=== PATIENT | female | born 1955 | race Caucasian/White ===

== ENCOUNTER 2016-05-01 21:42 | Emergency (ER) | payer BC, MEDICARE ==
[2016-05-01 21:55] VITALS: RESP 18
[2016-05-01] MEDS ORDERED: METOCLOPRAMIDE 5 MG/ML 2 ML VIAL IVP STA (22:18)
[2016-05-01] MEDS ORDERED: SODIUM CHLORIDE 0.9% 500 ML IV STA (22:18)
[2016-05-01] MEDS ORDERED: SODIUM CHLORIDE 0.9% 1,000 ML IV STA (22:18)
--- NOTE | 2016-05-01 22:30 | ED ---
Nausea/Vomiting/Diarrhea HPI - General Chief complaint: Nausea/Vomiting/Diarrhea Stated complaint: vomiting Time Seen by Provider: 05/01/16 22:16 Source: patient, RN notes reviewed Mode of arrival: ambulatory Limitations: no limitations - History of Present Illness Initial comments: 61-year-old female presents emergency Department with chief complaint of nausea vomiting over the last few days. Patient states she's had no sick contacts. Denies any change in bowel habits including diarrhea constipation. Patient denies fever, chills, night sweats. Patient has no chest pain or shortness of breath. Patient states that she has no abdominal surgery history. Patient denies any dysuria hematuria. - Related Data Home Medications Medication Instructions Recorded Confirmed Aspirin 81 mg PO DAILY 09/21/13 05/01/16 Diclofenac Sodium [Voltaren] 75 mg PO BID 09/21/13 05/01/16 Fluticasone/Salmeterol [Advair 1 puff INHALATION RT-BID 09/21/13 05/01/16 250-50 Diskus] Levothyroxine Sodium [Synthroid] 150 mcg PO QAM 09/21/13 05/01/16 Montelukast Sodium [Singulair] 10 mg PO HS 09/21/13 05/01/16 Omeprazole [PriLOSEC] 20 mg PO BID 09/21/13 05/01/16 Pravastatin Sodium [Pravachol] 40 mg PO HS 09/21/13 05/01/16 Primidone [Mysoline] 50 mg PO AC-BID 09/21/13 05/01/16 QUEtiapine [SEROquel] 100 mg PO HS 09/21/13 05/01/16 Ranitidine HCl 150 mg PO BID 09/21/13 05/01/16 Topiramate [Topamax] 50 mg PO BID 09/21/13 05/01/16 Cyclobenzaprine [Flexeril] 10 mg PO HS 06/10/15 05/01/16 Furosemide [Lasix] 40 mg PO BID 06/10/15 05/01/16 Metoclopramide [Reglan] 10 mg PO DAILY 06/10/15 05/01/16 Albuterol Nebulized [Ventolin 2.5 mg INHALATION RT-Q6H PRN 05/01/16 05/01/16 Nebulized] Canagliflozin [Invokana] 300 mg PO DAILY 05/01/16 05/01/16 Ferrous Sulfate [Feosol] 325 mg PO BID 05/01/16 05/01/16 Gabapentin 800 mg PO QID 05/01/16 05/01/16 Insulin Lispro [humaLOG Kwikpen] See Protocol SQ ACHS 05/01/16 05/01/16 Lisinopril [Zestril] 5 mg PO DAILY 05/01/16 05/01/16 traZODone HCL [Desyrel] 100 mg PO HS 05/01/16 05/01/16 Previous Rx's Medication Instructions Recorded Ondansetron Odt [Zofran Odt] 4 mg PO Q8HR PRN #10 tab 05/02/16 Allergies Allergy/AdvReac Type Severity Reaction Status Date / Time acetaminophen [From Vicodin] Allergy Rash/Hives Verified 05/01/16 22:42 aminophylline Allergy Rash/Hives Verified 05/01/16 22:42 cephalexin monohydrate Allergy Rash/Hives Verified 05/01/16 22:42 [From Keflex] diazepam [From Valium] Allergy Rash/Hives Verified 05/01/16 22:42 hydrocodone bitartrate Allergy Rash/Hives Verified 05/01/16 22:42 [From Vicodin] Iodinated Contrast Media - Allergy Rash/Hives Verified 05/01/16 22:42 Oral and [Iodinated Contrast Media - IV Dye] latex Allergy Rash/Hives Verified 05/01/16 22:42 Latex, Natural Rubber Allergy Rash/Hives Verified 05/01/16 22:42 levofloxacin [From Levaquin] Allergy Rash/Hives Verified 05/01/16 22:42 metformin HCl Allergy Rash/Hives Verified 05/01/16 22:42 [From Glucophage] morphine Allergy Rash/Hives Verified 05/01/16 22:42 Penicillins Allergy Rash/Hives Verified 05/01/16 22:42 Sulfa (Sulfonamide Allergy Rash/Hives Verified 05/01/16 22:42 Antibiotics) sulfamethoxazole Allergy Rash/Hives Verified 05/01/16 22:42 [From Bactrim] tetracycline [Tetracycline] Allergy Rash/Hives Verified 05/01/16 22:42 theophylline Allergy Rash/Hives Verified 05/01/16 22:42 tramadol Allergy Dyspnea Verified 05/01/16 22:42 trimethoprim [From Bactrim] Allergy Rash/Hives Verified 05/01/16 22:42 Review of Systems ROS Statement: Those systems with pertinent positive or pertinent negative responses have been documented in the HPI. ROS Other: All systems not noted in ROS Statement are negative. Past Medical History Past Medical History: Asthma, Heart Failure, COPD, CVA/TIA, Diabetes Mellitus, GERD/Reflux, Hypertension, Osteoarthritis (OA), Pneumonia, Renal Disease, Thyroid Disorder Additional Past Medical History / Comment(s): neuropathy,fibromyalgia,IBS, Migranes,sleep apnea,chronic lower backand neck diogenes,bronchitis, pleurisy, scoliosis,degenerative disc disease,carpal tunnel, History of Any Multi-Drug Resistant Organisms: None Reported Past Surgical History: Breast Surgery, Hysterectomy, Joint Replacement, Orthopedic Surgery, Tonsillectomy Additional Past Surgical History / Comment(s): lt knee, lt foot, rt ankle, rt foot, s. TOTAL LEFT KNEE (CERAMIC). LEFT BREAST STERIOSTATIC-NEGATIVE Past Anesthesia/Blood Transfusion Reactions: Motion Sickness Past Psychological History: Anxiety, Depression Smoking Status: Never smoker Past Alcohol Use History: None Reported Past Drug Use History: None Reported General Exam Limitations: no limitations General appearance: alert, in no apparent distress Eye exam: Present: normal appearance, PERRL, EOMI. Absent: scleral icterus, conjunctival injection, periorbital swelling ENT exam: Present: mucous membranes moist Respiratory exam: Present: normal lung sounds bilaterally. Absent: respiratory distress, wheezes, rales, rhonchi, stridor Cardiovascular Exam: Present: regular rate, normal rhythm, normal heart sounds. Absent: systolic murmur, diastolic murmur, rubs, gallop, clicks GI/Abdominal exam: Present: soft, normal bowel sounds. Absent: distended, tenderness, guarding, rebound, rigid Back exam: Absent: CVA tenderness (R), CVA tenderness (L) Skin exam: Present: warm, dry, intact, normal color. Absent: rash Course Vital Signs 05/01/16 21:52 Temperature 98.4 F Pulse Rate 93 Respiratory 18 Rate Blood Pressure 137/66 O2 Sat by Pulse 96 Oximetry - Reevaluation(s) Reevaluation #1: 05/02/16 00:41 Patient was reevaluated. Patient states she does feel slightly improved at this time. Patient did urinate though she put toilet paper in the stable. Patient will be given an additional 500 ml normal saline. Patient we discharged Mikaela. 05/02/16 00:41 Medical Decision Making - Medical Decision Making 61-year-old female presented for nausea vomiting diarrhea 2 days. Patient's laboratory within normal limits. There is no evidence of dehydration. Patient has not had any episodes of vomiting in the emergency department. Patient's x- ray does not show an acute abnormality. Patient be discharged Zofran with follow-up with primary care physician. - Lab Data Result diagrams: 05/01/16 23:04 05/01/16 23:04 Lab Results 05/01/16 05/01/16 Range/Units 23:04 23:04 WBC 6.9 (3.8-10.6) k/uL RBC 4.35 (3.80-5.40) m/uL Hgb 13.7 (11.4-16.0) gm/dL Hct 42.1 (34.0-46.0) % MCV 96.9 (80.0-100.0) fL MCH 31.5 (25.0-35.0) pg MCHC 32.5 (31.0-37.0) g/dL RDW 13.2 (11.5-15.5) % Plt Count 163 (150-450) k/uL Neutrophils % 67 % Lymphocytes % 23 % Monocytes % 7 % Eosinophils % 0 % Basophils % 1 % Neutrophils # 4.7 (1.3-7.7) k/uL Lymphocytes # 1.6 (1.0-4.8) k/uL Monocytes # 0.5 (0-1.0) k/uL Eosinophils # 0.0 (0-0.7) k/uL Basophils # 0.0 (0-0.2) k/uL Sodium 143 (137-145) mmol/L Potassium 4.3 (3.5-5.1) mmol/L Chloride 107 (98-107) mmol/L Carbon Dioxide 19 L (22-30) mmol/L Anion Gap 17 mmol/L BUN 15 (7-17) mg/dL Creatinine 0.60 (0.52-1.04) mg/dL Est GFR (MDRD) Af Amer >60 (>60 ml/min/1.73 sqM) Est GFR (MDRD) Non-Af >60 (>60 ml/min/1.73 sqM) Glucose 187 H (74-99) mg/dL Calcium 9.1 (8.4-10.2) mg/dL Total Bilirubin 0.6 (0.2-1.3) mg/dL AST 30 (14-36) U/L ALT 45 (9-52) U/L Alkaline Phosphatase 80 (38-126) U/L Total Protein 6.4 (6.3-8.2) g/dL Albumin 3.6 (3.5-5.0) g/dL Amylase <30 L (30-110) U/L Lipase 32 (23-300) U/L Disposition Clinical Impression: Nausea vomiting and diarrhea Disposition: HOME SELF-CARE Condition: Stable Instructions: Acute Nausea and Vomiting (ED) Additional Instructions: Please return to the Emergency Department if symptoms worsen or any other concerns. Prescriptions: Ondansetron Odt [Zofran Odt] 4 mg PO Q8HR PRN #10 tab PRN Reason: Nausea Time of Disposition: 00:43
[2016-05-01 23:27] LABS: Basophils % (A) 1 %; CH 31.9; CHCM 33.1; Eosinophils % (A) 0 %; HCT 42.1 % (34.0-46.0); HDW 2.42; HGB 13.7 gm/dL (11.4-16.0); Luc # (Auto) 0.14; Luc % (Auto) 2; Lymphocytes # (A) 1.6 k/uL (1.0-4.8); Lymphocytes % (A) 23 %; MCH 31.5 pg (25.0-35.0); MCHC 32.5 g/dL (31.0-37.0); MCV 96.9 fL (80.0-100.0); Mean Platelet Volume 10.4; Monocytes # (A) 0.5 k/uL (0-1.0); Monocytes % (A) 7 %; Neutrophils # (A) 4.7 k/uL (1.3-7.7); Neutrophils % (A) 67 %; RBC 4.35 m/uL (3.80-5.40); RDW 13.2 % (11.5-15.5); WBC 6.9 k/uL (3.8-10.6); WBC (Perox) 6.95
[2016-05-01 23:31] LABS: ALT 45 U/L (9-52); AST 30 U/L (14-36); Alkaline Phosphatase 80 U/L (38-126); Amylase <30 U/L (30-110); Anion Gap 17 mmol/L; Blood Urea Nitrogen 15 mg/dL (7-17); Calcium 9.1 mg/dL (8.4-10.2); Carbon Dioxide 19 mmol/L (22-30); Chloride 107 mmol/L (98-107); Glucose 187 mg/dL (74-99); Non-African American GFR(MDRD) >60 (>60 ml/min/1.73 sqM); Potassium 4.3 mmol/L (3.5-5.1); Sodium 143 mmol/L (137-145); Total Bilirubin 0.6 mg/dL (0.2-1.3); Total Protein 6.4 g/dL (6.3-8.2)
[2016-05-01] MEDS ORDERED: FAMOTIDINE 20 MG/2 ML VIAL IV STA (23:42)
[2016-05-01] MEDS ORDERED: ONDANSETRON 4 MG/2 ML VIAL IVP STA (23:42)
--- NOTE | 2016-05-02 00:17 | XR ---
EXAMINATION TYPE: XR KUB DATE OF EXAM: 05/01/2016 11:13 PM CLINICAL HISTORY: Nausea, vomiting and abdominal pain. TECHNIQUE: 3 radiographs of abdomen were obtained in supine position. COMPARISON: 10/16/2012 FINDINGS: Scattered gas is seen in non-distended small bowel loops. Gas and fecal material is seen in non-distended colon. There is no visceromegaly, pneumoperitoneum, or abnormal calcification appr eciated. The lung bases are clear and the osseous structures are intact. IMPRESSION: Overall nonobstructive bowel gas pattern.
[2016-05-02] MEDS ORDERED: SODIUM CHLORIDE 0.9% 500 ML IV ONE ×2 (00:41→00:43)
[2016-05-02 01:20] VITALS: BP 122/58; PULSE 102; TEMP 98
== END 2016-05-02 01:40 | disposition home or self-care (01) ==
LOC: EC 21:42
DX: R11.2 Nausea with vomiting, unspecified (principal); R19.7 Diarrhea, unspecified; I11.0 Hypertensive heart disease with heart failure; I50.9 Heart failure, unspecified; E07.9 Disorder of thyroid, unspecified; G62.9 Polyneuropathy, unspecified; M79.7 Fibromyalgia; M19.90 Unspecified osteoarthritis, unspecified site; K21.9 Gastro-esophageal reflux disease without esophagitis; E11.9 Type 2 diabetes mellitus without complications; J45.909 Unspecified asthma, uncomplicated; J44.9 Chronic obstructive pulmonary disease, unspecified; F32.9 Major depressive disorder, single episode, unspecified; F41.9 Anxiety disorder, unspecified; Z79.51 Long term (current) use of inhaled steroids; Z79.82 Long term (current) use of aspirin; Z79.1 Long term (current) use of non-steroidal anti-inflammatories (NSAID); Z79.4 Long term (current) use of insulin; Z79.84 Long term (current) use of oral hypoglycemic drugs; Z79.899 Other long term (current) drug therapy; Z88.0 Allergy status to penicillin; Z88.1 Allergy status to other antibiotic agents; Z88.2 Allergy status to sulfonamides; Z88.5 Allergy status to narcotic agent; Z88.6 Allergy status to analgesic agent; Z91.041 Radiographic dye allergy status; Z91.040 Latex allergy status; Z88.8 Allergy status to other drugs, medicaments and biological substances
CPT/HCPCS: 36415; 80053; 82150; 83690; 85025; 74000; 99284; 96374; 96375 ×2; 96361 ×2; J2765; J2405

== ENCOUNTER 2016-05-07 05:05 | Inpatient (IN) | payer MEDICARE ==
[2016-05-07] MEDS ORDERED: SODIUM CHLORIDE 0.9% 1,000 ML IV STA (05:11)
--- NOTE | 2016-05-07 05:16 | ED ---
Altered Mental Status HPI - General Source: EMS, RN notes reviewed Mode of arrival: EMS - History of Present Illness MD Complaint: decreased responsiveness <Rodrigo Chun - Last Filed: 05/07/16 06:47> <Fernando Niño - Last Filed: 05/07/16 08:15> - General Stated Complaint: weakness Time Seen by Provider: 05/07/16 05:05 - History of Present Illness Initial Comments: This is a 61-year-old female history of multiple medical problems including diabetes who apparently has had 4-5 days of progressively worsening weakness and had a near-syncopal episode tonight. Her finally called 911 apparently he was not very forthcoming with medical history though EMS was supplied with a written history. She was noted have a blood pressure of 73/54 she was a very conversant. Blood sugar was in the low 100s. She was brought here for evaluation priority 1. No reports of trauma (Rodrigo Chun) - Related Data Home Medications Medication Instructions Recorded Confirmed Aspirin 81 mg PO DAILY 09/21/13 05/07/16 Diclofenac Sodium [Voltaren] 75 mg PO BID 09/21/13 05/07/16 Fluticasone/Salmeterol [Advair 1 puff INHALATION RT-BID 09/21/13 05/07/16 250-50 Diskus] Levothyroxine Sodium [Synthroid] 150 mcg PO QAM 09/21/13 05/07/16 Montelukast Sodium [Singulair] 10 mg PO HS 09/21/13 05/07/16 Omeprazole [PriLOSEC] 20 mg PO BID 09/21/13 05/07/16 Pravastatin Sodium [Pravachol] 40 mg PO HS 09/21/13 05/07/16 Primidone [Mysoline] 50 mg PO AC-BID 09/21/13 05/07/16 QUEtiapine [SEROquel] 100 mg PO HS 09/21/13 05/07/16 Ranitidine HCl 150 mg PO BID 09/21/13 05/07/16 Topiramate [Topamax] 50 mg PO BID 09/21/13 05/07/16 Cyclobenzaprine [Flexeril] 10 mg PO HS 06/10/15 05/07/16 Furosemide [Lasix] 40 mg PO BID 06/10/15 05/07/16 Metoclopramide [Reglan] 10 mg PO DAILY 06/10/15 05/07/16 Albuterol Nebulized [Ventolin 2.5 mg INHALATION RT-Q6H PRN 05/01/16 05/07/16 Nebulized] Canagliflozin [Invokana] 300 mg PO DAILY 05/01/16 05/07/16 Ferrous Sulfate [Feosol] 325 mg PO BID 05/01/16 05/07/16 Gabapentin 800 mg PO QID 05/01/16 05/07/16 Insulin Lispro [humaLOG Kwikpen] See Protocol SQ ACHS 05/01/16 05/07/16 Lisinopril [Zestril] 5 mg PO DAILY 05/01/16 05/07/16 traZODone HCL [Desyrel] 100 mg PO HS 05/01/16 05/07/16 Previous Rx's Medication Instructions Recorded Ondansetron Odt [Zofran Odt] 4 mg PO Q8HR PRN #10 tab 05/02/16 Allergies Allergy/AdvReac Type Severity Reaction Status Date / Time aminophylline Allergy Rash/Hives Verified 05/07/16 07:14 cephalexin monohydrate Allergy Rash/Hives Verified 05/07/16 07:14 [From Keflex] diazepam [From Valium] Allergy Rash/Hives Verified 05/07/16 07:14 hydrocodone bitartrate Allergy Rash/Hives Verified 05/07/16 07:14 [From Vicodin] Iodinated Contrast Media - Allergy Rash/Hives Verified 05/07/16 07:14 Oral and [Iodinated Contrast Media - IV Dye] latex Allergy Rash/Hives Verified 05/07/16 07:14 Latex, Natural Rubber Allergy Rash/Hives Verified 05/07/16 07:14 levofloxacin [From Levaquin] Allergy Rash/Hives Verified 05/07/16 07:14 metformin HCl Allergy Rash/Hives Verified 05/07/16 07:14 [From Glucophage] morphine Allergy Rash/Hives Verified 05/07/16 07:14 Penicillins Allergy Rash/Hives Verified 05/07/16 07:14 Sulfa (Sulfonamide Allergy Rash/Hives Verified 05/07/16 07:14 Antibiotics) sulfamethoxazole Allergy Rash/Hives Verified 05/07/16 07:14 [From Bactrim] tetracycline [Tetracycline] Allergy Rash/Hives Verified 05/07/16 07:14 theophylline Allergy Rash/Hives Verified 05/07/16 07:14 tramadol Allergy Dyspnea Verified 05/07/16 07:14 trimethoprim [From Bactrim] Allergy Rash/Hives Verified 05/07/16 07:14 Review of Systems ROS Other: All systems not noted in ROS Statement are negative. Limitations: ROS unobtainable due to patients medical condition <Rodrigo Chun - Last Filed: 05/07/16 06:47> ROS Other: All systems not noted in ROS Statement are negative. <Fernando Niño - Last Filed: 05/07/16 08:15> ROS Statement: Those systems with pertinent positive or pertinent negative responses have been documented in the HPI. Past Medical History Past Medical History: Asthma, Heart Failure, COPD, CVA/TIA, Diabetes Mellitus, GERD/Reflux, Hypertension, Osteoarthritis (OA), Pneumonia, Renal Disease, Thyroid Disorder Additional Past Medical History / Comment(s): neuropathy,fibromyalgia,IBS, Migranes,sleep apnea,chronic lower backand neck diogenes,bronchitis, pleurisy, scoliosis,degenerative disc disease,carpal tunnel, History of Any Multi-Drug Resistant Organisms: None Reported Past Surgical History: Breast Surgery, Hysterectomy, Joint Replacement, Orthopedic Surgery, Tonsillectomy Additional Past Surgical History / Comment(s): lt knee, lt foot, rt ankle, rt foot, s. TOTAL LEFT KNEE (CERAMIC). LEFT BREAST STERIOSTATIC-NEGATIVE Past Anesthesia/Blood Transfusion Reactions: Motion Sickness Past Psychological History: Anxiety, Depression Smoking Status: Never smoker Past Alcohol Use History: None Reported Past Drug Use History: None Reported <AdielRodrigo - Last Filed: 05/07/16 06:47> General Exam Limitations: altered mental status General appearance: alert, lethargic Head exam: Present: atraumatic, normocephalic, normal inspection Eye exam: Present: normal appearance, PERRL, EOMI. Absent: scleral icterus, conjunctival injection, periorbital swelling ENT exam: Present: mucous membranes dry, other (Dark colored material in the tongue questionable blood) Neck exam: Present: normal inspection. Absent: tenderness, meningismus, lymphadenopathy Respiratory exam: Present: decreased breath sounds Cardiovascular Exam: Present: regular rate GI/Abdominal exam: Present: soft, distended. Absent: tenderness, pulsatile mass , hernia Rectal exam: Present: deferred Extremities exam: Present: normal inspection, full ROM, normal capillary refill. Absent: tenderness, pedal edema, joint swelling, calf tenderness Back exam: Present: normal inspection Neurological exam: Present: altered, CN II-XII intact. Absent: motor sensory deficit Psychiatric exam: Present: agitated, anxious Skin exam: Present: warm, dry, intact, normal color. Absent: rash <Rodrigo Chun - Last Filed: 05/07/16 06:47> <Fernando Niño - Last Filed: 05/07/16 08:15> - General Exam Comments Initial Comments: Is a well-developed well-nourished awake but lethargic female (Rodrigo Chun) Course <Rodrigo Chun - Last Filed: 05/07/16 06:47> <Fernando Niño - Last Filed: 05/07/16 08:15> Vital Signs 05/07/16 05/07/16 05/07/16 05:06 06:30 07:16 Temperature 96.4 F L 96.9 F L Pulse Rate 115 H 104 H 110 H Respiratory 20 22 32 H Rate Blood Pressure 70/46 104/53 114/74 O2 Sat by Pulse 98 98 97 Oximetry - Reevaluation(s) Reevaluation #1: 05/07/16 06:47 The patient's care will be endorsed to Dr. Niño who will make the final disposition. Multiple labs and imaging studies are pending at this time. (Rodrigo Chun) Medical Decision Making - Lab Data Result diagrams: 05/07/16 05:45 - EKG Data -: EKG Interpreted by Tx EKG shows normal: sinus rhythm (EKG shows sinus rhythm a 113 QRS duration 76 QT/ QTC 470/644: QT nonspecific T-wave configuration artifact is present.) <Rodrigo Chun - Last Filed: 05/07/16 06:47> - Lab Data Result diagrams: 05/07/16 05:45 05/07/16 05:45 - Radiology Data Radiology results: report reviewed (Computed tomography scan of the brain shows no acute process), image reviewed (Chest x-ray and abdominal x-ray revealed no acute process.) <Fernando Niño - Last Filed: 05/07/16 08:15> - Medical Decision Making Patient did receive fluid bolus and insulin bolus and insulin drip. Admission orders written. Dr. Chun did speak with Dr. Loaiza, who will admit for Dr. gonzalez. Dr. Montesinos has been paged for ICU consult. Patient was reevaluated. Patient does appear dry. Patient is somewhat restless. Secondary to acidosis third IV line was placed by nursing staff. Patient will be admitted to intensive care unit. (Fernando Niño) - Lab Data Lab Results 05/07/16 05/07/16 05/07/16 Range/Units 05:11 05:45 05:45 WBC (3.8-10.6) k/uL RBC (3.80-5.40) m/uL Hgb (11.4-16.0) gm/dL Hct (34.0-46.0) % MCV (80.0-100.0) fL MCH (25.0-35.0) pg MCHC (31.0-37.0) g/dL RDW (11.5-15.5) % Plt Count (150-450) k/uL Neutrophils % % Lymphocytes % % Monocytes % % Eosinophils % % Basophils % % Neutrophils # (1.3-7.7) k/uL Lymphocytes # (1.0-4.8) k/uL Monocytes # (0-1.0) k/uL Eosinophils # (0-0.7) k/uL Basophils # (0-0.2) k/uL PT 13.0 H (9.0-12.0) sec INR 1.3 (<1.1) APTT 23.5 (22.0-30.0) sec Sodium (137-145) mmol/L Potassium (3.5-5.1) mmol/L Chloride (98-107) mmol/L Carbon Dioxide (22-30) mmol/L Anion Gap mmol/L BUN (7-17) mg/dL Creatinine (0.52-1.04) mg/dL Est GFR (MDRD) Af Amer (>60 ml/min/1.73 sqM) Est GFR (MDRD) Non-Af (>60 ml/min/1.73 sqM) Glucose (74-99) mg/dL POC Glucose (mg/dL) 404 H (75-99) mg/dL POC Glu Plush Brusher ID Sujit Mann Plasma Lactic Acid Ad (0.7-2.0) mmol/L Calcium (8.4-10.2) mg/dL Magnesium (1.6-2.3) mg/dL Total Bilirubin (0.2-1.3) mg/dL AST (14-36) U/L ALT (9-52) U/L Alkaline Phosphatase (38-126) U/L Ammonia (<30) umol/L Total Creatine Kinase (30-135) U/L CK-MB (CK-2) (0.0-2.4) ng/mL CK-MB (CK-2) Rel Index Total Protein (6.3-8.2) g/dL Albumin (3.5-5.0) g/dL Amylase (30-110) U/L Lipase (23-300) U/L Urine Color Urine Appearance (Clear) Urine pH (5.0-8.0) Ur Specific [place] (1.001-1.035) Urine Protein (Negative) Urine Glucose (UA) (Negative) Urine Ketones (Negative) Urine Blood (Negative) Urine Nitrate (Negative) Urine Bilirubin (Negative) Urine Urobilinogen (<2.0) mg/dL Ur Leukocyte Esterase (Negative) Urine RBC (0-5) /hpf Urine WBC (0-5) /hpf Ur Squamous Epith Cells (0-4) /hpf Hyaline Casts (0-2) /lpf Urine Mucus (None) /hpf Gastric Occult Blood Positive (Negative) Salicylates mg/dL Acetaminophen ug/mL Serum Alcohol mg/dL Acetone, Qual (Negative) 05/07/16 05/07/16 05/07/16 Range/Units 05:45 05:45 05:45 WBC 18.2 H (3.8-10.6) k/uL RBC 5.86 H (3.80-5.40) m/uL Hgb 17.4 H D (11.4-16.0) gm/dL Hct 58.4 H (34.0-46.0) % MCV 99.6 (80.0-100.0) fL MCH 29.7 (25.0-35.0) pg MCHC 29.8 L (31.0-37.0) g/dL RDW 13.5 (11.5-15.5) % Plt Count 212 (150-450) k/uL Neutrophils % 86 % Lymphocytes % 7 % Monocytes % 5 % Eosinophils % 0 % Basophils % 1 % Neutrophils # 15.7 H (1.3-7.7) k/uL Lymphocytes # 1.3 (1.0-4.8) k/uL Monocytes # 0.9 (0-1.0) k/uL Eosinophils # 0.0 (0-0.7) k/uL Basophils # 0.1 (0-0.2) k/uL PT (9.0-12.0) sec INR (<1.1) APTT (22.0-30.0) sec Sodium 149 H (137-145) mmol/L Potassium 4.7 (3.5-5.1) mmol/L Chloride 115 H (98-107) mmol/L Carbon Dioxide <5 L* (22-30) mmol/L Anion Gap 29 mmol/L BUN 27 H (7-17) mg/dL Creatinine 1.60 H (0.52-1.04) mg/dL Est GFR (MDRD) Af Amer 40 (>60 ml/min/1.73 sqM) Est GFR (MDRD) Non-Af 33 (>60 ml/min/1.73 sqM) Glucose 443 H (74-99) mg/dL POC Glucose (mg/dL) (75-99) mg/dL POC Glu Plush Brusher ID Plasma Lactic Acid Ad (0.7-2.0) mmol/L Calcium 11.1 H (8.4-10.2) mg/dL Magnesium 2.7 H (1.6-2.3) mg/dL Total Bilirubin 0.9 (0.2-1.3) mg/dL AST 14 (14-36) U/L ALT 35 (9-52) U/L Alkaline Phosphatase 103 (38-126) U/L Ammonia (<30) umol/L Total Creatine Kinase 90 (30-135) U/L CK-MB (CK-2) 3.5 H* (0.0-2.4) ng/mL CK-MB (CK-2) Rel Index 3.9 Total Protein 7.2 (6.3-8.2) g/dL Albumin 4.0 (3.5-5.0) g/dL Amylase 214 H (30-110) U/L Lipase 1660 H (23-300) U/L Urine Color Urine Appearance (Clear) Urine pH (5.0-8.0) Ur Specific [place] (1.001-1.035) Urine Protein (Negative) Urine Glucose (UA) (Negative) Urine Ketones (Negative) Urine Blood (Negative) Urine Nitrate (Negative) Urine Bilirubin (Negative) Urine Urobilinogen (<2.0) mg/dL Ur Leukocyte Esterase (Negative) Urine RBC (0-5) /hpf Urine WBC (0-5) /hpf Ur Squamous Epith Cells (0-4) /hpf Hyaline Casts (0-2) /lpf Urine Mucus (None) /hpf Gastric Occult Blood (Negative) Salicylates <1.0 mg/dL Acetaminophen <10.0 ug/mL Serum Alcohol <10 mg/dL Acetone, Qual Positive (Negative) 05/07/16 05/07/16 05/07/16 Range/Units 05:45 07:30 07:35 WBC (3.8-10.6) k/uL RBC (3.80-5.40) m/uL Hgb (11.4-16.0) gm/dL Hct (34.0-46.0) % MCV (80.0-100.0) fL MCH (25.0-35.0) pg MCHC (31.0-37.0) g/dL RDW (11.5-15.5) % Plt Count (150-450) k/uL Neutrophils % % Lymphocytes % % Monocytes % % Eosinophils % % Basophils % % Neutrophils # (1.3-7.7) k/uL Lymphocytes # (1.0-4.8) k/uL Monocytes # (0-1.0) k/uL Eosinophils # (0-0.7) k/uL Basophils # (0-0.2) k/uL PT (9.0-12.0) sec INR (<1.1) APTT (22.0-30.0) sec Sodium (137-145) mmol/L Potassium (3.5-5.1) mmol/L Chloride (98-107) mmol/L Carbon Dioxide (22-30) mmol/L Anion Gap mmol/L BUN (7-17) mg/dL Creatinine (0.52-1.04) mg/dL Est GFR (MDRD) Af Amer (>60 ml/min/1.73 sqM) Est GFR (MDRD) Non-Af (>60 ml/min/1.73 sqM) Glucose (74-99) mg/dL POC Glucose (mg/dL) 349 H (75-99) mg/dL POC Glu Plush Brusher ID Branch, Forrest Plasma Lactic Acid Ad 2.7 H* (0.7-2.0) mmol/L Calcium (8.4-10.2) mg/dL Magnesium (1.6-2.3) mg/dL Total Bilirubin (0.2-1.3) mg/dL AST (14-36) U/L ALT (9-52) U/L Alkaline Phosphatase (38-126) U/L Ammonia 33 H (<30) umol/L Total Creatine Kinase (30-135) U/L CK-MB (CK-2) (0.0-2.4) ng/mL CK-MB (CK-2) Rel Index Total Protein (6.3-8.2) g/dL Albumin (3.5-5.0) g/dL Amylase (30-110) U/L Lipase (23-300) U/L Urine Color Yellow Urine Appearance Clear (Clear) Urine pH 6.0 (5.0-8.0) Ur Specific [place] 1.018 (1.001-1.035) Urine Protein 2+ H (Negative) Urine Glucose (UA) 4+ H (Negative) Urine Ketones 4+ H (Negative) Urine Blood Small H (Negative) Urine Nitrate Negative (Negative) Urine Bilirubin 1+ H (Negative) Urine Urobilinogen 2.0 (<2.0) mg/dL Ur Leukocyte Esterase Negative (Negative) Urine RBC <1 (0-5) /hpf Urine WBC 1 (0-5) /hpf Ur Squamous Epith Cells <1 (0-4) /hpf Hyaline Casts 15 H (0-2) /lpf Urine Mucus Rare H (None) /hpf Gastric Occult Blood (Negative) Salicylates mg/dL Acetaminophen ug/mL Serum Alcohol mg/dL Acetone, Qual (Negative) 05/07/16 Range/Units 08:11 WBC (3.8-10.6) k/uL RBC (3.80-5.40) m/uL Hgb (11.4-16.0) gm/dL Hct (34.0-46.0) % MCV (80.0-100.0) fL MCH (25.0-35.0) pg MCHC (31.0-37.0) g/dL RDW (11.5-15.5) % Plt Count (150-450) k/uL Neutrophils % % Lymphocytes % % Monocytes % % Eosinophils % % Basophils % % Neutrophils # (1.3-7.7) k/uL Lymphocytes # (1.0-4.8) k/uL Monocytes # (0-1.0) k/uL Eosinophils # (0-0.7) k/uL Basophils # (0-0.2) k/uL PT (9.0-12.0) sec INR (<1.1) APTT (22.0-30.0) sec Sodium (137-145) mmol/L Potassium (3.5-5.1) mmol/L Chloride (98-107) mmol/L Carbon Dioxide (22-30) mmol/L Anion Gap mmol/L BUN (7-17) mg/dL Creatinine (0.52-1.04) mg/dL Est GFR (MDRD) Af Amer (>60 ml/min/1.73 sqM) Est GFR (MDRD) Non-Af (>60 ml/min/1.73 sqM) Glucose (74-99) mg/dL POC Glucose (mg/dL) 333 H (75-99) mg/dL POC Glu [place] ID [place], [place] Plasma Lactic Acid Ad (0.7-2.0) mmol/L Calcium (8.4-10.2) mg/dL Magnesium (1.6-2.3) mg/dL Total Bilirubin (0.2-1.3) mg/dL AST (14-36) U/L ALT (9-52) U/L Alkaline Phosphatase (38-126) U/L Ammonia (<30) umol/L Total Creatine Kinase (30-135) U/L CK-MB (CK-2) (0.0-2.4) ng/mL CK-MB (CK-2) Rel Index Total Protein (6.3-8.2) g/dL Albumin (3.5-5.0) g/dL Amylase (30-110) U/L Lipase (23-300) U/L Urine Color Urine Appearance (Clear) Urine pH (5.0-8.0) Ur Specific [place] (1.001-1.035) Urine Protein (Negative) Urine Glucose (UA) (Negative) Urine Ketones (Negative) Urine Blood (Negative) Urine Nitrate (Negative) Urine Bilirubin (Negative) Urine Urobilinogen (<2.0) mg/dL Ur Leukocyte Esterase (Negative) Urine RBC (0-5) /hpf Urine WBC (0-5) /hpf Ur Squamous Epith Cells (0-4) /hpf Hyaline Casts (0-2) /lpf Urine Mucus (None) /hpf Gastric Occult Blood (Negative) Salicylates mg/dL Acetaminophen ug/mL Serum Alcohol mg/dL Acetone, Qual (Negative) Critical Care Time Critical Care Time: Yes Total Critical Care Time: 33 <Fernando Niño - Last Filed: 05/07/16 08:15> Disposition <Rodrigo Chun - Last Filed: 05/07/16 06:47> <Fernando Niño - Last Filed: 05/07/16 08:15> Clinical Impression: Nausea vomiting and diarrhea, Diabetic ketoacidosis Disposition: ADMITTED IP TO THIS HOSP Condition: Serious
[2016-05-07 05:17] LABS: Glucose,Whole Blood 404 mg/dL (75-99)
[2016-05-07] MEDS ORDERED: ONDANSETRON 4 MG/2 ML VIAL IVP STA (06:00)
[2016-05-07] MEDS: SODIUM CHLORIDE 0.9% 2,000 ML IV ONE ×2 (06:04→06:11)
[2016-05-07 06:06] LABS: Basophils # (A) 0.1 k/uL (0-0.2); Basophils % (A) 1 %; CH 31.9; CHCM 32.2; Eosinophils % (A) 0 %; HCT 58.4 % (34.0-46.0); HDW 2.78; Luc # (Auto) 0.16; Luc % (Auto) 1; Lymphocytes # (A) 1.3 k/uL (1.0-4.8); Lymphocytes % (A) 7 %; MCH 29.7 pg (25.0-35.0); MCHC 29.8 g/dL (31.0-37.0); MCV 99.6 fL (80.0-100.0); Mean Platelet Volume 11.3; Monocytes # (A) 0.9 k/uL (0-1.0); Monocytes % (A) 5 %; Neutrophils # (A) 15.7 k/uL (1.3-7.7); Neutrophils % (A) 86 %; RBC 5.86 m/uL (3.80-5.40); RDW 13.5 % (11.5-15.5); WBC 18.2 k/uL (3.8-10.6); WBC (Perox) 18.02
[2016-05-07 06:08] LABS: HGB 17.4 gm/dL (11.4-16.0)
[2016-05-07 06:26] LABS: ALT 35 U/L (9-52); AST 14 U/L (14-36); Acetaminophen <10.0 ug/mL; Alcohol <10 mg/dL; Alkaline Phosphatase 103 U/L (38-126); Amylase 214 U/L (30-110); Anion Gap 29 mmol/L; Blood Urea Nitrogen 27 mg/dL (7-17); Calcium 11.1 mg/dL (8.4-10.2); Chloride 115 mmol/L (98-107); Glucose 443 mg/dL (74-99); Magnesium 2.7 mg/dL (1.6-2.3); Non-African American GFR(MDRD) 33 (>60 ml/min/1.73 sqM); Potassium 4.7 mmol/L (3.5-5.1); Salicylate <1.0 mg/dL; Sodium 149 mmol/L (137-145); Total Bilirubin 0.9 mg/dL (0.2-1.3); Total Protein 7.2 g/dL (6.3-8.2)
[2016-05-07] MEDS ORDERED: INSULIN REGULAR 100 UNIT/ML VIAL IV ONE (06:27)
[2016-05-07 06:47] LABS: Carbon Dioxide <5 mmol/L (22-30); Creatine Kinase MB 3.5 ng/mL (0.0-2.4)
[2016-05-07] MEDS ORDERED: INSULIN REGULAR 100 UNIT in SODIUM CHLORIDE 0.9% 100 ML IV SCH (07:00)
--- NOTE | 2016-05-07 07:10 | CT ---
EXAMINATION TYPE: CT brain wo con DATE OF EXAM: 05/07/2016 6:56 AM COMPARISON: 10/16/2012 . HISTORY: Weakness CT DLP: 1121 mGycm Automated exposure control for dose reduction was used. FINDINGS: Calvarium appears intact. There is no acute intracranial hemorrhage, mass effect, or midline shift identified. The ventricles and sulci are within normal limits in size. The globes are intact and the visualized sinuses are radha ar. IMPRESSION: No acute intracranial hemorrhage, mass effect, or midline shift is seen. There is no significant interval change.
--- NOTE | 2016-05-07 07:14 | XR ---
EXAMINATION TYPE: XR chest 1V portable DATE OF EXAM: 05/07/2016 7:00 AM COMPARISON: 06/18/2011 HISTORY: Weakness TECHNIQUE: Single frontal view of the chest is obtained. FINDINGS: Chronic lung changes are suggested. There is no focal air space opacity, pleural effusion, or pneumothorax seen. The cardiac silhouette size is within normal limits. The osseous structures are intact. IMPRESSION: No acute process. Chronic lung changes are suggested. No significant change.
--- NOTE | 2016-05-07 07:16 | XR ---
EXAMINATION TYPE: XR abdomen 1V DATE OF EXAM: 05/07/2016 7:00 AM CLINICAL HISTORY: Weakness TECHNIQUE: 2 upright frontal radiographs of abdomen were obtained. COMPARISON: 05/01/2016 FINDINGS: Scattered gas is seen in non-distended small bowel loops. Gas and fecal material is seen in non-distended colon. There is no visceromegaly, pneumoperitoneum, or abnormal calcification appr eciated. The lung bases are clear and the osseous structures are intact. IMPRESSION: Overall nonobstructive bowel gas pattern. No significant interval change.
[2016-05-07 07:37] LABS: Glucose,Whole Blood 349 mg/dL (75-99)
[2016-05-07 07:46] LABS: Appearance,Urine Clear (Clear); Bilirubin,Urine 1+ (Negative); Glucose,Urine (UA) 4+ (Negative); Leukocyte Esterase,Urine Negative (Negative); Mucus,Urine Rare /hpf; Nitrite,Urine Negative (Negative); Particle Count 3704; Protein,Urine 2+ (Negative); RBC,Urine <1 /hpf (0-5); Specific Gravity,Urine 1.018 (1.001-1.035); Squamous Epithelial Cell,Urine <1 /hpf (0-4); UA Billing (MACRO vs. MICRO) MICRO; WBC,Urine 1 /hpf (0-5)
[2016-05-07] MEDS: LORazepam 2 MG/ML SYRINGE IV STA ×2 (08:03→08:07)
[2016-05-07 08:12] LABS: Ketones,Urine 4+ (Negative)
[2016-05-07 08:12] LABS: Glucose,Whole Blood 333 mg/dL (75-99)
[2016-05-07] MEDS ORDERED: SODIUM CHLORIDE 0.9% 1,000 ML IV ONE (08:15)
[2016-05-07] MEDS: SODIUM CHLORIDE 0.9% 1,000 ML IV SCH ×3 (08:33→18:18)
[2016-05-07 08:45] LABS: Glucose,Whole Blood 215 mg/dL (75-99)
[2016-05-07] MEDS: D5-0.45% NACL WITH KCL 20MEQ/L 1,000 ML IV SCH ×3 (08:46→23:04)
[2016-05-07] MEDS: INSULIN REGULAR 100 UNIT in SODIUM CHLORIDE 0.9% 100 ML IV SCH ×3 (09:16→19:04)
[2016-05-07 09:24] LABS: Glucose,Whole Blood 144 mg/dL (75-99)
[2016-05-07 09:51] LABS: Glucose,Whole Blood 119 mg/dL (75-99)
[2016-05-07 10:29] LABS: Glucose,Whole Blood 118 mg/dL (75-99)
[2016-05-07] MEDS ORDERED: IV VANCOMYCIN PER PHARMACY 1 EACH MISC MISCELLANE PRN (10:55)
[2016-05-07 11:20] LABS: Glucose,Whole Blood 128 mg/dL (75-99)
[2016-05-07] MEDS ORDERED: VANCOMYCIN 1,500 MG in SODIUM CHLORIDE 0.9% 250 ML IVPB ONE (12:00)
[2016-05-07 12:04] LABS: Glucose,Whole Blood 134 mg/dL (75-99)
[2016-05-07 12:07] LABS: Potassium 3.3 mmol/L (3.5-5.1)
[2016-05-07 12:24] LABS: Phosphorous 1.1 mg/dL (2.5-4.5)
[2016-05-07] MEDS: AZTREONAM 1 GM in SODIUM CHLORIDE 0.9% 50 ML IVPB SCH ×2 (12:39→18:08)
[2016-05-07] MEDS ORDERED: Phosphorus Replacement Protoco 1 EACH MISC MISCELLANE PRN (13:00)
[2016-05-07 13:10] LABS: Glucose,Whole Blood 182 mg/dL (75-99)
[2016-05-07 14:11] LABS: Glucose,Whole Blood 258 mg/dL (75-99)
--- NOTE | 2016-05-07 14:43 | P.CNPUL ---
History of Present Illness Consult date: 05/07/16 Requesting physician: Lonny Loaiza Reason for consult: other (Acute diabetic ketoacidosis) Chief complaint: Acute mental status change History of present illness: This is a 61-year-old female with history of diabetes, patient is a poor historian, presented to the ER with chief complaint of weakness over the last 4- 5 days. Patient also had a near syncopal episode according to her , and EMS was called in. Patient was brought into the ER and she was a very poor historian, blood pressure was low at 73/54, patient was very confused, she had significantly abnormal electrolytes with a sodium of 153, chloride is 124, bicarb was only 10, she was also noted to have on iron Metabolic acidosis with anion gap of 19, she had leukocytosis with WBC count of 18.2 blood sugar was 258 , lactic acid was 2.7, lipase was over 1600 and the patient had positive ketones. CT of the brain was normal. KUB was normal. Chest x-ray was also normal. Hence the patient was admitted with the impression of acute diabetic ketoacidosis and acute metabolic encephalopathy, I was asked to see her on consultation. Patient is definitely confused, but she is in no form of respiratory distress upon my initial evaluation. The diabetic ketoacidosis protocol is being followed, and the patient is receiving fluids as well as insulin. I recommended empiric antibiotics for possible underlying sepsis. Patient has multiple ALLERGIES, hence she was placed on aztreonam and vancomycin. Cultures are pending. Review of Systems ROS unobtainable: due to mental status Past Medical History Past Medical History: Asthma, Heart Failure, COPD, CVA/TIA, Diabetes Mellitus, Fibromyalgia, GERD/Reflux, Hypertension, Osteoarthritis (OA), Pneumonia, Renal Disease, Thyroid Disorder Additional Past Medical History / Comment(s): Severe asthma, bronchitis, pleurisy, IDDM type II, bilateral neuropathy hands and feet, fibromyalgia, IBS, migranes, sleep apnea with CPAP, TIA, chronic lower back and neck pain, scoliosis, degenerative disc disease, carpal tunnel bilaterally, pinched nerve R leg, UTI, kidney failure. History of Any Multi-Drug Resistant Organisms: None Reported Past Surgical History: Appendectomy, Breast Surgery, Heart Catheterization, Hysterectomy, Joint Replacement, Orthopedic Surgery, Tonsillectomy Additional Past Surgical History / Comment(s): lt knee with pins, lt foot with screws, rt ankle arthroscopic sx, rt foot-cyst removed, TOTAL LEFT KNEE (CERAMIC ), L hand 5th finger dupuytrens contraction, LEFT BREAST lumpectomy-NEGATIVE ( has marker), colonoscopy. Past Anesthesia/Blood Transfusion Reactions: No Reported Reaction, Motion Sickness Past Psychological History: Anxiety, Depression Additional Psychological History / Comment(s): Pt resides with her spouse. She uses no assistive device. She drives. She has depression but denies suicidal thoughts or wishing she were . She has had panic attacks in past. Smoking Status: Never smoker Past Alcohol Use History: None Reported Past Drug Use History: None Reported - Past Family History Father Family Medical History: No Reported History Additional Family Medical History / Comment(s): Pt states father was healthy Mother Family Medical History: No Reported History Additional Family Medical History / Comment(s): Pt statets mother was healthy. Medications and Allergies Home Medications Medication Instructions Recorded Confirmed Type Aspirin 81 mg PO DAILY 09/21/13 05/07/16 History Diclofenac Sodium [Voltaren] 75 mg PO BID 09/21/13 05/07/16 History Fluticasone/Salmeterol [Advair 1 puff INHALATION RT-BID 09/21/13 05/07/16 History 250-50 Diskus] Levothyroxine Sodium [Synthroid] 150 mcg PO QAM 09/21/13 05/07/16 History Montelukast Sodium [Singulair] 10 mg PO HS 09/21/13 05/07/16 History Omeprazole [PriLOSEC] 20 mg PO BID 09/21/13 05/07/16 History Pravastatin Sodium [Pravachol] 40 mg PO HS 09/21/13 05/07/16 History Primidone [Mysoline] 50 mg PO AC-BID 09/21/13 05/07/16 History QUEtiapine [SEROquel] 100 mg PO HS 09/21/13 05/07/16 History Ranitidine HCl 150 mg PO BID 09/21/13 05/07/16 History Topiramate [Topamax] 50 mg PO BID 09/21/13 05/07/16 History Cyclobenzaprine [Flexeril] 10 mg PO HS 06/10/15 05/07/16 History Furosemide [Lasix] 40 mg PO BID 06/10/15 05/07/16 History Metoclopramide [Reglan] 10 mg PO DAILY 06/10/15 05/07/16 History Albuterol Nebulized [Ventolin 2.5 mg INHALATION RT-Q6H PRN 05/01/16 05/07/16 History Nebulized] Canagliflozin [Invokana] 300 mg PO DAILY 05/01/16 05/07/16 History Ferrous Sulfate [Feosol] 325 mg PO BID 05/01/16 05/07/16 History Gabapentin 800 mg PO QID 05/01/16 05/07/16 History Insulin Lispro [humaLOG Kwikpen] See Protocol SQ ACHS 05/01/16 05/07/16 History Lisinopril [Zestril] 5 mg PO DAILY 05/01/16 05/07/16 History traZODone HCL [Desyrel] 100 mg PO HS 05/01/16 05/07/16 History Exenatide Microspheres [Bydureon 2 mg SQ Q7D 05/07/16 05/07/16 History Pen] Allergies Allergy/AdvReac Type Severity Reaction Status Date / Time aminophylline Allergy Rash/Hives Verified 05/07/16 07:14 cephalexin monohydrate Allergy Rash/Hives Verified 05/07/16 07:14 [From Keflex] diazepam [From Valium] Allergy Rash/Hives Verified 05/07/16 07:14 hydrocodone bitartrate Allergy Rash/Hives Verified 05/07/16 07:14 [From Vicodin] Iodinated Contrast Media - Allergy Rash/Hives Verified 05/07/16 07:14 Oral and [Iodinated Contrast Media - IV Dye] latex Allergy Rash/Hives Verified 05/07/16 07:14 Latex, Natural Rubber Allergy Rash/Hives Verified 05/07/16 07:14 levofloxacin [From Levaquin] Allergy Rash/Hives Verified 05/07/16 07:14 metformin HCl Allergy Rash/Hives Verified 05/07/16 07:14 [From Glucophage] morphine Allergy Rash/Hives Verified 05/07/16 07:14 Penicillins Allergy Rash/Hives Verified 05/07/16 07:14 Sulfa (Sulfonamide Allergy Rash/Hives Verified 05/07/16 07:14 Antibiotics) sulfamethoxazole Allergy Rash/Hives Verified 05/07/16 07:14 [From Bactrim] tetracycline [Tetracycline] Allergy Rash/Hives Verified 05/07/16 07:14 theophylline Allergy Rash/Hives Verified 05/07/16 07:14 tramadol Allergy Dyspnea Verified 05/07/16 07:14 trimethoprim [From Bactrim] Allergy Rash/Hives Verified 05/07/16 07:14 Physical Exam Vitals: Vital Signs Temp Pulse Resp BP Pulse Ox 05/07/16 13:00 109 H 27 H 125/60 94 L 05/07/16 12:40 103 H 27 H 125/60 100 05/07/16 12:30 103 H 27 H 125/60 83 L 05/07/16 12:00 97.5 F L 106 H 30 H 136/60 100 05/07/16 11:00 97.5 F L 111 H 28 H 115/77 99 05/07/16 09:54 96.8 F L 108 H 26 H 137/65 98 05/07/16 09:30 104 H 26 H 120/60 98 05/07/16 09:23 101 H 26 H 127/60 96 05/07/16 08:53 104 H 28 H 121/60 96 Intake and Output 05/06/16 05/07/16 05/07/16 22:59 06:59 14:59 Intake Total 3212.628 Output Total 450 Balance 2762.628 Intake: IV 750 D5-0.45% NaCl with KCl 600 20Meq/l 1,000 ml @ 150 mls/hr IV .Q6H40M [facility] Rx# :[id number] Sodium Chloride 0.9% 1, 150 000 ml @ 75 mls/hr IV . [id number] [facility] Rx#:[id number] Amount of Fluid Infused ( 2200 ml) Intake, IV Titration 262.628 Amount Insulin Regular 100 unit 11.770 In Sodium Chloride 0.9% 100 ml @ 0.1 UNITS/KG/HR 9.62 mls/hr IV .[id number] [facility] Rx#:[id number] Insulin Regular 100 unit 0.858 In Sodium Chloride 0.9% 100 ml @ 3 UNIT/HR 3.03 mls/hr IV .Q24H [facility] Rx#: [id number] Vancomycin 1,500 mg In 250 Sodium Chloride 0.9% 250 ml @ 125 mls/hr IVPB Q24HR@0600 [facility] Rx#: [id number] Output: Urine 450 Physical Exam: Revealed a 61-year-old female in no distress, HEENT:[Neck is supple.] [No neck masses.] [No thyromegaly.] [No JVD.] Chest: [Diminished breath sounds at the bases no crackles or rhonchi or wheezes. ] Cardiac Exam: [Normal S1 and S2, no S3 gallop, no murmur.] Abdomen: [Soft, nontender, no megaly, no rebound, no guarding, normal bowel sounds.] Extremities: [No clubbing, no edema, no cyanosis.] Neurological Exam: Patient is mostly confused, otherwise no focal neurologic deficits. And she is a very poor historian. Had no idea why she was brought into the hospital. Results - Laboratory Findings CBC and BMP: 05/07/16 05:45 05/07/16 11:38 PT/INR, D-dimer PT 13.0 sec (9.0-12.0) H 05/07/16 05:45 INR 1.3 (<1.1) 05/07/16 05:45 Abnormal lab findings: Abnormal Labs 05/07/16 05/07/16 05/07/16 08:44 09:14 09:50 Sodium Potassium Chloride Carbon Dioxide BUN Creatinine Glucose POC Glucose (mg/dL) 215 H 144 H 119 H Phosphorus 05/07/16 05/07/16 05/07/16 10:24 11:19 11:38 Sodium 153 H Potassium 3.3 L Chloride 124 H* Carbon Dioxide 10 L* BUN 29 H Creatinine 1.29 H Glucose 125 H POC Glucose (mg/dL) 118 H 128 H Phosphorus 1.1 L* 05/07/16 05/07/16 05/07/16 12:03 13:09 14:10 Sodium Potassium Chloride Carbon Dioxide BUN Creatinine Glucose POC Glucose (mg/dL) 134 H 182 H 258 H Phosphorus - Diagnostic Findings Chest x-ray: image reviewed (No evidence of cardiopulmonary disease) Assessment and Plan Plan: Impression: Acute mental status change secondary to acute metabolic encephalopathy, suspect diabetic ketoacidosis, acute pancreatitis, and acute hypernatremia and electrolytes imbalance. Possibility of sepsis is definitely in the differential, hence the patient will be covered empirically with antibiotics as noted above including vancomycin and aztreonam. Cultures are pending. Multiple comorbidities including history of COPD, history of congestive heart failure, history of previous CVA, history of previous TIA, history of diabetes, essential hypertension, osteoarthritis, hypothyroidism, irritable bowel syndrome , fibromyalgia, diabetic neuropathy, obstructive sleep apnea syndrome, and degenerative joint disease. Recommendation: Continue present treatment plan following the DKA protocol, continue fluids, insulin as per protocol, address electrolytes accordingly and we will follow closely in the ICU. Empiric antibiotics were started, fluid boluses were given in the ER. Time with Patient: Greater than 30
[2016-05-07 15:09] LABS: Glucose,Whole Blood 249 mg/dL (75-99)
[2016-05-07] MEDS: SODIUM PHOSPHATE 10 MMOL in SODIUM CHLORIDE 0.9% 250 ML IVPB SCH ×4 (15:48→21:51)
[2016-05-07 16:04] LABS: Glucose,Whole Blood 272 mg/dL (75-99)
[2016-05-07 16:23] LABS: Potassium 3.6 mmol/L (3.5-5.1)
[2016-05-07 16:25] LABS: Phosphorous 1.2 mg/dL (2.5-4.5)
[2016-05-07 17:19] LABS: Glucose,Whole Blood 265 mg/dL (75-99)
[2016-05-07 18:14] LABS: Glucose,Whole Blood 271 mg/dL (75-99)
[2016-05-07 19:00] LABS: Glucose,Whole Blood 311 mg/dL (75-99)
[2016-05-07 20:19] LABS: Glucose,Whole Blood 305 mg/dL (75-99)
[2016-05-07 20:51] LABS: Anion Gap 12 mmol/L; Blood Urea Nitrogen 22 mg/dL (7-17); Carbon Dioxide 15 mmol/L (22-30); Non-African American GFR(MDRD) 57 (>60 ml/min/1.73 sqM); Phosphorous 1.8 mg/dL (2.5-4.5); Potassium 3.2 mmol/L (3.5-5.1); Sodium 150 mmol/L (137-145)
[2016-05-07 20:54] LABS: Chloride 123 mmol/L (98-107)
[2016-05-07 22:05] LABS: Glucose,Whole Blood 230 mg/dL (75-99)
--- NOTE | 2016-05-07 22:45 | HP ---
DATE OF ADMISSION: 05/07/2016 CHIEF COMPLAINT: Altered mental status. HISTORY OF PRESENT ILLNESS: Ms. Freeman is a 61-year-old female with known history of diabetes type 2, chronic obstructive pulmonary disease, history of cerebrovascular accident/transient ischemic attack, fibromyalgia, IBS and hypothyroidism, and other multiple medical problems. Came to the ER with complaints of generalized weakness for the past 4 to 5 days. Patient apparently had a near syncopal episode per and EMS was called. Patient is a poor historian. Patient was found to be hypotensive, confused and hypernatremia and hyperkalemia, and was in DKA. Anion gap 29 on admission. Patient was started insulin drip and currently Anion gap is closed. Otherwise patient still hypernatremic. Patient also had elevated blood sugars and lactic acidosis of 2.7. Lipase is also 1600. CT of the brain was done which showed no acute intracranial process. The abdominal x-ray and chest x-ray within normal limits. Otherwise, patient could not provide any history at this time and patient did not have any chest pain or short of breath. Patient was started and antibiotics in the form of Aztreonam and vancomycin for possible sepsis. Cultures are pending now. Complete review of systems could not be obtained from the patient. Past medical history includes: Asthma, CHF, unknown ejection fraction, COPD, CVA/TIA, diabetes mellitus, type 2 insulin-dependent, fibromyalgia and GERD, hypertension, osteoarthritis, pneumonia, CKD, hypothyroidism, bilateral diabetic neuropathy of hands and feet. Fibromyalgia IBS, migraine headaches, sleep apnea on CPAP machine, chronic lower back and neck pain, scoliosis, degenerative joint disease and disc disease, carpal tunnel bilaterally, right leg pinched nerve. PAST SURGICAL HISTORY: Appendectomy, breast surgery. Heart catheterization, hysterectomy, joint replacement, orthopedic surgery, tonsillectomy. PSYCHOSOCIAL HISTORY: Anxiety and depression. SOCIAL HISTORY: Patient resided with her spouse. She uses assistive device. She drives. She denies suicidal thoughts. SOCIAL HISTORY: Patient never smoker. Denied any alcohol. Denied any drugs or IVDU. FAMILY HISTORY: Father had no reported history. Mother had no reported history. Home medication include: 1. Aspirin. 2. Diclofenac. 3. Advair. 4. Levothyroxine. 5. Singulair. 6. Prilosec. 7. Pravachol. 8. Mysoline. 9. Seroquel. 10. Ranitidine. 11. Topiramate. 12. Flexeril. 13. Lasix. 14. Reglan. 15. Ventolin. 16. Invokana. 17. Ferrous sulfate. 18. Insulin Lispro. 19. ( ). 20. Lisinopril. 21. Trazodone. 22. ( ). ALLERGIES INCLUDE: AMITRIPTYLINE< KEFLEX, AND DIAZEPAM, VICODIN, IODINATED CONTRAST MEDIUM, LATEX AND NATURAL RUBBER, LEVAQUIN, METFORMIN, PENICILLIN, MORPHINE, SULFA, SULFAMETHOXAZOLE, TETRACYCLINE, THEOPHYLLINE, TRAMADOL, AND BACTRIM. PHYSICAL EXAMINATION: 61 -year-old female lying in the bed. Awake and alert x1. Could not provide any history. VITALS: The patient was hypotensive on admission, currently blood pressure is 125/60, pulse is 109, respirations 27. Pulse ox is 94% on 2 liters nasal cannula. HEENT: Atraumatic, normotensive neck is supple. No JVD. CVS: S1. No murmurs, no gallop. LUNGS: Bilateral diminished breath sounds. No wheezing. No crackles. Nonlabored breathing. ABDOMEN: Soft, nontender. Bowel sounds are present. No guarding or rigidity. OPENER TENDER: Awake, alert, oriented x1. Patient seems to be confused. Otherwise, no focal neurologic deficits. EXTREMITIES: No edema. Pulses palpable bilaterally. No clubbing or cyanosis. PSYCHIATRIC: Could not be assessed completely. LABORATORY DATA: WBC 18.2, hemoglobin 17.4, platelets 212. INR 1.3, sodium 149, potassium 4.7, chloride 115, bicarb is less than 5. Anion gap 29, BUN 27, creatinine 1.6. Lactic acid 2.7, magnesium 2.7. Lipase is 1660, PA showed nitrate small nitrates, leukocyte esterase negative. WBC 1. ( ) positive. Serum acetone is positive. Serum drug screen is negative. EKG accelerated junctional rhythm. Chest x-ray ( ) process, chronic lung changes are suggested. CT abdomen no acute process. Abdominal x-ray overall nonobstructive bowel gas pattern. IMPRESSION: 1. Altered mental status secondary to metabolic encephalopathy. 2. Acute diabetic ketoacidosis. 3. Insulin dependent diabetes type 2. 4. Acute pancreatitis with elevated lipase level to 1600. 5. Hypernatremia likely volume depletion, dehydration. 6. Acute kidney injury, most likely prerenal ( ) acute on chronic kidney disease, stage III. 7. Hypotension possible sepsis and septic shock requiring fluid boluses. 8. Chronic obstructive pulmonary disease, not in exacerbation. 9. History of congestive heart failure, unknown ejection fraction. 10. History of cerebrovascular accident/transient ischemic attack. 11. Hypertension. Currently hypotensive. 12. Osteoarthritis. 13. Degenerative joint disease. 14. Hypothyroidism. 15. Irritable bowel syndrome. 16. Obstructive sleep apnea on CPAP negative. 17. Fibromyalgia. 18. Diabetic neuropathy. 19. DVT prophylaxis with heparin subcu. DISCUSSION AND PLAN: Patient will be continued on insulin drip as per DKA protocol. Patient was started on antibiotics empirically in the form of Aztreonam and vancomycin due to multiple allergies and awaiting culture reports and continue to monitor the patient in the Intensive Care Unit and replace electrolytes. IV fluids will be changed to half normal saline and continue to follow closely. Prognosis guarded. Further recommendations based on clinical course.
[2016-05-07 23:23] LABS: Glucose,Whole Blood 202 mg/dL (75-99)
[2016-05-08 00:05] LABS: Glucose,Whole Blood 193 mg/dL (75-99)
[2016-05-08] MEDS: AZTREONAM 1 GM in SODIUM CHLORIDE 0.9% 50 ML IVPB SCH ×4 (00:34→23:27)
[2016-05-08 02:16] LABS: Glucose,Whole Blood 177 mg/dL (75-99)
[2016-05-08 04:44] LABS: Glucose,Whole Blood 158 mg/dL (75-99)
[2016-05-08 05:12] LABS: CH 31.9; CHCM 32.7; HCT 49.2 % (34.0-46.0); HDW 2.93; HGB 15.7 gm/dL (11.4-16.0); MCH 31.3 pg (25.0-35.0); MCHC 31.9 g/dL (31.0-37.0); Mean Platelet Volume 10.8; RBC 5.01 m/uL (3.80-5.40); RDW 13.8 % (11.5-15.5); WBC 14.9 k/uL (3.8-10.6)
[2016-05-08 05:43] LABS: ALT 35 U/L (9-52); AST 11 U/L (14-36); Alkaline Phosphatase 83 U/L (38-126); Anion Gap 11 mmol/L; Blood Urea Nitrogen 17 mg/dL (7-17); Calcium 10.1 mg/dL (8.4-10.2); Carbon Dioxide 15 mmol/L (22-30); Glucose 173 mg/dL (74-99); Non-African American GFR(MDRD) >60 (>60 ml/min/1.73 sqM); Sodium 151 mmol/L (137-145); Total Bilirubin 0.5 mg/dL (0.2-1.3); Total Protein 5.9 g/dL (6.3-8.2)
[2016-05-08 05:46] LABS: Chloride 125 mmol/L (98-107); Potassium 2.9 mmol/L (3.5-5.1)
[2016-05-08] MEDS: D5-0.45% NACL WITH KCL 20MEQ/L 1,000 ML IV SCH ×2 (05:47→23:18)
[2016-05-08] MEDS ORDERED: VANCOMYCIN 1,500 MG in SODIUM CHLORIDE 0.9% 250 ML IVPB SCH (06:00)
[2016-05-08] MEDS ORDERED: POTASSIUM CHLORIDE 10 MEQ in WATER FOR INJECTION 1 100ML.BAG IVPB SCH (06:00)
[2016-05-08 06:14] LABS: Glucose,Whole Blood 150 mg/dL (75-99)
[2016-05-08] MEDS: POTASSIUM CHLORIDE 10 MEQ, LIDOCAINE 2% INJ 10 MG in SODIUM CHLORIDE 0.9% 100 ML IV SCH ×3 (06:23→08:18)
[2016-05-08 07:17] LABS: Glucose,Whole Blood 232 mg/dL (75-99)
[2016-05-08 08:08] LABS: Glucose,Whole Blood 173 mg/dL (75-99)
[2016-05-08 08:40] LABS: INR 1.3 (<1.1); Partial Thromboplastin Time 23.5 sec (22.0-30.0)
[2016-05-08 09:04] LABS: Glucose,Whole Blood 170 mg/dL (75-99)
[2016-05-08] MEDS: POTASSIUM CHLORIDE ORAL LIQUID 40 MEQ/30 ML CUP PO ONE ×2 (09:49→09:52)
[2016-05-08] MEDS ORDERED: POTASSIUM CHLORIDE ER 20 MEQ TAB.ER PO STA ×2 (09:57→22:38)
[2016-05-08 10:09] LABS: Hemoglobin A1C 8.5 % (4.2-6.1)
[2016-05-08 10:21] LABS: Glucose,Whole Blood 233 mg/dL (75-99)
[2016-05-08] MEDS: FAMOTIDINE 20 MG/2 ML VIAL IV SCH ×2 (10:26→20:24)
[2016-05-08] MEDS: DEXTROSE 5% IN WATER 1,000 ML IV SCH ×2 (10:27→16:06)
[2016-05-08] MEDS: ONDANSETRON 4 MG/2 ML VIAL IVP PRN ×2 (10:29→17:39)
--- NOTE | 2016-05-08 11:53 | P.PN ---
Subjective Principal diagnosis: Acute diabetic ketoacidosis and metabolic encephalopathy This is a 61-year-old female with history of diabetes, patient is a poor historian, presented to the ER with chief complaint of weakness over the last 4- 5 days. Patient also had a near syncopal episode according to her , and EMS was called in. Patient was brought into the ER and she was a very poor historian, blood pressure was low at 73/54, patient was very confused, she had significantly abnormal electrolytes with a sodium of 153, chloride is 124, bicarb was only 10, she was also noted to have on iron Metabolic acidosis with anion gap of 19, she had leukocytosis with WBC count of 18.2 blood sugar was 258 , lactic acid was 2.7, lipase was over 1600 and the patient had positive ketones. CT of the brain was normal. KUB was normal. Chest x-ray was also normal. Hence the patient was admitted with the impression of acute diabetic ketoacidosis and acute metabolic encephalopathy, I was asked to see her on consultation. Patient is definitely confused, but she is in no form of respiratory distress upon my initial evaluation. The diabetic ketoacidosis protocol is being followed, and the patient is receiving fluids as well as insulin. I recommended empiric antibiotics for possible underlying sepsis. Patient has multiple ALLERGIES, hence she was placed on aztreonam and vancomycin. Cultures are pending. Patient was seen today on 05/08/2016, seems to be more appropriate, alert and oriented 3, and in no form of distress. Her sodium remains high at 151 potassium is today 2.9, and she continues to have a picture of hyperchloremic metabolic acidosis. Patient is receiving free water to correct her hypernatremia and hyperchloremia. Her leukocytosis is improved and WBC count is 14.9. Blood sugar is 173 today. Renal profile is normal. No left pains was done today, but it was over 1600 yesterday. Blood cultures are negative so far. Patient is hemodynamically stable. And she remains on insulin drip at 2 units. She is also receiving D5W today. And she will probably stay in the ICU for another day. Objective - Vital Signs Vital signs: Vital Signs Temp 98.0 F 05/08/16 08:00 Pulse 105 H 05/08/16 11:00 Resp 19 05/08/16 11:00 BP 145/55 05/08/16 11:00 Pulse Ox 100 05/08/16 11:00 Intake & Output 05/07/16 05/08/16 05/08/16 18:59 06:59 18:59 Intake Total 4380.963 2401.797 1208.197 Output Total 825 850 350 Balance 3555.963 1551.797 858.197 Weight 99 kg 99 kg Intake: IV 1350 1800 750 D5-0.45% NaCl with KCl 1200 1800 450 20Meq/l 1,000 ml @ 150 mls/hr IV .Q6H40M [facility] Rx# :[id number] Dextrose 5% in Water 1, 300 000 ml @ 150 mls/hr IV . Q6H40M [facility] Rx#:[id number] Sodium Chloride 0.9% 1, 150 000 ml @ 75 mls/hr IV . [id number] [facility] Rx#:[id number] Amount of Fluid Infused ( 2200 ml) Intake, IV Titration 830.963 601.797 458.197 Amount Aztreonam 1 gm In Sodium 100 50 Chloride 0.9% 50 ml @ 100 mls/hr IVPB Q8HR [facility] Rx# :[id number] Insulin Regular 100 unit 105.105 In Sodium Chloride 0.9% 100 ml @ 0.1 UNITS/KG/HR 9.62 mls/hr IV .[id number] [facility] Rx#:[id number] Insulin Regular 100 unit 51.797 8.197 In Sodium Chloride 0.9% 100 ml @ 2.6 UNIT/HR 2.62 mls/hr IV .Q24H [facility] Rx#: [id number] Insulin Regular 100 unit 0.858 In Sodium Chloride 0.9% 100 ml @ 3 UNIT/HR 3.03 mls/hr IV .Q24H [facility] Rx#: [id number] Potassium Chloride 10 meq 200 Lidocaine 2% Inj 10 mg In Sodium Chloride 0.9% 100 ml @ 100 mls/hr IV Q1HR [facility] Rx#:[id number] Sodium Phosphate 10 mmol 375 500 In Sodium Chloride 0.9% 250 ml @ 125 mls/hr IVPB Q2H [facility] Rx#:[id number] Vancomycin 1,500 mg In 250 250 Sodium Chloride 0.9% 250 ml @ 125 mls/hr IVPB Q24HR@0600 [facility] Rx#: [id number] Output: Urine 825 850 350 Other: Voiding Method Indwelling Catheter Indwelling Catheter Indwelling Catheter - Exam Physical Exam: Revealed a 61-year-old female in no distress, HEENT:[Neck is supple.] [No neck masses.] [No thyromegaly.] [No JVD.] Chest: [Diminished breath sounds at the bases no crackles or rhonchi or wheezes. ] Cardiac Exam: [Normal S1 and S2, no S3 gallop, no murmur.] Abdomen: [Soft, nontender, no megaly, no rebound, no guarding, normal bowel sounds.] Extremities: [No clubbing, no edema, no cyanosis.] Neurological Exam: No focal neurologic deficit noted today. - Labs CBC & Chem 7: 05/08/16 04:44 05/08/16 04:36 Labs: Abnormal Lab Results - Last 24 Hours (Table) 05/07/16 05/07/16 05/07/16 Range/Units 11:38 12:03 13:09 WBC (3.8-10.6) k/uL Hct (34.0-46.0) % Sodium 153 H (137-145) mmol/L Potassium 3.3 L (3.5-5.1) mmol/L Chloride 124 H* (98-107) mmol/L Carbon Dioxide 10 L* (22-30) mmol/L BUN 29 H (7-17) mg/dL Creatinine 1.29 H (0.52-1.04) mg/dL Glucose 125 H (74-99) mg/dL POC Glucose (mg/dL) 134 H 182 H (75-99) mg/dL Phosphorus 1.1 L* (2.5-4.5) mg/dL AST (14-36) U/L Total Protein (6.3-8.2) g/dL Albumin (3.5-5.0) g/dL 05/07/16 05/07/16 05/07/16 Range/Units 14:10 15:08 15:52 WBC (3.8-10.6) k/uL Hct (34.0-46.0) % Sodium 150 H (137-145) mmol/L Potassium (3.5-5.1) mmol/L Chloride 123 H* (98-107) mmol/L Carbon Dioxide 13 L (22-30) mmol/L BUN 26 H (7-17) mg/dL Creatinine 1.13 H (0.52-1.04) mg/dL Glucose 281 H (74-99) mg/dL POC Glucose (mg/dL) 258 H 249 H (75-99) mg/dL Phosphorus 1.2 L* (2.5-4.5) mg/dL AST (14-36) U/L Total Protein (6.3-8.2) g/dL Albumin (3.5-5.0) g/dL 05/07/16 05/07/16 05/07/16 Range/Units 16:03 17:18 18:12 WBC (3.8-10.6) k/uL Hct (34.0-46.0) % Sodium (137-145) mmol/L Potassium (3.5-5.1) mmol/L Chloride (98-107) mmol/L Carbon Dioxide (22-30) mmol/L BUN (7-17) mg/dL Creatinine (0.52-1.04) mg/dL Glucose (74-99) mg/dL POC Glucose (mg/dL) 272 H 265 H 271 H (75-99) mg/dL Phosphorus (2.5-4.5) mg/dL AST (14-36) U/L Total Protein (6.3-8.2) g/dL Albumin (3.5-5.0) g/dL 05/07/16 05/07/16 05/07/16 Range/Units 18:59 20:18 20:19 WBC (3.8-10.6) k/uL Hct (34.0-46.0) % Sodium 150 H (137-145) mmol/L Potassium 3.2 L (3.5-5.1) mmol/L Chloride 123 H* (98-107) mmol/L Carbon Dioxide 15 L (22-30) mmol/L BUN 22 H (7-17) mg/dL Creatinine (0.52-1.04) mg/dL Glucose (74-99) mg/dL POC Glucose (mg/dL) 311 H 305 H (75-99) mg/dL Phosphorus 1.8 L (2.5-4.5) mg/dL AST (14-36) U/L Total Protein (6.3-8.2) g/dL Albumin (3.5-5.0) g/dL 05/07/16 05/07/16 05/08/16 Range/Units 22:04 23:21 00:04 WBC (3.8-10.6) k/uL Hct (34.0-46.0) % Sodium (137-145) mmol/L Potassium (3.5-5.1) mmol/L Chloride (98-107) mmol/L Carbon Dioxide (22-30) mmol/L BUN (7-17) mg/dL Creatinine (0.52-1.04) mg/dL Glucose (74-99) mg/dL POC Glucose (mg/dL) 230 H 202 H 193 H (75-99) mg/dL Phosphorus (2.5-4.5) mg/dL AST (14-36) U/L Total Protein (6.3-8.2) g/dL Albumin (3.5-5.0) g/dL 05/08/16 05/08/16 05/08/16 Range/Units 02:14 04:36 04:43 WBC (3.8-10.6) k/uL Hct (34.0-46.0) % Sodium 151 H (137-145) mmol/L Potassium 2.9 L* (3.5-5.1) mmol/L Chloride 125 H* (98-107) mmol/L Carbon Dioxide 15 L (22-30) mmol/L BUN (7-17) mg/dL Creatinine (0.52-1.04) mg/dL Glucose 173 H (74-99) mg/dL POC Glucose (mg/dL) 177 H 158 H (75-99) mg/dL Phosphorus (2.5-4.5) mg/dL AST 11 L (14-36) U/L Total Protein 5.9 L (6.3-8.2) g/dL Albumin 3.1 L (3.5-5.0) g/dL 05/08/16 05/08/16 05/08/16 Range/Units 04:44 06:13 07:16 WBC 14.9 H (3.8-10.6) k/uL Hct 49.2 H (34.0-46.0) % Sodium (137-145) mmol/L Potassium (3.5-5.1) mmol/L Chloride (98-107) mmol/L Carbon Dioxide (22-30) mmol/L BUN (7-17) mg/dL Creatinine (0.52-1.04) mg/dL Glucose (74-99) mg/dL POC Glucose (mg/dL) 150 H 232 H (75-99) mg/dL Phosphorus (2.5-4.5) mg/dL AST (14-36) U/L Total Protein (6.3-8.2) g/dL Albumin (3.5-5.0) g/dL 05/08/16 05/08/16 05/08/16 Range/Units 07:58 09:03 10:18 WBC (3.8-10.6) k/uL Hct (34.0-46.0) % Sodium (137-145) mmol/L Potassium (3.5-5.1) mmol/L Chloride (98-107) mmol/L Carbon Dioxide (22-30) mmol/L BUN (7-17) mg/dL Creatinine (0.52-1.04) mg/dL Glucose (74-99) mg/dL POC Glucose (mg/dL) 173 H 170 H 233 H (75-99) mg/dL Phosphorus (2.5-4.5) mg/dL AST (14-36) U/L Total Protein (6.3-8.2) g/dL Albumin (3.5-5.0) g/dL Assessment and Plan Plan: Impression: Acute mental status change secondary to acute metabolic encephalopathy, suspect diabetic ketoacidosis, acute pancreatitis, and acute hypernatremia and electrolytes imbalance. Possibility of sepsis is definitely in the differential, hence the patient will be covered empirically with antibiotics as noted above including vancomycin and aztreonam. Cultures are pending. Multiple comorbidities including history of COPD, history of congestive heart failure, history of previous CVA, history of previous TIA, history of diabetes, essential hypertension, osteoarthritis, hypothyroidism, irritable bowel syndrome , fibromyalgia, diabetic neuropathy, obstructive sleep apnea syndrome, and degenerative joint disease. Recommendation: Continue present supportive care measures, continue to follow the protocol for DKA, monitor electrolytes including her hypernatremia and hypokalemia, and we'll continue to follow closely. Patient will remain in the ICU today. Time with Patient: Less than 30
[2016-05-08] MEDS ORDERED: POTASSIUM CHLORIDE ER 10 MEQ TAB.ER.PRT PO ONE (12:00)
[2016-05-08 12:32] LABS: INR 1.3 (<1.1); Partial Thromboplastin Time 24.1 sec (22.0-30.0); Prothrombin Time 12.9 sec (9.0-12.0)
[2016-05-08 12:40] LABS: Anion Gap 12 mmol/L; Blood Urea Nitrogen 12 mg/dL (7-17); Calcium 9.1 mg/dL (8.4-10.2); Carbon Dioxide 14 mmol/L (22-30); Glucose 294 mg/dL (74-99); Non-African American GFR(MDRD) >60 (>60 ml/min/1.73 sqM); Potassium 3.7 mmol/L (3.5-5.1); Sodium 148 mmol/L (137-145)
[2016-05-08 12:55] LABS: Chloride 122 mmol/L (98-107)
[2016-05-08 14:04] LABS: Glucose,Whole Blood 296 mg/dL (75-99)
[2016-05-08] MEDS: POTASSIUM CHLORIDE 20 MEQ, LIDOCAINE 2% INJ 20 MG in SODIUM CHLORIDE 0.9% 100 ML IVPB SCH ×2 (14:05→16:06)
[2016-05-08 15:26] LABS: Glucose,Whole Blood 307 mg/dL (75-99)
[2016-05-08] MEDS: POTASSIUM PHOSPHATE 10 MMOL in SODIUM CHLORIDE 0.9% 250 ML IV SCH ×2 (15:51→18:14)
[2016-05-08] MEDS: HEPARIN SODIUM,PORCINE 5,000 UNIT/ML 1 ML VIAL SQ SCH ×2 (15:52→23:21)
[2016-05-08 16:02] LABS: Glucose,Whole Blood 256 mg/dL (75-99)
[2016-05-08 17:04] LABS: Glucose,Whole Blood 222 mg/dL (75-99)
[2016-05-08 18:00] LABS: Glucose,Whole Blood 207 mg/dL (75-99)
[2016-05-08] MEDS: VANCOMYCIN 1,500 MG in SODIUM CHLORIDE 0.9% 250 ML IVPB SCH (18:01)
--- NOTE | 2016-05-08 18:07 | P.PN ---
Subjective This is a 61-year-old female that has a history of diabetes is a poor historian that is admitted to the hospital with intractable nausea for the last few days. Patient was noted to have an anion gap metabolic acidosis secondary to DKA. Unsure patient was compliant with her medications at home. Patient was triaged ICU. Patient was empirically started on antibiotics as sepsis being an underlying etiology for her DKA. This morning on evaluation patient was more awake was able to state her location which apparently is a significant improvement from past examination. Patient was also noted to have a low blood pressure around 73/54. Patient's urine analysis appeared to be abnormal other cultures including blood are negative so far. Objective - Vital Signs Vital signs: Vital Signs Temp 97.8 F 05/08/16 16:00 Pulse 106 H 05/08/16 17:00 Resp 21 05/08/16 17:00 BP 109/52 05/08/16 17:00 Pulse Ox 100 05/08/16 17:00 Intake & Output 05/07/16 05/08/16 05/08/16 18:59 06:59 18:59 Intake Total 4380.963 2401.797 2416.328 Output Total 642 543 0390 Balance 3555.963 7052.919 2309.328 Weight 99 kg 99 kg Intake: IV 1350 1800 1650 D5-0.45% NaCl with KCl 1200 1800 450 20Meq/l 1,000 ml @ 150 mls/hr IV .Q6H40M [facility] Rx# :[id number] Dextrose 5% in Water 1, 1200 000 ml @ 150 mls/hr IV . Q6H40M [facility] Rx#:[id number] Sodium Chloride 0.9% 1, 150 000 ml @ 75 mls/hr IV . [id number] [facility] Rx#:[id number] Amount of Fluid Infused ( 2200 ml) Intake, IV Titration 830.963 601.797 766.328 Amount Aztreonam 1 gm In Sodium 100 50 Chloride 0.9% 50 ml @ 100 mls/hr IVPB Q8HR [facility] Rx# :[id number] Insulin Regular 100 unit 105.105 In Sodium Chloride 0.9% 100 ml @ 0.1 UNITS/KG/HR 9.62 mls/hr IV .[id number] [facility] Rx#:[id number] Insulin Regular 100 unit 51.797 16.328 In Sodium Chloride 0.9% 100 ml @ 2.6 UNIT/HR 2.62 mls/hr IV .Q24H [facility] Rx#: [id number] Insulin Regular 100 unit 0.858 In Sodium Chloride 0.9% 100 ml @ 3 UNIT/HR 3.03 mls/hr IV .Q24H [facility] Rx#: [id number] Potassium Chloride 10 meq 200 Lidocaine 2% Inj 10 mg In Sodium Chloride 0.9% 100 ml @ 100 mls/hr IV Q1HR [facility] Rx#:[id number] Potassium Chloride 20 meq 200 Lidocaine 2% Inj 20 mg In Sodium Chloride 0.9% 100 ml @ 55.5 mls/hr IVPB Q2HR [facility] Rx#:[id number] Potassium Phosphate 10 100 mmol In Sodium Chloride 0 .9% 250 ml @ 125 mls/hr IV Q2H [facility] Rx#:[id number] Sodium Phosphate 10 mmol 375 500 In Sodium Chloride 0.9% 250 ml @ 125 mls/hr IVPB Q2H [facility] Rx#:[id number] Vancomycin 1,500 mg In 250 250 Sodium Chloride 0.9% 250 ml @ 125 mls/hr IVPB Q24HR@0600 [facility] Rx#: [id number] Output: Urine 042 265 9268 Other: Voiding Method Indwelling Catheter Indwelling Catheter Indwelling Catheter - Exam Gen. appearance alert to time and place Lungs diminished breath sounds however good air movement no wheezing or rhonchi appreciated Heart S1-S2 heard regular rate and rhythm no murmurs appreciated Abdomen is soft slightly tender to palpation in the epigastric area no organomegaly is appreciated Lower extremities no edema noted Neurologically moves all 4 extremities no focal deficits noted. - Labs CBC & Chem 7: 05/08/16 04:44 05/08/16 11:53 Labs: Abnormal Lab Results - Last 24 Hours (Table) 05/07/16 05/07/16 05/07/16 Range/Units 18:12 18:59 20:18 WBC (3.8-10.6) k/uL Hct (34.0-46.0) % PT (9.0-12.0) sec Sodium (137-145) mmol/L Potassium (3.5-5.1) mmol/L Chloride (98-107) mmol/L Carbon Dioxide (22-30) mmol/L BUN (7-17) mg/dL Glucose (74-99) mg/dL POC Glucose (mg/dL) 271 H 311 H 305 H (75-99) mg/dL Phosphorus (2.5-4.5) mg/dL AST (14-36) U/L Total Protein (6.3-8.2) g/dL Albumin (3.5-5.0) g/dL 05/07/16 05/07/16 05/07/16 Range/Units 20:19 22:04 23:21 WBC (3.8-10.6) k/uL Hct (34.0-46.0) % PT (9.0-12.0) sec Sodium 150 H (137-145) mmol/L Potassium 3.2 L (3.5-5.1) mmol/L Chloride 123 H* (98-107) mmol/L Carbon Dioxide 15 L (22-30) mmol/L BUN 22 H (7-17) mg/dL Glucose (74-99) mg/dL POC Glucose (mg/dL) 230 H 202 H (75-99) mg/dL Phosphorus 1.8 L (2.5-4.5) mg/dL AST (14-36) U/L Total Protein (6.3-8.2) g/dL Albumin (3.5-5.0) g/dL 05/08/16 05/08/16 05/08/16 Range/Units 00:04 02:14 04:36 WBC (3.8-10.6) k/uL Hct (34.0-46.0) % PT (9.0-12.0) sec Sodium 151 H (137-145) mmol/L Potassium 2.9 L* (3.5-5.1) mmol/L Chloride 125 H* (98-107) mmol/L Carbon Dioxide 15 L (22-30) mmol/L BUN (7-17) mg/dL Glucose 173 H (74-99) mg/dL POC Glucose (mg/dL) 193 H 177 H (75-99) mg/dL Phosphorus (2.5-4.5) mg/dL AST 11 L (14-36) U/L Total Protein 5.9 L (6.3-8.2) g/dL Albumin 3.1 L (3.5-5.0) g/dL 02/07/17 02/07/17 02/07/17 Range/Units 04:43 04:44 06:13 WBC 14.9 H (3.8-10.6) k/uL Hct 49.2 H (34.0-46.0) % PT (9.0-12.0) sec Sodium (137-145) mmol/L Potassium (3.5-5.1) mmol/L Chloride (98-107) mmol/L Carbon Dioxide (22-30) mmol/L BUN (7-17) mg/dL Glucose (74-99) mg/dL POC Glucose (mg/dL) 158 H 150 H (75-99) mg/dL Phosphorus (2.5-4.5) mg/dL AST (14-36) U/L Total Protein (6.3-8.2) g/dL Albumin (3.5-5.0) g/dL 05/08/16 05/08/16 05/08/16 Range/Units 07:16 07:58 09:03 WBC (3.8-10.6) k/uL Hct (34.0-46.0) % PT (9.0-12.0) sec Sodium (137-145) mmol/L Potassium (3.5-5.1) mmol/L Chloride (98-107) mmol/L Carbon Dioxide (22-30) mmol/L BUN (7-17) mg/dL Glucose (74-99) mg/dL POC Glucose (mg/dL) 232 H 173 H 170 H (75-99) mg/dL Phosphorus (2.5-4.5) mg/dL AST (14-36) U/L Total Protein (6.3-8.2) g/dL Albumin (3.5-5.0) g/dL 05/08/16 05/08/16 05/08/16 Range/Units 10:18 11:53 11:53 WBC (3.8-10.6) k/uL Hct (34.0-46.0) % PT 12.9 H (9.0-12.0) sec Sodium 148 H (137-145) mmol/L Potassium (3.5-5.1) mmol/L Chloride 122 H* (98-107) mmol/L Carbon Dioxide 14 L (22-30) mmol/L BUN (7-17) mg/dL Glucose 294 H (74-99) mg/dL POC Glucose (mg/dL) 233 H (75-99) mg/dL Phosphorus (2.5-4.5) mg/dL AST (14-36) U/L Total Protein (6.3-8.2) g/dL Albumin (3.5-5.0) g/dL 05/08/16 05/08/16 05/08/16 Range/Units 11:53 14:02 15:14 WBC (3.8-10.6) k/uL Hct (34.0-46.0) % PT (9.0-12.0) sec Sodium (137-145) mmol/L Potassium (3.5-5.1) mmol/L Chloride (98-107) mmol/L Carbon Dioxide (22-30) mmol/L BUN (7-17) mg/dL Glucose (74-99) mg/dL POC Glucose (mg/dL) 296 H 307 H (75-99) mg/dL Phosphorus 1.9 L (2.5-4.5) mg/dL AST (14-36) U/L Total Protein (6.3-8.2) g/dL Albumin (3.5-5.0) g/dL 05/08/16 05/08/16 Range/Units 16:01 17:02 WBC (3.8-10.6) k/uL Hct (34.0-46.0) % PT (9.0-12.0) sec Sodium (137-145) mmol/L Potassium (3.5-5.1) mmol/L Chloride (98-107) mmol/L Carbon Dioxide (22-30) mmol/L BUN (7-17) mg/dL Glucose (74-99) mg/dL POC Glucose (mg/dL) 256 H 222 H (75-99) mg/dL Phosphorus (2.5-4.5) mg/dL AST (14-36) U/L Total Protein (6.3-8.2) g/dL Albumin (3.5-5.0) g/dL Assessment and Plan Plan: #1 diabetic ketoacidosis #2 acute metabolic encephalopathy #3 hypotension #4 essential hypertension #5 hypothyroidism #6 Hypernatremia, Hypercholeremia. #7 diabetic neuropathy #8 hypokalemia is expected from insulin therapy. Plan Changed to D5W. Hold insulin drip till potassium levels were elevated to at least 4. Patient mental status is improving. Continue monitoring. Patient is to remain in the ICU. De-escalate from vancomycin. Urine cultures will be sent. Continue aztreonam.
[2016-05-08] MEDS: INSULIN REGULAR 100 UNIT in SODIUM CHLORIDE 0.9% 100 ML IV SCH (18:13)
[2016-05-08 18:18] LABS: Blood Urea Nitrogen 9 mg/dL (7-17); Calcium 9.4 mg/dL (8.4-10.2); Carbon Dioxide 14 mmol/L (22-30); Glucose 235 mg/dL (74-99); Magnesium 2.1 mg/dL (1.6-2.3); Non-African American GFR(MDRD) >60 (>60 ml/min/1.73 sqM); Phosphorous 1.3 mg/dL (2.5-4.5); Sodium 149 mmol/L (137-145)
[2016-05-08 18:20] LABS: Anion Gap 11 mmol/L
[2016-05-08 18:39] LABS: Chloride 124 mmol/L (98-107)
[2016-05-08 19:09] LABS: Glucose,Whole Blood 152 mg/dL (75-99)
[2016-05-08 19:59] LABS: Glucose,Whole Blood 132 mg/dL (75-99)
[2016-05-08 21:02] LABS: Glucose,Whole Blood 101 mg/dL (75-99)
[2016-05-08 21:36] LABS: Glucose,Whole Blood 145 mg/dL (75-99)
[2016-05-08 22:19] LABS: Anion Gap 9 mmol/L; Blood Urea Nitrogen 8 mg/dL (7-17); Calcium 9.1 mg/dL (8.4-10.2); Carbon Dioxide 18 mmol/L (22-30); Glucose 155 mg/dL (74-99); Non-African American GFR(MDRD) >60 (>60 ml/min/1.73 sqM); Phosphorous 1.7 mg/dL (2.5-4.5); Potassium 3.6 mmol/L (3.5-5.1); Sodium 147 mmol/L (137-145)
[2016-05-08 22:28] LABS: Chloride 120 mmol/L (98-107)
[2016-05-08 22:41] LABS: Glucose,Whole Blood 174 mg/dL (75-99)
[2016-05-08] MEDS: INSULIN GLARGINE 100 UNIT/ML 10 ML VIAL SQ SCH (23:20)
[2016-05-08 23:31] LABS: Glucose,Whole Blood 195 mg/dL (75-99)
[2016-05-09 01:14] LABS: Glucose,Whole Blood 214 mg/dL (75-99)
[2016-05-09] MEDS: INSULIN LISPRO (humaLOG) 300 UNIT/3 ML VIAL SQ SCH ×8 (01:22→21:05)
[2016-05-09] MEDS ORDERED: VANCOMYCIN TROUGH DUE 1 EACH MISC MISCELLANE ONE (05:00)
[2016-05-09 05:16] LABS: Basophils # (A) 0.1 k/uL (0-0.2); Basophils % (A) 1 %; CH 31.8; CHCM 33.5; Eosinophils % (A) 0 %; HCT 41.8 % (34.0-46.0); HDW 2.99; HGB 13.8 gm/dL (11.4-16.0); Luc % (Auto) 2; Lymphocytes # (A) 2.8 k/uL (1.0-4.8); Lymphocytes % (A) 30 %; MCH 31.4 pg (25.0-35.0); MCHC 32.9 g/dL (31.0-37.0); MCV 95.6 fL (80.0-100.0); Monocytes # (A) 0.5 k/uL (0-1.0); Monocytes % (A) 5 %; Neutrophils # (A) 5.8 k/uL (1.3-7.7); Neutrophils % (A) 62 %; RBC 4.38 m/uL (3.80-5.40); RDW 14.2 % (11.5-15.5); WBC 9.4 k/uL (3.8-10.6); WBC (Perox) 10.06
[2016-05-09 05:21] LABS: INR 1.4 (<1.1); Partial Thromboplastin Time 26.6 sec (22.0-30.0); Prothrombin Time 13.9 sec (9.0-12.0)
[2016-05-09 05:24] LABS: Anion Gap 9 mmol/L; Blood Urea Nitrogen 6 mg/dL (7-17); Calcium 9.2 mg/dL (8.4-10.2); Carbon Dioxide 18 mmol/L (22-30); Chloride 118 mmol/L (98-107); Glucose 192 mg/dL (74-99); Magnesium 1.9 mg/dL (1.6-2.3); Non-African American GFR(MDRD) >60 (>60 ml/min/1.73 sqM); Phosphorous 1.5 mg/dL (2.5-4.5); Potassium 3.4 mmol/L (3.5-5.1); Sodium 145 mmol/L (137-145)
[2016-05-09] MEDS ORDERED: Potassium Replacement Protocol 1 EACH MISC MISCELLANE PRN (05:46)
[2016-05-09] MEDS ORDERED: Magnesium Replacement Protocol 1 EACH MISC MISCELLANE PRN (05:46)
[2016-05-09] MEDS: VANCOMYCIN 1,500 MG in SODIUM CHLORIDE 0.9% 250 ML IVPB SCH (05:56)
[2016-05-09] MEDS: POTASSIUM CHLORIDE 10 MEQ, LIDOCAINE 2% INJ 10 MG in SODIUM CHLORIDE 0.9% 100 ML IV SCH ×2 (06:01→08:46)
[2016-05-09] MEDS: MAGNESIUM SULFATE-D5W PMX 1 GM in DEXTROSE/WATER 1 100ML.BAG IVPB SCH ×2 (06:01→08:46)
[2016-05-09 08:08] LABS: Glucose,Whole Blood 182 mg/dL (75-99)
[2016-05-09] MEDS: HEPARIN SODIUM,PORCINE 5,000 UNIT/ML 1 ML VIAL SQ SCH ×3 (08:42→23:02)
[2016-05-09] MEDS: FAMOTIDINE 20 MG/2 ML VIAL IV SCH ×2 (08:43→21:04)
[2016-05-09] MEDS: AZTREONAM 1 GM in SODIUM CHLORIDE 0.9% 50 ML IVPB SCH (08:46)
[2016-05-09] MEDS: SODIUM PHOSPHATE 10 MMOL in SODIUM CHLORIDE 0.9% 250 ML IVPB SCH ×2 (12:29→15:35)
[2016-05-09 13:06] LABS: Glucose,Whole Blood 170 mg/dL (75-99)
--- NOTE | 2016-05-09 14:57 | P.PN ---
Subjective Principal diagnosis: Acute diabetic ketoacidosis and metabolic encephalopathy This is a 61-year-old female with history of diabetes, patient is a poor historian, presented to the ER with chief complaint of weakness over the last 4- 5 days. Patient also had a near syncopal episode according to her , and EMS was called in. Patient was brought into the ER and she was a very poor historian, blood pressure was low at 73/54, patient was very confused, she had significantly abnormal electrolytes with a sodium of 153, chloride is 124, bicarb was only 10, she was also noted to have on iron Metabolic acidosis with anion gap of 19, she had leukocytosis with WBC count of 18.2 blood sugar was 258 , lactic acid was 2.7, lipase was over 1600 and the patient had positive ketones. CT of the brain was normal. KUB was normal. Chest x-ray was also normal. Hence the patient was admitted with the impression of acute diabetic ketoacidosis and acute metabolic encephalopathy, I was asked to see her on consultation. Patient is definitely confused, but she is in no form of respiratory distress upon my initial evaluation. The diabetic ketoacidosis protocol is being followed, and the patient is receiving fluids as well as insulin. I recommended empiric antibiotics for possible underlying sepsis. Patient has multiple ALLERGIES, hence she was placed on aztreonam and vancomycin. Cultures are pending. Patient was seen today on 05/08/2016, seems to be more appropriate, alert and oriented 3, and in no form of distress. Her sodium remains high at 151 potassium is today 2.9, and she continues to have a picture of hyperchloremic metabolic acidosis. Patient is receiving free water to correct her hypernatremia and hyperchloremia. Her leukocytosis is improved and WBC count is 14.9. Blood sugar is 173 today. Renal profile is normal. No left pains was done today, but it was over 1600 yesterday. Blood cultures are negative so far. Patient is hemodynamically stable. And she remains on insulin drip at 2 units. She is also receiving D5W today. And she will probably stay in the ICU for another day. Patient was reevaluated today on 05/09/2016, continues to do well, she is off the insulin drip, and she is on insulin as per sliding scale. Her labs were all reviewed, and they seem to be relatively unremarkable. Her hypernatremia and hypokalemia were corrected, her anion gap was corrected, and her CBC was normal. Hence we plan to transfer the patient out of the ICU to a regular medical floor today. Objective - Vital Signs Vital signs: Vital Signs Temp 98.4 F 05/09/16 12:00 Pulse 87 05/09/16 12:00 Resp 18 05/09/16 12:00 BP 153/68 05/09/16 12:00 Pulse Ox 95 05/09/16 12:00 Intake & Output 05/08/16 05/09/16 05/09/16 18:59 06:59 18:59 Intake Total 2828.009 1766.118 700 Output Total 1250 1315 535 Balance 1578.009 451.118 165 Weight 99 kg 100.5 kg 100.5 kg Intake: IV 1800 1650 700 Aztreonam 1 gm In Sodium 100 50 Chloride 0.9% 50 ml @ 100 mls/hr IVPB Q8HR [facility] Rx# :[id number] D5-0.45% NaCl with KCl 450 20Meq/l 1,000 ml @ 150 mls/hr IV .Q6H40M [facility] Rx# :[id number] D5-0.45% NaCl with KCl 350 200 20Meq/l 1,000 ml @ 50 mls /hr IV .Q20H [facility] Rx#: [id number] Dextrose 5% in Water 1, 1350 750 000 ml @ 150 mls/hr IV . Q6H40M [facility] Rx#:[id number] Magnesium Sulfate-D5w Pmx 100 100 1 gm In Dextrose/Water 1 100ml.bag @ 100 mls/hr IVPB Q1H [facility] Rx#: [id number] Potassium Chloride 10 meq 100 100 Lidocaine 2% Inj 10 mg In Sodium Chloride 0.9% 100 ml @ 100 mls/hr IV Q1HR [facility] Rx#:[id number] Sodium Phosphate 10 mmol 250 In Sodium Chloride 0.9% 250 ml @ 125 mls/hr IVPB Q2H [facility] Rx#:[id number] Vancomycin 1,500 mg In 250 Sodium Chloride 0.9% 250 ml @ 125 mls/hr IVPB Q12HR@0600,1800 [facility] Rx#: [id number] Intake, IV Titration 1028.009 116.118 Amount Insulin Regular 100 unit 28.009 16.118 In Sodium Chloride 0.9% 100 ml @ 2.6 UNIT/HR 2.62 mls/hr IV .Q24H [facility] Rx#: [id number] Potassium Chloride 10 meq 200 Lidocaine 2% Inj 10 mg In Sodium Chloride 0.9% 100 ml @ 100 mls/hr IV Q1HR [facility] Rx#:[id number] Potassium Chloride 20 meq 200 Lidocaine 2% Inj 20 mg In Sodium Chloride 0.9% 100 ml @ 55.5 mls/hr IVPB Q2HR [facility] Rx#:[id number] Potassium Phosphate 10 100 100 mmol In Sodium Chloride 0 .9% 250 ml @ 125 mls/hr IV Q2H [facility] Rx#:[id number] Vancomycin 1,500 mg In 250 Sodium Chloride 0.9% 250 ml @ 125 mls/hr IVPB Q12HR@0600,1800 [facility] Rx#: [id number] Vancomycin 1,500 mg In 250 Sodium Chloride 0.9% 250 ml @ 125 mls/hr IVPB Q24HR@0600 [facility] Rx#: [id number] Output: Urine 1250 1315 535 Other: Voiding Method Indwelling Catheter Indwelling Catheter Indwelling Catheter - Exam Physical Exam: Revealed a 61-year-old female in no distress, HEENT:[Neck is supple.] [No neck masses.] [No thyromegaly.] [No JVD.] Chest: [Diminished breath sounds at the bases no crackles or rhonchi or wheezes. ] Cardiac Exam: [Normal S1 and S2, no S3 gallop, no murmur.] Abdomen: [Soft, nontender, no megaly, no rebound, no guarding, normal bowel sounds.] Extremities: [No clubbing, no edema, no cyanosis.] Neurological Exam: No focal neurologic deficit noted today. - Labs CBC & Chem 7: 05/09/16 04:54 05/09/16 04:54 Labs: Abnormal Lab Results - Last 24 Hours (Table) 05/08/16 05/08/16 05/08/16 Range/Units 15:14 16:01 17:02 PT (9.0-12.0) sec Sodium (137-145) mmol/L Potassium (3.5-5.1) mmol/L Chloride (98-107) mmol/L Carbon Dioxide (22-30) mmol/L BUN (7-17) mg/dL Glucose (74-99) mg/dL POC Glucose (mg/dL) 307 H 256 H 222 H (75-99) mg/dL Phosphorus (2.5-4.5) mg/dL 05/08/16 05/08/16 05/08/16 Range/Units 17:42 17:57 19:08 PT (9.0-12.0) sec Sodium 149 H (137-145) mmol/L Potassium (3.5-5.1) mmol/L Chloride 124 H* (98-107) mmol/L Carbon Dioxide 14 L (22-30) mmol/L BUN (7-17) mg/dL Glucose 235 H (74-99) mg/dL POC Glucose (mg/dL) 207 H 152 H (75-99) mg/dL Phosphorus 1.3 L (2.5-4.5) mg/dL 05/08/16 05/08/16 05/08/16 Range/Units 19:57 21:01 21:35 PT (9.0-12.0) sec Sodium (137-145) mmol/L Potassium (3.5-5.1) mmol/L Chloride (98-107) mmol/L Carbon Dioxide (22-30) mmol/L BUN (7-17) mg/dL Glucose (74-99) mg/dL POC Glucose (mg/dL) 132 H 101 H 145 H (75-99) mg/dL Phosphorus (2.5-4.5) mg/dL 05/08/16 05/08/16 05/08/16 Range/Units 21:54 22:39 23:30 PT (9.0-12.0) sec Sodium 147 H (137-145) mmol/L Potassium (3.5-5.1) mmol/L Chloride 120 H* (98-107) mmol/L Carbon Dioxide 18 L (22-30) mmol/L BUN (7-17) mg/dL Glucose 155 H (74-99) mg/dL POC Glucose (mg/dL) 174 H 195 H (75-99) mg/dL Phosphorus 1.7 L (2.5-4.5) mg/dL 05/09/16 05/09/16 05/09/16 Range/Units 01:12 04:54 04:54 PT 13.9 H (9.0-12.0) sec Sodium (137-145) mmol/L Potassium 3.4 L (3.5-5.1) mmol/L Chloride 118 H (98-107) mmol/L Carbon Dioxide 18 L (22-30) mmol/L BUN 6 L (7-17) mg/dL Glucose 192 H (74-99) mg/dL POC Glucose (mg/dL) 214 H (75-99) mg/dL Phosphorus 1.5 L (2.5-4.5) mg/dL 05/09/16 05/09/16 Range/Units 08:06 13:03 PT (9.0-12.0) sec Sodium (137-145) mmol/L Potassium (3.5-5.1) mmol/L Chloride (98-107) mmol/L Carbon Dioxide (22-30) mmol/L BUN (7-17) mg/dL Glucose (74-99) mg/dL POC Glucose (mg/dL) 182 H 170 H (75-99) mg/dL Phosphorus (2.5-4.5) mg/dL Assessment and Plan Plan: Impression: Acute mental status change secondary to acute metabolic encephalopathy, suspect diabetic ketoacidosis, acute pancreatitis, and acute hypernatremia and electrolytes imbalance. Possibility of sepsis is definitely in the differential, hence the patient will be covered empirically with antibiotics as noted above including vancomycin and aztreonam. Cultures are negative so far, hence I will discontinue her antibiotics. Multiple comorbidities including history of COPD, history of congestive heart failure, history of previous CVA, history of previous TIA, history of diabetes, essential hypertension, osteoarthritis, hypothyroidism, irritable bowel syndrome , fibromyalgia, diabetic neuropathy, obstructive sleep apnea syndrome, and degenerative joint disease. Recommendation: Continue present supportive care measures, transfer the patient out of the ICU to a regular medical floor, I will go ahead and discontinue antibiotics. Time with Patient: Less than 30
[2016-05-09 17:04] LABS: Glucose,Whole Blood 235 mg/dL (75-99)
[2016-05-09] MEDS: D5-0.45% NACL WITH KCL 20MEQ/L 1,000 ML IV SCH (18:00)
--- NOTE | 2016-05-09 18:17 | P.PN ---
Subjective This is a 61-year-old female that has a history of diabetes is a poor historian that is admitted to the hospital with intractable nausea for the last few days. Patient was noted to have an anion gap metabolic acidosis secondary to DKA. Unsure patient was compliant with her medications at home. Patient was triaged ICU. Patient was empirically started on antibiotics as sepsis being an underlying etiology for her DKA. This morning on evaluation patient was more awake was able to state her location which apparently is a significant improvement from past examination. Patient was also noted to have a low blood pressure around 73/54. Patient's urine analysis appeared to be abnormal other cultures including blood are negative so far. 05/09/2016 Patient states to have intermittent nausea. However was tolerating liquid diet. Apparently over the last few weeks patient states that the she has had these episodes of nausea and not being able to tolerate a full meal hence her oral intake has been significantly decreased. Patient states to be compliant with her insulin however. Patient appears to have a flat affect and however on questioning with regards to suicidal ideation denies having it. States that her mood has been more in the recent times. Objective - Vital Signs Vital signs: Vital Signs Temp 97.9 F 05/09/16 16:00 Pulse 91 05/09/16 16:00 Resp 18 05/09/16 16:00 BP 117/61 05/09/16 16:00 Pulse Ox 93 L 05/09/16 16:00 Intake & Output 05/08/16 05/09/16 05/09/16 18:59 06:59 18:59 Intake Total 2828.009 1766.118 950 Output Total 1250 1315 660 Balance 1578.009 451.118 290 Weight 99 kg 100.5 kg 100.5 kg Intake: IV 1800 1650 950 Aztreonam 1 gm In Sodium 100 50 Chloride 0.9% 50 ml @ 100 mls/hr IVPB Q8HR [facility] Rx# :[id number] D5-0.45% NaCl with KCl 450 20Meq/l 1,000 ml @ 150 mls/hr IV .Q6H40M [facility] Rx# :[id number] D5-0.45% NaCl with KCl 350 200 20Meq/l 1,000 ml @ 50 mls /hr IV .Q20H [facility] Rx#: [id number] Dextrose 5% in Water 1, 1350 750 000 ml @ 150 mls/hr IV . Q6H40M [facility] Rx#:[id number] Magnesium Sulfate-D5w Pmx 100 100 1 gm In Dextrose/Water 1 100ml.bag @ 100 mls/hr IVPB Q1H [facility] Rx#: [id number] Potassium Chloride 10 meq 100 100 Lidocaine 2% Inj 10 mg In Sodium Chloride 0.9% 100 ml @ 100 mls/hr IV Q1HR [facility] Rx#:[id number] Sodium Phosphate 10 mmol 500 In Sodium Chloride 0.9% 250 ml @ 125 mls/hr IVPB Q2H [facility] Rx#:[id number] Vancomycin 1,500 mg In 250 Sodium Chloride 0.9% 250 ml @ 125 mls/hr IVPB Q12HR@0600,1800 [facility] Rx#: [id number] Intake, IV Titration 1028.009 116.118 Amount Insulin Regular 100 unit 28.009 16.118 In Sodium Chloride 0.9% 100 ml @ 2.6 UNIT/HR 2.62 mls/hr IV .Q24H [facility] Rx#: [id number] Potassium Chloride 10 meq 200 Lidocaine 2% Inj 10 mg In Sodium Chloride 0.9% 100 ml @ 100 mls/hr IV Q1HR [facility] Rx#:[id number] Potassium Chloride 20 meq 200 Lidocaine 2% Inj 20 mg In Sodium Chloride 0.9% 100 ml @ 55.5 mls/hr IVPB Q2HR [facility] Rx#:[id number] Potassium Phosphate 10 100 100 mmol In Sodium Chloride 0 .9% 250 ml @ 125 mls/hr IV Q2H [facility] Rx#:[id number] Vancomycin 1,500 mg In 250 Sodium Chloride 0.9% 250 ml @ 125 mls/hr IVPB Q12HR@0600,1800 [facility] Rx#: [id number] Vancomycin 1,500 mg In 250 Sodium Chloride 0.9% 250 ml @ 125 mls/hr IVPB Q24HR@0600 [facility] Rx#: [id number] Output: Urine 1250 1315 660 Other: Voiding Method Indwelling Catheter Indwelling Catheter Indwelling Catheter - Exam Gen. appearance alert to time and place Lungs diminished breath sounds however good air movement no wheezing or rhonchi appreciated Heart S1-S2 heard regular rate and rhythm no murmurs appreciated Abdomen is soft slightly tender to palpation in the epigastric area no organomegaly is appreciated Lower extremities no edema noted Neurologically moves all 4 extremities no focal deficits noted. - Labs CBC & Chem 7: 05/09/16 04:54 05/09/16 04:54 Labs: Abnormal Lab Results - Last 24 Hours (Table) 05/08/16 05/08/16 05/08/16 Range/Units 17:42 19:08 19:57 PT (9.0-12.0) sec Sodium 149 H (137-145) mmol/L Potassium (3.5-5.1) mmol/L Chloride 124 H* (98-107) mmol/L Carbon Dioxide 14 L (22-30) mmol/L BUN (7-17) mg/dL Glucose 235 H (74-99) mg/dL POC Glucose (mg/dL) 152 H 132 H (75-99) mg/dL Phosphorus 1.3 L (2.5-4.5) mg/dL 05/08/16 05/08/16 05/08/16 Range/Units 21:01 21:35 21:54 PT (9.0-12.0) sec Sodium 147 H (137-145) mmol/L Potassium (3.5-5.1) mmol/L Chloride 120 H* (98-107) mmol/L Carbon Dioxide 18 L (22-30) mmol/L BUN (7-17) mg/dL Glucose 155 H (74-99) mg/dL POC Glucose (mg/dL) 101 H 145 H (75-99) mg/dL Phosphorus 1.7 L (2.5-4.5) mg/dL 05/08/16 05/08/16 05/09/16 Range/Units 22:39 23:30 01:12 PT (9.0-12.0) sec Sodium (137-145) mmol/L Potassium (3.5-5.1) mmol/L Chloride (98-107) mmol/L Carbon Dioxide (22-30) mmol/L BUN (7-17) mg/dL Glucose (74-99) mg/dL POC Glucose (mg/dL) 174 H 195 H 214 H (75-99) mg/dL Phosphorus (2.5-4.5) mg/dL 05/09/16 05/09/16 05/09/16 Range/Units 04:54 04:54 08:06 PT 13.9 H (9.0-12.0) sec Sodium (137-145) mmol/L Potassium 3.4 L (3.5-5.1) mmol/L Chloride 118 H (98-107) mmol/L Carbon Dioxide 18 L (22-30) mmol/L BUN 6 L (7-17) mg/dL Glucose 192 H (74-99) mg/dL POC Glucose (mg/dL) 182 H (75-99) mg/dL Phosphorus 1.5 L (2.5-4.5) mg/dL 05/09/16 05/09/16 Range/Units 13:03 17:02 PT (9.0-12.0) sec Sodium (137-145) mmol/L Potassium (3.5-5.1) mmol/L Chloride (98-107) mmol/L Carbon Dioxide (22-30) mmol/L BUN (7-17) mg/dL Glucose (74-99) mg/dL POC Glucose (mg/dL) 170 H 235 H (75-99) mg/dL Phosphorus (2.5-4.5) mg/dL Assessment and Plan Plan: #1 diabetic ketoacidosis #2 acute metabolic encephalopathy #3 hypotension #4 essential hypertension #5 hypothyroidism #6 Hypernatremia, Hypercholeremia. #7 diabetic neuropathy #8 hypokalemia is expected from insulin therapy. Plan Continue aztreonam. There is some concern over underlying depression in this patient. Patient be started on Reglan 5 mg by mouth 3 times a day. Underlying gastroparesis can also not be ruled out Start the patient on Celexa.
[2016-05-09 21:04] LABS: Glucose,Whole Blood 137 mg/dL (75-99)
[2016-05-09] MEDS: CITALOPRAM HYDROBROMIDE 20 MG TAB PO SCH (21:05)
[2016-05-09] MEDS: INSULIN GLARGINE 100 UNIT/ML 10 ML VIAL SQ SCH (23:01)
[2016-05-10 02:17] LABS: Glucose,Whole Blood 214 mg/dL (75-99)
[2016-05-10] MEDS: INSULIN LISPRO (humaLOG) 300 UNIT/3 ML VIAL SQ SCH ×8 (02:42→21:44)
[2016-05-10 07:22] LABS: Glucose,Whole Blood 162 mg/dL (75-99)
[2016-05-10] MEDS: HEPARIN SODIUM,PORCINE 5,000 UNIT/ML 1 ML VIAL SQ SCH ×3 (08:02→23:21)
[2016-05-10] MEDS: METOCLOPRAMIDE 5 MG TAB PO SCH ×3 (08:02→18:23)
[2016-05-10] MEDS: CITALOPRAM HYDROBROMIDE 20 MG TAB PO SCH (08:02)
[2016-05-10] MEDS: FAMOTIDINE 20 MG/2 ML VIAL IV SCH ×3 (08:03→21:47)
[2016-05-10 09:52] LABS: INR 1.3 (<1.1); Partial Thromboplastin Time 24.3 sec (22.0-30.0); Prothrombin Time 13.2 sec (9.0-12.0)
[2016-05-10 09:57] LABS: Basophils # (A) 0.1 k/uL (0-0.2); Basophils % (A) 1 %; CH 32.1; CHCM 34.5; Eosinophils # (A) 0.1 k/uL (0-0.7); Eosinophils % (A) 1 %; HCT 38.9 % (34.0-46.0); HDW 3.04; HGB 12.8 gm/dL (11.4-16.0); Large Platelets Flag Slight; Luc # (Auto) 0.13; Luc % (Auto) 2; Lymphocytes # (A) 2.2 k/uL (1.0-4.8); Lymphocytes % (A) 33 %; MCH 30.9 pg (25.0-35.0); MCHC 32.9 g/dL (31.0-37.0); MCV 93.8 fL (80.0-100.0); Mean Platelet Volume 12.1; Monocytes # (A) 0.4 k/uL (0-1.0); Monocytes % (A) 7 %; Neutrophils # (A) 3.8 k/uL (1.3-7.7); Neutrophils % (A) 57 %; RBC 4.15 m/uL (3.80-5.40); RDW 14.1 % (11.5-15.5); WBC 6.6 k/uL (3.8-10.6); WBC (Perox) 6.37
[2016-05-10 10:24] LABS: ALT 34 U/L (9-52); AST 11 U/L (14-36); Alkaline Phosphatase 71 U/L (38-126); Anion Gap 8 mmol/L; Blood Urea Nitrogen 4 mg/dL (7-17); Calcium 8.6 mg/dL (8.4-10.2); Carbon Dioxide 27 mmol/L (22-30); Chloride 110 mmol/L (98-107); Glucose 164 mg/dL (74-99); Magnesium 2.3 mg/dL (1.6-2.3); Non-African American GFR(MDRD) >60 (>60 ml/min/1.73 sqM); Phosphorous 2.2 mg/dL (2.5-4.5); Potassium 3.1 mmol/L (3.5-5.1); Sodium 145 mmol/L (137-145); Total Bilirubin 0.5 mg/dL (0.2-1.3); Total Protein 4.9 g/dL (6.3-8.2)
[2016-05-10 12:13] LABS: Glucose,Whole Blood 201 mg/dL (75-99)
[2016-05-10 17:00] LABS: Glucose,Whole Blood 107 mg/dL (75-99)
--- NOTE | 2016-05-10 19:54 | P.PN ---
Subjective This is a 61-year-old female that has a history of diabetes is a poor historian that is admitted to the hospital with intractable nausea for the last few days. Patient was noted to have an anion gap metabolic acidosis secondary to DKA. Unsure patient was compliant with her medications at home. Patient was triaged ICU. Patient was empirically started on antibiotics as sepsis being an underlying etiology for her DKA. This morning on evaluation patient was more awake was able to state her location which apparently is a significant improvement from past examination. Patient was also noted to have a low blood pressure around 73/54. Patient's urine analysis appeared to be abnormal other cultures including blood are negative so far. 05/09/2016 Patient states to have intermittent nausea. However was tolerating liquid diet. Apparently over the last few weeks patient states that the she has had these episodes of nausea and not being able to tolerate a full meal hence her oral intake has been significantly decreased. Patient states to be compliant with her insulin however. Patient appears to have a flat affect and however on questioning with regards to suicidal ideation denies having it. States that her mood has been more in the recent times. 2017 Patient does not make any eye contact states that she does not feel like eating. Apparently was was not letting the RNs infuse any anti nausea medications. Objective - Vital Signs Vital signs: Vital Signs Temp 96.6 F L 05/10/16 15:00 Pulse 70 05/10/16 17:40 Resp 14 05/10/16 17:40 BP 132/63 05/10/16 15:00 Pulse Ox 94 L 05/10/16 15:00 Intake & Output 05/10/16 05/10/16 05/11/16 06:59 18:59 06:59 Intake Total 0 Balance 0 Intake: IV 0 D5-0.45% NaCl with KCl 0 20Meq/l 1,000 ml @ 50 mls /hr IV .Q20H [facility] Rx#: [id number] Other: Voiding Method Bedside Commode # Voids 2 # Bowel Movements 1 - Exam Gen. appearance alert to time and place Lungs diminished breath sounds however good air movement no wheezing or rhonchi appreciated Heart S1-S2 heard regular rate and rhythm no murmurs appreciated Abdomen is soft slightly tender to palpation in the epigastric area no organomegaly is appreciated Lower extremities no edema noted Neurologically moves all 4 extremities no focal deficits noted. Psychiatric patient does not make any eye contact flat affect. - Labs CBC & Chem 7: 05/10/16 08:07 05/10/16 08:07 Labs: Abnormal Lab Results - Last 24 Hours (Table) 05/09/16 05/10/16 05/10/16 Range/Units 21:02 02:12 07:20 Plt Count (150-450) k/uL PT (9.0-12.0) sec Potassium (3.5-5.1) mmol/L Chloride (98-107) mmol/L BUN (7-17) mg/dL Glucose (74-99) mg/dL POC Glucose (mg/dL) 137 H 214 H 162 H (75-99) mg/dL Phosphorus (2.5-4.5) mg/dL AST (14-36) U/L Total Protein (6.3-8.2) g/dL Albumin (3.5-5.0) g/dL 05/10/16 05/10/16 05/10/16 Range/Units 08:07 08:07 08:07 Plt Count 140 L (150-450) k/uL PT 13.2 H (9.0-12.0) sec Potassium 3.1 L (3.5-5.1) mmol/L Chloride 110 H (98-107) mmol/L BUN 4 L (7-17) mg/dL Glucose 164 H (74-99) mg/dL POC Glucose (mg/dL) (75-99) mg/dL Phosphorus 2.2 L (2.5-4.5) mg/dL AST 11 L (14-36) U/L Total Protein 4.9 L (6.3-8.2) g/dL Albumin 2.5 L (3.5-5.0) g/dL 05/10/16 05/10/16 Range/Units 12:11 16:57 Plt Count (150-450) k/uL PT (9.0-12.0) sec Potassium (3.5-5.1) mmol/L Chloride (98-107) mmol/L BUN (7-17) mg/dL Glucose (74-99) mg/dL POC Glucose (mg/dL) 201 H 107 H (75-99) mg/dL Phosphorus (2.5-4.5) mg/dL AST (14-36) U/L Total Protein (6.3-8.2) g/dL Albumin (3.5-5.0) g/dL Assessment and Plan Plan: #1 diabetic ketoacidosis #2 acute metabolic encephalopathy #3 hypotension #4 essential hypertension #5 hypothyroidism #6 Hypernatremia, Hypercholeremia. #7 diabetic neuropathy #8 hypokalemia is expected from insulin therapy. Plan A psychiatric consult will be obtained continue ongoing care. Patient did not receive her basal dose of insulin overnight hence glucose levels are elevated. Did discuss with the RN that patient should receive her basal dose.
[2016-05-10 20:34] LABS: Glucose,Whole Blood 121 mg/dL (75-99)
[2016-05-10] MEDS: INSULIN GLARGINE 100 UNIT/ML 10 ML VIAL SQ SCH (21:44)
[2016-05-10] MEDS: ONDANSETRON 4 MG/2 ML VIAL IVP PRN (21:47)
[2016-05-11 01:56] LABS: Glucose,Whole Blood 190 mg/dL (75-99)
[2016-05-11] MEDS: INSULIN LISPRO (humaLOG) 300 UNIT/3 ML VIAL SQ SCH ×8 (01:58→21:49)
[2016-05-11 07:42] LABS: Glucose,Whole Blood 187 mg/dL (75-99)
--- NOTE | 2016-05-11 07:47 | XR ---
EXAMINATION TYPE: XR chest 1V portable DATE OF EXAM: 05/11/2016 7:26 AM HISTORY: Shortness of breath. REFERENCE: Previous study dated 05/07/2016. FINDINGS: The study is limited by the patient's large size. There is appears to be some increased opacity in the left lingula. This appears to been interval pedersen ge. Both CP angles are obscured. I could not exclude small effusions. The heart is not enlarged. IMPRESSION: 1. SUBOPTIMAL EXAM. 2. INCREASING DENSITY IN THE REGION OF THE LEFT LINGULA. 3. I COULD NOT EXCLUDE SMALL, BILATERAL EFFUSIONS.
[2016-05-11] MEDS: METOCLOPRAMIDE 5 MG TAB PO SCH ×2 (07:51→12:40)
[2016-05-11] MEDS: CITALOPRAM HYDROBROMIDE 20 MG TAB PO SCH (07:51)
[2016-05-11] MEDS: FAMOTIDINE 20 MG/2 ML VIAL IV SCH ×3 (07:51→21:50)
[2016-05-11] MEDS: HEPARIN SODIUM,PORCINE 5,000 UNIT/ML 1 ML VIAL SQ SCH ×2 (07:51→16:37)
[2016-05-11] MEDS: ONDANSETRON 4 MG/2 ML VIAL IVP PRN (07:52)
[2016-05-11 08:53] LABS: INR 1.3 (<1.1); Partial Thromboplastin Time 24.6 sec (22.0-30.0)
[2016-05-11 08:57] LABS: ALT 35 U/L (9-52); AST 12 U/L (14-36); Alkaline Phosphatase 68 U/L (38-126); Anion Gap 10 mmol/L; Blood Urea Nitrogen 5 mg/dL (7-17); Calcium 8.5 mg/dL (8.4-10.2); Carbon Dioxide 27 mmol/L (22-30); Chloride 105 mmol/L (98-107); Glucose 170 mg/dL (74-99); Magnesium 2.3 mg/dL (1.6-2.3); Non-African American GFR(MDRD) >60 (>60 ml/min/1.73 sqM); Sodium 142 mmol/L (137-145); Total Bilirubin 0.4 mg/dL (0.2-1.3)
[2016-05-11 09:09] LABS: Basophils # (A) 0.1 k/uL (0-0.2); Basophils % (A) 1 %; CH 31.9; CHCM 33.6; Eosinophils # (A) 0.2 k/uL (0-0.7); Eosinophils % (A) 3 %; HCT 38.9 % (34.0-46.0); HDW 3.03; HGB 12.5 gm/dL (11.4-16.0); Large Platelets Flag Slight; Luc # (Auto) 0.18; Luc % (Auto) 3; Lymphocytes % (A) 32 %; MCH 30.7 pg (25.0-35.0); MCV 95.8 fL (80.0-100.0); Mean Platelet Volume 10.1; Monocytes # (A) 0.4 k/uL (0-1.0); Monocytes % (A) 7 %; Neutrophils # (A) 3.4 k/uL (1.3-7.7); Neutrophils % (A) 55 %; RBC 4.06 m/uL (3.80-5.40); RDW 14.6 % (11.5-15.5); WBC 6.3 k/uL (3.8-10.6)
[2016-05-11] MEDS: POTASSIUM CHLORIDE ER 20 MEQ TAB.ER PO SCH ×3 (09:39→21:49)
[2016-05-11 12:22] LABS: Glucose,Whole Blood 72 mg/dL (75-99)
--- NOTE | 2016-05-11 15:43 | CONS ---
DATE OF CONSULTATION: 05/11/2016 REASON FOR CONSULTATION: Depression. I reviewed the medical record and I did interview the patient. HISTORY OF PRESENT ILLNESS: Patient is 61, white, female who was admitted to the hospital on May 07 with chief complaint of altered mental status. Patient has multiple medical problems including diabetes type 2, chronic obstructive pulmonary disease, fibromyalgia, hypothyroidism, history of transient ischemic attack, irritable bowel syndrome, chronic pain. When I met with the patient she said, "I am very sick and having nausea since the day after [place]." Patient is not aware about anything triggering this nausea. However, she stated that she has been stressed out with her multiple medical problems and at times she has been neglecting herself. She endorses history of depression and anxiety for almost 10-years after her oldest daughter was diagnosed with bipolar disorder. Patient stated that she used to be on citalopram 40 mg daily, Xanax 0.25 as needed for panic attack or stress and Seroquel 100 mg at bedtime for sleep. Patient stated that she was in individual counseling for almost 1 year as she was having hard time to accept her daughter's mental illness and after this she did quit taking Xanax and Celexa, but she kept herself on the Seroquel 100 mg for sleep. The patient stated that since she came to the hospital she has been without her Seroquel and has not been sleeping at night as she described trouble falling asleep and staying asleep. Patient endorses fatigue, no motivation, weight loss up to 5 to 10 pounds since [place] as she has been having constant nausea, but she denied any feeling of hopeless or helpless. Patient described excessive worry about her physical health as she said, "I am physically sick since [place] and I cannot babysit my grandchildren". She stated that she has been missing to be around her grandchildren as she has 14 grandchildren because "I worry that I will be sick because it started like flulike symptoms". PAST PSYCHIATRIC HISTORY: As I mentioned there is no previous suicidal attempt. There is no previous inpatient treatment, however, there is outpatient counseling for one year 10 years ago. Her primary care physician continued to give her the Seroquel for sleep. SUBSTANCE ABUSE HISTORY: She denied any substance abuse history. SOCIAL HISTORY: Patient was 3 times the first marriage ended after 7 years and she has 3 children from this first marriage. Second marriage for 7 years and currently she has been in her third marriage for more than 25 years and she described him as he is very supportive and he has been helping her a lot in the house. Patient used to work at [employer] up to 4 years ago then she took medical group home as she has been struggling with multiple medical problems. Patient stated that her children are very supportive and she has 14 grandchildren. MENTAL STATUS EXAMINATION: Patient is dressed in hospital gown, very cooperative, good eye contact; however, more than once she was having nausea and she was trying to vomit especially when she was talking about her oldest daughter who was diagnosed with bipolar disorder 10 years ago. Her stated mood "very anxious and nervous." Affect is appropriate to thought content. She denied any psychotic features. She denied any suicidal or homicide ideation. She denied any manic or hypomanic feature. She was alert, oriented to person and place, but not the exact today's date. She did realize that it was the second week of May 2016. Her insight and judgment are good. IMPRESSION: Patient is 61, female with multiple medical problems who presented to the hospital with altered mental status due to diabetic ketoacidosis. Currently, she is not confused; however, she is still feeling anxious and has constant nausea. Patient did agree to start back on Celexa as it was effective before and Xanax p.r.n. as needed. I will start her back on Seroquel to restore her sleep; however, I told her that I will start her only on 50 mg and if it is not effective we can increase it to 100 mg, but this is to avoid the metabolic dysfunction of the antipsychotic medication. I did discuss with her treatment option to try to start her on trazodone or Remeron for sleep, but she stated that she did try this before and it did not help her sleep. From a psychiatric perspective, patient does not need inpatient psych hospitalization as there is no eminent to self harm or other, but I do recommend to refer the patient to outpatient counseling and to continue her on Celexa and Seroquel for sleep. We will continue to follow as long as she is on medical floor. Thank you for this consult
[2016-05-11] MEDS: POTASSIUM CHLORIDE 10 MEQ, LIDOCAINE 2% INJ 10 MG in SODIUM CHLORIDE 0.9% 100 ML IV SCH ×2 (16:37→17:28)
[2016-05-11 17:22] LABS: Glucose,Whole Blood 153 mg/dL (75-99)
[2016-05-11] MEDS ORDERED: ACETAMINOPHEN TAB 325 MG TAB PO PRN (18:02)
--- NOTE | 2016-05-11 19:35 | P.PN ---
Subjective This is a 61-year-old female that has a history of diabetes is a poor historian that is admitted to the hospital with intractable nausea for the last few days. Patient was noted to have an anion gap metabolic acidosis secondary to DKA. Unsure patient was compliant with her medications at home. Patient was triaged ICU. Patient was empirically started on antibiotics as sepsis being an underlying etiology for her DKA. This morning on evaluation patient was more awake was able to state her location which apparently is a significant improvement from past examination. Patient was also noted to have a low blood pressure around 73/54. Patient's urine analysis appeared to be abnormal other cultures including blood are negative so far. 05/09/2016 Patient states to have intermittent nausea. However was tolerating liquid diet. Apparently over the last few weeks patient states that the she has had these episodes of nausea and not being able to tolerate a full meal hence her oral intake has been significantly decreased. Patient states to be compliant with her insulin however. Patient appears to have a flat affect and however on questioning with regards to suicidal ideation denies having it. States that her mood has been more in the recent times. 2017 Patient does not make any eye contact states that she does not feel like eating. Apparently was was not letting the RNs infuse any anti nausea medications. No new overnight events Pt states to have some nausea, however there is some concern for issues with swallowing More appropriate today. Objective - Vital Signs Vital signs: Vital Signs Temp 98.4 F 05/11/16 15:00 Pulse 70 05/11/16 18:00 Resp 17 05/11/16 18:00 BP 131/67 05/11/16 15:00 Pulse Ox 94 L 05/11/16 15:00 Intake & Output 05/11/16 05/11/16 05/12/16 06:59 18:59 06:59 Intake Total 250 100 Balance 250 100 Weight 100.5 kg Intake: Oral 250 100 Other: Voiding Method Bedside Commode Bedside Commode # Voids 2 1 # Bowel Movements 0 - Exam Gen. appearance alert to time and place Lungs diminished breath sounds however good air movement no wheezing or rhonchi appreciated Heart S1-S2 heard regular rate and rhythm no murmurs appreciated Abdomen is soft slightly tender to palpation in the epigastric area no organomegaly is appreciated Lower extremities no edema noted Neurologically moves all 4 extremities no focal deficits noted. Psychiatric patient does not make any eye contact flat affect. - Labs CBC & Chem 7: 05/11/16 07:38 05/11/16 14:48 Labs: Abnormal Lab Results - Last 24 Hours (Table) 05/10/16 05/11/16 05/11/16 Range/Units 20:27 01:55 07:27 PT (9.0-12.0) sec Potassium (3.5-5.1) mmol/L BUN (7-17) mg/dL Glucose (74-99) mg/dL POC Glucose (mg/dL) 121 H 190 H 187 H (75-99) mg/dL AST (14-36) U/L Total Protein (6.3-8.2) g/dL Albumin (3.5-5.0) g/dL 05/11/16 05/11/16 05/11/16 Range/Units 07:38 07:38 12:21 PT 13.0 H (9.0-12.0) sec Potassium 3.0 L* (3.5-5.1) mmol/L BUN 5 L (7-17) mg/dL Glucose 170 H (74-99) mg/dL POC Glucose (mg/dL) 72 L (75-99) mg/dL AST 12 L (14-36) U/L Total Protein 5.0 L (6.3-8.2) g/dL Albumin 2.6 L (3.5-5.0) g/dL 05/11/16 05/11/16 Range/Units 14:48 17:21 PT (9.0-12.0) sec Potassium 3.0 L* (3.5-5.1) mmol/L BUN (7-17) mg/dL Glucose (74-99) mg/dL POC Glucose (mg/dL) 153 H (75-99) mg/dL AST (14-36) U/L Total Protein (6.3-8.2) g/dL Albumin (3.5-5.0) g/dL Assessment and Plan Plan: #1 diabetic ketoacidosis #2 acute metabolic encephalopathy #3 hypotension #4 essential hypertension #5 hypothyroidism #6 Hypernatremia, Hypercholeremia. #7 diabetic neuropathy and gastroparesis. #8 hypokalemia is expected from insulin therapy. Plan Psych recs noted Swallow eval Reglan 10mg po tid scheduled If pt is able to tolerate increased intake, will consider dc jovanni. Pt does have lots of stressors at home inclulding caring for their child who is disabled.
[2016-05-11] MEDS: QUEtiapine 50 MG TAB PO SCH (21:00)
[2016-05-11 21:36] LABS: Glucose,Whole Blood 126 mg/dL (75-99)
[2016-05-11] MEDS: INSULIN GLARGINE 100 UNIT/ML 10 ML VIAL SQ SCH (21:49)
[2016-05-12] MEDS: HEPARIN SODIUM,PORCINE 5,000 UNIT/ML 1 ML VIAL SQ SCH ×4 (00:10→23:13)
[2016-05-12] MEDS: POTASSIUM CHLORIDE ER 20 MEQ TAB.ER PO SCH ×2 (00:10→02:11)
[2016-05-12] MEDS: INSULIN LISPRO (humaLOG) 300 UNIT/3 ML VIAL SQ SCH ×8 (02:11→20:36)
[2016-05-12 02:14] LABS: Glucose,Whole Blood 103 mg/dL (75-99)
[2016-05-12 07:16] LABS: Glucose,Whole Blood 126 mg/dL (75-99)
[2016-05-12 07:55] LABS: Basophils % (A) 1 %; CH 31.9; CHCM 33.5; Eosinophils # (A) 0.3 k/uL (0-0.7); Eosinophils % (A) 4 %; HCT 39.5 % (34.0-46.0); HDW 3.06; Luc % (Auto) 3; Lymphocytes # (A) 2.4 k/uL (1.0-4.8); Lymphocytes % (A) 38 %; MCH 31.6 pg (25.0-35.0); MCHC 32.9 g/dL (31.0-37.0); Mean Platelet Volume 10.3; Monocytes # (A) 0.4 k/uL (0-1.0); Monocytes % (A) 7 %; Neutrophils % (A) 48 %; RBC 4.11 m/uL (3.80-5.40); RDW 14.8 % (11.5-15.5); WBC 6.3 k/uL (3.8-10.6); WBC (Perox) 6.89
[2016-05-12] MEDS: FAMOTIDINE 20 MG/2 ML VIAL IV SCH ×2 (08:03→20:36)
[2016-05-12] MEDS: CITALOPRAM HYDROBROMIDE 20 MG TAB PO SCH (08:03)
[2016-05-12] MEDS: METOCLOPRAMIDE 5 MG TAB PO SCH ×3 (08:03→17:32)
[2016-05-12 08:05] LABS: ALT 40 U/L (9-52); AST 22 U/L (14-36); Alkaline Phosphatase 61 U/L (38-126); Anion Gap 8 mmol/L; Blood Urea Nitrogen 6 mg/dL (7-17); Calcium 8.3 mg/dL (8.4-10.2); Carbon Dioxide 30 mmol/L (22-30); Chloride 106 mmol/L (98-107); Glucose 125 mg/dL (74-99); Magnesium 2.3 mg/dL (1.6-2.3); Non-African American GFR(MDRD) >60 (>60 ml/min/1.73 sqM); Potassium 3.8 mmol/L (3.5-5.1); Sodium 144 mmol/L (137-145); Total Bilirubin 0.5 mg/dL (0.2-1.3)
[2016-05-12 11:50] LABS: Glucose,Whole Blood 151 mg/dL (75-99)
--- NOTE | 2016-05-12 12:52 | P.PN ---
Subjective This is a 61-year-old female that has a history of diabetes is a poor historian that is admitted to the hospital with intractable nausea for the last few days. Patient was noted to have an anion gap metabolic acidosis secondary to DKA. Unsure patient was compliant with her medications at home. Patient was triaged ICU. Patient was empirically started on antibiotics as sepsis being an underlying etiology for her DKA. This morning on evaluation patient was more awake was able to state her location which apparently is a significant improvement from past examination. Patient was also noted to have a low blood pressure around 73/54. Patient's urine analysis appeared to be abnormal other cultures including blood are negative so far. 05/09/2016 Patient states to have intermittent nausea. However was tolerating liquid diet. Apparently over the last few weeks patient states that the she has had these episodes of nausea and not being able to tolerate a full meal hence her oral intake has been significantly decreased. Patient states to be compliant with her insulin however. Patient appears to have a flat affect and however on questioning with regards to suicidal ideation denies having it. States that her mood has been more in the recent times. 2017 Patient does not make any eye contact states that she does not feel like eating. Apparently was was not letting the RNs infuse any anti nausea medications. .2016 No new overnight events Pt states to have some nausea, however there is some concern for issues with swallowing More appropriate today. 2016 Patient states that she has been a little more. Appears to be in good spirits. States that she sat at the edge of her bed. He is having any suicidal or homicidal ideation. Objective - Vital Signs Vital signs: Vital Signs Temp 98.1 F 05/12/16 07:00 Pulse 72 05/12/16 07:00 Resp 20 05/12/16 08:00 BP 129/63 05/12/16 07:00 Pulse Ox 91 L 05/12/16 07:00 Intake & Output 05/11/16 05/12/16 05/12/16 18:59 06:59 18:59 Intake Total 100 650 Balance 100 650 Weight 100.5 kg 99.337 kg Intake: Oral 100 650 Other: Voiding Method Bedside Commode Bedside Commode Bedside Commode # Voids 1 1 # Bowel Movements 0 - Exam Gen. appearance alert to time and place Lungs diminished breath sounds however good air movement no wheezing or rhonchi appreciated Heart S1-S2 heard regular rate and rhythm no murmurs appreciated Abdomen is soft slightly tender to palpation in the epigastric area no organomegaly is appreciated Lower extremities no edema noted Neurologically moves all 4 extremities no focal deficits noted. Psychiatric patient does not make any eye contact flat affect. - Labs CBC & Chem 7: 05/12/16 06:56 05/12/16 06:56 Labs: Abnormal Lab Results - Last 24 Hours (Table) 05/11/16 05/11/16 05/11/16 Range/Units 14:48 17:21 20:26 Potassium 3.0 L* 3.2 L (3.5-5.1) mmol/L BUN (7-17) mg/dL Glucose (74-99) mg/dL POC Glucose (mg/dL) 153 H (75-99) mg/dL Calcium (8.4-10.2) mg/dL Total Protein (6.3-8.2) g/dL Albumin (3.5-5.0) g/dL 05/11/16 05/12/16 05/12/16 Range/Units 21:08 02:11 06:56 Potassium (3.5-5.1) mmol/L BUN 6 L (7-17) mg/dL Glucose 125 H (74-99) mg/dL POC Glucose (mg/dL) 126 H 103 H (75-99) mg/dL Calcium 8.3 L (8.4-10.2) mg/dL Total Protein 5.0 L (6.3-8.2) g/dL Albumin 2.5 L (3.5-5.0) g/dL 05/12/16 05/12/16 Range/Units 07:13 11:49 Potassium (3.5-5.1) mmol/L BUN (7-17) mg/dL Glucose (74-99) mg/dL POC Glucose (mg/dL) 126 H 151 H (75-99) mg/dL Calcium (8.4-10.2) mg/dL Total Protein (6.3-8.2) g/dL Albumin (3.5-5.0) g/dL Assessment and Plan Plan: #1 diabetic ketoacidosis #2 acute metabolic encephalopathy #3 hypotension #4 essential hypertension #5 hypothyroidism #6 Hypernatremia, Hypercholeremia. #7 diabetic neuropathy and gastroparesis. #8 hypokalemia is expected from insulin therapy. Plan Psych recs noted Improveming, continue Reglan. If pt is able to tolerate increased intake, will consider dc jovanni patient oral intake is not still considerable. Pt does have lots of stressors at home inclulding caring for their child who is disabled.
[2016-05-12 17:08] LABS: Glucose,Whole Blood 151 mg/dL (75-99)
[2016-05-12] MEDS: INSULIN GLARGINE 100 UNIT/ML 10 ML VIAL SQ SCH (20:36)
[2016-05-12] MEDS: QUEtiapine 50 MG TAB PO SCH (20:37)
[2016-05-12 20:48] LABS: Glucose,Whole Blood 140 mg/dL (75-99)
[2016-05-13 02:12] LABS: Glucose,Whole Blood 91 mg/dL (75-99)
[2016-05-13] MEDS: INSULIN LISPRO (humaLOG) 300 UNIT/3 ML VIAL SQ SCH ×8 (02:13→21:40)
[2016-05-13 06:55] LABS: Glucose,Whole Blood 83 mg/dL (75-99)
[2016-05-13] MEDS: CITALOPRAM HYDROBROMIDE 20 MG TAB PO SCH (08:11)
[2016-05-13] MEDS: METOCLOPRAMIDE 5 MG TAB PO SCH ×2 (08:11→12:49)
[2016-05-13] MEDS: HEPARIN SODIUM,PORCINE 5,000 UNIT/ML 1 ML VIAL SQ SCH ×3 (08:11→23:31)
[2016-05-13] MEDS: FAMOTIDINE 20 MG/2 ML VIAL IV SCH ×2 (08:11→21:40)
[2016-05-13 11:42] LABS: Glucose,Whole Blood 139 mg/dL (75-99)
[2016-05-13 17:00] LABS: Glucose,Whole Blood 119 mg/dL (75-99)
[2016-05-13] MEDS ORDERED: SUCRALFATE 1 GM TAB PO STA (17:05)
--- NOTE | 2016-05-13 17:05 | P.PN ---
Subjective This is a 61-year-old female that has a history of diabetes is a poor historian that is admitted to the hospital with intractable nausea for the last few days. Patient was noted to have an anion gap metabolic acidosis secondary to DKA. Unsure patient was compliant with her medications at home. Patient was triaged ICU. Patient was empirically started on antibiotics as sepsis being an underlying etiology for her DKA. This morning on evaluation patient was more awake was able to state her location which apparently is a significant improvement from past examination. Patient was also noted to have a low blood pressure around 73/54. Patient's urine analysis appeared to be abnormal other cultures including blood are negative so far. 05/09/2016 Patient states to have intermittent nausea. However was tolerating liquid diet. Apparently over the last few weeks patient states that the she has had these episodes of nausea and not being able to tolerate a full meal hence her oral intake has been significantly decreased. Patient states to be compliant with her insulin however. Patient appears to have a flat affect and however on questioning with regards to suicidal ideation denies having it. States that her mood has been more in the recent times. 2017 Patient does not make any eye contact states that she does not feel like eating. Apparently was was not letting the RNs infuse any anti nausea medications. 10.2017 No new overnight events Pt states to have some nausea, however there is some concern for issues with swallowing More appropriate today. 2016 Patient states that she has been a little more. Appears to be in good spirits. States that she sat at the edge of her bed. He is having any suicidal or homicidal ideation. 12 2016 Patient states that she is able to eat. However continues to have intermittent nausea. Denies having any suicidal or homicidal ideations. States to have abdominal pain Objective - Vital Signs Vital signs: Vital Signs Temp 98.3 F 05/13/16 15:00 Pulse 75 05/13/16 15:00 Resp 16 05/13/16 15:00 BP 126/64 05/13/16 15:00 Pulse Ox 91 L 05/13/16 15:00 Intake & Output 05/12/16 05/13/16 05/13/16 18:59 06:59 18:59 Intake Total 750 Balance 750 Weight 96.615 kg Intake: Oral 750 Other: Voiding Method Bedside Commode Bedside Commode Bedside Commode # Voids 2 2 1 # Bowel Movements 1 1 - Exam Gen. appearance alert to time and place Lungs diminished breath sounds however good air movement no wheezing or rhonchi appreciated Heart S1-S2 heard regular rate and rhythm no murmurs appreciated Abdomen is soft slightly tender to palpation in the epigastric area no organomegaly is appreciated Lower extremities no edema noted Neurologically moves all 4 extremities no focal deficits noted. Psychiatric patient does not make any eye contact flat affect. - Labs CBC & Chem 7: 05/12/16 06:56 05/12/16 06:56 Labs: Abnormal Lab Results - Last 24 Hours (Table) 05/12/16 05/12/16 05/13/16 Range/Units 17:06 20:12 11:40 POC Glucose (mg/dL) 151 H 140 H 139 H (75-99) mg/dL 05/13/16 Range/Units 16:59 POC Glucose (mg/dL) 119 H (75-99) mg/dL Assessment and Plan Plan: #1 diabetic ketoacidosis #2 acute metabolic encephalopathy #3 hypotension #4 essential hypertension #5 hypothyroidism #6 Hypernatremia, Hypercholeremia. #7 diabetic neuropathy and gastroparesis. #8 hypokalemia is expected from insulin therapy. Plan Psych recs noted increase Reglan to 10 mg 3 times a day. Continue current medications. Pt does have lots of stressors at home inclulding caring for their child who is disabled.
[2016-05-13] MEDS: METOCLOPRAMIDE 10 MG TAB PO SCH (18:06)
[2016-05-13 20:59] LABS: Glucose,Whole Blood 159 mg/dL (75-99)
[2016-05-13] MEDS: QUEtiapine 50 MG TAB PO SCH (21:40)
[2016-05-13] MEDS: INSULIN GLARGINE 100 UNIT/ML 10 ML VIAL SQ SCH (21:41)
[2016-05-14 01:38] LABS: Glucose,Whole Blood 94 mg/dL (75-99)
[2016-05-14] MEDS: INSULIN LISPRO (humaLOG) 300 UNIT/3 ML VIAL SQ SCH ×8 (02:18→21:28)
[2016-05-14 07:11] LABS: Glucose,Whole Blood 95 mg/dL (75-99)
[2016-05-14] MEDS: HEPARIN SODIUM,PORCINE 5,000 UNIT/ML 1 ML VIAL SQ SCH ×3 (07:57→22:54)
[2016-05-14] MEDS: FAMOTIDINE 20 MG/2 ML VIAL IV SCH ×2 (07:57→21:27)
[2016-05-14] MEDS: CITALOPRAM HYDROBROMIDE 20 MG TAB PO SCH (07:57)
[2016-05-14] MEDS: METOCLOPRAMIDE 10 MG TAB PO SCH ×3 (07:57→17:40)
[2016-05-14 08:07] LABS: Basophils # (A) 0.1 k/uL (0-0.2); Basophils % (A) 1 %; CH 31.9; CHCM 33.3; Eosinophils # (A) 0.2 k/uL (0-0.7); Eosinophils % (A) 3 %; HCT 45.4 % (34.0-46.0); HDW 2.96; HGB 14.5 gm/dL (11.4-16.0); Luc # (Auto) 0.17; Luc % (Auto) 3; Lymphocytes # (A) 2.5 k/uL (1.0-4.8); Lymphocytes % (A) 36 %; MCH 30.9 pg (25.0-35.0); MCHC 31.9 g/dL (31.0-37.0); MCV 96.6 fL (80.0-100.0); Mean Platelet Volume 11.1; Monocytes # (A) 0.6 k/uL (0-1.0); Monocytes % (A) 9 %; Neutrophils # (A) 3.3 k/uL (1.3-7.7); Neutrophils % (A) 49 %; RBC 4.69 m/uL (3.80-5.40); RDW 14.8 % (11.5-15.5); WBC 6.8 k/uL (3.8-10.6); WBC (Perox) 6.55
[2016-05-14 08:25] LABS: ALT 42 U/L (9-52); AST 30 U/L (14-36); Alkaline Phosphatase 68 U/L (38-126); Anion Gap 8 mmol/L; Blood Urea Nitrogen 5 mg/dL (7-17); Calcium 8.6 mg/dL (8.4-10.2); Carbon Dioxide 30 mmol/L (22-30); Chloride 104 mmol/L (98-107); Glucose 100 mg/dL (74-99); Non-African American GFR(MDRD) >60 (>60 ml/min/1.73 sqM); Potassium 3.2 mmol/L (3.5-5.1); Sodium 142 mmol/L (137-145); Total Bilirubin 0.5 mg/dL (0.2-1.3); Total Protein 5.4 g/dL (6.3-8.2)
[2016-05-14] MEDS: POTASSIUM CHLORIDE ER 20 MEQ TAB.ER PO SCH ×2 (11:56→13:28)
[2016-05-14 12:27] LABS: Glucose,Whole Blood 111 mg/dL (75-99)
--- NOTE | 2016-05-14 13:21 | P.PN ---
Progress Note - Text PATIENT WAS SEEN FOR PSYCHIATRIC FOLLOW-UP SUBJECTIVE: Patient still having nausea but "Less than before",able to sleep with Seroquel ,endorses:excessive worries about her health and her grown-up daughter who is living with her " She is disabled ,she is schizophrenic",I discussed with patient how much care her daughter needs ,she replied "She is almost independent ,she is taking her medications on her own but I am always worrier" MENTAL STATUS EXAM: Patient is laying in bed ,some improvement in her eyes contact ,still endorsing anxiety symptoms ,denies any suicidal or homicidal ideation ,denies any psychotic features ,her insight is fair PLAN: Increase Celexa to 30 mg ,continue PRN Xanax ,continue Seroquel to help her sleep ,will continue to follow-up ,if medically cleared patient has to follow-up with outpatient counseling
[2016-05-14] MEDS: ONDANSETRON 4 MG/2 ML VIAL IVP PRN (15:27)
[2016-05-14] MEDS: SCOPOLAMINE 1.5MG/72HR PATCH TRANSDERM SCH (15:54)
[2016-05-14 16:52] LABS: Glucose,Whole Blood 134 mg/dL (75-99)
[2016-05-14] MEDS ORDERED: Potassium Replacement Protocol 1 EACH MISC MISCELLANE PRN (17:33)
[2016-05-14] MEDS ORDERED: POTASSIUM CHLORIDE ER 20 MEQ TAB.ER PO SCH (18:00)
[2016-05-14] MEDS ORDERED: INSULIN GLARGINE 100 UNIT/ML 10 ML VIAL SQ SCH (21:00)
[2016-05-14 21:12] LABS: Glucose,Whole Blood 171 mg/dL (75-99)
[2016-05-14] MEDS: QUEtiapine 50 MG TAB PO SCH (21:27)
[2016-05-15 01:42] LABS: Glucose,Whole Blood 105 mg/dL (75-99)
[2016-05-15] MEDS: INSULIN LISPRO (humaLOG) 300 UNIT/3 ML VIAL SQ SCH ×8 (04:19→21:17)
--- NOTE | 2016-05-15 06:38 | PN ---
DATE OF SERVICE: 05/14/2016 PRESENTING COMPLAINT: Nausea, vomiting. INTERVAL HISTORY: This patient was admitted with diabetic ketoacidosis, saw the patient this morning. She is still having some nausea. She had been drinking some water. Feels a bit tired. Review of systems done for constitutional, cardiovascular, GI, pulmonary; relevant findings as above. Current medications are reviewed that include Lantus 20 units she received last night. On examination, temperature 99.8, pulse 82, respirations 18, blood pressure 119/54, pulse ox 94% on room air. GENERAL APPEARANCE: Sitting up in bed, not in distress. EYES: Pupils equal. Conjunctivae normal. NECK: JVD not raised. Mass not palpable. RESPIRATORY: Effort normal. LUNGS: Clear. CARDIOVASCULAR: First and second sounds normal. No edema. ABDOMEN: Soft, minimal tenderness. Liver and spleen not palpable. PSYCHIATRY: Alert and oriented x3. Mood and affect slightly low appearing. INVESTIGATIONS: White count 6.8, hemoglobin 14.5. Potassium 3.2, repeat 3.7. BUN 5, creatinine 0.73. ASSESSMENT: 1. Acute diabetic ketoacidosis, present on admission. 2. Acute pancreatitis, present on admission. 3. Acute lactic acidosis, present on admission. 4. Acute renal failure, probably prerenal, present on admission, now corrected. 5. Hypernatremia secondary to volume depletion, present on admission. 6. Moderate persistent asthma, chronic. 7. Chronic fibromyalgia. 8. Gastroesophageal reflux disease. 9. Essential hypertension. 10. Diabetes mellitus type 2 causing peripheral neuropathy in hands and feet. 11. Irritable bowel syndrome. 12. Sleep apnea, chronic, uses CPAP. 13. Bilateral chronic carpal tunnel syndrome. 14. Obesity, body mass index of 32.2. 15. Depression, anxiety, chronic, under control. 16. Chronic insomnia from medical reasons. PLAN: I had a lengthy talk with the patient. I told her to cut back on water and actually have some food. Reglan was already added. Will try a scopolamine patch. Will give patient a full liquid diet. Also cut back the dose on Lantus to 16. Patient encouraged to ambulate.
[2016-05-15 07:23] LABS: Glucose,Whole Blood 118 mg/dL (75-99)
[2016-05-15] MEDS: FAMOTIDINE 20 MG/2 ML VIAL IV SCH ×2 (07:50→21:16)
[2016-05-15] MEDS: HEPARIN SODIUM,PORCINE 5,000 UNIT/ML 1 ML VIAL SQ SCH ×2 (07:50→17:15)
[2016-05-15] MEDS ORDERED: CITALOPRAM HYDROBROMIDE 10 MG TAB PO SCH (09:00)
--- NOTE | 2016-05-15 09:10 | US ---
EXAMINATION TYPE: US abdomen complete DATE OF EXAM: 05/15/2016 8:57 AM COMPARISON: CT 2012 CLINICAL HISTORY: epigastric pain/had pancreatitis. EXAM MEASUREMENTS: Liver Length: 14.8 cm Gallbladder Wall: 0.1 cm CBD: 0.3 cm Spleen: 9.5 cm Right Kidney: 10.6 x 5.0 x 4.7cm Left Kidney: 10.3 x 4.7 x 4.7 cm cm Findings: Pancreas: Limited by bowel gas Liver: difficult to evaluate d/t overlying bowel gas. No obvious. pathology seen. Gallbladder: wnl Evidence for sonographic Maya's sign: no CBD: wnl Spleen: wnl Right Kidney: with some shadowing mid pole. ? calcified stone =1 cm Left Kidney: wnl Upper IVC: wnl Abd Aorta: wnl IMPRESSION: 1. Question nonobstructing right renal calculus 2. Limited liver and pancreas due to bowel gas.
[2016-05-15] MEDS: ONDANSETRON 4 MG/2 ML VIAL IVP PRN ×2 (09:20→17:16)
[2016-05-15] MEDS: METOCLOPRAMIDE 10 MG TAB PO SCH ×3 (09:21→17:15)
[2016-05-15 10:32] LABS: Amylase <30 U/L (30-110); Anion Gap 11 mmol/L; Blood Urea Nitrogen 6 mg/dL (7-17); Calcium 8.8 mg/dL (8.4-10.2); Carbon Dioxide 29 mmol/L (22-30); Chloride 102 mmol/L (98-107); Glucose 128 mg/dL (74-99); Magnesium 2.2 mg/dL (1.6-2.3); Non-African American GFR(MDRD) >60 (>60 ml/min/1.73 sqM); Sodium 142 mmol/L (137-145)
--- NOTE | 2016-05-15 12:09 | P.PN ---
Progress Note - Text Progress Note - Text PATIENT WAS SEEN FOR PSYCHIATRIC FOLLOW-UP SUBJECTIVE: Patient stated that she is feeling better ,less somatic complain ,slept through night ,was more animated today and eyes contact better,denies any hopeless or helpless feeling ,patient is still having some anxiety Mental status exam: The patient is alert and cooperative. Eye contact is appropriate . She demonstrates no lability of affect this morning there is no tearfulness. She maintains a bland affect overall. She is still soft-spoken , denies any suicidal or homicidal ideation ,denies any psychotic features , insight and judgment improving. PLAN: Increase Celexa to 40 mg,continue PRN Xanax ,continue Seroquel to help her sleep ,will continue to follow-up ,if medically cleared patient has to follow-up with outpatient counseling
[2016-05-15 12:28] LABS: Glucose,Whole Blood 163 mg/dL (75-99)
[2016-05-15 17:20] LABS: Glucose,Whole Blood 155 mg/dL (75-99)
--- NOTE | 2016-05-15 19:17 | PN ---
DATE OF SERVICE: 05/15/2016 PRESENTING COMPLAINT: Nausea, vomiting. INTERVAL HISTORY: This patient was admitted with diabetic ketoacidosis. She is doing much better today; actually tolerated a liquid diet. Nausea has gone down. Feeling overall better. Review of systems done for constitutional, cardiovascular, GI, pulmonary; relevant findings as above. Current medications are reviewed. Lantus 16 units. On examination, temperature 98.2, pulse 77, respiration 18, blood pressure 116/55, pulse ox 93% on room air. GENERAL APPEARANCE: Sitting up. Looks more comfortable. EYES: Pupils equal. Conjunctivae normal. NECK: JVD not raised. Mass not palpable. RESPIRATORY: Effort normal. LUNGS: Clear. CARDIOVASCULAR: First and second sounds normal. No edema. ABDOMEN: Soft. Decreased tenderness. Liver and spleen not palpable. PSYCHIATRY: Alert and oriented x3. Mood and affect normal. INVESTIGATIONS: Potassium 4.0, Amylase less than 30. Lipase 110. ASSESSMENT: 1. Acute diabetic ketoacidosis, present on admission, now improved. 2. Acute pancreatitis, present on admission, idiopathic, improved. 3. Acute lactic acidosis, present at admission. 4. Acute renal failure, probably prerenal, present on admission, now resolved. 5. Hypernatremia secondary to volume depletion, present on admission, corrected. 6. Moderate persistent asthma, chronic. 7. Chronic fibromyalgia. 8. Gastroesophageal reflux disease. 9. Essential hypertension. 10. Diabetes mellitus, type 2, causing peripheral neuropathy in hands and feet. 11. Irritable bowel syndrome. 12. Sleep apnea; chronically uses CPAP. 13. Bilateral chronic carpal tunnel syndrome. 14. Obesity; body mass index of 32.2. 15. Depression, anxiety, chronic, under control. 16. Chronic insomnia for medical reasons. PLAN: Lantus was cut back to 16. Diet is doing much better. Sugars are coming up. Increase the Lantus to 20 units and change the Humalog to 5 units with meals. Diet soft, bland.
[2016-05-15] MEDS: ALPRAZolam 0.25 MG TAB PO PRN (19:46)
[2016-05-15 20:44] LABS: Glucose,Whole Blood 202 mg/dL (75-99)
[2016-05-15] MEDS: INSULIN GLARGINE 100 UNIT/ML 10 ML VIAL SQ SCH (21:16)
[2016-05-15] MEDS: QUEtiapine 50 MG TAB PO SCH (21:16)
[2016-05-16] MEDS: HEPARIN SODIUM,PORCINE 5,000 UNIT/ML 1 ML VIAL SQ SCH ×4 (00:59→23:33)
[2016-05-16 02:37] LABS: Glucose,Whole Blood 104 mg/dL (75-99)
[2016-05-16] MEDS: INSULIN LISPRO (humaLOG) 300 UNIT/3 ML VIAL SQ SCH ×8 (02:45→21:38)
[2016-05-16 07:31] LABS: Glucose,Whole Blood 107 mg/dL (75-99)
[2016-05-16] MEDS: METOCLOPRAMIDE 10 MG TAB PO SCH ×3 (08:11→17:22)
[2016-05-16] MEDS: CITALOPRAM HYDROBROMIDE 20 MG TAB PO SCH (08:11)
[2016-05-16] MEDS: FAMOTIDINE 20 MG/2 ML VIAL IV SCH (08:11)
[2016-05-16] MEDS: ALPRAZolam 0.25 MG TAB PO PRN ×2 (11:04→19:00)
[2016-05-16 11:26] LABS: Glucose,Whole Blood 155 mg/dL (75-99)
[2016-05-16 14:21] VITALS: BMI 31.8
[2016-05-16 16:57] LABS: Glucose,Whole Blood 97 mg/dL (75-99)
[2016-05-16 21:21] LABS: Glucose,Whole Blood 196 mg/dL (75-99)
--- NOTE | 2016-05-16 21:25 | PN ---
DATE OF SERVICE: 05/16/2016 PRESENTING COMPLAINT: Nausea. INTERVAL HISTORY: This patient presented with acute acidosis. Nausea is still persisting. Really did not eat any supper. Ate very little breakfast this morning. Feels rather nauseated yet again. Has been up to the bathroom. Review of systems done for constitutional, cardiovascular, GI, pulmonary; relevant findings as above. Current medications are reviewed that include Lantus, Humalog. On examination, temperature 98.6, pulse 55, respiration 16, blood pressure 118/51, pulse ox 92% on room air. GENERAL APPEARANCE: Sitting up, tired-appearing. EYES: Pupils equal. Conjunctivae normal. NECK: JVD not raised. Mass not palpable. RESPIRATORY: Effort normal. Lungs are clear. CARDIOVASCULAR: First and second sounds normal. No edema. ABDOMEN: Soft. Liver and spleen not palpable. PSYCHIATRY: Alert and oriented x3. Mood and affect normal. INVESTIGATIONS: Accu-Cheks are noted. ASSESSMENT: 1. Acute diabetic ketoacidosis, present on admission, resolved. 2. Acute pancreatitis, present on admission, idiopathic, improved. 3. Acute lactic acidosis, present on admission. 4. Acute renal failure, probably prerenal, present on admission, now resolved. 5. Hypernatremia secondary to volume depletion, present on admission, corrected. 6. Moderate persistent asthma, chronic. 7. Chronic fibromyalgia. 8. Gastroesophageal reflux disease. 9. Essential hypertension. 10. Diabetes mellitus, type 2, causing peripheral neuropathy in hands and feet. 11. Persistent nausea; may have an element of gastroparesis. 12. Irritable bowel syndrome. 13. Sleep apnea; chronically uses CPAP. 14. Bilateral chronic carpal tunnel syndrome. 15. Obesity; body mass index of 32.2. 16. Depression and anxiety, chronic, under control. 17. Chronic insomnia for medical reasons. PLAN: At this point will add Reglan, encourage the patient to be out of bed, up and about; she how she does.
[2016-05-16] MEDS: QUEtiapine 50 MG TAB PO SCH (21:37)
[2016-05-16] MEDS: FAMOTIDINE 20 MG TAB PO SCH (21:37)
[2016-05-16] MEDS: INSULIN GLARGINE 100 UNIT/ML 10 ML VIAL SQ SCH (21:37)
[2016-05-17 02:19] LABS: Glucose,Whole Blood 114 mg/dL (75-99)
[2016-05-17] MEDS: INSULIN LISPRO (humaLOG) 300 UNIT/3 ML VIAL SQ SCH ×5 (02:21→13:12)
[2016-05-17 07:38] LABS: Glucose,Whole Blood 118 mg/dL (75-99)
[2016-05-17] MEDS: FAMOTIDINE 20 MG TAB PO SCH (07:44)
[2016-05-17] MEDS: METOCLOPRAMIDE 10 MG TAB PO SCH ×2 (07:44→13:12)
[2016-05-17] MEDS: HEPARIN SODIUM,PORCINE 5,000 UNIT/ML 1 ML VIAL SQ SCH (07:44)
[2016-05-17] MEDS: CITALOPRAM HYDROBROMIDE 20 MG TAB PO SCH (07:44)
[2016-05-17] MEDS: ALPRAZolam 0.25 MG TAB PO PRN (07:49)
[2016-05-17 07:55] VITALS: PULSE 77; RESP 16; TEMP 98.7
[2016-05-17 07:56] VITALS: BP 124/63
[2016-05-17 11:46] LABS: Glucose,Whole Blood 156 mg/dL (75-99)
[2016-05-17] MEDS: SCOPOLAMINE 1.5MG/72HR PATCH TRANSDERM SCH (14:07)
--- NOTE | 2016-05-18 09:43 | DS ---
DATE OF ADMISSION: 05/07/2016 DATE OF DISCHARGE: 05/17/2016 FINAL DIAGNOSES: 1. Acute diabetic ketoacidosis, present on admission. 2. Acute pancreatitis, present on admission, idiopathic, improved. 3. Acute lactic acidosis, present on admission. 4. Acute renal failure, probably prerenal, present on admission. 5. Hypernatremia secondary to volume depletion, present on admission. 6. Moderate persistent asthma, chronic. 7. Chronic fibromyalgia. 8. Gastroesophageal reflux disease. 9. Essential hypertension. 10. Diabetes mellitus, type 2, causing peripheral neuropathy hands and feet. 11. Persistent nausea, some element of gastroparesis. 12. Irritable bowel syndrome. 13. Sleep apnea, uses CPAP. 14. Bilateral chronic carpal tunnel syndrome. 15. Obesity, body mass index of 32.2. 16. Depression, anxiety, chronic, under control. 17. Chronic insomnia for medical reasons. HOSPITAL COURSE: This patient presented with diabetic ketoacidosis, acute pancreatitis, lactic acidosis and renal failure, doing much better by the time of discharge. Patient's creatinine dropped from 1.6, down to 0.89. Doing better by the time of discharge, tolerating a diet. Care was discussed in detail with the patient. On examination, lungs are clear. CARDIOVASCULAR: First and second sounds normal. ABDOMEN: Soft, nontender. DISCHARGE MEDICATIONS: 1. Aspirin 81 mg a day. 2. Advair 250/50 one puff b.i.d. 3. Synthroid 150 mcg a day. 4. Singulair 10 mg q.h.s. 5. Prilosec 20 mg b.i.d. 6. Pravachol 40 mg q.h.s. 7. Mysoline 50 mg p.o. a.c. b.i.d. 8. Topamax 50 mg p.o. b.i.d. 9. Flexeril 10 mg p.o. q.h.s. 10. Ventolin 2.5 q.6 p.r.n. 11. Invokana 300 mg p.o. daily. 12. Iron 325 p.o. b.i.d. 13. Neurontin 800 mg p.o. q.i.d. 14. Humalog per protocol. 15. Zofran 4 mg q.6 p.r.n. 16. Bydureon 2 mg subcutaneously q.7 days. 17. Xanax 0.25 p.o. t.i.d. p.r.n. 18. Celexa 40 mg p.o. daily. 19. Reglan 10 mg t.i.d. for 30 tablets. 20. Seroquel 50 mg p.o. q.h.s. Additionally, patient was seen by Dr. Hester from psychiatry. She did adjust patient's medication to start the patient on Celexa, Seroquel is maintained and Xanax p.r.n. The patient is to follow up with [facility] in one week and Dr. Stiles in one week.
--- NOTE | 2016-06-19 15:01 | DS ---
DATE OF ADMISSION: 05/07/2016 DATE OF DISCHARGE: 05/17/2016 ADDENDUM: Discharge planning more than 35 minutes.
== END 2016-05-17 14:43 | disposition home or self-care (01) | DRG 637 ==
LOC: EC 05:05 → 6ICU 08:15 → 4MS4W 05-09 15:52
PROVIDERS: ADMIT Hospitalist; ATTEND Hospitalist
DX: E13.10 Other specified diabetes mellitus with ketoacidosis without coma (principal); G93.41 Metabolic encephalopathy; R65.21 Severe sepsis with septic shock; A41.9 Sepsis, unspecified organism; N17.9 Acute kidney failure, unspecified; K85.00 Idiopathic acute pancreatitis without necrosis or infection; I95.9 Hypotension, unspecified; N18.3 Chronic kidney disease, stage 3 (moderate); I13.0 Hypertensive heart and chronic kidney disease with heart failure and stage 1 through stage 4 chronic kidney disease, or unspecified chronic kidney disease; E87.0 Hyperosmolality and hypernatremia; I50.9 Heart failure, unspecified; K31.84 Gastroparesis; K58.0 Irritable bowel syndrome with diarrhea; J44.9 Chronic obstructive pulmonary disease, unspecified; E03.9 Hypothyroidism, unspecified; G47.33 Obstructive sleep apnea (adult) (pediatric); M79.7 Fibromyalgia; K21.9 Gastro-esophageal reflux disease without esophagitis; E86.0 Dehydration; E87.6 Hypokalemia; J45.40 Moderate persistent asthma, uncomplicated; G43.909 Migraine, unspecified, not intractable, without status migrainosus; E87.8 Other disorders of electrolyte and fluid balance, not elsewhere classified; E11.42 Type 2 diabetes mellitus with diabetic polyneuropathy; E11.22 Type 2 diabetes mellitus with diabetic chronic kidney disease; R11.2 Nausea with vomiting, unspecified; M54.2 Cervicalgia; M54.5 Low back pain; R82.90 Unspecified abnormal findings in urine; F31.9 Bipolar disorder, unspecified; F41.0 Panic disorder [episodic paroxysmal anxiety]; F51.04 Psychophysiologic insomnia; F41.9 Anxiety disorder, unspecified; G89.29 Other chronic pain; G56.03 Carpal tunnel syndrome, bilateral upper limbs; M41.9 Scoliosis, unspecified; M19.90 Unspecified osteoarthritis, unspecified site; R53.1 Weakness; Z87.01 Personal history of pneumonia (recurrent); Z90.49 Acquired absence of other specified parts of digestive tract; Z90.710 Acquired absence of both cervix and uterus; Z63.6 Dependent relative needing care at home; Z79.82 Long term (current) use of aspirin; Z79.4 Long term (current) use of insulin; Z88.5 Allergy status to narcotic agent; Z88.0 Allergy status to penicillin; Z88.2 Allergy status to sulfonamides; Z88.8 Allergy status to other drugs, medicaments and biological substances; Z86.19 Personal history of other infectious and parasitic diseases; Z87.09 Personal history of other diseases of the respiratory system; Z87.440 Personal history of urinary (tract) infections; Z88.1 Allergy status to other antibiotic agents; Z91.041 Radiographic dye allergy status; Z91.040 Latex allergy status; Z79.84 Long term (current) use of oral hypoglycemic drugs; Z79.1 Long term (current) use of non-steroidal anti-inflammatories (NSAID); Z79.51 Long term (current) use of inhaled steroids; Z79.899 Other long term (current) drug therapy; Z86.73 Personal history of transient ischemic attack (TIA), and cerebral infarction without residual deficits; Z96.652 Presence of left artificial knee joint
CPT/HCPCS: 36415; 70450; 71010; 74000; 76700; 80048; 80051; 80053; 80202; 80320; 81001; 82009; 82140; 82150; 82271; 82550; 82553; 82565; 82947; 83036; 83520; 83605; 83690; 83735; 84100; 84132; 84443; 84520; 85025; 85027; 85610; 85730; 87040; 93005; 96361; 96365; 96366; 96375; 99291

== ENCOUNTER 2016-08-14 07:56 | Day surgery (SDC) | payer MEDICARE ==
[2016-08-10 14:50] VITALS: BMI 37.8
[~2016-08-14 07:56] MED LIST: DEXAMETHASONE SOD PHOSPHATE 10 MG/ML 1 ML VIAL IV ONE; HYDROmorphone 1 MG/ML 1 ML SYRINGE IVP PRN; LACTATED RINGERS 1,000 ML IV SCH; MIDAZOLAM 2 MG/2 ML VIAL IV PRN; ONDANSETRON 4 MG/2 ML VIAL IVP ONE
[2016-08-14 08:41] VITALS: TEMP 98.1
[2016-08-14] MEDS: CYCLOPENTOLATE 1% OPHTH SOLN 2 ML BTL OP ONE ×3 (08:41→09:10)
[2016-08-14] MEDS: FLURBIPROFEN 0.03% OPHTH DROPS 2.5 ML BTL OP ONE ×3 (08:45→09:15)
[2016-08-14] MEDS: PHENYLEPHRINE 10% OPHTH DROPS 5 ML BTL OP ONE ×3 (08:50→09:19)
[2016-08-14 08:54] LABS: Glucose,Whole Blood 93 mg/dL (75-99)
[2016-08-14] MEDS ORDERED: LIDOCAINE 1% 20 ML VIAL (10MG/ML) FOR IV START INTRADERMA ONE (09:05)
[2016-08-14] MEDS ORDERED: PROPOFOL 10 MG/ML 20 ML VIAL IV ONE (09:32)
[2016-08-14] MEDS ORDERED: BALANCED SALT IRRIG SOLN COMB2 15 ML IRRIG.SOLN INTRAOCULA ONE (09:39)
[2016-08-14] MEDS ORDERED: HYALURONATE SODIUM INTRAOCULAR 1 EACH SYRINGE (10MG/ML) INTRAOCULA ONE (09:40)
[2016-08-14] MEDS ORDERED: EPINEPHrine (PF) 0.5 ML in BALANCED SALT IRRIG SOLN COMB2 500 ML IRRIGATION ONE (09:40)
--- NOTE | 2016-08-14 09:56 | P.OP ---
Date of Procedure: 08/14/16 Preoperative Diagnosis: Postoperative Diagnosis: Procedure(s) Performed: PREOPERATIVE DIAGNOSIS: Cataract, right eye. POSTOPERATIVE DIAGNOSIS: Cataract, right eye. OPERATION: Phacoemulsification cataract, right eye. DESCRIPTION OF PROCEDURE: The patient was taken to the preoperative holding area. Intravenous Propofol was given so as to bring about adequate sedation. The following mixture was given for local anesthesia: 5 mL of 2% lidocaine, 5 mL of 0.75% Marcaine, and 1 mL of Wydase. Approximately 4 mL was injected in the retrobulbar space of the surgical eye. Additional 1 mL was then directed to the temporal area of the surgical eye. This was performed to allow adequate neurological block of the facial muscles. The patient was revived and then taken into the operative room. The patient was prepped and draped in the usual sterile manner for the operative eye. A lid speculum was put into position. The conjunctiva was resected back from the limbus in the 12 o'clock position. Bleeding was controlled with electrocautery. A #69 blade was then used and a half-thickness scleral incision approximately 1-mm posterior to the limbus was made on bare sclera. This was shelved in the clear cornea using a crescent knife. Next a 15-degree blade was used to make a stab incision at the 3 o' clock position at the corneolimbal interface. Keratome blade was then used and the superior wound was extended into the anterior chamber. Viscoelastic was injected into the anterior chamber and to maintain its form. Next, a cystotome was used and a continuous anterior capsulotomy was made without difficulty. Hydrodissection using a blunt cannula and BSS was performed. Phaco probe was then employed and a groove extending from 12 to 6 o'clock in the lens was created. A Horace wand was used through the stab incision so as to perform a divide and conquer technique. Next an irrigation aspiration probe was utilized and any residual cortex was removed from the eye. Again, viscoelastic was injected into the anterior chamber. An Jermain posterior chamber lens implant was placed in the cartridge and injected into the anterior chamber without difficulty. The DNART LIMITADAey hook was utilized to spin the lens into position and this was again performed without any difficulty. The irrigation and aspiration probe was again employed and any residual viscoelastic was removed from the eye. Then BSS was injected into the limbal stab incision and the anterior chamber re-inflated. The conjunctiva was reapproximated using electrocautery. One drop of 0.25% Timoptic was placed over the corneal along with TobraDex ophthalmic ointment. Two sterile patches and a Garcia eye shield were taped into position. The patient was transported to the recovery room in stable condition. Implants: Pathology: none sent Condition: stable Disposition: same day Indications for Procedure: Operative Findings: Description of Procedure:
[2016-08-14 10:11] VITALS: RESP 18
[2016-08-14 10:19] VITALS: BP 112/78; PULSE 78
[2016-08-14] MEDS ORDERED: GENTAMICIN/PREDNISOL AC OPHTH OINT 3.5GM OPHTHALMIC ONE (23:00)
[2016-08-14] MEDS ORDERED: BUPIVACAINE (PF) 0.75% 5 ML, LIDOCAINE 4% (PF) 5 ML, HYALURONIDASE, HUMAN RECOMB 150 UNIT MISCELLANE ONE ×3 (23:00)
[2016-08-14] MEDS ORDERED: TIMOLOL 0.5% OPHTH SOLN (PF) 0.2 ML DROPERETTE OP ONE (23:00)
== END 2016-08-14 10:44 | disposition home or self-care (01) ==
LOC: OR 07:56
PROVIDERS: ATTEND Ophthalmology
DX: H26.9 Unspecified cataract (principal); I50.9 Heart failure, unspecified; J44.9 Chronic obstructive pulmonary disease, unspecified; G47.33 Obstructive sleep apnea (adult) (pediatric); R09.1 Pleurisy; E11.9 Type 2 diabetes mellitus without complications; Z79.84 Long term (current) use of oral hypoglycemic drugs; Z79.4 Long term (current) use of insulin; Z86.73 Personal history of transient ischemic attack (TIA), and cerebral infarction without residual deficits; G62.9 Polyneuropathy, unspecified; M79.7 Fibromyalgia; K21.9 Gastro-esophageal reflux disease without esophagitis; Z79.899 Other long term (current) drug therapy; Z88.5 Allergy status to narcotic agent; Z88.0 Allergy status to penicillin; Z88.2 Allergy status to sulfonamides; Z88.8 Allergy status to other drugs, medicaments and biological substances; Z88.1 Allergy status to other antibiotic agents; Z91.041 Radiographic dye allergy status; Z91.040 Latex allergy status
CPT/HCPCS: 66984; V2632; J2001; J3470; J0171; J2704

== ENCOUNTER 2016-10-09 13:01 | Day surgery (SDC) | payer MEDICARE ==
[2016-10-08 11:52] VITALS: BMI 37.9
[2016-10-09] MEDS: CYCLOPENTOLATE 1% OPHTH SOLN 2 ML BTL OP ONE ×3 (13:36→13:50)
[2016-10-09] MEDS: FLURBIPROFEN 0.03% OPHTH DROPS 2.5 ML BTL OP ONE ×4 (13:38→13:53)
[2016-10-09 13:39] VITALS: RESP 16; TEMP 98.2
[2016-10-09] MEDS: PHENYLEPHRINE 10% OPHTH DROPS 5 ML BTL OP ONE ×3 (13:40→13:54)
[2016-10-09] MEDS ORDERED: LACTATED RINGERS 1,000 ML IV ONE (13:45)
[2016-10-09 13:50] LABS: Glucose,Whole Blood 123 mg/dL (75-99)
[2016-10-09] MEDS ORDERED: fentaNYL (PF) 50 MCG/ML 2 ML AMP ONE (14:19)
[2016-10-09] MEDS ORDERED: PROPOFOL 10 MG/ML 20 ML VIAL IV ONE (14:19)
[2016-10-09] MEDS ORDERED: MIDAZOLAM 2 MG/2 ML VIAL ONE (14:19)
[2016-10-09] MEDS ORDERED: HYALURONATE SODIUM INTRAOCULAR 1 EACH SYRINGE (10MG/ML) INTRAOCULA ONE (14:24)
[2016-10-09] MEDS ORDERED: BALANCED SALT IRRIG SOLN COMB2 15 ML IRRIG.SOLN INTRAOCULA ONE (14:24)
[2016-10-09] MEDS ORDERED: EPINEPHrine (PF) 0.5 ML in BALANCED SALT IRRIG SOLN COMB2 500 ML IRRIGATION ONE (14:26)
--- NOTE | 2016-10-09 14:41 | P.OP ---
Date of Procedure: 10/09/16 Preoperative Diagnosis: Postoperative Diagnosis: Procedure(s) Performed: PREOPERATIVE DIAGNOSIS: Cataract, left eye eye. POSTOPERATIVE DIAGNOSIS: Cataract, left eye. OPERATION: Phacoemulsification cataract, left eye. DESCRIPTION OF PROCEDURE: The patient was taken to the preoperative holding area. Intravenous Propofol was given so as to bring about adequate sedation. The following mixture was given for local anesthesia: 5 mL of 2% lidocaine, 5 mL of 0.75% Marcaine, and 1 mL of Wydase. Approximately 4 mL was injected in the retrobulbar space of the surgical eye. Additional 1 mL was then directed to the temporal area of the surgical eye. This was performed to allow adequate neurological block of the facial muscles. The patient was revived and then taken into the operative room. The patient was prepped and draped in the usual sterile manner for the operative eye. A lid speculum was put into position. The conjunctiva was resected back from the limbus in the 12 o'clock position. Bleeding was controlled with electrocautery. A #69 blade was then used and a half-thickness scleral incision approximately 1-mm posterior to the limbus was made on bare sclera. This was shelved in the clear cornea using a crescent knife. Next a 15-degree blade was used to make a stab incision at the 3 o' clock position at the corneolimbal interface. Keratome blade was then used and the superior wound was extended into the anterior chamber. Viscoelastic was injected into the anterior chamber and to maintain its form. Next, a cystotome was used and a continuous anterior capsulotomy was made without difficulty. Hydrodissection using a blunt cannula and BSS was performed. Phaco probe was then employed and a groove extending from 12 to 6 o'clock in the lens was created. A Horace wand was used through the stab incision so as to perform a divide and conquer technique. Next an irrigation aspiration probe was utilized and any residual cortex was removed from the eye. Again, viscoelastic was injected into the anterior chamber. An Jermain posterior chamber lens implant was placed in the cartridge and injected into the anterior chamber without difficulty. The SinRoyaltyShareey hook was utilized to spin the lens into position and this was again performed without any difficulty. The irrigation and aspiration probe was again employed and any residual viscoelastic was removed from the eye. Then BSS was injected into the limbal stab incision and the anterior chamber re-inflated. The conjunctiva was reapproximated using electrocautery. One drop of 0.25% Timoptic was placed over the corneal along with TobraDex ophthalmic ointment. Two sterile patches and a Garcia eye shield were taped into position. The patient was transported to the recovery room in stable condition. Implants: Pathology: none sent Condition: stable Disposition: same day Indications for Procedure: Operative Findings: Description of Procedure:
[2016-10-09 14:51] LABS: Glucose,Whole Blood 110 mg/dL (75-99)
[2016-10-09 15:02] VITALS: BP 122/70; PULSE 68
[2016-10-09] MEDS ORDERED: TIMOLOL 0.5% OPHTH SOLN (PF) 0.2 ML DROPERETTE OP ONE (23:00)
[2016-10-09] MEDS ORDERED: GENTAMICIN/PREDNISOL AC OPHTH OINT 3.5GM OPHTHALMIC ONE (23:00)
[2016-10-09] MEDS ORDERED: BUPIVACAINE (PF) 0.75% 5 ML, LIDOCAINE 4% (PF) 5 ML, HYALURONIDASE, HUMAN RECOMB 150 UNIT MISCELLANE ONE ×3 (23:00)
== END 2016-10-09 15:31 | disposition home or self-care (01) ==
LOC: OR 13:01
PROVIDERS: ATTEND Ophthalmology
DX: H26.9 Unspecified cataract (principal); I11.0 Hypertensive heart disease with heart failure; I50.9 Heart failure, unspecified; E78.5 Hyperlipidemia, unspecified; G47.33 Obstructive sleep apnea (adult) (pediatric); Z99.89 Dependence on other enabling machines and devices; E11.9 Type 2 diabetes mellitus without complications; Z79.4 Long term (current) use of insulin; E07.9 Disorder of thyroid, unspecified; I69.398 Other sequelae of cerebral infarction; K21.9 Gastro-esophageal reflux disease without esophagitis; Z79.1 Long term (current) use of non-steroidal anti-inflammatories (NSAID); Z79.82 Long term (current) use of aspirin; Z79.899 Other long term (current) drug therapy; Z88.5 Allergy status to narcotic agent; Z88.0 Allergy status to penicillin; Z88.2 Allergy status to sulfonamides; Z88.8 Allergy status to other drugs, medicaments and biological substances; Z88.1 Allergy status to other antibiotic agents; Z91.041 Radiographic dye allergy status
CPT/HCPCS: 66984; V2632; J2001; J2250; J3470; J0171; J3010; J2704

== ENCOUNTER → 2017-05-16 | Outpatient (CLI) | payer MEDICARE ==
--- NOTE | 2017-05-20 09:43 | MM ---
Reason for exam: screening (asymptomatic). Last mammogram was performed 1 year and 2 months ago. History: Patient is postmenopausal. Family history of breast cancer in maternal grandmother and breast cancer in mother at age 78. Benign excisional biopsy of the left breast, May 16, 2000. Stereotactic core biopsy of the left breast, May 02, 2000. Took estrogen for 5 years 2 months. Physical Findings: A clinical breast exam by your physician is recommended on an annual basis and results should be correlated with mammographic findings. MG 3D Screening Mammo W/Cad Bilateral CC and MLO view(s) were taken. Prior study comparison: March 06, 2016, bilateral MG 3d screening mammo w/cad. November 01, 2014, bilateral MG diagnostic mammo w CAD GLENDA. There are scattered fibroglandular densities. Finding: Equal architectural distortion in the subareolar position of the left breast on CC view, may have calcifications on CAD. New finding since March 06, 2016 and November 01, 2014. ASSESSMENT: Incomplete: need additional imaging evaluation, BI-RAD 0 RECOMMENDATION: Special view mammogram of the left breast. If lesion persists on supplemental views, image directed ultrasound is recommended. [facility] will attempt to contact patient to return for supplemental views and ultrasound if indicated.
== END | disposition home or self-care (01) ==
LOC: RADMAMWWP 12:51
PROVIDERS: ATTEND Family Medicine
DX: Z12.31 Encounter for screening mammogram for malignant neoplasm of breast (principal); R92.8 Other abnormal and inconclusive findings on diagnostic imaging of breast
CPT/HCPCS: 77063; 77067

== ENCOUNTER → 2017-05-29 | Outpatient (CLI) | payer MEDICARE ==
--- NOTE | 2017-05-29 14:11 | MM ---
Reason for exam: additional evaluation requested from abnormal screening. Last mammogram was performed less than 1 month ago. History: Patient is postmenopausal. Family history of breast cancer in maternal grandmother and breast cancer in mother at age 78. Benign excisional biopsy of the left breast, May 16, 2000. Stereotactic core biopsy of the left breast, May 02, 2000. Took estrogen for 5 years 2 months. Physical Findings: Nurse did not find any significant physical abnormalities on exam. MG 3D Work Up W/Cad LT CC with magnification and LM view(s) were taken of the left breast. Prior study comparison: May 16, 2017, bilateral MG 3d screening mammo w/cad. March 06, 2016, bilateral MG 3d screening mammo w/cad. There is no discrete abnormality including area of concern. These results were verbally communicated with the patient and result sheet given to the patient on 05/29/17. ASSESSMENT: Negative, BI-RAD 1 RECOMMENDATION: Return to routine screening mammogram schedule for both breasts.
== END | disposition home or self-care (01) ==
LOC: RADMAMWWP 13:18
PROVIDERS: ATTEND Family Medicine
DX: R92.8 Other abnormal and inconclusive findings on diagnostic imaging of breast (principal)
CPT/HCPCS: 77065; G0279

== ENCOUNTER 2018-01-17 13:37 | Inpatient (IN) | payer MEDICARE ==
[2018-01-17] MEDS ORDERED: IPRATROPIUM-ALBUTEROL 3 ML NEB INHALATION STA ×2 (14:18→15:34)
--- NOTE | 2018-01-17 14:20 | ED ---
General Adult HPI - General Chief complaint: Upper Respiratory Infection Stated complaint: congestion,cough Time Seen by Provider: 01/17/18 14:10 Source: patient Mode of arrival: ambulatory Limitations: no limitations - History of Present Illness Initial comments: Patient's a 62-year-old female significant past history for COPD, presented to the emergency room today with chief complaint of pneumonia. Patient does admit that she had a chest x-ray with family doctor's office a few days ago was diagnosed with pneumonia started on antibiotics and steroids. She says she is not improved. States she did talk to the family doctor today who advised come here to emergency room for admission. Patient does admit that she's tried breathing treatments at home. She does make to increased cough congestion. Denies any other complaints. Patient denies any recent fever, chills, chest pain , back pain, abdominal pain, nausea or vomiting, numbness or tingling, headaches or visual changes, or any other complaints. - Related Data Home Medications Medication Instructions Recorded Confirmed Aspirin 162 mg PO DAILY 09/21/13 10/08/16 Levothyroxine Sodium [Synthroid] 150 mcg PO QAM 09/21/13 01/17/18 Montelukast Sodium [Singulair] 10 mg PO HS 09/21/13 01/17/18 Omeprazole [PriLOSEC] 20 mg PO BID 09/21/13 01/17/18 Primidone [Mysoline] 50 mg PO AC-BID 09/21/13 01/17/18 Albuterol Nebulized [Ventolin 2.5 mg INHALATION RT-Q6H PRN 05/01/16 01/17/18 Nebulized] Canagliflozin [Invokana] 300 mg PO DAILY 05/01/16 01/17/18 Ferrous Sulfate [Iron (65 MG 325 mg PO BID 05/01/16 01/17/18 Elemental)] Gabapentin 800 mg PO QID 05/01/16 01/17/18 Diclofenac Sodium [Voltaren] 75 mg PO BID 08/10/16 01/17/18 Fluticasone/Salmeterol [Advair 1 inhalation PO RT-BID 08/10/16 01/17/18 250-50 Diskus] Furosemide [Lasix] 40 mg PO DAILY 08/10/16 01/17/18 Lisinopril [Prinivil] 5 mg PO QAM 08/10/16 01/17/18 Metoclopramide [Reglan] 10 mg PO QAM 08/10/16 01/17/18 Mirtazapine [Remeron] 15 mg PO HS 08/10/16 01/17/18 Multivit-Min36/Iron/Folic Acid 1 each PO DAILY 08/10/16 01/17/18 [Geritol Complete Tablet] Vitamin B Complex 1 each PO DAILY 08/10/16 01/17/18 ALPRAZolam [Xanax] 0.25 mg PO TID PRN 01/17/18 01/17/18 Atorvastatin [Lipitor] 40 mg PO HS 01/17/18 01/17/18 Ciprofloxacin HCl [Cipro] 500 mg PO BID 01/17/18 01/17/18 Ergocalciferol (Vitamin D2) 50,000 unit PO CONTRERAS 01/17/18 01/17/18 [Drisdol] Insulin Aspart (Niacinamide) 10 unit PO DAILY 01/17/18 01/17/18 [Fiasp 100 Unit/ml Vial] Insulin Degludec/Liraglutide 20 units SQ DAILY 01/17/18 01/17/18 [Xultophy 100 Unit-3.6MG/ml Pen] Topiramate [Topamax] 100 mg PO BID 01/17/18 01/17/18 Vitamin B Complex 1 cap PO DAILY 01/17/18 01/17/18 methylPREDNISolone [Medrol Dose See Taper PO DIRECTED 01/17/18 01/17/18 Pack] Allergies Allergy/AdvReac Type Severity Reaction Status Date / Time aminophylline Allergy Rash/Hives Verified 01/17/18 15:27 cephalexin monohydrate Allergy Rash/Hives Verified 01/17/18 15:27 [From Keflex] codeine Allergy Rash/Hives Verified 01/17/18 15:27 diazepam [From Valium] Allergy Rash/Hives Verified 01/17/18 15:27 hydrocodone bitartrate Allergy Rash/Hives Verified 01/17/18 15:27 [From Vicodin] Iodinated Contrast- Oral and Allergy Rash/Hives Verified 01/17/18 15:27 IV Dye [Iodinated Contrast Media - IV Dye] latex Allergy Itching, Verified 01/17/18 15:27 BURNING SKIN Latex, Natural Rubber Allergy Itching, Verified 01/17/18 15:27 BURNING OF SKIN levofloxacin [From Levaquin] Allergy Rash/Hives Verified 01/17/18 15:27 metformin HCl Allergy Rash/Hives Verified 01/17/18 15:27 [From Glucophage] morphine Allergy Rash/Hives Verified 01/17/18 15:27 Penicillins Allergy Rash/Hives Verified 01/17/18 15:27 Sulfa (Sulfonamide Allergy Rash/Hives Verified 01/17/18 15:27 Antibiotics) sulfamethoxazole Allergy Rash/Hives Verified 01/17/18 15:27 [From Bactrim] tetracycline [Tetracycline] Allergy Rash/Hives Verified 01/17/18 15:27 theophylline Allergy Rash/Hives Verified 01/17/18 15:27 tramadol Allergy Dyspnea Verified 01/17/18 15:27 trimethoprim [From Bactrim] Allergy Rash/Hives Verified 01/17/18 15:27 Review of Systems ROS Statement: Those systems with pertinent positive or pertinent negative responses have been documented in the HPI. ROS Other: All systems not noted in ROS Statement are negative. Past Medical History Past Medical History: Asthma, Heart Failure, COPD, CVA/TIA, Diabetes Mellitus, Fibromyalgia, GERD/Reflux, Hyperlipidemia, Hypertension, Osteoarthritis (OA), Pneumonia, Renal Disease, Sleep Apnea/CPAP/BIPAP, Thyroid Disorder Additional Past Medical History / Comment(s): HX Pleurisy. IDDM type II. Srikanth neuropathy hands and feet. IBS. migranes. NO CPAP. Chronic lower back, neck pain, DDD, Scoliosis. CTS SRIKANTH. Pinched nerve RT leg. HX IN PAST Kidney Failure. LT cataracts. BRUISE LT KNEE. History of Any Multi-Drug Resistant Organisms: None Reported Past Surgical History: Appendectomy, Breast Surgery, Heart Catheterization, Hysterectomy, Joint Replacement, Orthopedic Surgery, Tonsillectomy Additional Past Surgical History / Comment(s): Lt knee w/ pins. Lt foot w/ screws. Rt ankle arthroscopic sx. Rt foot-cyst removed. TOTAL LEFT KNEE ( CERAMIC). LT hand 5th finger dupuytrens contraction. LEFT BREAST Lumpectomy- NEGATIVE (has marker). Colonoscopy. EXC RT CATARACT. Past Anesthesia/Blood Transfusion Reactions: No Reported Reaction Past Psychological History: Anxiety, Depression Smoking Status: Never smoker - Past Family History Father Family Medical History: No Reported History Additional Family Medical History / Comment(s): Pt states father was healthy Mother Family Medical History: Cancer, Diabetes Mellitus Additional Family Medical History / Comment(s): breast CA General Exam - General Exam Comments Initial Comments: General: The patient is awake and alert, in no distress, and does not appear acutely ill. Eye: Pupils are equal, round and reactive to light. Extra-ocular movements are intact. No nystagmus. There is normal conjunctiva bilaterally. No signs of icterus. Ears, nose, mouth and throat: There are moist mucous membranes and no oral lesions. Neck: The neck is supple, there is no tenderness or JVD. Cardiovascular: There is a regular rate and rhythm. No murmur, rub or gallop is appreciated. Respiratory: Bilateral expiratory wheeze. respirations are non-labored, breath sounds are equal. No stridor, rales, or rhonchi. Musculoskeletal: Normal ROM, no tenderness. Sensation intact. Strength 5/5. Pulses equal bilaterally 2+. Neurological: A&O x 3. CN II-XII intact, There are no obvious motor or sensory deficits. Coordination appears grossly intact. Speech is normal. Skin: Skin is warm and dry and no rashes or lesions are noted. Psychiatric: Cooperative, appropriate mood & affect, normal judgment. Limitations: no limitations Course Vital Signs 01/17/18 01/17/18 01/17/18 14:00 14:32 14:37 Temperature 97.8 F Pulse Rate 86 71 80 Respiratory 18 Rate Blood Pressure 110/61 O2 Sat by Pulse 96 Oximetry 01/17/18 15:41 Temperature Pulse Rate 76 Respiratory Rate Blood Pressure O2 Sat by Pulse Oximetry Medical Decision Making - Medical Decision Making Patient's chest x-ray reviewed shows no acute abnormality. Labs been reviewed. Patient said 2 breathing treatments here in the emergency room also dose of Solu-Medrol. Patient sounds are improved. Has expiratory wheeze. Patient will be admitted for COPD exacerbation. - Lab Data Result diagrams: 01/17/18 14:22 01/17/18 14:22 Lab Results 01/17/18 01/17/18 Range/Units 14:22 14:22 WBC 6.8 (3.8-10.6) k/uL RBC 4.24 (3.80-5.40) m/uL Hgb 13.2 (11.4-16.0) gm/dL Hct 41.6 (34.0-46.0) % MCV 98.0 (80.0-100.0) fL MCH 31.2 (25.0-35.0) pg MCHC 31.8 (31.0-37.0) g/dL RDW 13.1 (11.5-15.5) % Plt Count 161 (150-450) k/uL Neutrophils % 70 % Lymphocytes % 23 % Monocytes % 4 % Eosinophils % 1 % Basophils % 1 % Neutrophils # 4.7 (1.3-7.7) k/uL Lymphocytes # 1.5 (1.0-4.8) k/uL Monocytes # 0.3 (0-1.0) k/uL Eosinophils # 0.1 (0-0.7) k/uL Basophils # 0.1 (0-0.2) k/uL Sodium 140 (137-145) mmol/L Potassium 4.4 (3.5-5.1) mmol/L Chloride 111 H (98-107) mmol/L Carbon Dioxide 18 L (22-30) mmol/L Anion Gap 11 mmol/L BUN 14 (7-17) mg/dL Creatinine 0.68 (0.52-1.04) mg/dL Est GFR (CKD-EPI)AfAm >90 (>60 ml/min/1.73 sqM) Est GFR (CKD-EPI)NonAf >90 (>60 ml/min/1.73 sqM) Glucose 206 H (74-99) mg/dL Calcium 9.6 (8.4-10.2) mg/dL Total Bilirubin 0.5 (0.2-1.3) mg/dL AST 16 (14-36) U/L ALT 28 (9-52) U/L Alkaline Phosphatase 93 (38-126) U/L Total Protein 6.6 (6.3-8.2) g/dL Albumin 3.9 (3.5-5.0) g/dL Disposition Clinical Impression: COPD exacerbation Disposition: ADMITTED IP TO THIS HOSP Condition: Good Is patient prescribed a controlled substance at d/c from ED?: No Referrals: Tom Stiles MD [Primary Care Provider] - 1-2 days Time of Disposition: 15:48
[2018-01-17 14:39] LABS: Basophils # (A) 0.1 k/uL (0-0.2); Basophils % (A) 1 %; Eosinophils # (A) 0.1 k/uL (0-0.7); Eosinophils % (A) 1 %; HCT 41.6 % (34.0-46.0); HGB 13.2 gm/dL (11.4-16.0); Lymphocytes # (A) 1.5 k/uL (1.0-4.8); Lymphocytes % (A) 23 %; MCH 31.2 pg (25.0-35.0); MCHC 31.8 g/dL (31.0-37.0); Mean Platelet Volume 9.8; Monocytes # (A) 0.3 k/uL (0-1.0); Monocytes % (A) 4 %; Neutrophils # (A) 4.7 k/uL (1.3-7.7); Neutrophils % (A) 70 %; Platelet Count 161 k/uL (150-450); RBC 4.24 m/uL (3.80-5.40); RDW 13.1 % (11.5-15.5); WBC 6.8 k/uL (3.8-10.6)
[2018-01-17 14:58] LABS: ALT 28 U/L (9-52); AST 16 U/L (14-36); Albumin 3.9 g/dL (3.5-5.0); Alkaline Phosphatase 93 U/L (38-126); Anion Gap 11 mmol/L; Blood Urea Nitrogen 14 mg/dL (7-17); Calcium 9.6 mg/dL (8.4-10.2); Carbon Dioxide 18 mmol/L (22-30); Chloride 111 mmol/L (98-107); Glucose 206 mg/dL (74-99); Sodium 140 mmol/L (137-145); Total Bilirubin 0.5 mg/dL (0.2-1.3); Total Protein 6.6 g/dL (6.3-8.2)
[2018-01-17 15:01] LABS: Potassium 4.4 mmol/L (3.5-5.1)
--- NOTE | 2018-01-17 15:29 | XR ---
EXAMINATION TYPE: XR chest 2V DATE OF EXAM: 01/17/2018 COMPARISON: 05/11/2016 HISTORY: Shortness of breath TECHNIQUE: Frontal and lateral views of the chest are obtained. FINDINGS: Scattered senescent parenchymal changes noted. No evidence for infiltrate. No evidence for atelectasis. Heart size is stable. Mediastinal structures are stable and grossly unremarkable. No evidence for hilar prominence. Degenerative changes dorsal spine. IMPRESSION: 1. No evidence for acute pulmonary disease.
[2018-01-17] MEDS ORDERED: SODIUM CHLORIDE 0.9% 1,000 ML IV ONE (15:44)
[2018-01-17] MEDS ORDERED: IPRATROPIUM-ALBUTEROL 3 ML NEB INHALATION PRN (15:44)
[2018-01-17] MEDS ORDERED: ALPRAZolam 0.25 MG TAB PO PRN (16:55)
--- NOTE | 2018-01-17 17:11 | P.HPIM ---
History of Present Illness H&P Date: 01/17/18 Chief Complaint: I can't breathe The patient is a 8-year-old female with a past medical history of asthma, Type 2 diabetes with peripheral neuropathy, essential hypertension and GERD, obstructive sleep apnea on CPAP therapy who presents to the ER via private vehicle after being referred here by her PCP Dr. Newman. Apparently the patient has been having increasing shortness of breath, with increased wheezes, productive cough with whitish sputum over the last 10 days, with subjective fevers and chills. The patient presented to her PCPs office on Saturday and was given a dose of Rocephin, breathing treatment and a Medrol Dosepak with ciprofloxacin, patient reported no significant improvement and presented back today for follow-up, the patient reports increased usage of her updraft and rescue inhalers at home with her last breathing treatment prior to arrival here in the ER earlier this morning at 2:30 AM. The patient denies any recent travel or sick contacts, she reports that she had her flu shot approximately a month ago and she is up-to-date with her pneumonia vaccine. The patient also reports pleuritic chest discomfort associated with her cough, she denies palpitations lower extremity swelling. In the ER the patient had a conference a workup chest x-ray showed no acute intrathoracic abnormality, her labs were unremarkable, she was given 2 breathing treatments initiated on IV Solu-Medrol and recommended for admission for asthma exacerbation. Review of Systems Pertinent positives per HPI, all other review of systems otherwise negative Past Medical History Past Medical History: Asthma, Heart Failure, COPD, CVA/TIA, Diabetes Mellitus, Fibromyalgia, GERD/Reflux, Hyperlipidemia, Hypertension, Osteoarthritis (OA), Pneumonia, Renal Disease, Sleep Apnea/CPAP/BIPAP, Thyroid Disorder Additional Past Medical History / Comment(s): HX Pleurisy. IDDM type II. Srikanth neuropathy hands and feet. IBS. migranes. NO CPAP. Chronic lower back, neck pain, DDD, Scoliosis. CTS SRIKANTH. Pinched nerve RT leg. HX IN PAST Kidney Failure. LT cataracts. BRUISE LT KNEE. History of Any Multi-Drug Resistant Organisms: None Reported Past Surgical History: Appendectomy, Breast Surgery, Heart Catheterization, Hysterectomy, Joint Replacement, Orthopedic Surgery, Tonsillectomy Additional Past Surgical History / Comment(s): Lt knee w/ pins. Lt foot w/ screws. Rt ankle arthroscopic sx. Rt foot-cyst removed. TOTAL LEFT KNEE ( CERAMIC). LT hand 5th finger dupuytrens contraction. LEFT BREAST Lumpectomy- NEGATIVE (has marker). Colonoscopy. EXC RT CATARACT. Past Anesthesia/Blood Transfusion Reactions: No Reported Reaction Past Psychological History: Anxiety, Depression Smoking Status: Never smoker - Past Family History Father Family Medical History: No Reported History Additional Family Medical History / Comment(s): Pt states father was healthy Mother Family Medical History: Cancer, Diabetes Mellitus Additional Family Medical History / Comment(s): breast CA Medications and Allergies Home Medications Medication Instructions Recorded Confirmed Type Aspirin 162 mg PO DAILY 09/21/13 01/17/18 History Levothyroxine Sodium [Synthroid] 150 mcg PO QAM 09/21/13 01/17/18 History Montelukast Sodium [Singulair] 10 mg PO HS 09/21/13 01/17/18 History Omeprazole [PriLOSEC] 20 mg PO BID 09/21/13 01/17/18 History Primidone [Mysoline] 50 mg PO AC-BID 09/21/13 01/17/18 History Albuterol Nebulized [Ventolin 2.5 mg INHALATION RT-Q6H PRN 05/01/16 01/17/18 History Nebulized] Canagliflozin [Invokana] 300 mg PO DAILY 05/01/16 01/17/18 History Ferrous Sulfate [Iron (65 MG 325 mg PO BID 05/01/16 01/17/18 History Elemental)] Gabapentin 800 mg PO QID 05/01/16 01/17/18 History Diclofenac Sodium [Voltaren] 75 mg PO BID 08/10/16 01/17/18 History Fluticasone/Salmeterol [Advair 1 puff INHALATION RT-BID 08/10/16 01/17/18 History 250-50 Diskus] Furosemide [Lasix] 40 mg PO DAILY 08/10/16 01/17/18 History Lisinopril [Prinivil] 5 mg PO QAM 08/10/16 01/17/18 History Metoclopramide [Reglan] 10 mg PO QAM 08/10/16 01/17/18 History Mirtazapine [Remeron] 15 mg PO HS 08/10/16 01/17/18 History Multivit-Min36/Iron/Folic Acid 1 tab PO DAILY 08/10/16 01/17/18 History [Geritol Complete Tablet] ALPRAZolam [Xanax] 0.25 mg PO TID PRN 01/17/18 01/17/18 History Atorvastatin [Lipitor] 40 mg PO HS 01/17/18 01/17/18 History Ciprofloxacin HCl [Cipro] 500 mg PO BID 01/17/18 01/17/18 History Ergocalciferol (Vitamin D2) 50,000 unit PO CONTRERAS 01/17/18 01/17/18 History [Drisdol] Insulin Aspart (Niacinamide) 10 unit PO DAILY 01/17/18 01/17/18 History [Fiasp 100 Unit/ml Vial] Insulin Degludec/Liraglutide 20 units SQ DAILY 01/17/18 01/17/18 History [Xultophy 100 Unit-3.6MG/ml Pen] Topiramate [Topamax] 100 mg PO BID 01/17/18 01/17/18 History Vitamin B Complex 1 cap PO DAILY 01/17/18 01/17/18 History methylPREDNISolone [Medrol Dose See Taper PO DIRECTED 01/17/18 01/17/18 History Pack] Allergies Allergy/AdvReac Type Severity Reaction Status Date / Time aminophylline Allergy Rash/Hives Verified 01/17/18 15:27 cephalexin monohydrate Allergy Rash/Hives Verified 01/17/18 15:27 [From Keflex] codeine Allergy Rash/Hives Verified 01/17/18 15:27 diazepam [From Valium] Allergy Rash/Hives Verified 01/17/18 15:27 hydrocodone bitartrate Allergy Rash/Hives Verified 01/17/18 15:27 [From Vicodin] Iodinated Contrast- Oral and Allergy Rash/Hives Verified 01/17/18 15:27 IV Dye [Iodinated Contrast Media - IV Dye] latex Allergy Itching, Verified 01/17/18 15:27 BURNING SKIN Latex, Natural Rubber Allergy Itching, Verified 01/17/18 15:27 BURNING OF SKIN levofloxacin [From Levaquin] Allergy Rash/Hives Verified 01/17/18 15:27 metformin HCl Allergy Rash/Hives Verified 01/17/18 15:27 [From Glucophage] morphine Allergy Rash/Hives Verified 01/17/18 15:27 Penicillins Allergy Rash/Hives Verified 01/17/18 15:27 Sulfa (Sulfonamide Allergy Rash/Hives Verified 01/17/18 15:27 Antibiotics) sulfamethoxazole Allergy Rash/Hives Verified 01/17/18 15:27 [From Bactrim] tetracycline [Tetracycline] Allergy Rash/Hives Verified 01/17/18 15:27 theophylline Allergy Rash/Hives Verified 01/17/18 15:27 tramadol Allergy Dyspnea Verified 01/17/18 15:27 trimethoprim [From Bactrim] Allergy Rash/Hives Verified 01/17/18 15:27 Physical Exam Vitals: Vital Signs Temp Pulse Resp BP Pulse Ox 01/17/18 16:00 80 25 H 99/68 95 01/17/18 15:50 81 01/17/18 15:41 76 01/17/18 15:30 72 18 98/62 95 01/17/18 15:00 79 20 94 L 01/17/18 14:37 80 01/17/18 14:32 71 01/17/18 14:30 75 27 H 111/61 96 01/17/18 14:11 88 22 96 01/17/18 14:00 97.8 F 86 18 110/61 96 Intake and Output 01/17/18 01/17/18 01/17/18 06:59 14:59 22:59 Other: Weight 106.594 kg Constitutional: Mild to moderate, conversant, pleasant Eyes: Anicteric sclerae, moist conjunctiva, no lid-lag, PERRLA ENMT: NC/AT,Oropharynx clear, no erythema, exudates Neck:Supple, FROM, no masses, or JVD, No carotid bruits; No thyromegaly Lungs: Faint wheezes diminished in the bases , easily dyspneic with movement, speaking in complete sentences, on 2 L is a Maintaining normal oxygen saturations Cardiovascular: Heart regular in rate and rhythm, No murmurs, gallops, or rubs no peripheral edema Abdominal: Soft Nontender, nom distended, no guarding, no rebound or rigidity, Normoactive bowel sounds No hepatomegaly, No splenomegaly, No palpable mass No abdominal wall hernia noted Skin: Normal temperature, tone, texture, turgor, No induration No subcutaneous nodules, No rash, lesions, No ulcers Extremities:No digital cyanosis No clubbing, Pedal pulses intact and symmetrical Radial pulses intact and symmetrical Normal gait and station, No calf tenderness Psychiatric: Alert and oriented to person, place and time, Appropriate affect Intact judgement Neuro: Muscles Strength 5/5 in all 4 extremities, Sensation to light touch grossly present throughout, Cranial nerves II-XII grossly intact. No focal sensory deficits Results CBC & Chem 7: 01/17/18 14:22 01/17/18 14:22 Labs: Abnormal Lab Results - Last 24 Hours (Table) 01/17/18 Range/Units 14:22 Chloride 111 H (98-107) mmol/L Carbon Dioxide 18 L (22-30) mmol/L Glucose 206 H (74-99) mg/dL Assessment and Plan Assessment: Chronic medical conditions Chronic Fibromyalgia GERD Substance of sleep apnea on CPAP Depression and anxiety IBS (1) Acute asthma exacerbation Current Visit: Yes Status: Acute Code(s): J45.901 - UNSPECIFIED ASTHMA WITH (ACUTE) EXACERBATION SNOMED Code(s): 197185616 (2) Type 2 diabetes mellitus with peripheral neuropathy Current Visit: Yes Status: Acute Code(s): E11.42 - TYPE 2 DIABETES MELLITUS WITH DIABETIC POLYNEUROPATHY SNOMED Code(s): 99203457 (3) Acute bronchitis Current Visit: Yes Status: Acute Code(s): J20.9 - ACUTE BRONCHITIS, UNSPECIFIED SNOMED Code(s): 48912323 (4) Essential hypertension Current Visit: Yes Status: Acute Code(s): I10 - ESSENTIAL (PRIMARY) HYPERTENSION SNOMED Code(s): 55610082 Plan: The patient is admitted anticipated greater than 2 midnight stay with acute asthma exacerbation triggered by viral acute upper respiratory tract infection chest x-ray negative for any suggestion of any pneumonia, patient started on systemic steroids with IV Solu-Medrol, scheduled and when necessary bronchodilator DuoNeb breathing treatments, Perforomist, Mucinex and azithromycin. We'll continue to monitor patient's pulse oximetry, obtain EKG, gentle hydration and recheck chest x-ray tomorrow. Patient started on sliding scale coverage for expected hyperglycemia secondary to steroids patient does have underlying type 2 diabetes A1c will be checked. Patient resumed on her home chronic medications. Initiated on Lovenox/scds DVT prophylaxis and PPI therapy GI prophylaxis, we'll continue the patient's clinical course, CODE STATUS Full code Next of kin Des Anticipated discharge 2-3 days
[2018-01-17 18:00] LABS: Glucose,Whole Blood 153 mg/dL (75-99)
[2018-01-17] MEDS: PANTOPRAZOLE 40 MG TABLET PO SCH (18:15)
[2018-01-17] MEDS: INSULIN ASPART 100 UNIT/ML 1 ML 10 ML VIAL SQ SCH ×2 (18:16→21:20)
[2018-01-17] MEDS: GABAPENTIN 400 MG CAP PO SCH ×2 (18:16→21:19)
[2018-01-17] MEDS: PRIMIDONE 50 MG TAB PO SCH (18:17)
[2018-01-17] MEDS: methylPREDNISolone SOD SUCCI 125 MG/2 ML VIAL IV SCH ×2 (18:19→23:39)
[2018-01-17] MEDS: FORMOTEROL FUMARATE 20 MCG/2 ML NEBU INHALATION SCH (19:31)
[2018-01-17] MEDS: IPRATROPIUM-ALBUTEROL 3 ML NEB INHALATION SCH (19:32)
[2018-01-17 19:57] LABS: Glucose,Whole Blood 188 mg/dL (75-99)
[2018-01-17] MEDS: MONTELUKAST 10 MG TAB PO SCH (21:19)
[2018-01-17] MEDS: MIRTAZAPINE 15 MG TAB PO SCH (21:19)
[2018-01-17] MEDS: ATORVASTATIN 40 MG TAB PO SCH (21:19)
[2018-01-17] MEDS: guaiFENesin 600 MG TABLET.ER PO SCH (21:19)
[2018-01-17] MEDS: TOPIRAMATE 100 MG TAB PO SCH (21:19)
[2018-01-17] MEDS: FERROUS SULFATE 325 MG TAB PO SCH (21:20)
[2018-01-17] MEDS: INSULIN DETEMIR 100 UNIT/ML 10 ML VIAL SQ SCH (21:42)
[2018-01-18 04:22] LABS: Hemoglobin A1C 8.2 % (4.0-6.0)
[2018-01-18] MEDS: LEVOTHYROXINE 75 MCG TAB PO SCH (06:04)
[2018-01-18] MEDS: methylPREDNISolone SOD SUCCI 125 MG/2 ML VIAL IV SCH ×3 (06:04→17:53)
--- NOTE | 2018-01-18 06:21 | XR ---
EXAMINATION TYPE: XR chest 2V DATE OF EXAM: 01/18/2018 HISTORY: asthma . REFERENCE: Previous study dated 01/17/2018. FINDINGS: There is a developing left lower lobe infiltrate. The right lung is clear. The heart is not enlarged. Pleural spaces are clear. IMPRESSION: DEVELOPING LEFT LOWER LOBE INFILTRATE.
[2018-01-18 06:58] LABS: Glucose,Whole Blood 248 mg/dL (75-99)
[2018-01-18] MEDS: INSULIN ASPART 100 UNIT/ML 1 ML 10 ML VIAL SQ SCH ×4 (07:30→21:25)
[2018-01-18] MEDS: FUROSEMIDE 40 MG TAB PO SCH (07:57)
[2018-01-18] MEDS: ASPIRIN 81 MG PO SCH (07:57)
[2018-01-18] MEDS: ENOXAPARIN 40 MG/0.4 ML SYRINGE SQ SCH (07:57)
[2018-01-18] MEDS: METOCLOPRAMIDE 10 MG TAB PO SCH (07:58)
[2018-01-18] MEDS: GABAPENTIN 400 MG CAP PO SCH ×4 (07:58→22:07)
[2018-01-18] MEDS: FERROUS SULFATE 325 MG TAB PO SCH ×2 (07:58→22:06)
[2018-01-18] MEDS: LEVOFLOXACIN 750 MG TAB PO SCH (07:59)
[2018-01-18] MEDS: guaiFENesin 600 MG TABLET.ER PO SCH ×2 (07:59→22:07)
[2018-01-18] MEDS: LISINOPRIL 5 MG TAB PO SCH (07:59)
[2018-01-18] MEDS: TOPIRAMATE 100 MG TAB PO SCH ×2 (07:59→22:07)
[2018-01-18] MEDS: PANTOPRAZOLE 40 MG TABLET PO SCH (08:00)
[2018-01-18] MEDS: PRIMIDONE 50 MG TAB PO SCH ×2 (08:00→17:22)
[2018-01-18 08:05] LABS: Basophils % (A) 0 %; Eosinophils % (A) 1 %; HCT 43.5 % (34.0-46.0); HGB 13.9 gm/dL (11.4-16.0); Lymphocytes # (A) 1.2 k/uL (1.0-4.8); Lymphocytes % (A) 19 %; MCH 31.4 pg (25.0-35.0); MCHC 31.9 g/dL (31.0-37.0); MCV 98.5 fL (80.0-100.0); Mean Platelet Volume 9.7; Monocytes # (A) 0.2 k/uL (0-1.0); Monocytes % (A) 2 %; Neutrophils # (A) 4.7 k/uL (1.3-7.7); Neutrophils % (A) 77 %; Platelet Count 173 k/uL (150-450); RBC 4.42 m/uL (3.80-5.40); WBC 6.1 k/uL (3.8-10.6)
[2018-01-18] MEDS: IPRATROPIUM-ALBUTEROL 3 ML NEB INHALATION SCH ×4 (08:18→20:04)
[2018-01-18] MEDS: FORMOTEROL FUMARATE 20 MCG/2 ML NEBU INHALATION SCH ×2 (08:18→20:12)
[2018-01-18 08:19] LABS: Anion Gap 7 mmol/L; Blood Urea Nitrogen 16 mg/dL (7-17); Calcium 9.8 mg/dL (8.4-10.2); Carbon Dioxide 23 mmol/L (22-30); Chloride 111 mmol/L (98-107); Glucose 234 mg/dL (74-99); Potassium 5.3 mmol/L (3.5-5.1); Sodium 141 mmol/L (137-145)
[2018-01-18] MEDS ORDERED: AZITHROMYCIN 500 MG TAB PO SCH (09:00)
--- NOTE | 2018-01-18 09:27 | P.PN ---
Subjective Progress Note Date: 01/18/18 Patient sitting up bedside receiving breathing treatment updraft, reports she still pretty wheezy and short of breath with ambulation, no acute events overnight afebrile, so slightly elevated potassium at 5.3. Chest x-ray confirming a left lower lobe infiltrate Objective - Vital Signs Vital signs: Vital Signs Temp 98.3 F 01/18/18 05:00 Pulse 88 01/18/18 08:40 Resp 18 01/18/18 08:21 BP 140/76 01/18/18 05:00 Pulse Ox 95 01/18/18 05:00 Intake & Output 01/17/18 01/18/18 01/18/18 18:59 06:59 18:59 Intake Total 240 Balance 240 Weight 106.594 kg 103.8 kg Intake: Oral 240 Other: Voiding Method Toilet Toilet # Voids 1 - Exam Constitutional: No acute distress, conversant, pleasant Eyes: Anicteric sclerae, moist conjunctiva, no lid-lag, PERRLA ENMT: NC/AT,Oropharynx clear, no erythema, exudates Neck:Supple, FROM, no masses, or JVD, No carotid bruits; No thyromegaly Lungs: Coarse breath sounds faint wheezes, left sided rhonchi, Clear to percussion, Normal respiratory effort, no accessory muscle use Cardiovascular: Heart regular in rate and rhythm, No murmurs, gallops, or rubs no peripheral edema Abdominal: Soft Nontender, nom distended, no guarding, no rebound or rigidity, Normoactive bowel sounds No hepatomegaly, No splenomegaly, No palpable mass No abdominal wall hernia noted Skin: Normal temperature, tone, texture, turgor, No induration No subcutaneous nodules, No rash, lesions, No ulcers Extremities:No digital cyanosis No clubbing, Pedal pulses intact and symmetrical Radial pulses intact and symmetrical Normal gait and station, No calf tenderness Psychiatric: Alert and oriented to person, place and time, Appropriate affect Intact judgement Neuro: Muscles Strength 5/5 in all 4 extremities, Sensation to light touch grossly present throughout, Cranial nerves II-XII grossly intact. No focal sensory deficits - Labs CBC & Chem 7: 01/18/18 07:50 01/18/18 07:50 Labs: Abnormal Lab Results - Last 24 Hours (Table) 01/17/18 01/17/18 01/17/18 Range/Units 14:22 14:22 17:57 Potassium (3.5-5.1) mmol/L Chloride 111 H (98-107) mmol/L Carbon Dioxide 18 L (22-30) mmol/L Glucose 206 H (74-99) mg/dL POC Glucose (mg/dL) 153 H (75-99) mg/dL Hemoglobin A1c 8.2 H (4.0-6.0) % 01/17/18 01/18/18 01/18/18 Range/Units 19:56 06:57 07:50 Potassium 5.3 H (3.5-5.1) mmol/L Chloride 111 H (98-107) mmol/L Carbon Dioxide (22-30) mmol/L Glucose 234 H (74-99) mg/dL POC Glucose (mg/dL) 188 H 248 H (75-99) mg/dL Hemoglobin A1c (4.0-6.0) % Assessment and Plan (1) Acute asthma exacerbation Narrative/Plan: * Pulmonary consultation pending * Triggered by community-acquired pneumonia * Continue scheduled and when necessary bronchodilator breathing treatments, continue IV steroids with Solu-Medrol, continue Perforomist and Mucinex Current Visit: Yes Status: Acute Code(s): J45.901 - UNSPECIFIED ASTHMA WITH (ACUTE) EXACERBATION SNOMED Code(s): 422356890 (2) Community acquired pneumonia Narrative/Plan: * Patient afebrile without leukocytosis * Chest x-ray confirming left lower lobe infiltrates * Continue regimen of Levaquin 750 mg by mouth daily Current Visit: Yes Status: Acute Code(s): J18.9 - PNEUMONIA, UNSPECIFIED ORGANISM SNOMED Code(s): 131700821 (3) Type 2 diabetes mellitus with peripheral neuropathy Narrative/Plan: * A1c 8.2 * Blood sugars between 153 -234 likely precipitated by steroid use superimposed on infection * Continue with sliding scale coverage Current Visit: Yes Status: Acute Code(s): E11.42 - TYPE 2 DIABETES MELLITUS WITH DIABETIC POLYNEUROPATHY SNOMED Code(s): 78906614 (4) Essential hypertension Narrative/Plan: * Patient is hemodynamically stable continue with current regimen Current Visit: Yes Status: Acute Code(s): I10 - ESSENTIAL (PRIMARY) HYPERTENSION SNOMED Code(s): 55597190 (5) Hyperkalemia Narrative/Plan: * Mild hyperkalemia at 5.3 we'll give a dose of Kayexalate and recheck later today and in the a.m. Current Visit: Yes Status: Acute Code(s): E87.5 - HYPERKALEMIA SNOMED Code (s): 67989595 Plan: CODE STATUS Full code Next of kin Des Anticipated discharge 2-3 days
[2018-01-18] MEDS ORDERED: SODIUM POLYSTYRENE SULFONATE 15 GM/60 ML BOTTLE PO STA (09:29)
[2018-01-18] MEDS: INVOKANA 300 MG PO SCH (10:02)
[2018-01-18] MEDS: VITAMIN B COMPLEX PO SCH (10:03)
[2018-01-18 11:10] LABS: Glucose,Whole Blood 340 mg/dL (75-99)
[2018-01-18 11:10] LABS: Glucose,Whole Blood 339 mg/dL (75-99)
[2018-01-18] MEDS: MULTIVITAMINS, THERA 1 EACH TAB PO SCH (12:44)
[2018-01-18 17:13] LABS: Glucose,Whole Blood 334 mg/dL (75-99)
[2018-01-18 20:18] LABS: Glucose,Whole Blood 391 mg/dL (75-99)
[2018-01-18] MEDS: INSULIN DETEMIR 100 UNIT/ML 10 ML VIAL SQ SCH (21:25)
[2018-01-18] MEDS: ATORVASTATIN 40 MG TAB PO SCH (22:06)
[2018-01-18] MEDS: MIRTAZAPINE 15 MG TAB PO SCH (22:06)
[2018-01-18] MEDS: MONTELUKAST 10 MG TAB PO SCH (22:06)
[2018-01-19] MEDS: methylPREDNISolone SOD SUCCI 125 MG/2 ML VIAL IV SCH ×5 (00:32→23:23)
[2018-01-19] MEDS: LEVOTHYROXINE 75 MCG TAB PO SCH (06:12)
[2018-01-19 06:50] LABS: Glucose,Whole Blood 281 mg/dL (75-99)
[2018-01-19] MEDS: PANTOPRAZOLE 40 MG TABLET PO SCH (07:14)
[2018-01-19] MEDS: PRIMIDONE 50 MG TAB PO SCH ×2 (07:15→17:11)
[2018-01-19] MEDS: ENOXAPARIN 40 MG/0.4 ML SYRINGE SQ SCH (07:15)
[2018-01-19] MEDS: GABAPENTIN 400 MG CAP PO SCH ×4 (07:15→20:01)
[2018-01-19] MEDS: guaiFENesin 600 MG TABLET.ER PO SCH ×2 (07:15→20:01)
[2018-01-19] MEDS: ASPIRIN 81 MG PO SCH (07:16)
[2018-01-19] MEDS: FUROSEMIDE 40 MG TAB PO SCH (07:16)
[2018-01-19] MEDS: LISINOPRIL 5 MG TAB PO SCH (07:16)
[2018-01-19] MEDS: METOCLOPRAMIDE 10 MG TAB PO SCH (07:17)
[2018-01-19] MEDS: FERROUS SULFATE 325 MG TAB PO SCH ×2 (07:18→20:02)
[2018-01-19] MEDS: LEVOFLOXACIN 750 MG TAB PO SCH (07:18)
[2018-01-19] MEDS: INVOKANA 300 MG PO SCH (07:18)
[2018-01-19] MEDS: VITAMIN B COMPLEX PO SCH (07:19)
[2018-01-19] MEDS: TOPIRAMATE 100 MG TAB PO SCH ×2 (07:19→20:00)
[2018-01-19] MEDS: INSULIN ASPART 100 UNIT/ML 1 ML 10 ML VIAL SQ SCH ×4 (07:20→20:09)
[2018-01-19] MEDS: IPRATROPIUM-ALBUTEROL 3 ML NEB INHALATION SCH ×4 (08:54→19:30)
[2018-01-19] MEDS: FORMOTEROL FUMARATE 20 MCG/2 ML NEBU INHALATION SCH ×2 (08:55→19:30)
--- NOTE | 2018-01-19 09:38 | P.PN ---
Subjective Progress Note Date: 01/19/18 Patient having a coughing spell this morning, but does report that her breathing is better she feels like she is moving more air, does not quite feel back to baseline still having wheezes. Patient afebrile leukocytosis with no acute events overnight Objective - Vital Signs Vital signs: Vital Signs Temp 98.2 F 01/19/18 05:00 Pulse 92 01/19/18 09:07 Resp 16 01/19/18 05:00 BP 96/51 01/19/18 05:00 Pulse Ox 97 01/19/18 05:00 Intake & Output 01/18/18 01/19/18 01/19/18 18:59 06:59 18:59 Intake Total 2280 120 Balance 2280 120 Intake: Intake, IV Titration 1100 Amount Sodium Chloride 0.9% 1, 1100 000 ml @ 100 mls/hr IV . Q10H ONE Rx#:[id number] Oral 1180 120 Other: Voiding Method Toilet Toilet Toilet # Voids 4 1 - Exam Constitutional: No acute distress, conversant, pleasant Eyes: Anicteric sclerae, moist conjunctiva, no lid-lag, PERRLA ENMT: NC/AT,Oropharynx clear, no erythema, exudates Neck:Supple, FROM, no masses, or JVD, No carotid bruits; No thyromegaly Lungs: Coarse breath sounds faint wheezes, left sided rhonchi, Clear to percussion, Normal respiratory effort, no accessory muscle use Cardiovascular: Heart regular in rate and rhythm, No murmurs, gallops, or rubs no peripheral edema Abdominal: Soft Nontender, nom distended, no guarding, no rebound or rigidity, Normoactive bowel sounds No hepatomegaly, No splenomegaly, No palpable mass No abdominal wall hernia noted Skin: Normal temperature, tone, texture, turgor, No induration No subcutaneous nodules, No rash, lesions, No ulcers Extremities:No digital cyanosis No clubbing, Pedal pulses intact and symmetrical Radial pulses intact and symmetrical Normal gait and station, No calf tenderness Psychiatric: Alert and oriented to person, place and time, Appropriate affect Intact judgement Neuro: Muscles Strength 5/5 in all 4 extremities, Sensation to light touch grossly present throughout, Cranial nerves II-XII grossly intact. No focal sensory deficits - Labs CBC & Chem 7: 01/18/18 07:50 01/18/18 18:44 Labs: Abnormal Lab Results - Last 24 Hours (Table) 01/18/18 01/18/18 01/18/18 Range/Units 11:07 11:09 17:12 POC Glucose (mg/dL) 339 H 340 H 334 H (75-99) mg/dL 01/18/18 01/19/18 Range/Units 20:17 06:48 POC Glucose (mg/dL) 391 H 281 H (75-99) mg/dL Microbiology - Last 24 Hours (Table) 01/17/18 14:22 Blood Culture - Preliminary Blood No Growth after 24 hours Assessment and Plan (1) Acute asthma exacerbation Narrative/Plan: * Triggered by community-acquired pneumonia * Continue scheduled and when necessary bronchodilator breathing treatments, continue IV steroids with Solu-Medrol, continue Perforomist and Mucinex * Patient feels much better continue current treatment plan, we'll add Pulmicort to regimen * We'll plan to wean oxygen and do home O2 eval tomorrow Current Visit: Yes Status: Acute Code(s): J45.901 - UNSPECIFIED ASTHMA WITH (ACUTE) EXACERBATION SNOMED Code(s): 819844619 (2) Community acquired pneumonia Narrative/Plan: * Patient afebrile without leukocytosis * Chest x-ray confirming left lower lobe infiltrates * Continue regimen of Levaquin 750 mg by mouth daily Current Visit: Yes Status: Acute Code(s): J18.9 - PNEUMONIA, UNSPECIFIED ORGANISM SNOMED Code(s): 430789263 (3) Type 2 diabetes mellitus with peripheral neuropathy Narrative/Plan: * A1c 8.2 * Blood sugars elevated between 281-391 likely precipitated by steroid use superimposed on infection * Increase basal insulin to 30 units subcu daily at bedtime and give 10 units of basal insulin Levemir right now * Continue with sliding scale coverage Current Visit: Yes Status: Acute Code(s): E11.42 - TYPE 2 DIABETES MELLITUS WITH DIABETIC POLYNEUROPATHY SNOMED Code(s): 91782325 (4) Essential hypertension Narrative/Plan: * Patient is hemodynamically stable continue with current regimen Current Visit: Yes Status: Acute Code(s): I10 - ESSENTIAL (PRIMARY) HYPERTENSION SNOMED Code(s): 31612085 (5) Hyperkalemia Narrative/Plan: * Mild hyperkalemia at 5.3 we'll give a dose of Kayexalate and recheck later today and in the a.m. Current Visit: Yes Status: Acute Code(s): E87.5 - HYPERKALEMIA SNOMED Code (s): 88653453 Plan: CODE STATUS Full code Next of kin Des Anticipated discharge 1-2 days
[2018-01-19 10:11] LABS: Anion Gap 14 mmol/L; Blood Urea Nitrogen 21 mg/dL (7-17); Calcium 9.5 mg/dL (8.4-10.2); Carbon Dioxide 20 mmol/L (22-30); Chloride 105 mmol/L (98-107); Glucose 361 mg/dL (74-99); Sodium 139 mmol/L (137-145)
[2018-01-19 10:13] LABS: Potassium 4.6 mmol/L (3.5-5.1)
[2018-01-19 11:05] LABS: Glucose,Whole Blood 379 mg/dL (75-99)
[2018-01-19] MEDS: MULTIVITAMINS, THERA 1 EACH TAB PO SCH (11:55)
[2018-01-19] MEDS ORDERED: ERGOCALCIFEROL 50,000 UNIT CAP PO SCH (12:00)
[2018-01-19 17:06] LABS: Glucose,Whole Blood 367 mg/dL (75-99)
[2018-01-19] MEDS: MIRTAZAPINE 15 MG TAB PO SCH (20:01)
[2018-01-19] MEDS: MONTELUKAST 10 MG TAB PO SCH (20:01)
[2018-01-19] MEDS: ATORVASTATIN 40 MG TAB PO SCH (20:02)
[2018-01-19 20:07] LABS: Glucose,Whole Blood 411 mg/dL (75-99)
[2018-01-19] MEDS ORDERED: INSULIN DETEMIR 100 UNIT/ML 10 ML VIAL SQ SCH ×2 (21:00)
[2018-01-20 02:27] LABS: Glucose,Whole Blood 306 mg/dL (75-99)
[2018-01-20] MEDS: methylPREDNISolone SOD SUCCI 125 MG/2 ML VIAL IV SCH ×4 (05:01→23:58)
[2018-01-20] MEDS: LEVOTHYROXINE 75 MCG TAB PO SCH (06:21)
[2018-01-20 07:11] LABS: Glucose,Whole Blood 290 mg/dL (75-99)
[2018-01-20] MEDS: IPRATROPIUM-ALBUTEROL 3 ML NEB INHALATION SCH ×4 (07:25→20:06)
[2018-01-20] MEDS: FORMOTEROL FUMARATE 20 MCG/2 ML NEBU INHALATION SCH ×2 (07:25→20:07)
[2018-01-20] MEDS: LEVOFLOXACIN 750 MG TAB PO SCH (07:47)
[2018-01-20] MEDS: ENOXAPARIN 40 MG/0.4 ML SYRINGE SQ SCH (07:47)
[2018-01-20] MEDS: LISINOPRIL 5 MG TAB PO SCH (07:47)
[2018-01-20] MEDS: guaiFENesin 600 MG TABLET.ER PO SCH ×2 (07:47→20:11)
[2018-01-20] MEDS: ASPIRIN 81 MG PO SCH (07:48)
[2018-01-20] MEDS: FERROUS SULFATE 325 MG TAB PO SCH ×2 (07:48→20:11)
[2018-01-20] MEDS: PANTOPRAZOLE 40 MG TABLET PO SCH (07:48)
[2018-01-20] MEDS: METOCLOPRAMIDE 10 MG TAB PO SCH (07:48)
[2018-01-20] MEDS: TOPIRAMATE 100 MG TAB PO SCH ×2 (07:48→20:12)
[2018-01-20] MEDS: FUROSEMIDE 40 MG TAB PO SCH (07:48)
[2018-01-20] MEDS: GABAPENTIN 400 MG CAP PO SCH ×4 (07:48→21:40)
[2018-01-20] MEDS: PRIMIDONE 50 MG TAB PO SCH ×2 (07:48→17:45)
[2018-01-20] MEDS: INSULIN ASPART 100 UNIT/ML 1 ML 10 ML VIAL SQ SCH ×4 (07:49→20:11)
[2018-01-20] MEDS: INVOKANA 300 MG PO SCH (07:49)
[2018-01-20] MEDS: VITAMIN B COMPLEX PO SCH (07:49)
[2018-01-20] MEDS ORDERED: BUDESONIDE 0.5 MG/2 ML NEBU INHALATION STA (08:50)
--- NOTE | 2018-01-20 09:11 | CDI ---
Last Revision, March 2017 Documentation Clarification Form Date: 01/20 From: Lili Alvarado RN Admit Date: 01/17/2018 6:25:00 PM Patient Name: Cait Freeman Visit Number: [id number] ATTENTION: The Clinical Documentation Specialists (CDI) and [facility] Coding Staff appreciate your assistance in clarifying documentation. Please respond to the clarification below the line at the bottom and electronically sign. The CDI & [facility] Coding staff will review the response and follow-up if needed. Please note: Queries are made part of the Legal Health Record. If you have any questions, please contact the author of this message via ITS. Dr. SULLIVAN, Danial Jarrett MD, Asthma is documented in the PN's dated 01/17 - 01/19. Admitted with acute exacerbation of asthma. History/risk factors: asthma, heart failure, COPD, CVA/TIA, DM, HTN, OA, GERD, fibromyalgia, hyperlipidemia, pneumonia, renal disease apnea, thyroid disorder Clinical Indicators: Radiology: 01/18 CXR developing left lower infiltrate Vital Signs: T 97.8, P 86, R 18, 110/61, 96% RA H&P lung assessment faint wheezes, diminished in the bases, easily dyspneic with movement Treatment: Medication: Duoneb, Pulmicort, Perforomist, Solu-Medrol IV, Consults: none In your professional opinion, can you please further specify the following, if known? With: Acute Exacerbation Status asthmaticus Acute lower respiratory infection COPD (specify with or without exacerbation) Chronic obstructive bronchitis Other, please specify ___ Unable to determine Severity: Mild intermittent Mild persistent Moderate persistent Severe persistent Other, please specify ____ Unable to determine Form or Type: Cough variant Childhood Idiosyncratic Late-onset Mixed Unable to determine Refer to progress note for clarification Please continue to document in your progress notes and discharge summary in order to capture severity of illness and risk of mortality. Include clinical findings that support your diagnosis. MTDD
--- NOTE | 2018-01-20 09:18 | P.PN ---
Subjective Progress Note Date: 01/20/18 Patient having a coughing spell this morning, but does report that her breathing is better she feels like she is moving more air, does not quite feel back to baseline still having wheezes. Patient continues to be afebrile, had her home O2 eval this morning saturating 96% on room air Objective - Vital Signs Vital signs: Vital Signs Temp 97.8 F 01/20/18 05:00 Pulse 90 01/20/18 07:38 Resp 16 01/20/18 05:00 BP 100/58 01/20/18 05:00 Pulse Ox 94 L 01/20/18 05:00 Intake & Output 01/19/18 01/20/18 01/20/18 18:59 06:59 18:59 Intake Total 1150 Balance 1150 Weight 103.8 kg 103 kg Intake: Oral 1150 Other: Voiding Method Toilet Toilet # Voids 3 1 - Exam Constitutional: No acute distress, conversant, pleasant Eyes: Anicteric sclerae, moist conjunctiva, no lid-lag, PERRLA ENMT: NC/AT,Oropharynx clear, no erythema, exudates Neck:Supple, FROM, no masses, or JVD, No carotid bruits; No thyromegaly Lungs: Expiratory wheezes Clear to percussion, Normal respiratory effort, no accessory muscle use Cardiovascular: Heart regular in rate and rhythm, No murmurs, gallops, or rubs no peripheral edema Abdominal: Soft Nontender, nom distended, no guarding, no rebound or rigidity, Normoactive bowel sounds No hepatomegaly, No splenomegaly, No palpable mass No abdominal wall hernia noted Skin: Normal temperature, tone, texture, turgor, No induration No subcutaneous nodules, No rash, lesions, No ulcers Extremities:No digital cyanosis No clubbing, Pedal pulses intact and symmetrical Radial pulses intact and symmetrical Normal gait and station, No calf tenderness Psychiatric: Alert and oriented to person, place and time, Appropriate affect Intact judgement Neuro: Muscles Strength 5/5 in all 4 extremities, Sensation to light touch grossly present throughout, Cranial nerves II-XII grossly intact. No focal sensory deficits - Labs CBC & Chem 7: 01/18/18 07:50 01/19/18 08:46 Labs: Abnormal Lab Results - Last 24 Hours (Table) 01/19/18 01/19/18 01/19/18 Range/Units 08:46 11:04 17:04 Carbon Dioxide 20 L (22-30) mmol/L BUN 21 H (7-17) mg/dL Glucose 361 H (74-99) mg/dL POC Glucose (mg/dL) 379 H 367 H (75-99) mg/dL 01/19/18 01/20/18 01/20/18 Range/Units 20:04 02:07 07:09 Carbon Dioxide (22-30) mmol/L BUN (7-17) mg/dL Glucose (74-99) mg/dL POC Glucose (mg/dL) 411 H 306 H 290 H (75-99) mg/dL Microbiology - Last 24 Hours (Table) 01/17/18 14:22 Blood Culture - Preliminary Blood No Growth after 48 hours Assessment and Plan (1) Acute asthma exacerbation Narrative/Plan: * Triggered by community-acquired pneumonia * Continue scheduled and when necessary bronchodilator breathing treatments, continue IV steroids with Solu-Medrol, continue Perforomist and Mucinex * Patient feels much better continue current treatment plan, we'll add Pulmicort to regimen * Patient with good O2 sats on home O2 evaluation Current Visit: Yes Status: Acute Code(s): J45.901 - UNSPECIFIED ASTHMA WITH (ACUTE) EXACERBATION SNOMED Code(s): 320613024 (2) Community acquired pneumonia Narrative/Plan: * Patient afebrile without leukocytosis * Chest x-ray confirming left lower lobe infiltrates * Continue regimen of Levaquin 750 mg by mouth daily Current Visit: Yes Status: Acute Code(s): J18.9 - PNEUMONIA, UNSPECIFIED ORGANISM SNOMED Code(s): 759999185 (3) Type 2 diabetes mellitus with peripheral neuropathy Narrative/Plan: * A1c 8.2 * Blood sugars elevated between 281-391 likely precipitated by steroid use superimposed on infection * Increase basal insulin to 35 units subcu daily at bedtime * Increase sliding scale coverage to scale C Current Visit: Yes Status: Acute Code(s): E11.42 - TYPE 2 DIABETES MELLITUS WITH DIABETIC POLYNEUROPATHY SNOMED Code(s): 96805428 (4) Essential hypertension Narrative/Plan: * Patient is hemodynamically stable continue with current regimen Current Visit: Yes Status: Acute Code(s): I10 - ESSENTIAL (PRIMARY) HYPERTENSION SNOMED Code(s): 88422934 (5) Hyperkalemia Narrative/Plan: * Now resolved after Kayexalate Current Visit: Yes Status: Resolved Code(s): E87.5 - HYPERKALEMIA SNOMED Code(s): 80183288 Plan: CODE STATUS Full code Next of kin Des Anticipated discharge tomorrow
[2018-01-20 11:14] LABS: Glucose,Whole Blood 332 mg/dL (75-99)
[2018-01-20] MEDS: MULTIVITAMINS, THERA 1 EACH TAB PO SCH (12:51)
[2018-01-20 17:20] LABS: Glucose,Whole Blood 282 mg/dL (75-99)
[2018-01-20 19:56] LABS: Glucose,Whole Blood 379 mg/dL (75-99)
[2018-01-20] MEDS: BUDESONIDE 0.5 MG/2 ML NEBU INHALATION SCH (20:06)
[2018-01-20] MEDS: ATORVASTATIN 40 MG TAB PO SCH (20:11)
[2018-01-20] MEDS: INSULIN DETEMIR 100 UNIT/ML 10 ML VIAL SQ SCH (20:12)
[2018-01-20] MEDS: MONTELUKAST 10 MG TAB PO SCH (20:12)
[2018-01-20] MEDS: MIRTAZAPINE 15 MG TAB PO SCH (20:12)
[2018-01-21 01:51] LABS: Glucose,Whole Blood 310 mg/dL (75-99)
[2018-01-21] MEDS: LEVOTHYROXINE 75 MCG TAB PO SCH (06:19)
[2018-01-21] MEDS: methylPREDNISolone SOD SUCCI 125 MG/2 ML VIAL IV SCH ×3 (06:19→17:56)
[2018-01-21 06:59] LABS: Glucose,Whole Blood 337 mg/dL (75-99)
[2018-01-21] MEDS: VITAMIN B COMPLEX PO SCH (08:07)
[2018-01-21] MEDS: FORMOTEROL FUMARATE 20 MCG/2 ML NEBU INHALATION SCH ×2 (08:24→19:21)
[2018-01-21] MEDS: IPRATROPIUM-ALBUTEROL 3 ML NEB INHALATION SCH ×4 (08:24→19:21)
[2018-01-21] MEDS: BUDESONIDE 0.5 MG/2 ML NEBU INHALATION SCH ×2 (08:24→19:21)
[2018-01-21] MEDS: ACETAMINOPHEN TAB 325 MG TAB PO PRN ×2 (09:27→17:59)
[2018-01-21] MEDS: INSULIN ASPART 100 UNIT/ML 1 ML 10 ML VIAL SQ SCH ×4 (10:16→20:39)
[2018-01-21] MEDS: PANTOPRAZOLE 40 MG TABLET PO SCH (10:23)
[2018-01-21] MEDS: METOCLOPRAMIDE 10 MG TAB PO SCH (10:23)
[2018-01-21] MEDS: PRIMIDONE 50 MG TAB PO SCH ×2 (10:24→17:56)
[2018-01-21] MEDS: ASPIRIN 81 MG PO SCH (10:24)
[2018-01-21] MEDS: ENOXAPARIN 40 MG/0.4 ML SYRINGE SQ SCH (10:24)
[2018-01-21] MEDS: FUROSEMIDE 40 MG TAB PO SCH (10:25)
[2018-01-21] MEDS: FERROUS SULFATE 325 MG TAB PO SCH ×2 (10:25→20:39)
[2018-01-21] MEDS: LEVOFLOXACIN 750 MG TAB PO SCH (10:26)
[2018-01-21] MEDS: guaiFENesin 600 MG TABLET.ER PO SCH ×2 (10:26→20:39)
[2018-01-21] MEDS: LISINOPRIL 5 MG TAB PO SCH (10:27)
[2018-01-21] MEDS: TOPIRAMATE 100 MG TAB PO SCH ×2 (10:27→20:40)
[2018-01-21] MEDS: GABAPENTIN 400 MG CAP PO SCH ×4 (10:29→22:04)
[2018-01-21] MEDS: INVOKANA 300 MG PO SCH (10:54)
[2018-01-21 11:04] LABS: Glucose,Whole Blood 366 mg/dL (75-99)
[2018-01-21] MEDS: MULTIVITAMINS, THERA 1 EACH TAB PO SCH (11:27)
[2018-01-21 17:01] LABS: Glucose,Whole Blood 177 mg/dL (75-99)
[2018-01-21 20:11] LABS: Glucose,Whole Blood 323 mg/dL (75-99)
[2018-01-21] MEDS: ATORVASTATIN 40 MG TAB PO SCH (20:39)
[2018-01-21] MEDS: MIRTAZAPINE 15 MG TAB PO SCH (20:40)
[2018-01-21] MEDS: INSULIN DETEMIR 100 UNIT/ML 10 ML VIAL SQ SCH (20:40)
[2018-01-21] MEDS: MONTELUKAST 10 MG TAB PO SCH (20:40)
--- NOTE | 2018-01-21 23:46 | PN ---
PROGRESS NOTE DATE OF SERVICE: 01/21/2018 PRESENTING COMPLAINT: Short of breath. INTERVAL HISTORY: This patient was admitted with asthma and pneumonia exacerbation. Patient is having bouts of coughing, bringing up small amounts of sputum. Did tolerate some diet. Sitting on bed. Has been up to the bathroom. REVIEW OF SYSTEMS: Done for constitutional, cardiovascular, GI, pulmonary; relevant findings as above. CURRENT MEDICATIONS: Reviewed. They include: 1. DuoNeb. 2. IV Solu-Medrol. 3. Oral Levaquin. PHYSICAL EXAMINATION: VITAL SIGNS: Temperature 97.8, pulse 93, respiration 18, blood pressure 107/73. BMI 37.9. GENERAL APPEARANCE: Sitting up. A bit tired. EYES: Pupils equal. Conjunctivae normal. HEENT: External appearance of nose and ears normal. Oral cavity normal. NECK: JVD not raised. Mass not palpable. RESPIRATORY: Effort increased. LUNGS: Decreased breath sounds posteriorly. Some expiratory crackles anteriorly. CARDIOVASCULAR: First and second sounds normal. No edema. ABDOMEN: Soft, nontender. Liver and spleen not palpable. PSYCHIATRY: Alert and oriented x3. Mood and affect normal. INVESTIGATIONS: Accu-Cheks are noted: 290, 332. ASSESSMENT: 1. Moderate persistent asthma with acute exacerbation. 2. Left lower lobe pneumonia. Suspect gram-negative organism, present on admission. 3. Obesity; body mass index 37.9. 4. Diabetes mellitus, type 2, on oral hypoglycemic, uncontrolled with hyperglycemia secondary to steroids. 5. Chronic fibromyalgia. 6. Gastroesophageal reflux disease. 7. Hyperlipidemia. 8. Essential hypertension. 9. Primary osteoarthritis. 10.Obstructive sleep apnea. 11.Bilateral peripheral neuropathy of the hand and feet secondary to diabetes. Patient does not use a CPAP machine. 12.Irritable bowel syndrome. 13.Chronic scoliosis. 14.Anxiety and depression not otherwise specified. PLAN: Patient is doing somewhat better. Did ask her to do some saltwater gargles. Cut back on the Solu-Medrol. I encouraged the patient to be out of bed. MMODL / IJN: [id number] /
[2018-01-22] MEDS: LEVOTHYROXINE 75 MCG TAB PO SCH (06:28)
[2018-01-22 07:12] LABS: Glucose,Whole Blood 185 mg/dL (75-99)
[2018-01-22] MEDS: TOPIRAMATE 100 MG TAB PO SCH ×2 (07:40→20:25)
[2018-01-22] MEDS: FUROSEMIDE 40 MG TAB PO SCH (07:41)
[2018-01-22] MEDS: PANTOPRAZOLE 40 MG TABLET PO SCH (07:41)
[2018-01-22] MEDS: FERROUS SULFATE 325 MG TAB PO SCH ×2 (07:41→20:24)
[2018-01-22] MEDS: ENOXAPARIN 40 MG/0.4 ML SYRINGE SQ SCH (07:41)
[2018-01-22] MEDS: GABAPENTIN 400 MG CAP PO SCH ×4 (07:41→22:01)
[2018-01-22] MEDS: ASPIRIN 81 MG PO SCH (07:41)
[2018-01-22] MEDS: METOCLOPRAMIDE 10 MG TAB PO SCH (07:41)
[2018-01-22] MEDS: PRIMIDONE 50 MG TAB PO SCH ×2 (07:41→17:35)
[2018-01-22] MEDS: INSULIN ASPART 100 UNIT/ML 1 ML 10 ML VIAL SQ SCH ×4 (07:42→20:25)
[2018-01-22] MEDS: LISINOPRIL 5 MG TAB PO SCH (07:42)
[2018-01-22] MEDS: guaiFENesin 600 MG TABLET.ER PO SCH ×2 (07:42→20:24)
[2018-01-22] MEDS: LEVOFLOXACIN 750 MG TAB PO SCH (07:42)
[2018-01-22] MEDS: methylPREDNISolone SOD SUCCI 40 MG/ML 1 ML VIAL IV SCH ×2 (07:42→20:25)
[2018-01-22] MEDS: INVOKANA 300 MG PO SCH (07:43)
[2018-01-22] MEDS: IPRATROPIUM-ALBUTEROL 3 ML NEB INHALATION SCH ×4 (07:45→21:15)
[2018-01-22] MEDS: FORMOTEROL FUMARATE 20 MCG/2 ML NEBU INHALATION SCH ×2 (07:45→21:15)
[2018-01-22] MEDS: BUDESONIDE 0.5 MG/2 ML NEBU INHALATION SCH ×2 (07:46→21:15)
[2018-01-22] MEDS: VITAMIN B COMPLEX PO SCH (09:07)
[2018-01-22 11:41] LABS: Glucose,Whole Blood 352 mg/dL (75-99)
[2018-01-22] MEDS: MULTIVITAMINS, THERA 1 EACH TAB PO SCH (13:00)
[2018-01-22 16:44] LABS: Glucose,Whole Blood 290 mg/dL (75-99)
[2018-01-22] MEDS: ACETAMINOPHEN TAB 325 MG TAB PO PRN (20:02)
[2018-01-22 20:14] LABS: Glucose,Whole Blood 344 mg/dL (75-99)
[2018-01-22] MEDS: ATORVASTATIN 40 MG TAB PO SCH (20:24)
[2018-01-22] MEDS: MONTELUKAST 10 MG TAB PO SCH (20:24)
[2018-01-22] MEDS: MIRTAZAPINE 15 MG TAB PO SCH (20:24)
[2018-01-22] MEDS: INSULIN DETEMIR 100 UNIT/ML 10 ML VIAL SQ SCH (20:25)
[2018-01-23] MEDS: LEVOTHYROXINE 75 MCG TAB PO SCH (06:13)
--- NOTE | 2018-01-23 06:42 | PN ---
PROGRESS NOTE DATE OF SERVICE: 01/22/2018. PRESENTING COMPLAINT: Short of breath. INTERVAL HISTORY: Patient admitted with asthma exacerbation and pneumonia. Bouts of coughing is much better today. Sputum has greatly gone down. Up and about, eating much better. Breathing is improved. REVIEW OF SYSTEMS: Done for constitutional, cardiovascular, GI, pulmonary; relevant findings as above. CURRENT MEDICATIONS: Current medications are reviewed and include DuoNeb, IV Solu-Medrol, Levaquin. PHYSICAL EXAMINATION: On examination, temperature 96.1, pulse 99, respiration 20, blood pressure 112/59, pulse ox 92% on room air. GENERAL APPEARANCE: Lying, looks much better. EYES: Pupils equal. Conjunctivae normal. HENT: External appearance of nose and ears normal. Oral cavity normal. NECK: JVD not raised. Mass not palpable. RESPIRATORY: Effort normal. LUNGS: Decreased breath sounds with overall improved air entry. CARDIOVASCULAR: First and second sounds normal. No edema. ABDOMEN: Soft, nontender. Liver and spleen not palpable. PSYCHIATRY: Alert and oriented x3. Mood affect is normal. INVESTIGATIONS: Accu-Cheks are noted. ASSESSMENT: 1. Moderate persistent asthma with acute exacerbation, improving. 2. Left lower lobe pneumonia suspect gram-negative organism, present on admission, improving. 3. Obesity; body mass index 37.9. 4. Diabetes mellitus type 2 on oral hypoglycemic uncontrolled with hyperglycemia from steroids. 5. Chronic fibromyalgia. 6. Gastroesophageal reflux disease. 7. Hyperlipidemia. 8. Essential hypertension. 9. Primary osteoarthritis. 10.Obstructive sleep apnea. 11.Bilateral peripheral neuropathy of the hands and feet secondary to diabetes. 12.Patient does not use a CPAP. 13.Irritable bowel syndrome. 14.Chronic scoliosis. 15.Anxiety and depression, not otherwise specified. PLAN: Patient is overall doing much better. Hopefully patient should be able to be discharged tomorrow. Care was discussed with the patient. MMODL / IJN: [id number] /
[2018-01-23 07:01] LABS: Glucose,Whole Blood 211 mg/dL (75-99)
[2018-01-23] MEDS: INVOKANA 300 MG PO SCH (07:08)
[2018-01-23] MEDS: VITAMIN B COMPLEX PO SCH (07:10)
[2018-01-23] MEDS: INSULIN ASPART 100 UNIT/ML 1 ML 10 ML VIAL SQ SCH ×2 (07:43→12:48)
[2018-01-23] MEDS: LISINOPRIL 5 MG TAB PO SCH (07:44)
[2018-01-23] MEDS: ENOXAPARIN 40 MG/0.4 ML SYRINGE SQ SCH (07:44)
[2018-01-23] MEDS: METOCLOPRAMIDE 10 MG TAB PO SCH (07:45)
[2018-01-23] MEDS: PRIMIDONE 50 MG TAB PO SCH ×2 (07:45→07:46)
[2018-01-23] MEDS: TOPIRAMATE 100 MG TAB PO SCH (07:45)
[2018-01-23] MEDS: PANTOPRAZOLE 40 MG TABLET PO SCH (07:45)
[2018-01-23] MEDS: ASPIRIN 81 MG PO SCH (07:45)
[2018-01-23] MEDS: FUROSEMIDE 40 MG TAB PO SCH (07:45)
[2018-01-23] MEDS: FERROUS SULFATE 325 MG TAB PO SCH (07:45)
[2018-01-23] MEDS: guaiFENesin 600 MG TABLET.ER PO SCH (07:45)
[2018-01-23] MEDS: GABAPENTIN 400 MG CAP PO SCH ×2 (07:46→12:48)
[2018-01-23] MEDS: LEVOFLOXACIN 750 MG TAB PO SCH (07:46)
[2018-01-23] MEDS: IPRATROPIUM-ALBUTEROL 3 ML NEB INHALATION SCH ×2 (07:55→11:40)
[2018-01-23] MEDS: BUDESONIDE 0.5 MG/2 ML NEBU INHALATION SCH (07:55)
[2018-01-23] MEDS: FORMOTEROL FUMARATE 20 MCG/2 ML NEBU INHALATION SCH (07:55)
[2018-01-23] MEDS ORDERED: predniSONE 20 MG TAB PO SCH (09:00)
[2018-01-23 11:46] LABS: Glucose,Whole Blood 312 mg/dL (75-99)
[2018-01-23] MEDS: MULTIVITAMINS, THERA 1 EACH TAB PO SCH (12:48)
[2018-01-23 15:32] VITALS: BP 122/64; PULSE 100; RESP 16; TEMP 96.7
--- NOTE | 2018-01-24 09:16 | DS ---
DISCHARGE SUMMARY DATE OF ADMISSION: 01/17/2018 DATE OF DISCHARGE: 01/23/2018 FINAL DIAGNOSES: 1. Acute exacerbation of moderate persistent asthma. 2. Left lower lobe pneumonia suspect gram-negative organism, present on admission. 3. Obesity; body mass index 37.9. 4. Diabetes mellitus type 2 on oral hypoglycemic uncontrolled with hyperglycemia from steroids. 5. Chronic fibromyalgia. 6. Gastroesophageal reflux disease. 7. Hyperlipidemia. 8. Essential hypertension. 9. Primary osteoarthritis. 10.Obstructive sleep apnea. 11.Peripheral neuropathy of the hands and feet secondary to diabetes. 12.Patient does not use CPAP. 13.Irritable bowel syndrome. 14.Chronic scoliosis. 15.Anxiety and depression, not otherwise specified. HOSPITAL COURSE: This patient presented with asthma exacerbation from pneumonia. Doing much better by the time of discharge. On examination, temperature 96.7, pulse 100, respiration 16, blood pressure 122/64, pulse ox 94% on room air. LUNGS: Greatly improved air entry. INVESTIGATIONS: Accu-Cheks were elevated because of steroids. DISCHARGE MEDICATIONS: 1. Aspirin 162 mg a day. 2. Synthroid 150 mcg p.o. daily. 3. Singulair 10 mg p.o. q.h.s. 4. Prilosec 20 mg p.o. b.i.d. 5. Primidone 50 mg p.o. a.c. b.i.d. 6. Ventolin 2.5 q.6 p.r.n. 7. Invokana 300 mg p.o. daily. 8. Iron 325 p.o. b.i.d. 9. Gabapentin 800 mg p.o. q.i.d. 10.Voltaren 75 mg p.o. b.i.d. 11.Advair 250/50 one puff b.i.d. 12.Lasix 40 mg p.o. daily. 13.Prinivil 5 mg p.o. daily. 14.Reglan 10 mg p.o. daily. 15.Remeron 15 mg p.o. q.h.s. 16.Geritol Complete Tablet 1 tablet p.o. daily. 17.Xanax 0.25 p.o. t.i.d. p.r.n. 18.Lipitor 40 mg q.h.s. 19.Vitamin D2, 50,000 units p.o. on Saturday. 20.Niacinamide 10 units p.o. daily. 21.Xultophy 20 units subcutaneous daily. 22.Topamax 100 mg p.o. b.i.d. 23.Vitamin B complex 1 capsule p.o. daily. 24.Levaquin 750 mg p.o. daily for 5 tablets. 25.Mucinex 1200 mg p.o. q.12, twenty tablets. 26.Prednisone taper. Follow up with Dr. Tom Stiles in [place] on 01/31/2018. MMODL / IJN: [id number] /
== END 2018-01-23 15:50 | disposition home or self-care (01) | DRG 202 ==
LOC: EC 13:37 → 4MS4W 15:44 → OBSVTOIN 18:25 → 3NMEDONC 19:16
PROVIDERS: ADMIT Hospitalist; ATTEND Hospitalist
DX: J45.41 Moderate persistent asthma with (acute) exacerbation (principal); J15.6 Pneumonia due to other Gram-negative bacteria; J44.0 Chronic obstructive pulmonary disease with (acute) lower respiratory infection; E11.42 Type 2 diabetes mellitus with diabetic polyneuropathy; I11.0 Hypertensive heart disease with heart failure; I50.9 Heart failure, unspecified; E11.65 Type 2 diabetes mellitus with hyperglycemia; E87.5 Hyperkalemia; M41.9 Scoliosis, unspecified; E66.9 Obesity, unspecified; E78.5 Hyperlipidemia, unspecified; F32.9 Major depressive disorder, single episode, unspecified; F41.9 Anxiety disorder, unspecified; G47.33 Obstructive sleep apnea (adult) (pediatric); K21.9 Gastro-esophageal reflux disease without esophagitis; K58.9 Irritable bowel syndrome, unspecified; M19.91 Primary osteoarthritis, unspecified site; M79.7 Fibromyalgia; T38.0X5A Adverse effect of glucocorticoids and synthetic analogues, initial encounter; H26.9 Unspecified cataract; M54.2 Cervicalgia; E07.9 Disorder of thyroid, unspecified; G89.29 Other chronic pain; G43.909 Migraine, unspecified, not intractable, without status migrainosus; Z68.37 Body mass index [BMI] 37.0-37.9, adult; Z79.4 Long term (current) use of insulin; Z79.82 Long term (current) use of aspirin; Z79.899 Other long term (current) drug therapy; Z79.890 Hormone replacement therapy; Z88.5 Allergy status to narcotic agent; Z88.0 Allergy status to penicillin; Z88.2 Allergy status to sulfonamides; Z88.8 Allergy status to other drugs, medicaments and biological substances; Z88.1 Allergy status to other antibiotic agents; Z91.041 Radiographic dye allergy status; Z91.040 Latex allergy status; Z90.710 Acquired absence of both cervix and uterus; Z86.73 Personal history of transient ischemic attack (TIA), and cerebral infarction without residual deficits; Z96.652 Presence of left artificial knee joint; Z98.41 Cataract extraction status, right eye; Z80.3 Family history of malignant neoplasm of breast; Z83.3 Family history of diabetes mellitus
CPT/HCPCS: 36415; 71046; 80048; 80053; 83036; 84132; 84484; 85025; 87040; 93005; 94640; 94760; 99284

== ENCOUNTER → 2018-05-28 | Outpatient (CLI) | payer MEDICARE ==
--- NOTE | 2018-05-29 11:17 | MM ---
Reason for exam: screening (asymptomatic). Last mammogram was performed 1 year ago. History: Patient is postmenopausal. Family history of breast cancer in maternal grandmother and breast cancer in mother at age 78. Benign excisional biopsy of the left breast, May 16, 2000. Stereotactic core biopsy of the left breast, May 02, 2000. Took estrogen for 5 years 2 months. Physical Findings: A clinical breast exam by your physician is recommended on an annual basis and results should be correlated with mammographic findings. MG 3D Screening Mammo W/Cad Bilateral CC and MLO view(s) were taken. Prior study comparison: May 29, 2017, left breast MG 3d work up w/cad LT. May 16, 2017, bilateral MG 3d screening mammo w/cad. There are scattered fibroglandular densities. No significant changes when compared with prior studies. ASSESSMENT: Benign, BI-RAD 2 RECOMMENDATION: Routine screening mammogram of both breasts in 1 year.
== END | disposition home or self-care (01) ==
LOC: RADMAMWWP 14:53
PROVIDERS: ATTEND Family Medicine
DX: Z12.31 Encounter for screening mammogram for malignant neoplasm of breast (principal)
CPT/HCPCS: 77063; 77067

== ENCOUNTER → 2019-10-08 | Outpatient (CLI) | payer MEDICARE ==
--- NOTE | 2019-10-09 10:04 | MM ---
Reason for exam: screening (asymptomatic). Last mammogram was performed 1 year and 4 months ago. History: Patient is postmenopausal. Family history of breast cancer in maternal grandmother and breast cancer in mother at age 78. Benign excisional biopsy of the left breast, May 16, 2000. Stereotactic core biopsy of the left breast, May 02, 2000. Took estrogen for 5 years 2 months. Physical Findings: A clinical breast exam by your physician is recommended on an annual basis and results should be correlated with mammographic findings. MG 3D Screening Mammo W/Cad Bilateral CC and MLO view(s) were taken. Prior study comparison: May 28, 2018, bilateral MG 3d screening mammo w/cad. May 29, 2017, left breast MG 3d work up w/cad LT. There are scattered fibroglandular densities. Finding #1: There is a 7 mm equal density (isodense) mass in the central position of the left breast. Finding #2: There are typically benign calcifications. There is a chronic nodularity in the left breast, stable. No significant changes in finding since May 28, 2018 and May 29, 2017. ASSESSMENT: Incomplete: need additional imaging evaluation, BI-RAD 0 RECOMMENDATION: Special view mammogram of the left breast. If lesion persists on supplemental views, image directed ultrasound is recommended. [facility] will attempt to contact patient to return for supplemental views and ultrasound if indicated.
== END | disposition home or self-care (01) ==
LOC: RADMAMWWP 16:02
PROVIDERS: ATTEND Family Medicine
DX: Z12.31 Encounter for screening mammogram for malignant neoplasm of breast (principal)
CPT/HCPCS: 77063; 77067

== ENCOUNTER → 2019-10-14 | Outpatient (CLI) | payer MEDICARE ==
--- NOTE | 2019-10-14 11:38 | MM ---
Reason for exam: additional evaluation requested from abnormal screening. Last mammogram was performed less than 1 month ago. History: Patient is postmenopausal. Family history of breast cancer in maternal grandmother and breast cancer in mother at age 78. Benign excisional biopsy of the left breast, May 16, 2000. Stereotactic core biopsy of the left breast, May 02, 2000. Took estrogen for 5 years 2 months. Physical Findings: Nurse Summary: 0.5 x 0.5cm nodule in the left breast at 12 o'clock (nurse ts). MG 3D Work Up W/Cad LT Spot compression CC, spot compression MLO, and LM view(s) were taken of the left breast. Prior study comparison: October 08, 2019, bilateral MG 3d screening mammo w/cad. May 28, 2018, bilateral MG 3d screening mammo w/cad. Vague nodule persists. These results were verbally communicated with the patient and result sheet given to the patient on 10/14/19. ASSESSMENT: Incomplete: need additional imaging evaluation, BI-RAD 0 RECOMMENDATION: Ultrasound of the left breast. (upper outer quadrant) Manage patient on a clinical basis.
--- NOTE | 2019-10-14 11:40 | USB ---
Reason for exam: additional evaluation requested from abnormal screening. History: Patient is postmenopausal. Family history of breast cancer in maternal grandmother and breast cancer in mother at age 78. Benign excisional biopsy of the left breast, May 16, 2000. Stereotactic core biopsy of the left breast, May 02, 2000. Took estrogen for 5 years 2 months. US Breast Workup Limited LT Technologist: Ping Brannon Left limited breast ultrasound including focal area of concern, retroareolar and axilla demonstrates no cystic or solid lesion seen. These results were verbally communicated with the patient and result sheet given to the patient on 10/14/19. ASSESSMENT: Negative, BI-RAD 1 RECOMMENDATION: Return to routine screening mammogram schedule for both breasts.
== END | disposition home or self-care (01) ==
LOC: RADMAMWWP 09:38
DX: R92.8 Other abnormal and inconclusive findings on diagnostic imaging of breast (principal); N63.0 Unspecified lump in unspecified breast
CPT/HCPCS: 77065; 76642; G0279; 77061

== ENCOUNTER → 2020-11-03 | Outpatient (CLI) | payer MEDICARE ==
--- NOTE | 2020-11-07 14:07 | MM ---
Reason for exam: screening (asymptomatic). Last mammogram was performed 1 year and 1 month ago. History: Patient is postmenopausal. Family history of breast cancer in maternal grandmother and breast cancer in mother at age 78. Benign excisional biopsy of the left breast, May 16, 2000. Stereotactic core biopsy of the left breast, May 02, 2000. Took estrogen for 5 years 2 months. Physical Findings: A clinical breast exam by your physician is recommended on an annual basis and results should be correlated with mammographic findings. MG 3D Screening Mammo W/Cad Bilateral CC and MLO view(s) were taken. Prior study comparison: October 08, 2019, bilateral MG 3d screening mammo w/cad. May 28, 2018, bilateral MG 3d screening mammo w/cad. There are scattered fibroglandular densities. No significant changes when compared with prior studies. ASSESSMENT: Negative, BI-RAD 1 RECOMMENDATION: Routine screening mammogram of both breasts in 1 year.
== END | disposition home or self-care (01) ==
LOC: RADMAMWWP 11:57
PROVIDERS: ATTEND Family Medicine
DX: Z12.31 Encounter for screening mammogram for malignant neoplasm of breast (principal); Z78.0 Asymptomatic menopausal state; Z80.3 Family history of malignant neoplasm of breast
CPT/HCPCS: 77063; 77067

== ENCOUNTER → 2021-11-10 | Outpatient (CLI) | payer MEDICARE ==
--- NOTE | 2021-11-13 08:45 | MM ---
Reason for Exam: Screening (asymptomatic). Last screening mammogram was performed 12 month(s) ago. Patient History: Menarche at age 16. First Full-Term at age 21. Left ovary removed at age 40. Right ovary removed at age 40. Hysterectomy at age 40. Postmenopausal. Previous chemotherapy. Estrogen for 5 years, 2 months, until age 50. 05/16/2000, Benign Excisional Biopsy on the left side. 05/02/2000, Stereotactic Core Biopsy on the Left side. Maternal grandmother had breast cancer under age 50. Mother had breast cancer, age 78. Risk Values: [place] 5 year model risk: 4.1%. NCI Lifetime model risk: 15.7%. Prior Study Comparison: 10/08/2019 Bilateral Screening Mammogram, [facility]. 10/14/2019 Left Diagnostic Mammogram, [facility]. 11/03/2020 Bilateral Screening Mammogram, [facility]. Tissue Density: There are scattered fibroglandular densities. Findings: Analyzed By CAD. There is no suspicious group of microcalcifications or new suspicious mass in either breast. No significant change from prior exams. Overall Assessment: Negative, BI-RAD 1 Management: Screening Mammogram of both breasts in 1 year. A clinical breast exam by your physician is recommended on an annual basis and results should be correlated with mammographic findings. Electronically signed and approved by: Danny Degroot D.O.
== END | disposition home or self-care (01) ==
LOC: RADMAMWWP 13:44
PROVIDERS: ATTEND Family Medicine
DX: Z12.31 Encounter for screening mammogram for malignant neoplasm of breast (principal); Z78.0 Asymptomatic menopausal state; Z80.3 Family history of malignant neoplasm of breast
CPT/HCPCS: 77063; 77067

== ENCOUNTER → 2021-12-05 | Day surgery (SDC) | payer MEDICARE ==
[2021-12-01 12:46] VITALS: BMI 35.5
[~2021-12-05] MED LIST changes: +ALPRAZolam 0.25 MG TAB PO PRN; +ASPIRIN 325 MG TAB PO STA; +ATORVASTATIN 80 MG TAB PO SCH; +ATORVASTATIN 80 MG TAB PO STA; -DEXAMETHASONE SOD PHOSPHATE 10 MG/ML 1 ML VIAL IV ONE; +HEPARIN SODIUM 1,000 UN/ML (10ML VL) IV ONE; +HEPARIN SODIUM 1,000 UN/ML (10ML VL) ONE; +HEPARIN SODIUM,PORCINE 10,000 UNIT in SODIUM CHLORIDE 0.9% 1,000 ML IRRIGATION PRN; +HEPARIN SODIUM,PORCINE 2,500 UNIT in SODIUM CHLORIDE 0.9% 250 ML IRRIGATION PRN; -HYDROmorphone 1 MG/ML 1 ML SYRINGE IVP PRN; +INSULIN ASPART (NovoLOG) 100 UNIT/ML VIAL SQ SCH; +IOPAMIDOL-370 125ML BTL INJ ONE; -LACTATED RINGERS 1,000 ML IV SCH; +LEVOTHYROXINE 75 MCG TAB PO SCH; +LIDOCAINE 1% INJ 10MG/ML (30 ML VIAL-PF) SQ ONE; +LORATADINE 10 MG TAB PO SCH; +MAGNESIUM OXIDE 400 MG TAB PO SCH; +METOCLOPRAMIDE 10 MG TAB PO SCH; +MIDAZOLAM 2 MG/2 ML VIAL IV ONE; -MIDAZOLAM 2 MG/2 ML VIAL IV PRN; +MIRTAZAPINE 15 MG TAB PO SCH; +MONTELUKAST 10 MG TAB PO SCH; +MULTIVITAMINS, THERA 1 EACH TAB PO SCH; +NITROGLYCERIN SL TABS 0.4 MG TAB SUBLINGUAL PRN; +NON FORMULARY DRUG (Insulin Glargine 100 UNIT/ML Ml) SQ SCH; +NON FORMULARY DRUG (Vitamin B Complex [Vitamin B Complex] 1 EACH Capsule) PO SCH; -ONDANSETRON 4 MG/2 ML VIAL IVP ONE; +PANTOPRAZOLE 40 MG TABLET PO SCH; +PRIMIDONE 50 MG TAB PO SCH; +PROPRANOLOL 20 MG TAB PO SCH; +RX INFO: IV CONTRAST WAS GIVEN 1 EACH MISC MISCELLANE PRN; +SODIUM CHLORIDE 0.9% 1,000 ML IV SCH; +SODIUM CHLORIDE 0.9% 1,000 ML in EMPTY BAG 1 BAG IV SCH; +SUCRALFATE 1 GM TAB PO SCH; +VERAPAMIL 2.5 MG/ML 2 ML AMP ONE; +VERAPAMIL SYRINGE (5 MG/10 ML) INTRAARTER ONE; +fentaNYL (PF) 50 MCG/ML 2 ML AMP IV ONE; +fentaNYL (PF) 50 MCG/ML 2 ML AMP ONE; +lisinopriL 5 MG TAB PO SCH
[2021-12-05 06:36] VITALS: RESP 18; TEMP 98.6
[2021-12-05 06:37] LABS: Glucose,Whole Blood 306 mg/dL (70-110)
[2021-12-05 06:48] LABS: Basophils # (A) 0.1 k/uL (0-0.2); Basophils % (A) 1 %; Eosinophils # (A) 0.1 k/uL (0-0.7); Eosinophils % (A) 1 %; HGB 12.7 gm/dL (11.4-16.0); Lymphocytes # (A) 1.8 k/uL (1.0-4.8); Lymphocytes % (A) 23 %; MCH 32.3 pg (25.0-35.0); MCHC 31.8 g/dL (31.0-37.0); MCV 101.4 fL (80.0-100.0); Mean Platelet Volume 10.1; Monocytes # (A) 0.3 k/uL (0-1.0); Monocytes % (A) 4 %; Neutrophils # (A) 5.6 k/uL (1.3-7.7); Neutrophils % (A) 71 %; Platelet Count 217 k/uL (150-450); RBC 3.94 m/uL (3.80-5.40); RDW 12.5 % (11.5-15.5); WBC 7.9 k/uL (3.8-10.6)
[2021-12-05 07:02] LABS: Calcium 8.9 mg/dL (8.4-10.2); Potassium 4.7 mmol/L (3.5-5.1)
--- NOTE | 2021-12-05 08:42 | P.CARDCATH ---
Date of Procedure: 12/05/21 Description of Procedure: Cardiac Catheterization: The patient is a 66-year-old female with known history of hypertension, hyperlipidemia and diabetes mellitus who has been complaining of progressive dyspnea on exertion, her MPI showed a probably abnormal antral wall reversible defect. Recommendations were made regarding cardiac catheterization, the risks and the complications were discussed with the patient who is in full understanding and agreement. Procedure Description: Patient was brought to assistant laboratory director in fasting semi-sedated state after receiving Fentanyl and Benadryl achieiving moderate conscious sedated state. Using Xylocaine Anesthesia and Seldinger technique, a 6-[place] sheath was introduced in the right radial artery . Subsequently, selective coronary angiography was performed using a 5-[place] 3- 1/2 bend Nash catheter and 5-[place] John catheter. Multiple views of the coronary artery including hemiaxial views were obtained. The left Nash catheter was used to cross the aortic valve and LVEDP was calculated. Following that, catheter and sheath were removed. Hemostasis was obtained with deployment of TR band . There was no immediate complication. Patient was returned to room in stable condition. Of note, the patient received a total of 5000 units of intravenous heparin as well as intra-arterial verapamil. Findings: Left main: This is a large size vessel, bifurcating into left circumflex and LAD, left main has no high-grade stenosis LAD: This is a large size vessel, reaching to the apex, giving rise to 2 diagonal branch, after the takeoff of the first diagonal branch is a 20-30% plaque, the rest of the vessel has no high-grade stenosis Left circumflex: This is a nondominant vessel, giving rise to large obtuse marginal branch the left circumflex is no high-grade stenosis RCA: This is a dominant vessel bifurcating distally to PDA and PLV the proximal RCA has a 10% plaque, the rest of the vessel has no high-grade stenoses Left Ventriculogram: Not performed Hemodynamics: There was no gradient across the aortic valve, LVEDP was 12-16 mmHg Conclusion: 1. Mild disease in the mid LAD 2. Mild disease in the proximal RCA 3. Right dominance Recommendations: I have recommended continuing aggressive coronary risks modifications. The findings and the recommendations were discussed with the patient and the family and they were in full understanding and agreement. Duration of sedation is 29 minutes.
[2021-12-05 09:25] VITALS: BP 94/51; PULSE 82
== END | disposition home or self-care (01) ==
LOC: CATHCVL 05:49
PROVIDERS: ATTEND Internal Medicine Interventional Cardiology
DX: I25.10 Atherosclerotic heart disease of native coronary artery without angina pectoris (principal); I10 Essential (primary) hypertension; E78.2 Mixed hyperlipidemia; E78.00 Pure hypercholesterolemia, unspecified; E11.9 Type 2 diabetes mellitus without complications; Z82.49 Family history of ischemic heart disease and other diseases of the circulatory system; R94.39 Abnormal result of other cardiovascular function study; Z20.822 Contact with and (suspected) exposure to COVID-19; Z79.82 Long term (current) use of aspirin; Z79.890 Hormone replacement therapy; Z79.4 Long term (current) use of insulin; Z79.899 Other long term (current) drug therapy; Z88.5 Allergy status to narcotic agent; Z88.0 Allergy status to penicillin; Z88.8 Allergy status to other drugs, medicaments and biological substances; Z91.040 Latex allergy status
CPT/HCPCS: 93458; 80048; 85025; 87635; J2250; J2001; J3010; J1644; Q9967

== ENCOUNTER 2022-04-02 12:20 | Inpatient (IN) | payer MEDICARE ==
--- NOTE | 2022-04-02 12:41 | ED ---
General Adult HPI - General Source: patient, RN notes reviewed Mode of arrival: ambulatory Limitations: no limitations <Ilir Saul Paty - Last Filed: 04/02/22 12:40> - General Source: patient, RN notes reviewed Mode of arrival: ambulatory Limitations: no limitations <Pauline Mitchell - Last Filed: 04/06/22 19:23> - General Stated complaint: sob, headache, ear pain Time Seen by Provider: 04/02/22 12:40 - History of Present Illness Initial comments: 67-year-old female presents emergency Department with chief complaint of cough congestion since March 27. Patient states that she has asthma she noticed some increasing wheezing which she's been doing her breathing treatments. Patient states that her cough is mildly productive. She complains of some ear discomfort, pressure, nasal congestion minimal sore throat. Denies any nausea, vomiting, diarrhea constipation. No sick contacts. (Ilir Saul) 67-year-old female with a past medical history of COPD and CAD presents to the emergency Department with complaints of strong congested productive cough and wheezing. States symptoms began on March 27 and has continued to worsen. Reports shortness of breath that worsens with activity. Has been taking her breathing treatments and using her rescue inhaler at home with no improvement. Complaints of generalized weakness and loss of appetite in addition to URI symptoms. States chest and abdominal pain occurs with coughing. States she has been coughing so hard she becomes dizzy and lightheaded. Unknown fever. Denies palpitations, nausea, vomiting, diarrhea, and dysuria. (Pauline Mitchell) - Related Data Home Medications Medication Instructions Recorded Confirmed Aspirin 81 mg PO BID 09/21/13 04/02/22 Levothyroxine Sodium [Synthroid] 150 mcg PO DAILY 09/21/13 04/02/22 Montelukast Sodium [Singulair] 10 mg PO DAILY 09/21/13 04/02/22 Omeprazole [PriLOSEC] 20 mg PO DAILY 09/21/13 04/02/22 Primidone [Mysoline] 100 mg PO BID 09/21/13 04/02/22 Metoclopramide [Reglan] 10 mg PO DAILY 08/10/16 04/02/22 Mirtazapine [Remeron] 15 mg PO HS 08/10/16 04/02/22 Multivit-Min36/Iron/Folic Acid 1 tab PO DAILY 08/10/16 04/02/22 [Geritol Complete Tablet] Ergocalciferol (Vitamin D2) 50,000 unit PO CONTRERAS 01/17/18 04/02/22 [Drisdol (50,000 Iu)] Vitamin B Complex 1 cap PO DAILY 01/17/18 04/02/22 Atorvastatin [Lipitor] 80 mg PO DAILY 12/01/21 04/02/22 Fluticasone Propion/Salmeterol 1 puff INHALATION RT-BID 12/01/21 04/02/22 [Wixela 500-50 Inhub] Insulin Aspart [NovoLOG Flexpen] See Protocol SQ TID-W/MEALS PRN 12/01/21 04/02/22 Ipratropium-Albuterol Nebulize 3 ml INHALATION RT-QID PRN 12/01/21 04/02/22 [Duoneb 0.5 mg-3 mg/3 ml Soln] Magnesium 250 mg PO DAILY 12/01/21 04/02/22 Propranolol [Inderal] 20 mg PO TID 12/01/21 04/02/22 Furosemide [Lasix] 40 mg PO DAILY 04/02/22 04/02/22 Gabapentin 600 mg PO QID 04/02/22 04/02/22 Ibuprofen [Motrin] 800 mg PO Q8H PRN 04/02/22 04/02/22 Potassium Chloride ER [K-Dur 10] 10 meq PO DAILY 04/02/22 04/02/22 Topiramate 100 mg PO BID-W/MEALS 04/02/22 04/02/22 Previous Rx's Medication Instructions Recorded Insulin Glargine,Hum.rec.anlog 20 units SQ BID 30 Days #10 each 04/06/22 [Lantus Solostar Pen] Ipratropium-Albuterol Nebulize 3 ml INHALATION RT-QID 30 Days 04/06/22 [Duoneb 0.5 mg-3 mg/3 ml Soln] #120 each Promethazine HCl 6.25 mg PO TID #9 tablet 04/06/22 predniSONE 10 mg PO DIRECTED #50 tab 04/06/22 Allergies Allergy/AdvReac Type Severity Reaction Status Date / Time aminophylline Allergy Rash/Hives Verified 04/02/22 16:55 cephalexin monohydrate Allergy Rash/Hives Verified 04/02/22 16:55 [From Keflex] codeine Allergy Rash/Hives Verified 04/02/22 16:55 diazepam [From Valium] Allergy Rash/Hives Verified 04/02/22 16:55 hydrocodone bitartrate Allergy Rash/Hives Verified 04/02/22 16:55 [From Vicodin] Iodinated Contrast Media Allergy Rash/Hives Verified 04/02/22 16:55 [Iodinated Contrast Media - IV Dye] latex Allergy Itching, Verified 04/02/22 16:55 BURNING SKIN Latex, Natural Rubber Allergy Itching, Verified 04/02/22 16:55 BURNING OF SKIN levofloxacin [From Levaquin] Allergy Rash/Hives Verified 04/02/22 16:55 metformin HCl Allergy Rash/Hives Verified 04/02/22 16:55 [From Glucophage] morphine Allergy Rash/Hives Verified 04/02/22 16:55 Penicillins Allergy Rash/Hives Verified 04/02/22 16:55 Sulfa (Sulfonamide Allergy Rash/Hives Verified 04/02/22 16:55 Antibiotics) sulfamethoxazole Allergy Rash/Hives Verified 04/02/22 16:55 [From Bactrim] tetracycline [Tetracycline] Allergy Rash/Hives Verified 04/02/22 16:55 theophylline Allergy Rash/Hives Verified 04/02/22 16:55 tramadol Allergy Dyspnea Verified 04/02/22 16:55 trimethoprim [From Bactrim] Allergy Rash/Hives Verified 04/02/22 16:55 Review of Systems ROS Other: All systems not noted in ROS Statement are negative. <Ilir Saul - Last Filed: 04/02/22 12:40> ROS Other: All systems not noted in ROS Statement are negative. <Pauline Mitchell - Last Filed: 04/06/22 19:23> ROS Statement: Those systems with pertinent positive or pertinent negative responses have been documented in the HPI. Past Medical History Past Medical History: Asthma, Heart Failure, COPD, CVA/TIA, Diabetes Mellitus, Fibromyalgia, GERD/Reflux, Hyperlipidemia, Hypertension, Musculoskeletal Disorder, Neurologic Disorder, Osteoarthritis (OA), Pneumonia, Renal Disease, Sleep Apnea/CPAP/BIPAP, Thyroid Disorder Additional Past Medical History / Comment(s): See Dr Stanley's H&P. Hx CVA yrs ago. Hx Pleurisy. Bilateral neuropathy hands and feet. IBS. Migranes - "under control". No CPAP use. Chronic lower back, neck pain, DDD, Scoliosis, bilateral carpal tunnel, pinched nerve in right leg. Past hx Kidney failure. History of Any Multi-Drug Resistant Organisms: None Reported Past Surgical History: Appendectomy, Breast Surgery, Heart Catheterization, Hysterectomy, Joint Replacement, Orthopedic Surgery, Tonsillectomy Additional Past Surgical History / Comment(s): Left knee surgery - pins placed, left foot - screws placed, right ankle arthroscopy, right foot-cyst removed, TOTAL LEFT KNEE REPLACEMENT(CERAMIC), left hand 5th finger dupuytrens contraction, LEFT BREAST Lumpectomy-NEGATIVE (has marker), Colonoscopy, EXCISION BILATERAL CATARACTS. Past Anesthesia/Blood Transfusion Reactions: No Reported Reaction Additional Past Anesthesia/Blood Transfusion Reaction / Comment(s): Has never had blood transfusion. Past Psychological History: Anxiety, Depression Additional Psychological History / Comment(s): Hx panic attacks in past. Smoking Status: Never smoker Past Alcohol Use History: None Reported Past Drug Use History: None Reported - Past Family History Father Family Medical History: Cancer Additional Family Medical History / Comment(s): Prostate cancer. Mother Family Medical History: Cancer, Diabetes Mellitus Additional Family Medical History / Comment(s): Breast Cancer. Brother(s) Family Medical History: Cancer Additional Family Medical History / Comment(s): Leukemia. <Ilir Saul - Last Filed: 04/02/22 12:40> General Exam Limitations: no limitations General appearance: alert, other (Ill-appearing female in no acute distress, though is tachypneic and wheezing.) ENT exam: Present: mucous membranes moist, TM's normal bilaterally Neck exam: Present: normal inspection, full ROM. Absent: tenderness, meningismus, lymphadenopathy Respiratory exam: Present: wheezes, other (Strong, congested, productive cough. Wheezing throughout all lung hernandez. Mild tachypnea and increased work of breathing.) Cardiovascular Exam: Present: regular rate, normal rhythm, normal heart sounds GI/Abdominal exam: Present: soft, normal bowel sounds. Absent: distended, tenderness, guarding, rebound, rigid Back exam: Absent: CVA tenderness (R), CVA tenderness (L) Neurological exam: Present: alert, oriented X3 Psychiatric exam: Present: flat affect Skin exam: Present: warm, dry, intact, normal color. Absent: rash <Pauline Mitchell - Last Filed: 04/06/22 19:23> Course <Pauline Mitchell - Last Filed: 04/06/22 19:23> Vital Signs 04/02/22 04/02/22 04/02/22 12:57 17:30 17:48 Temperature 98.1 F Pulse Rate 97 78 Respiratory 22 20 18 Rate Blood Pressure 136/82 O2 Sat by Pulse 95 Oximetry 04/02/22 04/02/22 17:54 20:00 Temperature 98.4 F Pulse Rate 80 82 Respiratory 18 16 Rate Blood Pressure 115/84 O2 Sat by Pulse 98 Oximetry - Reevaluation(s) Reevaluation #1: 04/02/22 18:30 Upon reassessment, patient continues to have diffuse wheezing, though is moving air better. Discussed admission for COPD exacerbation and patient is agreeable with this plan of care. 04/02/22 19:16 I spoke with OSVALDO Kwon who agrees to accept this admission on behalf of [facility]. (Pauline Mitchell) Medical Decision Making - Lab Data Result diagrams: 04/06/22 07:13 04/06/22 07:13 - Radiology Data Radiology results: report reviewed, image reviewed <Pauline Mitchell - Last Filed: 04/06/22 19:23> - Medical Decision Making 67-year-old female with a past medical history of COPD presents to the emergency Department with complaints of strong congested cough and shortness of breath. Upon exam, patient has increased work of breathing and coarse wheezing throughout all lung hernandez. She is mildly tachypneic. Afebrile. She was given breathing treatment and Solu-Medrol with minimal improvement. Laboratory studies were obtained showing positive RSV. Troponin negative. Chest x-ray and EKG show no acute findings. Given the patient's ongoing shortness of breath she will be admitted for COPD exacerbation secondary to RSV. Zithromax and magnesium administered in the ED. I spoke with OSVALDO Kwon who agrees to accept this admission on behalf of [facility]. Patient is agreeable with this plan of care. Attending: Monreal Was pt. sent in by a medical professional or institution? @ -No Did you speak to anyone other than the patient for history? @ -No Did you review nursing and triage notes? @ -Yes, agree Were old charts reviewed? @ -Yes Differential Diagnosis? @ -Influenza, Covid, RSV, URI, pneumonia, COPD, asthma, CAD, this is not meant to be an exhaustive list EKG interpreted by me (3pts min.)? @ -Normal sinus rhythm with no ectopy or acute ST segment changes. X-rays interpreted by me (1pt min.)? @ -Chest x-ray as interpreted by me shows no consolidation or infiltrate. CT interpreted by me (1pt min.)? @ -Not applicable U/S interpreted by me (1pt. min.)? @ -Not applicable What testing was considered but not performed? (CT, X-rays, U/S, labs)? Why? @ None What meds were considered but not given? Why? @ -None Did you discuss the management of the patient with other professionals? @ -None Did you reconcile home meds? @ -No Was smoking cessation discussed for >3mins.? @ -No Was critical care preformed (if so, how long)? @ -No Were there social determinants of health that impacted care today? How? (Homelessness, low income, unemployed, alcoholism, drug addiction, transportation, low edu. Level, literacy, decrease access to med. care, assisted, rehab)? @ -No Was there de-escalation of care discussed even if they declined? (Discuss DNR or withdrawal of care, Hospice)? @ -No What co-morbidities impacted this encounter? (DM, HTN, Smoking, COPD, CAD, Cancer, CVA, Hep., AIDS, mental health diagnosis, sleep apnea, morbid obesity)? @ -Hypertension, COPD, obesity. Was patient admitted / discharged? @ -Admitted Undiagnosed new problem with uncertain prognosis? @ -None Drug Therapy requiring intensive monitoring for toxicity (Heparin, Nitro, Insulin, Cardizem)? @ -None Were any procedures done? @ -None Diagnosis/symptom? @ -COPD exacerbation secondary to RSV Acute, or Chronic, or Acute on Chronic? @ -Acute on chronic Uncomplicated (without systemic symptoms) or Complicated (systemic symptoms)? @ -Complicated Side effects of treatment? @ -None Exacerbation, Progression, or Severe Exacerbation] @ -Exacerbation Poses a threat to life or bodily function? @ -No (Mackaluso,Pauline) - Lab Data Lab Results 04/02/22 04/02/22 04/02/22 Range/Units 13:02 17:30 17:30 WBC 7.6 (3.8-10.6) k/uL RBC 4.38 (3.80-5.40) m/uL Hgb 14.1 (11.4-16.0) gm/dL Hct 42.1 (34.0-46.0) % MCV 96.2 (80.0-100.0) fL MCH 32.2 (25.0-35.0) pg MCHC 33.4 (31.0-37.0) g/dL RDW 12.8 (11.5-15.5) % Plt Count 151 (150-450) k/uL MPV 11.4 Neutrophils % 56 % Lymphocytes % 33 % Monocytes % 7 % Eosinophils % 2 % Basophils % 1 % Neutrophils # 4.2 (1.3-7.7) k/uL Lymphocytes # 2.5 (1.0-4.8) k/uL Monocytes # 0.5 (0-1.0) k/uL Eosinophils # 0.2 (0-0.7) k/uL Basophils # 0.1 (0-0.2) k/uL Sodium 138 (137-145) mmol/L Potassium 4.3 (3.5-5.1) mmol/L Chloride 106 (98-107) mmol/L Carbon Dioxide 25 (22-30) mmol/L Anion Gap 7 mmol/L BUN 27 H (7-17) mg/dL Creatinine 0.86 (0.52-1.04) mg/dL Est GFR (CKD-EPI)AfAm 83 (>60 ml/min/1.73 sqM) Est GFR (CKD-EPI)NonAf 72 (>60 ml/min/1.73 sqM) Glucose 274 H (74-99) mg/dL Estimated Ave Glu mg/dL Hemoglobin A1c (0.0-6.0) % Calcium 9.1 (8.4-10.2) mg/dL Magnesium 2.0 (1.6-2.3) mg/dL Total Bilirubin 0.4 (0.2-1.3) mg/dL AST 27 (14-36) U/L ALT 30 (4-34) U/L Alkaline Phosphatase 118 (38-126) U/L Troponin I (0.000-0.034) ng/mL Total Protein 6.6 (6.3-8.2) g/dL Albumin 3.8 (3.5-5.0) g/dL Influenza Type A (PCR) Not Detected (Not Detectd) Influenza Type B (PCR) Not Detected (Not Detectd) RSV (PCR) Detected A (Not Detectd) SARS-CoV-2 (PCR) Not Detected (Not Detectd) 04/02/22 04/02/22 Range/Units 17:30 17:30 WBC (3.8-10.6) k/uL RBC (3.80-5.40) m/uL Hgb (11.4-16.0) gm/dL Hct (34.0-46.0) % MCV (80.0-100.0) fL MCH (25.0-35.0) pg MCHC (31.0-37.0) g/dL RDW (11.5-15.5) % Plt Count (150-450) k/uL MPV Neutrophils % % Lymphocytes % % Monocytes % % Eosinophils % % Basophils % % Neutrophils # (1.3-7.7) k/uL Lymphocytes # (1.0-4.8) k/uL Monocytes # (0-1.0) k/uL Eosinophils # (0-0.7) k/uL Basophils # (0-0.2) k/uL Sodium (137-145) mmol/L Potassium (3.5-5.1) mmol/L Chloride (98-107) mmol/L Carbon Dioxide (22-30) mmol/L Anion Gap mmol/L BUN (7-17) mg/dL Creatinine (0.52-1.04) mg/dL Est GFR (CKD-EPI)AfAm (>60 ml/min/1.73 sqM) Est GFR (CKD-EPI)NonAf (>60 ml/min/1.73 sqM) Glucose (74-99) mg/dL Estimated Ave Glu mg/dL 249 Hemoglobin A1c 10.3 H (0.0-6.0) % Calcium (8.4-10.2) mg/dL Magnesium (1.6-2.3) mg/dL Total Bilirubin (0.2-1.3) mg/dL AST (14-36) U/L ALT (4-34) U/L Alkaline Phosphatase (38-126) U/L Troponin I <0.012 (0.000-0.034) ng/mL Total Protein (6.3-8.2) g/dL Albumin (3.5-5.0) g/dL Influenza Type A (PCR) (Not Detectd) Influenza Type B (PCR) (Not Detectd) RSV (PCR) (Not Detectd) SARS-CoV-2 (PCR) (Not Detectd) - Radiology Data Two-view chest x-ray was obtained. Report was reviewed in its entirety. Impression per Dr. Chaparro as chronic changes without acute pulmonary process. (Pauline Mitchell) Disposition <Ilir Saul - Last Filed: 04/02/22 12:40> Is patient prescribed a controlled substance at d/c from ED?: No Decision Date: 04/02/22 Decision Time: 19:16 <Pauline Mitchell - Last Filed: 04/06/22 19:23> Clinical Impression: COPD exacerbation, RSV infection Disposition: ADMITTED IP TO THIS HOSP Condition: Serious
--- NOTE | 2022-04-02 13:34 | XR ---
EXAMINATION TYPE: XR chest 2V DATE OF EXAM: 04/02/2022 COMPARISON: Chest x-ray January 18, 2018 HISTORY: Cough and shortness of breath TECHNIQUE: Frontal and lateral views of the chest are obtained. FINDINGS: There is chronic emphysematous changes bilaterally without suspicious focal air space opac ity, pleural effusion, or pneumothorax seen. The cardiac silhouette size is stable and upper limits of normal. The osseous structures are demineralized. Old lateral left rib fractures are redemonstra el. IMPRESSION: Chronic changes without acute pulmonary process.
[2022-04-02] MEDS ORDERED: IPRATROPIUM-ALBUTEROL 3 ML NEB INHALATION STA (16:29)
[2022-04-02] MEDS ORDERED: methylPREDNISolone SOD SUCCI 125 MG/2 ML VIAL IV STA (16:30)
[2022-04-02 17:40] LABS: Basophils # (A) 0.1 k/uL (0-0.2); Basophils % (A) 1 %; Eosinophils # (A) 0.2 k/uL (0-0.7); Eosinophils % (A) 2 %; HCT 42.1 % (34.0-46.0); HGB 14.1 gm/dL (11.4-16.0); Lymphocytes # (A) 2.5 k/uL (1.0-4.8); Lymphocytes % (A) 33 %; MCH 32.2 pg (25.0-35.0); MCHC 33.4 g/dL (31.0-37.0); MCV 96.2 fL (80.0-100.0); Mean Platelet Volume 11.4; Monocytes # (A) 0.5 k/uL (0-1.0); Monocytes % (A) 7 %; Neutrophils # (A) 4.2 k/uL (1.3-7.7); Neutrophils % (A) 56 %; Platelet Count 151 k/uL (150-450); RBC 4.38 m/uL (3.80-5.40); RDW 12.8 % (11.5-15.5); WBC 7.6 k/uL (3.8-10.6)
[2022-04-02 17:49] LABS: Albumin 3.8 g/dL (3.5-5.0); Calcium 9.1 mg/dL (8.4-10.2); Potassium 4.3 mmol/L (3.5-5.1); Total Bilirubin 0.4 mg/dL (0.2-1.3); Total Protein 6.6 g/dL (6.3-8.2)
[2022-04-02] MEDS ORDERED: AZITHROMYCIN 500 MG in SODIUM CHLORIDE 0.9% 250 ML IVPB STA (18:46)
[2022-04-02] MEDS ORDERED: MAGNESIUM SULFATE-D5W PMX 1 GM in DEXTROSE/WATER 1 100ML.BAG IVPB ONE (19:00)
[2022-04-02] MEDS ORDERED: KETOROLAC 15 MG/ML 1 ML VIAL IVP PRN (19:17)
[2022-04-02] MEDS ORDERED: NALOXONE 0.4 MG/ML 1 ML VIAL IV PRN (19:17)
[2022-04-02] MEDS ORDERED: ONDANSETRON 4 MG/2 ML VIAL IVP PRN (19:17)
[2022-04-02] MEDS ORDERED: ACETAMINOPHEN TAB 325 MG TAB PO PRN (19:17)
[2022-04-02] MEDS ORDERED: IPRATROPIUM-ALBUTEROL 3 ML NEB INHALATION PRN (19:19)
[2022-04-02] MEDS: ASPIRIN 81 MG PO SCH (20:09)
[2022-04-02] MEDS: MIRTAZAPINE 15 MG TAB PO SCH (20:10)
[2022-04-02] MEDS: PRIMIDONE 50 MG TAB PO SCH (20:10)
[2022-04-02] MEDS: FAMOTIDINE 20 MG TAB PO SCH (20:10)
[2022-04-02] MEDS ORDERED: DEXTROSE 50% SYRINGE 50 ML IVP PRN ×2 (20:29)
[2022-04-02 20:37] LABS: Glucose,Whole Blood 399 mg/dL (70-110)
[2022-04-02] MEDS: INSULIN ASPART (NovoLOG) 100 UNIT/ML VIAL SQ SCH (20:40)
[2022-04-02] MEDS ORDERED: INSULIN DETEMIR (LEVEMIR) 100 UNIT/ML SYR SQ SCH (21:00)
[2022-04-02] MEDS: GABAPENTIN 300 MG CAP PO SCH (22:09)
[2022-04-02] MEDS: PROPRANOLOL 20 MG TAB PO SCH (22:09)
[2022-04-03] MEDS ORDERED: methylPREDNISolone SOD SUCCI 40 MG/ML 1 ML VIAL IV SCH (02:00)
[2022-04-03] MEDS: LEVOTHYROXINE 75 MCG TAB PO SCH (06:09)
[2022-04-03 06:22] LABS: Basophils % (A) 0 %; Eosinophils % (A) 1 %; HCT 39.6 % (34.0-46.0); HGB 13.5 gm/dL (11.4-16.0); Lymphocytes # (A) 1.2 k/uL (1.0-4.8); Lymphocytes % (A) 19 %; MCH 32.1 pg (25.0-35.0); MCHC 34.1 g/dL (31.0-37.0); MCV 94.1 fL (80.0-100.0); Mean Platelet Volume 13.1; Monocytes # (A) 0.3 k/uL (0-1.0); Monocytes % (A) 5 %; Neutrophils # (A) 4.5 k/uL (1.3-7.7); Neutrophils % (A) 73 %; Platelet Count 105 k/uL (150-450); RBC 4.21 m/uL (3.80-5.40); WBC 6.1 k/uL (3.8-10.6)
[2022-04-03 06:54] LABS: African American GFR (CKD) >90 (>60 ml/min/1.73 sqM); Anion Gap 4 mmol/L; Blood Urea Nitrogen 28 mg/dL (7-17); Calcium 8.5 mg/dL (8.4-10.2); Carbon Dioxide 25 mmol/L (22-30); Chloride 107 mmol/L (98-107); Non-African American GFR(CKD) >90 (>60 ml/min/1.73 sqM); Sodium 136 mmol/L (137-145)
[2022-04-03 06:58] LABS: Glucose 295 mg/dL (74-99); Potassium 5.2 mmol/L (3.5-5.1)
[2022-04-03 07:45] LABS: Glucose,Whole Blood 318 mg/dL (70-110)
--- NOTE | 2022-04-03 08:52 | P.CNPUL ---
History of Present Illness Consult date: 04/03/22 Requesting physician: Lonny Loaiza Reason for consult: dyspnea, cough, asthma, hypoxemia, abnormal CXR/CT Chief complaint: Shortness of breath. History of present illness: Pulmonary consult dated 04/03/2022. 67-year-old female with history of asthma, who presents to the emergency department, on April 02, complaining of shortness of breath, cough, wheezing, and chest congestion. Everything seemed to go back for her beginning on March 27. The patient is typically on updraft treatments, generic Advair, Singulair, and Ventolin for her asthma. None of those medications seem to be h elping her right now. The patient denied any chest pain or chest discomfort. Her cough is mildly productive. She has been having some nasal congestion as well. She seen today in room 637. White count 6.1, hemoglobin 13.5, hematocrit 39.6, and platelet count 105,000. Sodium 136, potassium 5.2, chlorides 107, CO2 25, BUN 28, and creatinine 0.69. The rest of her labs look good. She did test positive for respiratory syncytial virus. Chest x-ray shows only chronic changes, without acute disease. Review of Systems REVIEW OF SYSTEMS: CONSTITUTIONAL: Fatigue. NEUROLOGIC: [ Negative.] HEENT: Nasal congestion. CARDIAC: [Negative.] PULMONARY: Cough, shortness of breath, cough with minimal production, wheezing, chest tightness, chest congestion. GI: [Negative.] : [Negative.] RHEUMATOLOGIC: [ Negative.] IMMUNOLOGIC: [ Negative.] ENDOCRINE: [Negative. ] DERMATOLOGIC: [Negative.] Past Medical History Past Medical History: Asthma, Heart Failure, COPD, CVA/TIA, Diabetes Mellitus, Fibromyalgia, GERD/Reflux, Hyperlipidemia, Hypertension, Musculoskeletal Disorder, Neurologic Disorder, Osteoarthritis (OA), Pneumonia, Renal Disease, Sleep Apnea/CPAP/BIPAP, Thyroid Disorder Additional Past Medical History / Comment(s): See Dr Stanley's H&P. Hx CVA yrs ago. Hx Pleurisy. Bilateral neuropathy hands and feet. IBS. Migranes - "under control". No CPAP use. Chronic lower back, neck pain, DDD, Scoliosis, bilateral carpal tunnel, pinched nerve in right leg. Past hx Kidney failure. RSV+04/02/22 History of Any Multi-Drug Resistant Organisms: None Reported Past Surgical History: Appendectomy, Breast Surgery, Heart Catheterization, Hysterectomy, Joint Replacement, Orthopedic Surgery, Tonsillectomy Additional Past Surgical History / Comment(s): Left knee surgery - pins placed, left foot - screws placed, right ankle arthroscopy, right foot-cyst removed, TOTAL LEFT KNEE REPLACEMENT(CERAMIC), left hand 5th finger dupuytrens contraction, LEFT BREAST Lumpectomy-NEGATIVE (has marker), Colonoscopy, EXCISION BILATERAL CATARACTS. Past Anesthesia/Blood Transfusion Reactions: No Reported Reaction Additional Past Anesthesia/Blood Transfusion Reaction / Comment(s): Has never had blood transfusion. Past Psychological History: Anxiety, Depression Additional Psychological History / Comment(s): Hx panic attacks in past. Smoking Status: Never smoker Past Alcohol Use History: None Reported Past Drug Use History: None Reported - Past Family History Father Family Medical History: Cancer Additional Family Medical History / Comment(s): Prostate cancer. Mother Family Medical History: Cancer, Diabetes Mellitus Additional Family Medical History / Comment(s): Breast Cancer. Brother(s) Family Medical History: Cancer Additional Family Medical History / Comment(s): Leukemia. Medications and Allergies Home Medications Medication Instructions Recorded Confirmed Type Aspirin 81 mg PO BID 09/21/13 04/02/22 History Levothyroxine Sodium [Synthroid] 150 mcg PO DAILY 09/21/13 04/02/22 History Montelukast Sodium [Singulair] 10 mg PO DAILY 09/21/13 04/02/22 History Omeprazole [PriLOSEC] 20 mg PO DAILY 09/21/13 04/02/22 History Primidone [Mysoline] 100 mg PO BID 09/21/13 04/02/22 History Metoclopramide [Reglan] 10 mg PO DAILY 08/10/16 04/02/22 History Mirtazapine [Remeron] 15 mg PO HS 08/10/16 04/02/22 History Multivit-Min36/Iron/Folic Acid 1 tab PO DAILY 08/10/16 04/02/22 History [Geritol Complete Tablet] lisinopriL [Prinivil] 5 mg PO DAILY 08/10/16 04/02/22 History Ergocalciferol (Vitamin D2) 50,000 unit PO CONTRERAS 01/17/18 04/02/22 History [Drisdol (50,000 Iu)] Vitamin B Complex 1 cap PO DAILY 01/17/18 04/02/22 History Atorvastatin [Lipitor] 80 mg PO DAILY 12/01/21 04/02/22 History Fluticasone Propion/Salmeterol 1 puff INHALATION RT-BID 12/01/21 04/02/22 History [Wixela 500-50 Inhub] Insulin Aspart [NovoLOG Flexpen] See Protocol SQ TID-W/MEALS PRN 12/01/21 0 04/02/22 History Ipratropium-Albuterol Nebulize 3 ml INHALATION RT-QID PRN 12/01/21 04/02/22 History [Duoneb 0.5 mg-3 mg/3 ml Soln] Magnesium 250 mg PO DAILY 12/01/21 04/02/22 History Propranolol [Inderal] 20 mg PO TID 12/01/21 04/02/22 History Furosemide [Lasix] 40 mg PO DAILY 04/02/22 04/02/22 History Gabapentin 600 mg PO QID 04/02/22 04/02/22 History Ibuprofen [Motrin] 800 mg PO Q8H PRN 04/02/22 04/02/22 History Insulin Glargine,Hum.rec.anlog 20 units SQ HS 04/02/22 04/02/22 History [Lantus Solostar Pen] Potassium Chloride ER [K-Dur 10] 10 meq PO DAILY 04/02/22 04/02/22 History Topiramate 100 mg PO BID-W/MEALS 04/02/22 04/02/22 History Allergies Allergy/AdvReac Type Severity Reaction Status Date / Time aminophylline Allergy Rash/Hives Verified 04/02/22 16:55 cephalexin monohydrate Allergy Rash/Hives Verified 04/02/22 16:55 [From Keflex] codeine Allergy Rash/Hives Verified 04/02/22 16:55 diazepam [From Valium] Allergy Rash/Hives Verified 04/02/22 16:55 hydrocodone bitartrate Allergy Rash/Hives Verified 04/02/22 16:55 [From Vicodin] Iodinated Contrast Media Allergy Rash/Hives Verified 04/02/22 16:55 [Iodinated Contrast Media - IV Dye] latex Allergy Itching, Verified 04/02/22 16:55 BURNING SKIN Latex, Natural Rubber Allergy Itching, Verified 04/02/22 16:55 BURNING OF SKIN levofloxacin [From Levaquin] Allergy Rash/Hives Verified 04/02/22 16:55 metformin HCl Allergy Rash/Hives Verified 04/02/22 16:55 [From Glucophage] morphine Allergy Rash/Hives Verified 04/02/22 16:55 Penicillins Allergy Rash/Hives Verified 04/02/22 16:55 Sulfa (Sulfonamide Allergy Rash/Hives Verified 04/02/22 16:55 Antibiotics) sulfamethoxazole Allergy Rash/Hives Verified 04/02/22 16:55 [From Bactrim] tetracycline [Tetracycline] Allergy Rash/Hives Verified 04/02/22 16:55 theophylline Allergy Rash/Hives Verified 04/02/22 16:55 tramadol Allergy Dyspnea Verified 04/02/22 16:55 trimethoprim [From Bactrim] Allergy Rash/Hives Verified 04/02/22 16:55 Physical Exam Osteopathic Statement: *. No significant issues noted on an osteopathic structural exam other than those noted in the History and Physical/Consult. Vitals: Vital Signs Temp Pulse Pulse Resp BP BP Pulse Ox 04/03/22 07:00 97.6 F 65 22 115/64 92 L 04/03/22 03:00 98.1 F 84 18 126/72 98 04/02/22 21:00 97.4 F L 90 18 121/70 93 L 04/02/22 20:00 98.4 F 82 16 115/84 98 04/02/22 17:54 80 18 04/02/22 17:48 78 18 04/02/22 17:30 20 04/02/22 12:57 98.1 F 97 22 136/82 95 Intake and Output 04/02/22 04/03/22 04/03/22 22:59 06:59 14:59 Other: # Voids 1 1 Weight 99.79 kg No acute distress, oriented 3. No conversational dyspnea or use of accessory muscles. Frequent bronchospastic cough. HEENT examination is grossly unremarkable. Neck supple. Full range of motion. No adenopathy thyromegaly or neck vein distention. Cardiovascular examination reveals regular rhythm rate. S1-S2 normal. No S3 or S4. No discernible murmur noted. Heart rate 65 bpm. Lungs reveal coarse inspiratory and expiratory wheezes and rhonchi. No crackles. Breath sounds equal. She's very bronchospastic. Room air saturation 92%. Abdomen soft bowel sounds are heard. No masses or tenderness. Extremities are intact. No cyanosis clubbing or edema. Skin is without rash or lesion. Neurologic examination is brief but nonfocal. Results - Laboratory Findings CBC and BMP: 04/03/22 05:52 04/03/22 05:52 Abnormal lab findings: Abnormal Labs 04/02/22 04/02/22 04/02/22 13:02 17:30 17:30 Plt Count Sodium Potassium BUN 27 H Glucose 274 H POC Glucose (mg/dL) Hemoglobin A1c 10.3 H RSV (PCR) Detected A 04/02/22 04/03/22 04/03/22 20:35 05:52 05:52 Plt Count 105 L Sodium 136 L Potassium 5.2 H BUN 28 H Glucose 295 H POC Glucose (mg/dL) 399 H Hemoglobin A1c RSV (PCR) 04/03/22 07:43 Plt Count Sodium Potassium BUN Glucose POC Glucose (mg/dL) 318 H Hemoglobin A1c RSV (PCR) - Diagnostic Findings Chest x-ray: image reviewed Assessment and Plan Assessment: Acute exacerbation of asthma, triggered by respiratory syncytial virus. History of CHF. History of CVA. History of diabetes mellitus. History of gastroesophageal reflux disease. History of hypertension. History of hyperlipidemia. History of obstructive sleep apnea syndrome. Multiple other medical problems and comorbidities. Plan: Plan dated 04/03/2021. The patient's on appropriate medications including Symbicort, and updrafts with albuterol sulfate and ipratropium bromide. The patient's also getting Solu- Medrol 60 mg every 6, and Singulair. We will check a pro-calcitonin level. The patient may take a few days to turn around. She's been sick since March 27. Prognosis is guarded. We will continue to follow the patient and make rec ommendations along the way. Time with Patient: Greater than 30
[2022-04-03] MEDS ORDERED: NON FORMULARY DRUG (Vitamin B Complex [Vitamin B Complex] 1 EACH Capsule) PO SCH (09:00)
[2022-04-03] MEDS ORDERED: lisinopriL 5 MG TAB PO SCH (09:00)
[2022-04-03] MEDS: IPRATROPIUM-ALBUTEROL 3 ML NEB INHALATION SCH ×4 (09:20→20:30)
[2022-04-03] MEDS: SYMBICORT 160-4.5 MCG INHALER INHALATION SCH ×2 (09:20→20:30)
[2022-04-03] MEDS: MONTELUKAST 10 MG TAB PO SCH (10:26)
[2022-04-03] MEDS: ASPIRIN 81 MG PO SCH ×2 (10:26→21:30)
[2022-04-03] MEDS: POTASSIUM CHLORIDE ER 10 MEQ TAB.ER.PRT PO SCH (10:26)
[2022-04-03] MEDS: FAMOTIDINE 20 MG TAB PO SCH ×2 (10:26→21:32)
[2022-04-03] MEDS: FUROSEMIDE 40 MG TAB PO SCH (10:26)
[2022-04-03] MEDS: GABAPENTIN 300 MG CAP PO SCH ×4 (10:26→21:31)
[2022-04-03] MEDS: MULTIVITAMINS, THERA 1 EACH TAB PO SCH (10:26)
[2022-04-03] MEDS: INSULIN ASPART (NovoLOG) 100 UNIT/ML VIAL SQ SCH ×4 (10:26→21:30)
[2022-04-03] MEDS: ATORVASTATIN 80 MG TAB PO SCH (10:26)
[2022-04-03] MEDS: TOPIRAMATE 100 MG TAB PO SCH ×2 (10:27→18:06)
[2022-04-03] MEDS: methylPREDNISolone SOD SUCCI 125 MG/2 ML VIAL IV SCH ×3 (10:27→21:31)
[2022-04-03] MEDS: PROPRANOLOL 20 MG TAB PO SCH ×3 (10:28→21:31)
[2022-04-03] MEDS: PRIMIDONE 50 MG TAB PO SCH ×2 (10:28→21:30)
[2022-04-03] MEDS: INSULIN DETEMIR (LEVEMIR) 100 UNIT/ML SYR SQ SCH ×3 (10:35→21:38)
[2022-04-03 12:12] LABS: Glucose,Whole Blood 352 mg/dL (70-110)
[2022-04-03 13:48] VITALS: BMI 35.5
--- NOTE | 2022-04-03 14:06 | HP ---
HISTORY AND PHYSICAL CHIEF COMPLAINT: Shortness of breath. HISTORY OF PRESENT ILLNESS: This 67-year-old woman with a past medical history of multiple medical issues, admitted with shortness of breath and wheezing. The patient was found to have asthma acute exacerbation and RSV was positive. The patient did not recall any contact with anybody with RSV. Blood sugar is elevated and the patient was admitted for evaluation. There is no history of any fever, rigors, or chills. PAST MEDICAL HISTORY: Reviewed, include asthma, rest of the history and rest of the chart is reviewed. HOME MEDICATIONS: Reviewed include DuoNeb, doses and rest of medications are reviewed. ALLERGIES: Reviewed include latex, multiple allergies reviewed. REVIEW OF SYSTEMS: A 14-point review is negative as mentioned earlier. FAMILY HISTORY: History of prostate cancer in the family. SOCIAL HISTORY: No history of smoking or alcohol. PHYSICAL EXAMINATION: VITAL SIGNS: Pulse is 65, blood pressure 115/62, and respirations 22. HEENT: Conjunctivae normal. NECK: No jugular venous distention. CARDIOVASCULAR: S1, S2 muffled. RESPIRATIONS: Diminished at the bases. Scattered rhonchi. ABDOMEN: Soft. NERVOUS SYSTEM: Diffusely weak. SKIN: No ulcer, rash, bleeding. JOINTS: No active deforming arthropathy. LABORATORY DATA: Accu-Cheks noted. ASSESSMENT: 1. Acute asthma, acute exacerbation. 2. Acute RSV infection. 3. Diabetes mellitus, type 2, uncontrolled. 4. History of congestive heart failure. 5. Chronic obstructive pulmonary disease. 6. Fibromyalgia. 7. Hypertension. 8. Hyperlipidemia. 9. Multiple medical issues. RECOMMENDATIONS: This is a 67-year-old woman who presented with multiple complex medical issues. We will monitor the patient closely, will initiate bronchodilators and steroids and closely follow with Pulmonary. Resume the home medications. DVT prophylaxis. See orders for details and further recommendations to follow. I would also recommend procal also. MMODL / IJN: [id number] /
[2022-04-03 17:22] LABS: Glucose,Whole Blood 438 mg/dL (70-110)
[2022-04-03] MEDS ORDERED: INSULIN ASPART (NovoLOG) 100 UNIT/ML VIAL SQ ONE ×2 (17:37→21:15)
[2022-04-03 19:11] LABS: Glucose,Whole Blood 457 mg/dL (70-110)
[2022-04-03] MEDS: MIRTAZAPINE 15 MG TAB PO SCH (21:31)
[2022-04-04] MEDS: methylPREDNISolone SOD SUCCI 125 MG/2 ML VIAL IV SCH ×4 (02:09→19:59)
[2022-04-04 05:16] LABS: Glucose,Whole Blood 260 mg/dL (70-110)
[2022-04-04] MEDS: LEVOTHYROXINE 75 MCG TAB PO SCH (05:47)
[2022-04-04] MEDS: INSULIN ASPART (NovoLOG) 100 UNIT/ML VIAL SQ SCH ×3 (05:48→17:48)
[2022-04-04] MEDS: TOPIRAMATE 100 MG TAB PO SCH ×2 (06:14→16:51)
[2022-04-04] MEDS: SYMBICORT 160-4.5 MCG INHALER INHALATION SCH ×2 (08:55→20:38)
[2022-04-04] MEDS: IPRATROPIUM-ALBUTEROL 3 ML NEB INHALATION SCH ×4 (08:55→20:37)
[2022-04-04] MEDS: PRIMIDONE 50 MG TAB PO SCH ×2 (09:45→19:59)
[2022-04-04] MEDS: MONTELUKAST 10 MG TAB PO SCH (09:46)
[2022-04-04] MEDS: ASPIRIN 81 MG PO SCH ×2 (09:46→19:59)
[2022-04-04] MEDS: INSULIN DETEMIR (LEVEMIR) 100 UNIT/ML SYR SQ SCH ×2 (09:46→19:59)
[2022-04-04] MEDS: POTASSIUM CHLORIDE ER 10 MEQ TAB.ER.PRT PO SCH (09:46)
[2022-04-04] MEDS: GABAPENTIN 300 MG CAP PO SCH ×4 (09:46→19:59)
[2022-04-04] MEDS: FAMOTIDINE 20 MG TAB PO SCH ×2 (09:46→19:59)
[2022-04-04] MEDS: MULTIVITAMINS, THERA 1 EACH TAB PO SCH (09:46)
[2022-04-04] MEDS: ATORVASTATIN 80 MG TAB PO SCH (09:46)
[2022-04-04] MEDS: PROPRANOLOL 20 MG TAB PO SCH ×3 (09:46→20:01)
[2022-04-04] MEDS: FUROSEMIDE 40 MG TAB PO SCH (09:50)
[2022-04-04 12:27] LABS: Glucose,Whole Blood 368 mg/dL (70-110)
--- NOTE | 2022-04-04 14:48 | P.PN ---
Subjective Progress Note Date: 04/04/22 67-year-old female with history of asthma, who presents to the emergency department, on April 02, complaining of shortness of breath, cough, wheezing, and chest congestion. Everything seemed to go back for her beginning on March 27. The patient is typically on updraft treatments, generic Advair, Si ngulair, and Ventolin for her asthma. None of those medications seem to be helping her right now. The patient denied any chest pain or chest discomfort. Her cough is mildly productive. She has been having some nasal congestion as well. She seen today in room 637. White count 6.1, hemoglobin 13.5, hematocrit 39.6, and platelet count 105,000. Sodium 136, potassium 5.2, chlorides 107, CO2 25, BUN 28, and creatinine 0.69. The rest of her labs look good. She did test positive for respiratory syncytial virus. Chest x-ray shows only chronic changes, without acute disease. On today's evaluation of 04/04/2022, patient is to bronchospastic and wheezy. The patient has been infected with RSV and the patient is currently on IV Solu- Medrol which resulted into elevated blood sugar. Based on that, the patient is currently on high dose of Levemir insulin 30 units twice a day along with that she is a slight scale coverage. Monitor blood sugar and effectively control over the next 24 hours. She is to bronchospastic and she has a cough and congestion and wheeze. No significant sputum production. She was known to have asthma maintained on Advair outpatient basis in combination with singular and lateral ischemia was negative at time of admission. Objective - Vital Signs Vital signs: Vital Signs Temp 97.6 F 04/04/22 07:00 Pulse 62 04/04/22 12:50 Resp 16 04/04/22 07:00 BP 103/51 04/04/22 07:00 Pulse Ox 94 L 04/04/22 08:56 FiO2 Intake & Output 04/03/22 04/04/22 04/04/22 18:59 06:59 18:59 Weight 99.79 kg Other: # Voids 1 1 - Exam No acute distress, oriented 3. No conversational dyspnea or use of accessory muscles. Patient is currently on room and oxygen Head exam was generally normal. There was no scleral icterus or corneal arcus. Mucous membranes were moist. Neck supple. Full range of motion. No adenopathy thyromegaly or neck vein distention. Cardiovascular examination reveals regular rhythm rate. S1-S2 normal. No S3 or S4. No discernible murmur noted. Lungs reveal coarse inspiratory and expiratory wheezes and rhonchi. No crackles. Breath sounds equal. Abdomen soft bowel sounds are heard. No masses or tenderness. Extremities are intact. No cyanosis clubbing or edema. Skin is without rash or lesion. - Labs CBC & Chem 7: 04/03/22 05:52 04/03/22 05:52 Labs: Abnormal Lab Results - Last 24 Hours (Table) 04/03/22 04/03/22 04/04/22 Range/Units 17:21 19:10 05:14 POC Glucose (mg/dL) 438 H 457 H 260 H (70-110) mg/dL 04/04/22 Range/Units 12:24 POC Glucose (mg/dL) 368 H (70-110) mg/dL Microbiology - Last 24 Hours (Table) 04/02/22 19:14 Blood Culture - Preliminary Blood No Growth after 24 hours 04/02/22 19:14 Blood Culture - Preliminary Blood No Growth after 24 hours Assessment and Plan Plan: Acute exacerbation of asthma, triggered by respiratory syncytial virus. History of CHF. History of CVA. History of diabetes mellitus. History of gastroesophageal reflux disease. History of hypertension. History of hyperlipidemia. History of obstructive sleep apnea syndrome. Multiple other medical problems and comorbidities. Plan: Slight clinically over the past 24 hours Continue bronchodilators and steroids Vital blood sugar control and the patient is currently on Levemir insulin and a dose of being modified for that the blood sugar control Reevaluate in a.m. We'll continue to follow
[2022-04-04] MEDS ORDERED: DEXTROSE 50% SYRINGE 50 ML IVP PRN ×2 (15:34)
[2022-04-04 17:36] LABS: Glucose,Whole Blood 385 mg/dL (70-110)
[2022-04-04 18:28] LABS: Glucose,Whole Blood 445 mg/dL (70-110)
[2022-04-04] MEDS: INSULIN REGULAR 100 UNIT in SODIUM CHLORIDE 0.9% 100 ML IV SCH (18:31)
[2022-04-04] MEDS: DEXTROSE 5%-0.9% NACL 1,000 ML IV SCH (18:32)
[2022-04-04 19:49] LABS: Glucose,Whole Blood 355 mg/dL (70-110)
[2022-04-04] MEDS: MIRTAZAPINE 15 MG TAB PO SCH (19:59)
[2022-04-04 21:09] LABS: Glucose,Whole Blood 394 mg/dL (70-110)
[2022-04-04 21:57] LABS: Glucose,Whole Blood 301 mg/dL (70-110)
--- NOTE | 2022-04-04 22:37 | PN ---
PROGRESS NOTE DATE OF SERVICE: 04/04/2022 SUBJECTIVE: This is a 67-year-old woman who was admitted with acute asthma and RSV infection, is being closely monitored. No chest pain, no palpitations. On bronchodilators and steroids. OBJECTIVE: VITAL SIGNS: Pulse is 58, blood pressure 103/51, and respirations 16. CHEST: A few scattered rhonchi. ABDOMEN: Soft. NERVOUS SYSTEM: Diffusely weak. LABORATORY DATA: Reviewed. ASSESSMENT: 1. Acute asthma, acute exacerbation. 2. Acute RSV infection. 3. Diabetes mellitus type 2, uncontrolled. 4. History of congestive heart failure. 5. Chronic obstructive pulmonary disease. 6. Fibromyalgia. 7. Hypertension. 8. Hyperlipidemia. 9. Multiple medical issues. RECOMMENDATIONS: Recommended to continue current management and symptomatic treatment. Continue steroids. Continue bronchodilators. Otherwise, closely follow with Pulmonary. Guarded prognosis. Further recommendations to follow. MMODL / IJN: [id number] /
[2022-04-04 23:00] LABS: Glucose,Whole Blood 176 mg/dL (70-110)
[2022-04-04 23:52] LABS: Glucose,Whole Blood 152 mg/dL (70-110)
[2022-04-05 00:58] LABS: Glucose,Whole Blood 100 mg/dL (70-110)
[2022-04-05 01:57] LABS: Glucose,Whole Blood 104 mg/dL (70-110)
[2022-04-05] MEDS: methylPREDNISolone SOD SUCCI 125 MG/2 ML VIAL IV SCH ×3 (02:11→13:45)
[2022-04-05 03:04] LABS: Glucose,Whole Blood 97 mg/dL (70-110)
[2022-04-05 03:59] LABS: Glucose,Whole Blood 102 mg/dL (70-110)
[2022-04-05 04:50] LABS: Glucose,Whole Blood 139 mg/dL (70-110)
[2022-04-05 06:09] LABS: Glucose,Whole Blood 135 mg/dL (70-110)
[2022-04-05 07:05] LABS: Glucose,Whole Blood 159 mg/dL (70-110)
[2022-04-05] MEDS: IPRATROPIUM-ALBUTEROL 3 ML NEB INHALATION SCH ×4 (07:49→19:59)
[2022-04-05] MEDS: SYMBICORT 160-4.5 MCG INHALER INHALATION SCH ×2 (07:49→19:59)
[2022-04-05 07:59] LABS: Glucose,Whole Blood 132 mg/dL (70-110)
[2022-04-05 08:41] LABS: Glucose,Whole Blood 207 mg/dL (70-110)
[2022-04-05] MEDS: PRIMIDONE 50 MG TAB PO SCH ×2 (08:45→20:18)
[2022-04-05] MEDS: MONTELUKAST 10 MG TAB PO SCH (08:45)
[2022-04-05] MEDS: FUROSEMIDE 40 MG TAB PO SCH (08:45)
[2022-04-05] MEDS: GABAPENTIN 300 MG CAP PO SCH ×4 (08:45→20:18)
[2022-04-05] MEDS: LEVOTHYROXINE 75 MCG TAB PO SCH (08:46)
[2022-04-05] MEDS: TOPIRAMATE 100 MG TAB PO SCH ×2 (08:46→17:08)
[2022-04-05] MEDS: ASPIRIN 81 MG PO SCH ×2 (08:46→20:18)
[2022-04-05] MEDS: FAMOTIDINE 20 MG TAB PO SCH ×2 (08:46→20:18)
[2022-04-05] MEDS: ATORVASTATIN 80 MG TAB PO SCH (08:46)
[2022-04-05] MEDS: INSULIN DETEMIR (LEVEMIR) 100 UNIT/ML SYR SQ SCH (08:48)
[2022-04-05] MEDS: PROPRANOLOL 20 MG TAB PO SCH ×3 (08:49→20:18)
[2022-04-05 09:00] LABS: Glucose,Whole Blood 195 mg/dL (70-110)
[2022-04-05 09:02] LABS: Basophils % (A) 0 %; Eosinophils % (A) 0 %; HCT 37.9 % (34.0-46.0); HGB 12.7 gm/dL (11.4-16.0); Lymphocytes % (A) 17 %; MCH 32.1 pg (25.0-35.0); MCHC 33.6 g/dL (31.0-37.0); MCV 95.5 fL (80.0-100.0); Mean Platelet Volume 13.3; Monocytes # (A) 0.5 k/uL (0-1.0); Monocytes % (A) 4 %; Neutrophils % (A) 77 %; Platelet Count 145 k/uL (150-450); RBC 3.97 m/uL (3.80-5.40); RDW 12.5 % (11.5-15.5); WBC 11.6 k/uL (3.8-10.6)
[2022-04-05 09:32] LABS: Calcium 8.6 mg/dL (8.4-10.2); Potassium 3.9 mmol/L (3.5-5.1)
[2022-04-05 10:09] LABS: Glucose,Whole Blood 170 mg/dL (70-110)
--- NOTE | 2022-04-05 10:18 | P.PN ---
Subjective Progress Note Date: 04/05/22 67-year-old female with history of asthma, who presents to the emergency department, on April 02, complaining of shortness of breath, cough, wheezing, and chest congestion. Everything seemed to go back for her beginning on March 27. The patient is typically on updraft treatments, generic Advair, Si ngulair, and Ventolin for her asthma. None of those medications seem to be helping her right now. The patient denied any chest pain or chest discomfort. Her cough is mildly productive. She has been having some nasal congestion as well. She seen today in room 637. White count 6.1, hemoglobin 13.5, hematocrit 39.6, and platelet count 105,000. Sodium 136, potassium 5.2, chlorides 107, CO2 25, BUN 28, and creatinine 0.69. The rest of her labs look good. She did test positive for respiratory syncytial virus. Chest x-ray shows only chronic changes, without acute disease. On today's evaluation of 04/04/2022, patient is to bronchospastic and wheezy. The patient has been infected with RSV and the patient is currently on IV Solu- Medrol which resulted into elevated blood sugar. Based on that, the patient is currently on high dose of Levemir insulin 30 units twice a day along with that she is a slight scale coverage. Monitor blood sugar and effectively control over the next 24 hours. She is to bronchospastic and she has a cough and congestion and wheeze. No significant sputum production. She was known to have asthma maintained on Advair outpatient basis in combination with singular and lateral ischemia was negative at time of admission. On 04/05/2022, Limited improvement compared to yesterday. The patient remains on IV Solu-Medrol. She developed steroid-induced hyperglycemia. Based on that, the patient was started on an insulin drip as the patient was not adequately controlled on Levemir insulin. Currently she is on insulin drip at 3.40 units an hour. She is on IV Solu-Medrol high-dose 60 mg every 6 hours. She is on DuoNeb nebulized treatments [id number]. Rest of the medication remains unchanged. The blood sugar currently is at 170. No other significant events otherwise over the past 24 hours. She is known to be asthmatic which exacerbated his RSV infection. Objective - Vital Signs Vital signs: Vital Signs Temp 97.7 F 04/05/22 08:00 Pulse 65 04/05/22 08:04 Resp 20 04/05/22 08:00 BP 113/66 04/05/22 08:00 Pulse Ox 93 L 04/05/22 08:00 FiO2 Intake & Output 04/04/22 04/05/22 04/05/22 18:59 06:59 18:59 Intake Total 118 53.242 0 Balance 118 53.242 0 Weight 101.8 kg 108.3 kg Intake: Intake, IV Titration 53.242 0 Amount Insulin Regular 100 unit 53.242 0 In Sodium Chloride 0.9% 100 ml @ Titrate IV .Q0M ASHANTI Rx#:[id number] Oral 118 Other: Voiding Method Toilet Toilet # Voids 2 1 - Exam No acute distress, oriented 3. No conversational dyspnea or use of accessory muscles. Patient is currently on room and oxygen Head exam was generally normal. There was no scleral icterus or corneal arcus. Mucous membranes were moist. Neck supple. Full range of motion. No adenopathy thyromegaly or neck vein distention. Cardiovascular examination reveals regular rhythm rate. S1-S2 normal. No S3 or S4. No discernible murmur noted. Lungs reveal coarse inspiratory and expiratory wheezes and rhonchi. No crackles. Breath sounds equal. Abdomen soft bowel sounds are heard. No masses or tenderness. Extremities are intact. No cyanosis clubbing or edema. Skin is without rash or lesion. - Labs CBC & Chem 7: 04/05/22 07:21 04/05/22 07:21 Labs: Abnormal Lab Results - Last 24 Hours (Table) 04/04/22 04/04/22 04/04/22 Range/Units 12:24 17:32 18:27 WBC (3.8-10.6) k/uL Plt Count (150-450) k/uL Neutrophils # (1.3-7.7) k/uL Sodium (137-145) mmol/L BUN (7-17) mg/dL Glucose (74-99) mg/dL POC Glucose (mg/dL) 368 H 385 H 445 H (70-110) mg/dL 04/04/22 04/04/22 04/04/22 Range/Units 19:48 21:08 21:55 WBC (3.8-10.6) k/uL Plt Count (150-450) k/uL Neutrophils # (1.3-7.7) k/uL Sodium (137-145) mmol/L BUN (7-17) mg/dL Glucose (74-99) mg/dL POC Glucose (mg/dL) 355 H 394 H 301 H (70-110) mg/dL 04/04/22 04/04/22 04/05/22 Range/Units 22:58 23:51 04:48 WBC (3.8-10.6) k/uL Plt Count (150-450) k/uL Neutrophils # (1.3-7.7) k/uL Sodium (137-145) mmol/L BUN (7-17) mg/dL Glucose (74-99) mg/dL POC Glucose (mg/dL) 176 H 152 H 139 H (70-110) mg/dL 04/05/22 04/05/22 04/05/22 Range/Units 06:07 07:03 07:21 WBC 11.6 H (3.8-10.6) k/uL Plt Count 145 L (150-450) k/uL Neutrophils # 9.0 H (1.3-7.7) k/uL Sodium (137-145) mmol/L BUN (7-17) mg/dL Glucose (74-99) mg/dL POC Glucose (mg/dL) 135 H 159 H (70-110) mg/dL 04/05/22 04/05/22 04/05/22 Range/Units 07:21 07:56 08:39 WBC (3.8-10.6) k/uL Plt Count (150-450) k/uL Neutrophils # (1.3-7.7) k/uL Sodium 136 L (137-145) mmol/L BUN 34 H (7-17) mg/dL Glucose 137 H (74-99) mg/dL POC Glucose (mg/dL) 132 H 207 H (70-110) mg/dL 04/05/22 04/05/22 Range/Units 08:57 10:07 WBC (3.8-10.6) k/uL Plt Count (150-450) k/uL Neutrophils # (1.3-7.7) k/uL Sodium (137-145) mmol/L BUN (7-17) mg/dL Glucose (74-99) mg/dL POC Glucose (mg/dL) 195 H 170 H (70-110) mg/dL Microbiology - Last 24 Hours (Table) 04/02/22 19:14 Blood Culture - Preliminary Blood No Growth after 48 hours 04/02/22 19:14 Blood Culture - Preliminary Blood No Growth after 48 hours Assessment and Plan Plan: Acute exacerbation of asthma, triggered by respiratory syncytial virus. The patient remains on bronchodilators and steroids with limited improvement History of CHF. History of CVA. History of diabetes mellitus. The patient is currently on insulin drip treating a steroid-induced hyperglycemia History of gastroesophageal reflux disease. History of hypertension. History of hyperlipidemia. History of obstructive sleep apnea syndrome. Multiple other medical problems and comorbidities. Plan: We'll continue same treatment Slight clinically over the past 24 hours Continue bronchodilators and steroids Agree on insulin drip Reevaluate in a.m. We'll continue to follow
[2022-04-05 10:59] LABS: Glucose,Whole Blood 157 mg/dL (70-110)
[2022-04-05 12:01] LABS: Glucose,Whole Blood 131 mg/dL (70-110)
[2022-04-05 12:57] LABS: Glucose,Whole Blood 140 mg/dL (70-110)
[2022-04-05] MEDS: MULTIVITAMINS, THERA 1 EACH TAB PO SCH (13:45)
[2022-04-05 14:04] LABS: Glucose,Whole Blood 269 mg/dL (70-110)
[2022-04-05] MEDS: INSULIN REGULAR 100 UNIT in SODIUM CHLORIDE 0.9% 100 ML IV SCH (14:05)
[2022-04-05 14:59] LABS: Glucose,Whole Blood 290 mg/dL (70-110)
[2022-04-05 16:00] LABS: Glucose,Whole Blood 267 mg/dL (70-110)
[2022-04-05 17:00] LABS: Glucose,Whole Blood 263 mg/dL (70-110)
[2022-04-05] MEDS: DEXTROSE 5%-0.9% NACL 1,000 ML IV SCH (17:07)
[2022-04-05 18:05] LABS: Glucose,Whole Blood 278 mg/dL (70-110)
--- NOTE | 2022-04-05 18:52 | P.PN ---
Subjective Progress Note Date: 04/05/22 This is a 67-year-old female who was recently admitted with an acute asthma exacerbation along with RSV infection is being closely monitored. Patient continues to be bronchospastic and wheezy and short of breath and not quite back to baseline. Patient is being followed by pulmonary maintained on IV steroids along with DuoNeb treatments. Patient was moved to 3 S. stepdown for close monitoring of insulin drip as blood sugars have been elevated and uncontrolled due to steroid-induced. Patient is afebrile denies chest pain or palpitations. Patient was on clear liquids although will continue consistent carb. Encouraged increased activity as tolerated. Review of systems: Constitutional: No reports of fatigue, fever, or chills Cardiovascular: No reports of chest pain or palpitations Respiratory: No reports of worsening shortness of breath, reports continued cough and congestion with wheezing GI: No reports of nausea, no reports of of vomiting, no diarrhea : No reports of dysuria or retention Neurovascular: Reports generalized weakness All medications have been reviewed Active Medications Acetaminophen (Acetaminophen Tab 325 Mg Tab) 650 mg PO Q6HR PRN PRN Reason: Mild Pain or Fever > 100.5 Albuterol/Ipratropium (Ipratropium-Albuterol 3 Ml Neb) 3 ml INHALATION RT-QID PRN PRN Reason: Shortness Of Breath Albuterol/Ipratropium (Ipratropium-Albuterol 3 Ml Neb) 3 ml INHALATION RT-QID [facility] Last Admin: 04/05/22 15:42 Dose: 3 ml Aspirin (Aspirin 81 Mg) 81 mg PO BID [facility] Last Admin: 04/05/22 08:46 Dose: 81 mg Atorvastatin Calcium (Atorvastatin 80 Mg Tab) 80 mg PO DAILY [facility] Last Admin: 04/05/22 08:46 Dose: 80 mg Budesonide/Formoterol Fumarate (Symbicort 160-4.5 Mcg Inhaler) 2 puff INHALATION RT-BID [facility] Last Admin: 04/05/22 07:49 Dose: 2 puff Dextrose/Water (Dextrose 50% Syringe 50 Ml) 25 ml IVP PER PROTOCOL PRN; Protocol PRN Reason: Hypoglycemia Dextrose/Water (Dextrose 50% Syringe 50 Ml) 50 ml IVP PER PROTOCOL PRN; Protocol PRN Reason: Hypoglycemia Famotidine (Famotidine 20 Mg Tab) 20 mg PO BID [facility] Last Admin: 04/05/22 08:46 Dose: 20 mg Furosemide (Furosemide 40 Mg Tab) 40 mg PO DAILY [facility] Last Admin: 04/05/22 08:45 Dose: 40 mg Gabapentin (Gabapentin 300 Mg Cap) 600 mg PO QID [facility] Last Admin: 04/05/22 17:08 Dose: 600 mg Dextrose/Sodium Chloride (Dextrose 5%-Ns Iv Soln) 1,000 mls @ 75 mls/hr IV .[id number] [facility] Last Admin: 04/05/22 17:07 Dose: 75 mls/hr Insulin Human Regular 100 unit (/ Sodium Chloride) 100 mls @ 0 mls/hr IV .Q0M [facility]; Protocol Stop: 04/05/22 21:00 Last Titration: 04/05/22 18:09 Dose: 7.68 units/hr, 7.681 mls/hr Insulin Detemir (Insulin Detemir (Levemir) 100 Unit/Ml Syr) 50 unit SQ BID@0700,2100 [facility] Ketorolac Tromethamine (Ketorolac 15 Mg/Ml 1 Ml Vial) 15 mg IVP Q6HR PRN PRN Reason: Moderate Pain (Scale 4 to 6) Stop: 04/05/22 19:18 Levothyroxine Sodium (Levothyroxine 75 Mcg Tab) 150 mcg PO DAILY@0630 [facility] Last Admin: 04/05/22 08:46 Dose: 150 mcg Methylprednisolone Sodium Succinate (Methylprednisolone Sod Succi 125 Mg/2 Ml Vial) 60 mg IV Q6H [facility] Last Admin: 04/05/22 13:45 Dose: 60 mg Mirtazapine (Mirtazapine 15 Mg Tab) 15 mg PO HS [facility] Last Admin: 04/04/22 19:59 Dose: 15 mg Montelukast Sodium (Montelukast 10 Mg Tab) 10 mg PO DAILY [facility] Last Admin: 04/05/22 08:45 Dose: 10 mg Multivitamins (Multivitamins, Thera 1 Each Tab) 1 each PO DAILY [facility] Last Admin: 04/05/22 13:45 Dose: 1 each Naloxone HCl (Naloxone 0.4 Mg/Ml 1 Ml Vial) 0.2 mg IV Q2M PRN PRN Reason: Opioid Reversal Ondansetron HCl (Ondansetron 4 Mg/2 Ml Vial) 4 mg IVP Q8HR PRN PRN Reason: Nausea And Vomiting Primidone (Primidone 50 Mg Tab) 100 mg PO BID [facility] Last Admin: 04/05/22 08:45 Dose: 100 mg Propranolol HCl (Propranolol 20 Mg Tab) 20 mg PO TID [facility] Last Admin: 04/05/22 17:08 Dose: 20 mg Topiramate (Topiramate 100 Mg Tab) 100 mg PO BID-W/MEALS [facility] Last Admin: 04/05/22 17:08 Dose: 100 mg PHYSICAL EXAMINATION: GENERAL: The patient is alert and oriented x4, Well developed, well nourished. Obese HEENT: Pupils are round and equally reacting to light. EOMI. no scleral icterus. No conjunctival pallor. Normocephalic, atraumatic. No pharyngeal erythema. No thyromegaly. CARDIOVASCULAR: S1 and S2 muffled PULMONARY: diminished breath sounds bilaterally with some scattered wheezing course rhonchi noted. ABDOMEN: soft. Nontender on exam. obese. non-distended, normoactive bowel sounds. No palpable organomegaly. MUSCULOSKELETAL: No joint swelling or deformity. EXTREMITIES: No cyanosis, clubbing, or pedal edema. NEUROLOGICAL: Gross neurological examination did not reveal any focal deficits. SKIN: No rashes. Assessment: Acute asthma, acute exacerbation Acute RSV infection Diabetes mellitus,2, uncontrolled with hyperglycemia History of congestive heart failure Chronic obstructive pulmonary disease Fibromyalgia hypertension Hyperlipidemia GI prophylaxis DVT prophylaxis Full code Plan: Recommend to continue with current medications and management with pulmonary following Recommend continue with DuoNeb treatments along with IV steroids Patient required insulin drip due to uncontrolled blood sugars most likely steroid-induced and will continue protocol and also recommend continuing long- acting as well. Patient on consistent carb diet Encouraged increased activity as tolerated Recommend titrating IV steroids down to 40 mg every 8 hours Recommend repeat labs and follow-up chest x-ray in the a.m. Due to multiple complex medical issues, prognosis is guarded The impression and plan of care has been dictated by Ping Vincent nurse practitioner as directed. Dr. Bart MD I have performed a history and examination and MDM of this patient, discussed the same with the dictator, and agree with the dictator's assessment and plan as written ,documented as a scribe. Based on total visit time, I have performed more than 50% of the visit. Any additional findings or plans will be noted. Objective - Vital Signs Vital signs: Vital Signs Temp 97.6 F 04/05/22 16:36 Pulse 71 04/05/22 16:36 Resp 20 04/05/22 16:36 BP 118/72 04/05/22 16:36 Pulse Ox 93 L 04/05/22 16:36 FiO2 Intake & Output 04/04/22 04/05/22 04/05/22 18:59 06:59 18:59 Intake Total 118 53.242 644.462 Balance 118 53.242 644.462 Weight 101.8 kg 108.3 kg Intake: IV 18.31 Insulin Regular 100 unit 18.31 In Sodium Chloride 0.9% 100 ml @ Titrate IV .Q0M [facility] Rx#:[id number] Intake, IV Titration 53.242 626.152 Amount Dextrose 5%-0.9% NaCl 1, 600 000 ml @ 75 mls/hr IV . [id number] [facility] Rx#:[id number] Insulin Regular 100 unit 53.242 26.152 In Sodium Chloride 0.9% 100 ml @ Titrate IV .Q0M [facility] Rx#:[id number] Oral 118 Other: Voiding Method Toilet Toilet # Voids 2 1 - Labs CBC & Chem 7: 04/05/22 07:21 04/05/22 07:21 Labs: Abnormal Lab Results - Last 24 Hours (Table) 04/04/22 04/04/22 04/04/22 Range/Units 19:48 21:08 21:55 WBC (3.8-10.6) k/uL Plt Count (150-450) k/uL Neutrophils # (1.3-7.7) k/uL Sodium (137-145) mmol/L BUN (7-17) mg/dL Glucose (74-99) mg/dL POC Glucose (mg/dL) 355 H 394 H 301 H (70-110) mg/dL 04/04/22 04/04/22 04/05/22 Range/Units 22:58 23:51 04:48 WBC (3.8-10.6) k/uL Plt Count (150-450) k/uL Neutrophils # (1.3-7.7) k/uL Sodium (137-145) mmol/L BUN (7-17) mg/dL Glucose (74-99) mg/dL POC Glucose (mg/dL) 176 H 152 H 139 H (70-110) mg/dL 04/05/22 04/05/22 04/05/22 Range/Units 06:07 07:03 07:21 WBC 11.6 H (3.8-10.6) k/uL Plt Count 145 L (150-450) k/uL Neutrophils # 9.0 H (1.3-7.7) k/uL Sodium (137-145) mmol/L BUN (7-17) mg/dL Glucose (74-99) mg/dL POC Glucose (mg/dL) 135 H 159 H (70-110) mg/dL 04/05/22 04/05/22 04/05/22 Range/Units 07:21 07:56 08:39 WBC (3.8-10.6) k/uL Plt Count (150-450) k/uL Neutrophils # (1.3-7.7) k/uL Sodium 136 L (137-145) mmol/L BUN 34 H (7-17) mg/dL Glucose 137 H (74-99) mg/dL POC Glucose (mg/dL) 132 H 207 H (70-110) mg/dL 04/05/22 04/05/22 04/05/22 Range/Units 08:57 10:07 10:57 WBC (3.8-10.6) k/uL Plt Count (150-450) k/uL Neutrophils # (1.3-7.7) k/uL Sodium (137-145) mmol/L BUN (7-17) mg/dL Glucose (74-99) mg/dL POC Glucose (mg/dL) 195 H 170 H 157 H (70-110) mg/dL 04/05/22 04/05/22 04/05/22 Range/Units 12:00 12:55 14:01 WBC (3.8-10.6) k/uL Plt Count (150-450) k/uL Neutrophils # (1.3-7.7) k/uL Sodium (137-145) mmol/L BUN (7-17) mg/dL Glucose (74-99) mg/dL POC Glucose (mg/dL) 131 H 140 H 269 H (70-110) mg/dL 04/05/22 04/05/22 04/05/22 Range/Units 14:58 15:58 16:59 WBC (3.8-10.6) k/uL Plt Count (150-450) k/uL Neutrophils # (1.3-7.7) k/uL Sodium (137-145) mmol/L BUN (7-17) mg/dL Glucose (74-99) mg/dL POC Glucose (mg/dL) 290 H 267 H 263 H (70-110) mg/dL 04/05/22 Range/Units 18:03 WBC (3.8-10.6) k/uL Plt Count (150-450) k/uL Neutrophils # (1.3-7.7) k/uL Sodium (137-145) mmol/L BUN (7-17) mg/dL Glucose (74-99) mg/dL POC Glucose (mg/dL) 278 H (70-110) mg/dL Microbiology - Last 24 Hours (Table) 04/02/22 19:14 Blood Culture - Preliminary Blood No Growth after 48 hours 04/02/22 19:14 Blood Culture - Preliminary Blood No Growth after 48 hours
[2022-04-05 18:59] LABS: Glucose,Whole Blood 296 mg/dL (70-110)
[2022-04-05] MEDS ORDERED: SODIUM CHLORIDE 0.9% 1,000 ML IV SCH (19:00)
[2022-04-05 19:58] LABS: Glucose,Whole Blood 286 mg/dL (70-110)
[2022-04-05] MEDS: methylPREDNISolone SOD SUCCI 40 MG/ML 1 ML VIAL IV SCH (20:17)
[2022-04-05] MEDS: MIRTAZAPINE 15 MG TAB PO SCH (20:18)
[2022-04-05] MEDS ORDERED: INSULIN DETEMIR (LEVEMIR) 100 UNIT/ML SYR SQ SCH (21:00)
[2022-04-05 21:04] LABS: Glucose,Whole Blood 297 mg/dL (70-110)
[2022-04-05] MEDS ORDERED: INSULIN REGULAR 100 UNIT in SODIUM CHLORIDE 0.9% 100 ML IV SCH (21:15)
[2022-04-05 21:59] LABS: Glucose,Whole Blood 241 mg/dL (70-110)
[2022-04-05 22:11] VITALS: RESP 18
[2022-04-05 23:08] LABS: Glucose,Whole Blood 123 mg/dL (70-110)
[2022-04-06 00:05] LABS: Glucose,Whole Blood 100 mg/dL (70-110)
[2022-04-06 01:01] LABS: Glucose,Whole Blood 115 mg/dL (70-110)
[2022-04-06 02:04] LABS: Glucose,Whole Blood 160 mg/dL (70-110)
[2022-04-06 03:02] LABS: Glucose,Whole Blood 177 mg/dL (70-110)
[2022-04-06] MEDS: methylPREDNISolone SOD SUCCI 40 MG/ML 1 ML VIAL IV SCH (03:22)
[2022-04-06 04:12] LABS: Glucose,Whole Blood 222 mg/dL (70-110)
[2022-04-06 05:02] LABS: Glucose,Whole Blood 202 mg/dL (70-110)
[2022-04-06 06:04] LABS: Glucose,Whole Blood 142 mg/dL (70-110)
[2022-04-06] MEDS: LEVOTHYROXINE 75 MCG TAB PO SCH (06:09)
[2022-04-06] MEDS: TOPIRAMATE 100 MG TAB PO SCH (06:09)
[2022-04-06 07:03] LABS: Glucose,Whole Blood 117 mg/dL (70-110)
[2022-04-06 08:02] LABS: Glucose,Whole Blood 138 mg/dL (70-110)
[2022-04-06] MEDS: IPRATROPIUM-ALBUTEROL 3 ML NEB INHALATION SCH ×2 (08:14→12:03)
[2022-04-06] MEDS: SYMBICORT 160-4.5 MCG INHALER INHALATION SCH (08:14)
--- NOTE | 2022-04-06 08:17 | XR ---
EXAMINATION TYPE: XR chest 1V portable DATE OF EXAM: 04/06/2022 COMPARISON: 04/02/2022 INDICATION: Short of breath TECHNIQUE: Single frontal view of the chest is obtained. FINDINGS: The heart size is normal. The pulmonary vasculature is normal. The lungs are clear. IMPRESSION: 1. No acute pulmonary process.
[2022-04-06 08:39] LABS: Basophils % (A) 0 %; Eosinophils % (A) 0 %; HGB 12.9 gm/dL (11.4-16.0); Lymphocytes # (A) 1.9 k/uL (1.0-4.8); Lymphocytes % (A) 17 %; MCH 32.3 pg (25.0-35.0); MCHC 33.1 g/dL (31.0-37.0); MCV 97.6 fL (80.0-100.0); Mean Platelet Volume 12.7; Monocytes # (A) 0.7 k/uL (0-1.0); Monocytes % (A) 6 %; Neutrophils # (A) 8.9 k/uL (1.3-7.7); Neutrophils % (A) 76 %; Platelet Count 153 k/uL (150-450); RDW 12.6 % (11.5-15.5); WBC 11.7 k/uL (3.8-10.6)
[2022-04-06 08:54] LABS: Glucose,Whole Blood 226 mg/dL (70-110)
[2022-04-06 08:54] LABS: Potassium 3.7 mmol/L (3.5-5.1)
[2022-04-06 08:59] VITALS: BP 106/56; PULSE 82; TEMP 97.8
[2022-04-06] MEDS: FUROSEMIDE 40 MG TAB PO SCH (09:01)
[2022-04-06] MEDS: PROPRANOLOL 20 MG TAB PO SCH (09:01)
[2022-04-06] MEDS: ASPIRIN 81 MG PO SCH (09:01)
[2022-04-06] MEDS: GABAPENTIN 300 MG CAP PO SCH (09:01)
[2022-04-06] MEDS: MONTELUKAST 10 MG TAB PO SCH (09:01)
[2022-04-06] MEDS: FAMOTIDINE 20 MG TAB PO SCH (09:01)
[2022-04-06] MEDS: ATORVASTATIN 80 MG TAB PO SCH (09:01)
[2022-04-06] MEDS: PRIMIDONE 50 MG TAB PO SCH (09:01)
[2022-04-06] MEDS: MULTIVITAMINS, THERA 1 EACH TAB PO SCH (09:02)
[2022-04-06] MEDS ORDERED: DEXTROSE 50% SYRINGE 50 ML IVP PRN ×2 (09:10)
[2022-04-06] MEDS ORDERED: INSULIN DETEMIR (LEVEMIR) 100 UNIT/ML SYR SQ SCH (09:15)
--- NOTE | 2022-04-06 10:20 | P.PN ---
Subjective Progress Note Date: 04/06/22 67-year-old female with history of asthma, who presents to the emergency department, on April 02, complaining of shortness of breath, cough, wheezing, and chest congestion. Everything seemed to go back for her beginning on March 27. The patient is typically on updraft treatments, generic Advair, Si ngulair, and Ventolin for her asthma. None of those medications seem to be helping her right now. The patient denied any chest pain or chest discomfort. Her cough is mildly productive. She has been having some nasal congestion as well. She seen today in room 637. White count 6.1, hemoglobin 13.5, hematocrit 39.6, and platelet count 105,000. Sodium 136, potassium 5.2, chlorides 107, CO2 25, BUN 28, and creatinine 0.69. The rest of her labs look good. She did test positive for respiratory syncytial virus. Chest x-ray shows only chronic changes, without acute disease. On today's evaluation of 04/04/2022, patient is to bronchospastic and wheezy. The patient has been infected with RSV and the patient is currently on IV Solu- Medrol which resulted into elevated blood sugar. Based on that, the patient is currently on high dose of Levemir insulin 30 units twice a day along with that she is a slight scale coverage. Monitor blood sugar and effectively control over the next 24 hours. She is to bronchospastic and she has a cough and congestion and wheeze. No significant sputum production. She was known to have asthma maintained on Advair outpatient basis in combination with singular and lateral ischemia was negative at time of admission. On 04/05/2022, Limited improvement compared to yesterday. The patient remains on IV Solu-Medrol. She developed steroid-induced hyperglycemia. Based on that, the patient was started on an insulin drip as the patient was not adequately controlled on Levemir insulin. Currently she is on insulin drip at 3.40 units an hour. She is on IV Solu-Medrol high-dose 60 mg every 6 hours. She is on DuoNeb nebulized treatments [id number]. Rest of the medication remains unchanged. The blood sugar currently is at 170. No other significant events otherwise over the past 24 hours. She is known to be asthmatic which exacerbated his RSV infection. 04/06/2022, the patient remains bronchospastic and wheezy I would say she is very slow to progress as the patient is infected with RSV and her asthma is exacerbated. She remains on the same treatment for now. No new changes. She remains on room air oxygen. She was on an insulin drip for blood sugar control currently she is off the insulin drip. The chest x-ray shows no acute ab normalities. Blood work is essentially within normal limits and the most recent blood sugars down to 138. The rest of the electrolytes show a sodium level of 138, BUN of 33 and a creatinine of 0.8 and a double episodes of 11.7. The patient remains on DuoNeb neb blotchiness on the clock. The patient remains on IV Solu-Medrol 40 mg every 8 hours. She is on Levemir insulin 20 units twice a day and NovoLog size Coverage. Objective - Vital Signs Vital signs: Vital Signs Temp 97.8 F 04/06/22 08:00 Pulse 71 04/06/22 08:27 Resp 18 04/06/22 08:00 BP 106/56 04/06/22 08:00 Pulse Ox 94 L 04/06/22 08:15 FiO2 Intake & Output 04/05/22 04/06/22 04/06/22 18:59 06:59 18:59 Intake Total 644.462 60.609 7.551 Balance 644.462 60.609 7.551 Weight 109.4 kg Intake: IV 18.31 Insulin Regular 100 unit 18.31 In Sodium Chloride 0.9% 100 ml @ Titrate IV .Q0M [facility] Rx#:[id number] Intake, IV Titration 626.152 60.609 7.551 Amount Dextrose 5%-0.9% NaCl 1, 600 000 ml @ 75 mls/hr IV . [id number] [facility] Rx#:[id number] Insulin Regular 100 unit 26.152 15.201 In Sodium Chloride 0.9% 100 ml @ Titrate IV .Q0M [facility] Rx#:[id number] Insulin Regular 100 unit 45.408 7.551 In Sodium Chloride 0.9% 100 ml @ Titrate IV .Q0M [facility] Rx#:[id number] Other: Voiding Method Toilet # Voids 1 - Exam No acute distress, oriented 3. No conversational dyspnea or use of accessory muscles. Patient is currently on room and oxygen Head exam was generally normal. There was no scleral icterus or corneal arcus. Mucous membranes were moist. Neck supple. Full range of motion. No adenopathy thyromegaly or neck vein distention. Cardiovascular examination reveals regular rhythm rate. S1-S2 normal. No S3 or S4. No discernible murmur noted. Lungs reveal coarse inspiratory and expiratory wheezes and rhonchi. No crackles. Breath sounds equal. Abdomen soft bowel sounds are heard. No masses or tenderness. Extremities are intact. No cyanosis clubbing or edema. Skin is without rash or lesion. - Labs CBC & Chem 7: 04/06/22 07:13 04/06/22 07:13 Labs: Abnormal Lab Results - Last 24 Hours (Table) 04/05/22 04/05/22 04/05/22 Range/Units 10:57 12:00 12:55 WBC (3.8-10.6) k/uL Neutrophils # (1.3-7.7) k/uL BUN (7-17) mg/dL POC Glucose (mg/dL) 157 H 131 H 140 H (70-110) mg/dL Calcium (8.4-10.2) mg/dL 04/05/22 04/05/22 04/05/22 Range/Units 14:01 14:58 15:58 WBC (3.8-10.6) k/uL Neutrophils # (1.3-7.7) k/uL BUN (7-17) mg/dL POC Glucose (mg/dL) 269 H 290 H 267 H (70-110) mg/dL Calcium (8.4-10.2) mg/dL 04/05/22 04/05/22 04/05/22 Range/Units 16:59 18:03 18:58 WBC (3.8-10.6) k/uL Neutrophils # (1.3-7.7) k/uL BUN (7-17) mg/dL POC Glucose (mg/dL) 263 H 278 H 296 H (70-110) mg/dL Calcium (8.4-10.2) mg/dL 04/05/22 04/05/22 04/05/22 Range/Units 19:57 21:03 21:57 WBC (3.8-10.6) k/uL Neutrophils # (1.3-7.7) k/uL BUN (7-17) mg/dL POC Glucose (mg/dL) 286 H 297 H 241 H (70-110) mg/dL Calcium (8.4-10.2) mg/dL 04/05/22 04/06/22 04/06/22 Range/Units 23:07 00:59 02:02 WBC (3.8-10.6) k/uL Neutrophils # (1.3-7.7) k/uL BUN (7-17) mg/dL POC Glucose (mg/dL) 123 H 115 H 160 H (70-110) mg/dL Calcium (8.4-10.2) mg/dL 04/06/22 04/06/22 04/06/22 Range/Units 03:00 04:10 04:59 WBC (3.8-10.6) k/uL Neutrophils # (1.3-7.7) k/uL BUN (7-17) mg/dL POC Glucose (mg/dL) 177 H 222 H 202 H (70-110) mg/dL Calcium (8.4-10.2) mg/dL 04/06/22 04/06/22 04/06/22 Range/Units 06:02 07:01 07:13 WBC 11.7 H (3.8-10.6) k/uL Neutrophils # 8.9 H (1.3-7.7) k/uL BUN (7-17) mg/dL POC Glucose (mg/dL) 142 H 117 H (70-110) mg/dL Calcium (8.4-10.2) mg/dL 04/06/22 04/06/22 04/06/22 Range/Units 07:13 08:00 08:53 WBC (3.8-10.6) k/uL Neutrophils # (1.3-7.7) k/uL BUN 33 H (7-17) mg/dL POC Glucose (mg/dL) 138 H 226 H (70-110) mg/dL Calcium 8.0 L (8.4-10.2) mg/dL Microbiology - Last 24 Hours (Table) 04/02/22 19:14 Blood Culture - Preliminary Blood No Growth after 72 hours 04/02/22 19:14 Blood Culture - Preliminary Blood No Growth after 72 hours Assessment and Plan Plan: Acute exacerbation of asthma, triggered by respiratory syncytial virus. The patient remains on bronchodilators and steroids History of CHF. History of CVA. History of diabetes mellitus. The patient is currently on insulin drip treating a steroid-induced hyperglycemia History of gastroesophageal reflux disease. History of hypertension. History of hyperlipidemia. History of obstructive sleep apnea syndrome. Multiple other medical problems and comorbidities. Plan: Slow recovery is anticipated in this patient. I will suggest stopping the IV Solu-Medrol and putting on a prednisone burst taper and this will be a slow taper over the next 3 weeks as the patient recovers from her acute asthma exacerbation and RSV infection. Continue bronchodilators. Resume Advair on outpatient basis. Insulin adjustments have been done by the medical group. Blood sugars under better control. Potential discharge within next 24 hours. Would also off her cough medication. It's reasonable to offer the patient some promethazine on outpatient basis for a better cough suppression.
[2022-04-06] MEDS: DEXTROSE 5%-0.9% NACL 1,000 ML IV SCH (11:02)
[2022-04-06] MEDS ORDERED: INSULIN ASPART (NovoLOG) 100 UNIT/ML VIAL SQ SCH (12:30)
[2022-04-07] MEDS ORDERED: predniSONE 20 MG TAB PO SCH (09:00)
--- NOTE | 2022-04-07 10:43 | P.DS ---
Providers Date of admission: 04/02/22 19:24 Expected date of discharge: 04/06/22 Attending physician: Lonny Loaiza Consults: 04/02/22 19:17 Consult Physician Routine Consulting Provider: Rodrigo Olivera Consult Reason/Comments: COPD exacerbation, RSV Do you want consulting provider notified?: Yes, Notify in am Primary care physician: Bruno Weston Hospital Course: Final diagnosis Acute asthma, acute exacerbation Acute RSV infection Diabetes mellitus,2, uncontrolled with hyperglycemia History of congestive heart failure Chronic obstructive pulmonary disease Fibromyalgia hypertension Hyperlipidemia GI prophylaxis DVT prophylaxis Full code Discharge disposition Patient is being discharged in a stable condition with guarded prognosis to home. Patient will follow-up with Dr. Weston in the outpatient setting upon discharge. Patient is to continue with prednisone taper on discharge. Total time taken is greater than 35 minutes. Hospital course This is a 67-year-old female who was recently admitted with shortness of breath with cough and congestion with RSD and being monitored. Patient being followed by pulmonary maintained on IV steroids having difficulties with elevated blood sugars and did require insulin drip for some time. Patient blood sugars under better control and recommend close outpatient follow-up with primary care provider and monitoring blood sugars before meals and at bedtime and keeping a diary as insulins are being increased while on steroid taper. Patient needs pulmonary follow-up outpatient. Patient reports to feeling somewhat improved continues with a cough although less wheezy and would like to go home. Patient has been cleared by pulmonary. Please refer to previous dictations all other consultation notes for further HPI. Currently no reports of chest pain, shortness of breath, or palpitations. Patient is afebrile. No reports of nausea or vomiting and patient is tolerating diet. Patient will be discharged home today. Guarded Prognosis Physical exam: Gen: This is a 67-year-old female who is awake, alert and oriented 3, well- developed, well-nourished, obese HEENT: Head is atraumatic, normocephalic. Pupils equal, round. Sclerae is anicteric. NECK: Supple. No JVD. No lymphadenopathy. No thyromegaly. LUNGS: Diminished breath sounds bilaterally with some coarse rhonchi and expiratory wheezing noted with bronchial spasms No intercostal retractions. HEART: Regular rate and rhythm. No murmur. ABDOMEN: Soft. Bowel sounds are present. No masses. No tenderness. EXTREMITIES: No pedal edema. No calf tenderness. NEUROLOGICAL: Patient is awake, alert and oriented x3. Cranial nerves 2 through 12 are grossly intact. Please refer to medication reconciliation sheet for a list of medications. The impression and plan of care has been dictated by Ping Vincent, Nurse Practitioner as directed. Dr. Josse MD I have performed a history and examination and MDM of this patient, discussed the same with the dictator, and agree with the dictator's assessment and plan as written ,documented as a scribe. Based on total visit time, I have performed more than 50% of the visit. Patient Condition at Discharge: Stable Plan - Discharge Summary New Discharge Prescriptions: New predniSONE 10 mg PO DIRECTED #50 tab Ipratropium-Albuterol Nebulize [Duoneb 0.5 mg-3 mg/3 ml Soln] 3 ml INHALATION RT-QID 30 Days #120 each Promethazine HCl 6.25 mg PO TID #9 tablet Continue Primidone [Mysoline] 100 mg PO BID Omeprazole [PriLOSEC] 20 mg PO DAILY Montelukast Sodium [Singulair] 10 mg PO DAILY Levothyroxine Sodium [Synthroid] 150 mcg PO DAILY Aspirin 81 mg PO BID Mirtazapine [Remeron] 15 mg PO HS Metoclopramide [Reglan] 10 mg PO DAILY Multivit-Min36/Iron/Folic Acid [Geritol Complete Tablet] 1 tab PO DAILY Vitamin B Complex 1 cap PO DAILY Ergocalciferol (Vitamin D2) [Drisdol (50,000 Iu)] 50,000 unit PO CONTRERAS Propranolol [Inderal] 20 mg PO TID Magnesium 250 mg PO DAILY Ipratropium-Albuterol Nebulize [Duoneb 0.5 mg-3 mg/3 ml Soln] 3 ml INHALATION RT-QID PRN PRN Reason: Shortness Of Breath Insulin Aspart [NovoLOG Flexpen] See Protocol SQ TID-W/MEALS PRN PRN Reason: Blood Sugar - High Topiramate 100 mg PO BID-W/MEALS Potassium Chloride ER [K-Dur 10] 10 meq PO DAILY Ibuprofen [Motrin] 800 mg PO Q8H PRN PRN Reason: Pain Or Fever > 100.5 Furosemide [Lasix] 40 mg PO DAILY Atorvastatin [Lipitor] 80 mg PO DAILY Fluticasone Propion/Salmeterol [Wixela 500-50 Inhub] 1 puff INHALATION RT-BID Gabapentin 600 mg PO QID Changed Insulin Glargine,Hum.rec.anlog [Lantus Solostar Pen] 20 units SQ BID 30 Days #10 each Discontinued lisinopriL [Prinivil] 5 mg PO DAILY Discharge Medication List Aspirin 81 mg PO BID 09/21/13 [History] Levothyroxine Sodium [Synthroid] 150 mcg PO DAILY 09/21/13 [History] Montelukast Sodium [Singulair] 10 mg PO DAILY 09/21/13 [History] Omeprazole [PriLOSEC] 20 mg PO DAILY 09/21/13 [History] Primidone [Mysoline] 100 mg PO BID 09/21/13 [History] Metoclopramide [Reglan] 10 mg PO DAILY 08/10/16 [History] Mirtazapine [Remeron] 15 mg PO HS 08/10/16 [History] Multivit-Min36/Iron/Folic Acid [Geritol Complete Tablet] 1 tab PO DAILY 08/10/16 [History] Ergocalciferol (Vitamin D2) [Drisdol (50,000 Iu)] 50,000 unit PO CONTRERAS 01/17/18 [History] Vitamin B Complex 1 cap PO DAILY 01/17/18 [History] Atorvastatin [Lipitor] 80 mg PO DAILY 12/01/21 [History] Fluticasone Propion/Salmeterol [Wixela 500-50 Inhub] 1 puff INHALATION RT-BID 12/01/21 [History] Insulin Aspart [NovoLOG Flexpen] See Protocol SQ TID-W/MEALS PRN 12/01/21 [History] Ipratropium-Albuterol Nebulize [Duoneb 0.5 mg-3 mg/3 ml Soln] 3 ml INHALATION RT-QID PRN 12/01/21 [History] Magnesium 250 mg PO DAILY 12/01/21 [History] Propranolol [Inderal] 20 mg PO TID 12/01/21 [History] Furosemide [Lasix] 40 mg PO DAILY 04/02/22 [History] Gabapentin 600 mg PO QID 04/02/22 [History] Ibuprofen [Motrin] 800 mg PO Q8H PRN 04/02/22 [History] Potassium Chloride ER [K-Dur 10] 10 meq PO DAILY 04/02/22 [History] Topiramate 100 mg PO BID-W/MEALS 04/02/22 [History] Insulin Glargine,Hum.rec.anlog [Lantus Solostar Pen] 20 units SQ BID 30 Days #10 each 04/06/22 [Rx] Ipratropium-Albuterol Nebulize [Duoneb 0.5 mg-3 mg/3 ml Soln] 3 ml INHALATION RT-QID 30 Days #120 each 04/06/22 [Rx] Promethazine HCl 6.25 mg PO TID #9 tablet 04/06/22 [Rx] predniSONE 10 mg PO DIRECTED #50 tab 04/06/22 [Rx] Follow up Appointment(s)/Referral(s): Bruno Weston MD [Primary Care Provider] - 1-2 days Shar Becker MD [STAFF PHYSICIAN] - 1 Week Patient Instructions/Handouts: Respiratory Syncytial Virus (DC), COPD (Chronic Obstructive Pulmonary Disease) (DC) Activity/Diet/Wound Care/Special Instructions: Activity Limited until follow-up Follow-up with primary care provider on discharge Continue medications as prescribed Continue to monitor Accu-Cheks before meals and at bedtime and keep a diary for follow-up with primary care provider Follow-up pulmonary outpatient Continue with higher doses of insulin coverage while once steroids Continue consistent carb diet Discharge Disposition: HOME SELF-CARE
== END 2022-04-06 12:11 | disposition home or self-care (01) | DRG 202 ==
LOC: EC 12:20 → 6NMEDSUR 19:24 → 3SCARD 04-04 18:11
PROVIDERS: ADMIT Internal Medicine; ATTEND Internal Medicine
DX: J45.901 Unspecified asthma with (acute) exacerbation (principal); J44.1 Chronic obstructive pulmonary disease with (acute) exacerbation; E11.41 Type 2 diabetes mellitus with diabetic mononeuropathy; I11.0 Hypertensive heart disease with heart failure; I50.9 Heart failure, unspecified; B97.4 Respiratory syncytial virus as the cause of diseases classified elsewhere; E11.65 Type 2 diabetes mellitus with hyperglycemia; Z79.4 Long term (current) use of insulin; Z20.822 Contact with and (suspected) exposure to COVID-19; G47.33 Obstructive sleep apnea (adult) (pediatric); M79.7 Fibromyalgia; E78.5 Hyperlipidemia, unspecified; E07.9 Disorder of thyroid, unspecified; I25.10 Atherosclerotic heart disease of native coronary artery without angina pectoris; M41.9 Scoliosis, unspecified; E66.9 Obesity, unspecified; Z68.39 Body mass index [BMI] 39.0-39.9, adult; T38.0X5A Adverse effect of glucocorticoids and synthetic analogues, initial encounter; K21.9 Gastro-esophageal reflux disease without esophagitis; K58.9 Irritable bowel syndrome, unspecified; M19.90 Unspecified osteoarthritis, unspecified site; G89.29 Other chronic pain; M54.50 Low back pain, unspecified; M54.2 Cervicalgia; Z79.890 Hormone replacement therapy; Z79.82 Long term (current) use of aspirin; Z79.51 Long term (current) use of inhaled steroids; Z79.899 Other long term (current) drug therapy; Z96.652 Presence of left artificial knee joint; Z87.01 Personal history of pneumonia (recurrent); Z86.73 Personal history of transient ischemic attack (TIA), and cerebral infarction without residual deficits; Z71.3 Dietary counseling and surveillance; Z88.5 Allergy status to narcotic agent; Z88.0 Allergy status to penicillin; Z88.2 Allergy status to sulfonamides; Z88.8 Allergy status to other drugs, medicaments and biological substances; Z88.1 Allergy status to other antibiotic agents; Z91.041 Radiographic dye allergy status; Z91.040 Latex allergy status
CPT/HCPCS: 36415; 71045; 71046; 80048; 80053; 83036; 83735; 84145; 84484; 85025; 87040; 87636; 93005; 94640; 94760; 96365; 96375; 99285

== ENCOUNTER → 2022-04-10 | Outpatient (CLI) | payer MEDICARE ==
[2022-04-10 19:05] LABS: Basophils # (A) 0.02 X 10*3/uL (0.00-0.10); Basophils % (A) 0.1 %; Eosinophils # (A) 0.05 X 10*3/uL (0.04-0.35); Eosinophils % (A) 0.3 %; HCT 42.3 % (37.2-46.3); HGB 13.3 g/dL (12.0-15.0); Immature Grans, Automated 0.7 %; Lymphocytes # (A) 1.64 X 10*3/uL (0.90-5.00); Lymphocytes % (A) 9.9 %; MCH 31.1 pg (27.0-32.0); MCHC 31.4 g/dL (32.0-37.0); MCV 98.8 fL (80.0-97.0); Mean Platelet Volume 14.5 fL (9.5-12.2); Monocytes # (A) 0.65 X 10*3/uL (0.20-1.00); Monocytes % (A) 3.9 %; NRBC Per 100 WBC 0 /100 WBCS (0.0-0.0); Neutrophils % (A) 85.1 %; Platelet Count 168 X 10*3/uL (140-440); RBC 4.28 X 10*6/uL (4.10-5.20); RDW 13.9 % (11.5-14.5); WBC 16.57 X 10*3/uL (4.50-10.00)
[2022-04-10 19:17] LABS: African American GFR (CKD) 67.7 (60.0-200.0); Albumin 3.7 g/dL (3.8-4.9); Albumin/Globulin Ratio 1.6 (1.60-3.17); Anion Gap 12.7 mmol/L (10.00-18.00); BUN/Creat Ratio 20.89 Ratio (12.00-20.00); Blood Urea Nitrogen 21.1 mg/dL (9.0-27.0); Calcium 8.9 mg/dL (8.7-10.3); Carbon Dioxide 28.4 mmol/L (20.0-27.5); Globulin 2.3 g/dL (1.6-3.3); Non-African American GFR(CKD) 58.4 (60.0-200.0); Potassium 4.6 mmol/L (3.5-5.5); Total Bilirubin 0.4 mg/dL (0.30-1.20)
== END | disposition home or self-care (01) ==
LOC: LABWHC1 11:04
PROVIDERS: ATTEND Family Medicine
DX: I10 Essential (primary) hypertension (principal)
CPT/HCPCS: 36415; 80053; 85025

== ENCOUNTER → 2022-04-18 | Outpatient (CLI) | payer MEDICARE ==
[2022-04-18 19:45] LABS: Basophils # (A) 0.07 X 10*3/uL (0.00-0.10); Basophils % (A) 0.9 %; Eosinophils # (A) 0.12 X 10*3/uL (0.04-0.35); Eosinophils % (A) 1.5 %; HCT 40.5 % (37.2-46.3); HGB 12.3 g/dL (12.0-15.0); Immature Grans, Automated 0.3 %; Lymphocytes # (A) 3.75 X 10*3/uL (0.90-5.00); Lymphocytes % (A) 47.3 %; MCH 30.8 pg (27.0-32.0); MCHC 30.4 g/dL (32.0-37.0); MCV 101.5 fL (80.0-97.0); Mean Platelet Volume 13.5 fL (9.5-12.2); Monocytes # (A) 0.52 X 10*3/uL (0.20-1.00); Monocytes % (A) 6.6 %; NRBC Per 100 WBC 0 /100 WBCS (0.0-0.0); Neutrophils # (A) 3.44 X 10*3/uL (1.80-7.70); Neutrophils % (A) 43.4 %; Platelet Count 203 X 10*3/uL (140-440); RBC 3.99 X 10*6/uL (4.10-5.20); RDW 14.6 % (11.5-14.5); WBC 7.92 X 10*3/uL (4.50-10.00)
== END | disposition home or self-care (01) ==
LOC: LABWHC1 11:15
PROVIDERS: ATTEND Family Medicine
DX: D72.829 Elevated white blood cell count, unspecified (principal)
CPT/HCPCS: 36415; 85025

== ENCOUNTER → 2022-07-19 | Outpatient (CLI) | payer MEDICARE ==
--- NOTE | 2022-07-19 12:22 | XR ---
EXAMINATION TYPE: XR Hip Complete RT DATE OF EXAM: 07/19/2022 11:53 AM INDICATION: Patient age:Female; 67 years old; Reason for study: M25.551 Pain right hip; PHH. COMPARISON: None. TECHNIQUE: The right hip was examined in the frontal and lateral projections aerated FINDINGS: No evidence of any acute osseous pathology, joint dislocation, or soft tissue swelling. No significant joint space narrowing or spurring noted. Few pelvic phleboliths identified. IMPRESSION: No acute osseous pathology.
== END | disposition home or self-care (01) ==
LOC: RADXRMAIN 11:25
PROVIDERS: ATTEND Family Medicine
DX: M25.551 Pain in right hip (principal)
CPT/HCPCS: 73502

== ENCOUNTER → 2022-07-19 | Outpatient (CLI) | payer MEDICARE ==
[2022-07-19 16:32] LABS: Basophils # (A) 0.08 X 10*3/uL (0.00-0.10); Basophils % (A) 1.4 %; Eosinophils # (A) 0.28 X 10*3/uL (0.04-0.35); Eosinophils % (A) 5.1 %; HCT 36.8 % (37.2-46.3); HGB 11.6 g/dL (12.0-15.0); Immature Grans, Automated 0.4 %; Lymphocytes % (A) 41.5 %; MCH 31.7 pg (27.0-32.0); MCHC 31.5 g/dL (32.0-37.0); MCV 100.5 fL (80.0-97.0); Mean Platelet Volume 14.1 fL (9.5-12.2); NRBC Per 100 WBC 0 /100 WBCS (0.0-0.0); Neutrophils # (A) 2.36 X 10*3/uL (1.80-7.70); Neutrophils % (A) 42.6 %; Platelet Count 188 X 10*3/uL (140-440); RBC 3.66 X 10*6/uL (4.10-5.20); RDW 13.9 % (11.5-14.5); WBC 5.54 X 10*3/uL (4.50-10.00)
== END | disposition home or self-care (01) ==
LOC: LABWHC1 10:39
PROVIDERS: ATTEND Family Medicine
DX: D69.6 Thrombocytopenia, unspecified (principal)
CPT/HCPCS: 36415; 85025

== ENCOUNTER → 2022-10-11 | Outpatient (CLI) | payer MEDICARE ==
[2022-10-12 02:16] LABS: Basophils # (A) 0.07 X 10*3/uL (0.00-0.10); Basophils % (A) 1.3 %; Eosinophils # (A) 0.18 X 10*3/uL (0.04-0.35); Eosinophils % (A) 3.3 %; HCT 39.2 % (37.2-46.3); HGB 12.6 d/dL (12.0-15.0); Lymphocytes # (A) 2.36 X 10*3/uL (0.90-5.00); Lymphocytes % (A) 43.3 %; MCHC 32.1 d/dL (32.0-37.0); MCV 99.5 FL (80.0-97.0); Mean Platelet Volume 14.4 FL (9.5-12.2); Monocytes # (A) 0.45 X 10*3/uL (0.20-1.00); Monocytes % (A) 8.3 %; NRBC Per 100 WBC 0 X 10*3/uL (0.00-0.01); Neutrophils # (A) 2.38 X 10*3/uL (1.80-7.70); Neutrophils % (A) 43.6 %; Platelet Count 182 X 10*3/uL (140-440); RBC 3.94 X 10*6/uL (4.10-5.20); RDW 14.6 % (11.5-14.5); WBC 5.45 X 10*3/uL (4.50-10.00)
[2022-10-12 04:14] LABS: % Iron Saturation 22.62 (12.00-45.00); ALT 20 U/L (8-44); AST 15 U/L (13-35); Albumin 3.5 d/dL (3.8-4.9); Alkaline Phosphatase 113 U/L (41-126); BUN/Creat Ratio 10.75 Ratio (12.00-20.00); Blood Urea Nitrogen 8.6 mg/dL (9.0-27.0); Calcium 9.3 mg/dL (8.7-10.3); Carbon Dioxide 29.1 mmol/L (21.6-31.8); Chloride 103 mmol/L (96-109); Globulin 2.7 d/dL (1.6-3.3); Glucose 205 mg/dL (70-110); Iron 50 UG/DL (50-170); Potassium 4.6 mmol/L (3.5-5.5); Sodium 142 mmol/L (135-145); Total Bilirubin 0.3 mg/dL (0.3-1.2); Total Iron Binding Capacity 221 UG/DL (228-460); Total Protein 6.2 d/dL (6.2-8.2)
== END | disposition home or self-care (01) ==
LOC: LABWHC1 14:33
PROVIDERS: ATTEND Family Medicine
DX: E13.42 Other specified diabetes mellitus with diabetic polyneuropathy (principal); D64.9 Anemia, unspecified; E78.2 Mixed hyperlipidemia
CPT/HCPCS: 36415; 80053; 82728; 82746; 83036; 83540; 83550; 85025

== ENCOUNTER → 2023-02-15 | Outpatient (CLI) | payer MEDICARE ==
[2023-02-15 15:26] LABS: Basophils % (A) 1 %; Eosinophils # (A) 0.2 k/uL (0-0.7); Eosinophils % (A) 5 %; HCT 39.6 % (34.0-46.0); HGB 13.1 gm/dL (11.4-16.0); Lymphocytes % (A) 48 %; MCH 32.7 pg (25.0-35.0); MCHC 33.1 g/dL (31.0-37.0); MCV 98.8 fL (80.0-100.0); Mean Platelet Volume 11.5; Monocytes # (A) 0.2 k/uL (0-1.0); Monocytes % (A) 6 %; Neutrophils # (A) 1.7 k/uL (1.3-7.7); Neutrophils % (A) 39 %; Platelet Count 170 k/uL (150-450); WBC 4.3 k/uL (3.8-10.6)
[2023-02-15 15:27] LABS: ALT 23 U/L (4-34); AST 22 U/L (14-36); African American GFR (CKD) >90 (>60 ml/min/1.73 sqM); Albumin 3.2 g/dL (3.5-5.0); Alkaline Phosphatase 154 U/L (38-126); Anion Gap 8 mmol/L; Blood Urea Nitrogen 11 mg/dL (7-17); Calcium 8.8 mg/dL (8.4-10.2); Carbon Dioxide 25 mmol/L (22-30); Chloride 103 mmol/L (98-107); Glucose 271 mg/dL (74-99); Non-African American GFR(CKD) >90 (>60 ml/min/1.73 sqM); Potassium 4.8 mmol/L (3.5-5.1); Sodium 136 mmol/L (137-145); Total Bilirubin 0.5 mg/dL (0.2-1.3)
[2023-02-15 15:42] LABS: T4, Free (Free Thyroxine) 2.42 ng/dL (0.78-2.19)
--- NOTE | 2023-02-18 09:07 | MM ---
Reason for Exam: Screening (asymptomatic). Last mammogram was performed 1 year(s) and 3 month(s) ago. Patient History: Menarche at age 16. First Full-Term at age 21. Left ovary removed at age 40. Right ovary removed at age 40. Hysterectomy at age 40. Postmenopausal. Previous chemotherapy. Estrogen for 5 years, 2 months, until age 50. 05/16/2000, Benign Excisional Biopsy on the left side. 05/02/2000, Stereotactic Core Biopsy on the Left side. Maternal grandmother had breast cancer under age 50. Mother had breast cancer, age 78. Risk Values: Catalina 5 year model risk: 4.2%. NCI Lifetime model risk: 15.2%. Prior Study Comparison: 10/14/2019 Left Diagnostic Mammogram, [facility]. 11/03/2020 Bilateral Screening Mammogram, [facility]. 11/10/2021 Bilateral MG 3D screening mammo w/cad, [facility]. Tissue Density: The breast tissue is almost entirely fat. Findings: Analyzed By CAD. There is no suspicious group of microcalcifications or new suspicious mass. Overall Assessment: Negative, BI-RAD 1 Management: Screening Mammogram of both breasts in [address] [facility] will attempt to contact patient to return for supplemental views and ultrasound if indicated. Patient should continue monthly self-breast exams. A clinical breast exam by your physician is recommended on an annual basis. This exam should not preclude additional follow-up of suspicious palpable abnormalities. Note on Catalina scores and lifetime risk: 1. A Catalina score greater than 3% is considered moderate risk. If this is the case, consider specialist referral to assess eligibility for a risk reducing agent. 2. If overall lifetime risk for the development of breast cancer is 20% or higher, the patient may qualify for future screening with alternating mammogram and breast MRI. Electronically signed and approved by: Rodrigo Frazier DO
--- NOTE | 2023-02-18 12:16 | BD ---
EXAMINATION TYPE: Axial Bone Density DATE OF EXAM: 02/15/2023 CLINICAL HISTORY: 67 years old Female. ICD-10 CODE: R19225 SCREENING FOR OSTEO Height: 64.25 Weight: 234 FRAX RISK QUESTIONS: Family History (Parent hip fracture): no History of Fracture in Adulthood: no Secondary Osteoporosis: no RISK FACTORS HISTORY OF: Family History of Osteoporosis: no Active: somewhat Diet low in dairy products/other sources of calcium: no Postmenopausal woman: yes Lost more than 2 inches in height since high school: no Frequent falls: no Poor Health: no MEDICATIONS: Thyroid Medications: yes Which medication: Synthroid How Lon+ yrs... Additional Medications: yes asthma, low blood pressure, reflux EXAM MEASUREMENTS: Bone mineral densitometry was performed using the Plated System. Bone mineral density as measured about the Lumbar spine is: ----- L1-L4(G/cm2): 0.931 T Score Values are as follows: ----- L1: -1.8 ----- L2: -2.9 ----- L3: -1.9 ----- L4: -1.7 ----- L1-L4: -2.1 Z Score Values are as follows: ----- L1: -1.3 ----- L2: -2.4 ----- L3: -1.5 ----- L4: -1.3 ----- L1-L4: -1.6 Bone mineral density baseline Bone mineral density about the R hip (g/cm2): 0.705 Bone mineral density about the L hip (g/cm2): 0.700 T Score values are as follows: -----R Neck: -3.1 -----L Neck: -2.9 -----R Total: -2.4 -----L Total: -2.4 Z Score values are as follows: -----R Neck: -2.4 -----L Neck: -2.1 -----R Total: -2.0 -----L Total: -2.0 Bone mineral density baseline FRAX%s: The graph provided illustrates a 15.7% chance for a major osteoporotic fx and a 4.6% chance f or the hips probability for fx in 10 years time. IMPRESSION: Osteoporosis (T Score less than -2.5). There is increased fracture risk and therapy is usually indicated based on age. Re-Screen 1-2 years. NOTE: T-SCORE=SD OF THE YOUNG ADULT MEAN.
== END | disposition home or self-care (01) ==
LOC: RADBDWWP 14:03
PROVIDERS: ATTEND Family Medicine
DX: Z12.31 Encounter for screening mammogram for malignant neoplasm of breast (principal); Z13.820 Encounter for screening for osteoporosis; I10 Essential (primary) hypertension; E13.42 Other specified diabetes mellitus with diabetic polyneuropathy; M81.0 Age-related osteoporosis without current pathological fracture; M85.88 Other specified disorders of bone density and structure, other site; Z78.0 Asymptomatic menopausal state; Z80.3 Family history of malignant neoplasm of breast
CPT/HCPCS: 77063; 77067; 77080; 80053; 83036; 84439; 84443; 84481; 85025

== ENCOUNTER 2023-07-29 17:30 | Emergency (ER) | payer MEDICARE ==
--- NOTE | 2023-07-29 17:41 | ED ---
General Adult HPI - General Source: patient, RN notes reviewed Mode of arrival: wheelchair Limitations: no limitations <Regino Harris - Last Filed: 07/29/23 17:42> <Rodrigo Quevedo - Last Filed: 07/29/23 19:47> - General Chief complaint: Skin/Abscess/Foreign Body Stated complaint: Abcess Shoulder Time Seen by Provider: 07/29/23 17:39 - History of Present Illness Initial comments: 68-year-old female presenting to the ED with complaints of abscess to left shoulder. Reports that this has been ongoing for the last 5 days. Saw her PCP today who advised her to present to the ED for further evaluation. (Regino Harris) 68-year-old female with pain and swelling to the left posterior shoulder. Patient had noticed this increased over the past 5 days. Seen by primary and sent to the emergency department for further evaluation and treatment. No measured fever. Patient is a known diabetic. (Rodrigo Quevedo) - Related Data Home Medications Medication Instructions Recorded Confirmed Aspirin 81 mg PO BID 09/21/13 04/02/22 Levothyroxine Sodium [Synthroid] 150 mcg PO DAILY 09/21/13 04/02/22 Montelukast Sodium [Singulair] 10 mg PO DAILY 09/21/13 04/02/22 Omeprazole [PriLOSEC] 20 mg PO DAILY 09/21/13 04/02/22 Primidone [Mysoline] 100 mg PO BID 09/21/13 04/02/22 Metoclopramide [Reglan] 10 mg PO DAILY 08/10/16 04/02/22 Mirtazapine [Remeron] 15 mg PO HS 08/10/16 04/02/22 Multivit-Min36/Iron/Folic Acid 1 tab PO DAILY 08/10/16 04/02/22 [Geritol Complete Tablet] Ergocalciferol (Vitamin D2) 50,000 unit PO CONTRERAS 01/17/18 04/02/22 [Drisdol (50,000 Iu)] Vitamin B Complex 1 cap PO DAILY 01/17/18 04/02/22 Atorvastatin [Lipitor] 80 mg PO DAILY 12/01/21 04/02/22 Fluticasone Propion/Salmeterol 1 puff INHALATION RT-BID 12/01/21 04/02/22 [Wixela 500-50 Inhub] Insulin Aspart [NovoLOG Flexpen] See Protocol SQ TID-W/MEALS PRN 12/01/21 04/02/22 Ipratropium-Albuterol Nebulize 3 ml INHALATION RT-QID PRN 12/01/21 04/02/22 [Duoneb 0.5 mg-3 mg/3 ml Soln] Magnesium 250 mg PO DAILY 12/01/21 04/02/22 Propranolol [Inderal] 20 mg PO TID 12/01/21 04/02/22 Furosemide [Lasix] 40 mg PO DAILY 04/02/22 04/02/22 Gabapentin 600 mg PO QID 04/02/22 04/02/22 Ibuprofen [Motrin] 800 mg PO Q8H PRN 04/02/22 04/02/22 Potassium Chloride ER [K-Dur 10] 10 meq PO DAILY 04/02/22 04/02/22 Topiramate 100 mg PO BID-W/MEALS 04/02/22 04/02/22 Previous Rx's Medication Instructions Recorded Insulin Glargine,Hum.rec.anlog 20 units SQ BID 30 Days #10 each 04/06/22 [Lantus Solostar Pen] Ipratropium-Albuterol Nebulize 3 ml INHALATION RT-QID 30 Days 04/06/22 [Duoneb 0.5 mg-3 mg/3 ml Soln] #120 each Promethazine HCl 6.25 mg PO TID #9 tablet 04/06/22 predniSONE 10 mg PO DIRECTED #50 tab 04/06/22 Clindamycin [Cleocin] 300 mg PO Q6H 10 Days #80 cap 07/29/23 Allergies Allergy/AdvReac Type Severity Reaction Status Date / Time aminophylline Allergy Rash/Hives Verified 04/02/22 16:55 cephalexin monohydrate Allergy Rash/Hives Verified 04/02/22 16:55 [From Keflex] codeine Allergy Rash/Hives Verified 04/02/22 16:55 diazepam [From Valium] Allergy Rash/Hives Verified 04/02/22 16:55 hydrocodone bitartrate Allergy Rash/Hives Verified 04/02/22 16:55 [From Vicodin] Iodinated Contrast Media Allergy Rash/Hives Verified 04/02/22 16:55 [Iodinated Contrast Media - IV Dye] latex Allergy Itching, Verified 04/02/22 16:55 BURNING SKIN Latex, Natural Rubber Allergy Itching, Verified 04/02/22 16:55 BURNING OF SKIN levofloxacin [From Levaquin] Allergy Rash/Hives Verified 04/02/22 16:55 metformin HCl Allergy Rash/Hives Verified 04/02/22 16:55 [From Glucophage] morphine Allergy Rash/Hives Verified 04/02/22 16:55 Penicillins Allergy Rash/Hives Verified 04/02/22 16:55 Sulfa (Sulfonamide Allergy Rash/Hives Verified 04/02/22 16:55 Antibiotics) sulfamethoxazole Allergy Rash/Hives Verified 04/02/22 16:55 [From Bactrim] tetracycline [Tetracycline] Allergy Rash/Hives Verified 04/02/22 16:55 theophylline Allergy Rash/Hives Verified 04/02/22 16:55 tramadol Allergy Dyspnea Verified 04/02/22 16:55 trimethoprim [From Bactrim] Allergy Rash/Hives Verified 04/02/22 16:55 Review of Systems ROS Other: All systems not noted in ROS Statement are negative. <Regino Harris - Last Filed: 07/29/23 17:42> ROS Other: All systems not noted in ROS Statement are negative. <Rodrigo Quevedo - Last Filed: 07/29/23 19:47> ROS Statement: Those systems with pertinent positive or pertinent negative responses have been documented in the HPI. Past Medical History Past Medical History: Asthma, Heart Failure, COPD, CVA/TIA, Diabetes Mellitus, Fibromyalgia, GERD/Reflux, Hyperlipidemia, Hypertension, Musculoskeletal Disorder, Neurologic Disorder, Osteoarthritis (OA), Pneumonia, Renal Disease, Sleep Apnea/CPAP/BIPAP, Thyroid Disorder Additional Past Medical History / Comment(s): See Dr Stanley's H&P. Hx CVA yrs ago. Hx Pleurisy. Bilateral neuropathy hands and feet. IBS. Migranes - "under control". No CPAP use. Chronic lower back, neck pain, DDD, Scoliosis, bilateral carpal tunnel, pinched nerve in right leg. Past hx Kidney failure. RSV+04/02/22 History of Any Multi-Drug Resistant Organisms: None Reported Past Surgical History: Appendectomy, Breast Surgery, Heart Catheterization, Hy sterectomy, Joint Replacement, Orthopedic Surgery, Tonsillectomy Additional Past Surgical History / Comment(s): Left knee surgery - pins placed, left foot - screws placed, right ankle arthroscopy, right foot-cyst removed, TOTAL LEFT KNEE REPLACEMENT(CERAMIC), left hand 5th finger dupuytrens contraction, LEFT BREAST Lumpectomy-NEGATIVE (has marker), Colonoscopy, EXCISION BILATERAL CATARACTS. Past Anesthesia/Blood Transfusion Reactions: No Reported Reaction Additional Past Anesthesia/Blood Transfusion Reaction / Comment(s): Has never had blood transfusion. Past Psychological History: Anxiety, Depression Smoking Status: Never smoker Past Alcohol Use History: None Reported Past Drug Use History: None Reported - Past Family History Father Family Medical History: Cancer Additional Family Medical History / Comment(s): Prostate cancer. Mother Family Medical History: Cancer, Diabetes Mellitus Additional Family Medical History / Comment(s): Breast Cancer. Brother(s) Family Medical History: Cancer Additional Family Medical History / Comment(s): Leukemia. <Regino Harris - Last Filed: 07/29/23 17:42> General Exam Limitations: no limitations <Regino Hraris - Last Filed: 07/29/23 17:42> General appearance: alert, in no apparent distress Head exam: Present: atraumatic, normocephalic Eye exam: Present: normal appearance, PERRL ENT exam: Present: normal exam Neck exam: Present: normal inspection. Absent: tenderness, meningismus Respiratory exam: Present: normal lung sounds bilaterally. Absent: respiratory distress, wheezes Cardiovascular Exam: Present: regular rate, normal rhythm GI/Abdominal exam: Present: soft. Absent: distended, tenderness Extremities exam: Present: other (5 cm indurated abscess left posterior shoulder minimal surrounding cellulitis. There is multiple points of drainage. There is no central fluctuance.) <Rodrigo Quevedo - Last Filed: 07/29/23 19:47> - General Exam Comments Initial Comments: Visual Physical Exam Vital signs reviewed General: Well-appearing, nontoxic, no acute distress. Head: Normocephalic, atraumatic Eyes: PERRLA, EOMI ENT: Airway patent Chest: Nonlabored breathing Skin: No visual rash, normal skin tone Neuro: Alert and oriented 3 Musculoskeletal: No gross abnormalities (Regino Harris) Course Vital Signs 07/29/23 07/29/23 17:37 18:48 Temperature 99.4 F 99.2 F Pulse Rate 82 80 Respiratory 18 18 Rate Blood Pressure 108/70 125/77 O2 Sat by Pulse 95 94 L Oximetry Medical Decision Making <Regino Harris - Last Filed: 07/29/23 17:42> <Rodrigo Quevedo - Last Filed: 07/29/23 19:47> - Medical Decision Making Quicknote portion performed. Signed Regino Harris PA-C (Regino Harris) Was pt. sent in by a medical professional or institution (GIULIA John, POLICE DISTRICT SWITCHBOARD OPERATOR, urgent care, hospital, or alf...) When possible be specific @ -Sent in by primary Did you speak to anyone other than the patient for history (EMS, parent, family, police, friend...)? What history was obtained from this source @ -No Did you review nursing and triage notes (agree or disagree)? Why? @ -I reviewed and agree with nursing and triage notes Were old charts reviewed (outside hosp., previous admission, EMS record, old EKG, old radiological studies, urgent care reports/EKG's, alf records)? Report findings @ -No old charts were reviewed Differential Diagnosis cellulitis, abscess, infected sebaceous cyst EKG interpreted by me (3pts min.). @ -As above X-rays interpreted by me (1pt min.). @ -None done CT interpreted by me (1pt min.). @ -None done U/S interpreted by me (1pt. min.). @ -None done What testing was considered but not performed or refused? (CT, X-rays, U/S, labs)? Why? @ -None What meds were considered but not given or refused? Why? @ -None Did you discuss the management of the patient with other professionals (professionals i.e. GIULIA John, POLICE DISTRICT SWITCHBOARD OPERATOR, lab, RT, psych nurse, social service technician, refueling rampman, teacher, medical officer psychiatry, case finisher)? Give summary @ -No Was smoking cessation discussed for >3mins.? @ -No Was critical care preformed (if so, how long)? @ -No Were there social determinants of health that impacted care today? How? (Homelessness, low income, unemployed, alcoholism, drug addiction, transportation, low edu. Level, literacy, decrease access to med. care, half-way, rehab)? @ -No Was there de-escalation of care discussed even if they declined (Discuss DNR or withdrawal of care, Hospice)? DNR status @ -No What co-morbidities impacted this encounter? (DM, HTN, Smoking, COPD, CAD, Cance r, CVA, ARF, Chemo, Hep., AIDS, mental health diagnosis, sleep apnea, morbid obesity)? @ -None Was patient admitted / discharged? Hospital course, mention meds given and route, prescriptions, significant lab abnormalities, going to OR and other pertinent info. @68-year-old female with approximately 5 cm indurated abscess without fluctuance. There is multiple points where this abscess is freely draining. I do not feel this abscess is drainable at this time. Patient is prescribed clindamycin and instructed to apply warm compress, monitor closely. This may require drainage in the future. Return parameters discussed. Undiagnosed new problem with uncertain prognosis? @ -No Drug Therapy requiring intensive monitoring for toxicity (Heparin, Nitro, Insulin, Cardizem)? @ -No Were any procedures done? @ -No Diagnosis/symptom? @ -Abscess Acute, or Chronic, or Acute on Chronic? @ -Acute Uncomplicated (without systemic symptoms) or Complicated (systemic symptoms)? @ -Default Side effects of treatment? @ -No Exacerbation, Progression, or Severe Exacerbation? @ -No Poses a threat to life or bodily function? How? (Chest pain, USA, SD, pneumonia, PE, COPD, DKA, ARF, appy, cholecystitis, CVA, Diverticulitis, Homicidal, Suicidal, threat to staff... and all critical care pts) @ -Low risk at this time (Rodrigo Quevedo) Disposition <Regino Harris - Last Filed: 07/29/23 17:42> Is patient prescribed a controlled substance at d/c from ED?: No Time of Disposition: 18:10 <Rodrigo Quevedo - Last Filed: 07/29/23 19:47> Clinical Impression: Abscess Disposition: HOME SELF-CARE Condition: Fair Instructions (If sedation given, give patient instructions): Abscess (ED) Prescriptions: Clindamycin [Cleocin] 300 mg PO Q6H 10 Days #80 cap Referrals: Bruno Weston MD [Primary Care Provider] - 1-2 days
[2023-07-29 17:57] VITALS: RESP 18
[2023-07-29] MEDS: CLINDAMYCIN 150 MG CAP PO STA (18:26)
[2023-07-29 19:13] VITALS: BP 125/77; PULSE 80; TEMP 99.2
== END 2023-07-29 18:54 | disposition home or self-care (01) ==
LOC: EC 17:30
DX: L02.414 Cutaneous abscess of left upper limb (principal); Z88.1 Allergy status to other antibiotic agents; Z88.8 Allergy status to other drugs, medicaments and biological substances; Z88.6 Allergy status to analgesic agent; Z91.040 Latex allergy status; Z88.5 Allergy status to narcotic agent; Z88.0 Allergy status to penicillin; Z91.041 Radiographic dye allergy status
CPT/HCPCS: 87070; 87077; 87186; 87205; 99282

== ENCOUNTER 2023-11-10 12:01 | Emergency (ER) | payer MEDICARE ==
[2023-11-10] MEDS ORDERED: HYDROmorphone 1 MG/ML 1 ML SYRINGE ONE (12:19)
--- NOTE | 2023-12-16 08:48 | XR ---
Site ID [facility] Patient Cait Freeman ID [id number] DOB104/22/1954 EXAMINATION TYPE: XR hand complete RT DATE OF EXAM: 11/10/2023 2:45 PM CLINICAL INDICATION: Fall, pain COMPARISON: THIS EXAM WAS READ DURING PACS DOWNTIME, NO PRIORS AVAILABLE. TECHNIQUE: XR hand complete RT Frontal, lateral and oblique views were obtained. FINDINGS/IMPRESSION: Acute fracture of the base of the fifth digit distal phalanx with mild displacement. Acute fracture of the distal fifth metacarpal with volar angulation.
--- NOTE | 2023-12-16 08:48 | XR ---
Patient Cait Freeman ID [id number] DOB104/22/1954 EXAMINATION TYPE: XR shoulder complete LT DATE OF EXAM: 11/10/2023 2:43 PM CLINICAL INDICATION: Fall, pain COMPARISON: THIS EXAM WAS READ DURING PACS DOWNTIME, NO PRIORS AVAILABLE. TECHNIQUE: XR shoulder complete LT; examined in AP, internally rotated and scapular Y projections. FINDINGS/IMPRESSION: Acute left proximal humerus fracture with intra-articular extension and mild displacement.
--- NOTE | 2023-12-17 14:03 | CT ---
Patient Cait Freeman ID [id number] DOB104/22/1954 EXAMINATION TYPE: CT brain cspine wo con CT DLP: 1480.1 mGycm, Automated exposure control for dose reduction was used. DATE OF EXAM: 11/10/2023 1:46 PM COMPARISON: None. CLINICAL INDICATION: Fall. Left shoulder pain. TECHNIQUE: Brain: Multiple axial CT images of the brain were obtained without IV contrast. Cspine: Axial CT images from the skull base to the inferior aspect of T2 we obtained without intraven ous contrast. Coronal and sagittal reformatted images were also reviewed. . FINDINGS: Brain: Extra-axial spaces: No abnormal extra-axial fluid collections. Ventricular system: Within normal limits Cerebral parenchyma: No acute intraparenchymal hemorrhage or mass effect. The loyd-white junction is well differentiated. Cerebellum: Unremarkable. Mass effect: No evidence of midline shift. Intracranial vasculature: unremarkable Soft tissues: Normal. Calvarium/osseous structures: No depressed skull fracture. Paranasal sinuses and mastoid air cells: Moderate scattered paranasal sinus disease. Visualized orbits: Bilateral aphakia Cervical spine: Fracture: None. Osseous structures: Multilevel degenerative disc disease changes with endplate spurring and disc oste ophyte complex's. Vertebral alignment: Within normal limits. Spinal canal/Neural Foramina: No evidence of significant spinal canal narrowing. No evidence for sign ificant neural foraminal stenosis. Neck soft tissues: Prevertebral soft tissues are within normal limits. Other: The airway is patent. The lung apices are clear. IMPRESSION: 1. No acute intracranial process. 2. Moderate paranasal sinus disease 3. No evidence of cervical spine fracture. 4. Mild multilevel degenerative disc disease.
== END 2023-11-10 15:05 | disposition home or self-care (01) ==
LOC: EC 12:01
CPT/HCPCS: 29125; 70450; 72125; 99284

== ENCOUNTER 2023-11-22 22:00 | Inpatient (IN) | payer MEDICARE ==
[~2023-11-22 22:00] MED LIST changes: -ALPRAZolam 0.25 MG TAB PO PRN; -ASPIRIN 325 MG TAB PO STA; -ATORVASTATIN 80 MG TAB PO SCH; -ATORVASTATIN 80 MG TAB PO STA; -HEPARIN SODIUM 1,000 UN/ML (10ML VL) IV ONE; -HEPARIN SODIUM 1,000 UN/ML (10ML VL) ONE; -HEPARIN SODIUM,PORCINE 10,000 UNIT in SODIUM CHLORIDE 0.9% 1,000 ML IRRIGATION PRN; -HEPARIN SODIUM,PORCINE 2,500 UNIT in SODIUM CHLORIDE 0.9% 250 ML IRRIGATION PRN; -INSULIN ASPART (NovoLOG) 100 UNIT/ML VIAL SQ SCH; -IOPAMIDOL-370 125ML BTL INJ ONE; -LEVOTHYROXINE 75 MCG TAB PO SCH; -LIDOCAINE 1% INJ 10MG/ML (30 ML VIAL-PF) SQ ONE; -LORATADINE 10 MG TAB PO SCH; -MAGNESIUM OXIDE 400 MG TAB PO SCH; -METOCLOPRAMIDE 10 MG TAB PO SCH; -MIDAZOLAM 2 MG/2 ML VIAL IV ONE; -MIRTAZAPINE 15 MG TAB PO SCH; -MONTELUKAST 10 MG TAB PO SCH; -MULTIVITAMINS, THERA 1 EACH TAB PO SCH; -NITROGLYCERIN SL TABS 0.4 MG TAB SUBLINGUAL PRN; -NON FORMULARY DRUG (Insulin Glargine 100 UNIT/ML Ml) SQ SCH; -NON FORMULARY DRUG (Vitamin B Complex [Vitamin B Complex] 1 EACH Capsule) PO SCH; +ONDANSETRON 4 MG/2 ML VIAL ONE; -PANTOPRAZOLE 40 MG TABLET PO SCH; -PRIMIDONE 50 MG TAB PO SCH; -PROPRANOLOL 20 MG TAB PO SCH; -RX INFO: IV CONTRAST WAS GIVEN 1 EACH MISC MISCELLANE PRN; +SODIUM CHLORIDE 0.9% 1,000 ML BAG ONE; -SODIUM CHLORIDE 0.9% 1,000 ML IV SCH; -SODIUM CHLORIDE 0.9% 1,000 ML in EMPTY BAG 1 BAG IV SCH; +SODIUM CHLORIDE 0.9% 100 ML BAG IV ONE; -SUCRALFATE 1 GM TAB PO SCH; -VERAPAMIL 2.5 MG/ML 2 ML AMP ONE; -VERAPAMIL SYRINGE (5 MG/10 ML) INTRAARTER ONE; -fentaNYL (PF) 50 MCG/ML 2 ML AMP IV ONE; -fentaNYL (PF) 50 MCG/ML 2 ML AMP ONE; -lisinopriL 5 MG TAB PO SCH
[2023-11-22] MEDS ORDERED: cefTRIAXone 2 GM VIAL ONE (22:58)
[2023-11-22] MEDS ORDERED: POTASSIUM CHLORIDE ER 20 MEQ TAB.ER PO ONE ×2 (22:58→23:04)
[2023-11-23] MEDS ORDERED: POTASSIUM CHLORIDE ER 20 MEQ TAB.ER PO ONE ×3 (00:40→21:27)
[2023-11-23] MEDS ORDERED: GABAPENTIN 300 MG CAP ONE ×4 (04:51→21:28)
[2023-11-23] MEDS ORDERED: ONDANSETRON 4 MG/2 ML VIAL ONE (06:11)
[2023-11-23] MEDS ORDERED: INSULIN ASPART (NovoLOG) 100 UNIT/ML VIAL SQ ONE ×4 (06:40→21:28)
[2023-11-23] MEDS ORDERED: ACETAMINOPHEN TAB 325 MG TAB ONE ×3 (08:42→21:27)
[2023-11-23] MEDS ORDERED: NALOXONE 0.4 MG/ML 1 ML VIAL IV PRN (20:34)
[2023-11-23] MEDS ORDERED: PRIMIDONE 50 MG TAB ONE (22:38)
[2023-11-23] MEDS ORDERED: HYDROcodone/APAP 7.5-325MG 1 EACH TAB ONE (22:39)
[2023-11-23] MEDS ORDERED: DEXTROSE 50% SYRINGE 50 ML IVP PRN ×2 (22:54)
[2023-11-23] MEDS ORDERED: SODIUM CHLORIDE 0.9% 1,000 ML BAG ONE (23:59)
[2023-11-24] MEDS: PRIMIDONE 50 MG TAB PO SCH (03:12)
[2023-11-24] MEDS: PROPRANOLOL 20 MG TAB PO SCH (03:13)
[2023-11-24] MEDS: TOPIRAMATE 25 MG TAB PO SCH (03:13)
[2023-11-24] MEDS: GABAPENTIN 300 MG CAP PO SCH (03:13)
[2023-11-24] MEDS: HYDROcodone/APAP 7.5-325MG 1 EACH TAB PO PRN (03:22)
[2023-11-24 04:09] LABS: Basophils % (A) 0 %; Eosinophils # (A) 0.2 k/uL (0-0.7); Eosinophils % (A) 2 %; HCT 31.8 % (34.0-46.0); HGB 10.3 gm/dL (11.4-16.0); Hypochromasia Moderate; Lymphocytes # (A) 1.3 k/uL (1.0-4.8); Lymphocytes % (A) 15 %; MCH 32.8 pg (25.0-35.0); MCHC 32.3 g/dL (31.0-37.0); MCV 101.4 fL (80.0-100.0); Mean Platelet Volume 9.7; Monocytes # (A) 0.5 k/uL (0-1.0); Monocytes % (A) 6 %; Neutrophils # (A) 6.7 k/uL (1.3-7.7); Neutrophils % (A) 75 %; Platelet Count 374 k/uL (150-450); RBC 3.14 m/uL (3.80-5.40); WBC 8.8 k/uL (3.8-10.6)
[2023-11-24 04:45] LABS: ALT 31 U/L (4-34); AST 57 U/L (14-36); African American GFR (CKD) >90 (>60 ml/min/1.73 sqM); Albumin 2.3 g/dL (3.5-5.0); Albumin/Globulin Ratio 0.8; Alkaline Phosphatase 168 U/L (38-126); Anion Gap 5 mmol/L; Blood Urea Nitrogen 5 mg/dL (7-17); Calcium 7.7 mg/dL (8.4-10.2); Carbon Dioxide 26 mmol/L (22-30); Chloride 107 mmol/L (98-107); Glucose 200 mg/dL (74-99); Non-African American GFR(CKD) >90 (>60 ml/min/1.73 sqM); Potassium 4.2 mmol/L (3.5-5.1); Sodium 138 mmol/L (137-145); Total Bilirubin 0.3 mg/dL (0.2-1.3); Total Protein 5.3 g/dL (6.3-8.2)
[2023-11-24 06:23] LABS: Glucose,Whole Blood 239 mg/dL (70-110)
[2023-11-24] MEDS ORDERED: ONDANSETRON 4 MG/2 ML VIAL IVP PRN (06:40)
[2023-11-24] MEDS: ACETAMINOPHEN TAB 325 MG TAB PO PRN (06:48)
[2023-11-24] MEDS: LEVOTHYROXINE 75 MCG TAB PO SCH (06:48)
[2023-11-24] MEDS: INSULIN DETEMIR (LEVEMIR) 100 UNIT/ML SYR SQ SCH (06:49)
[2023-11-24] MEDS: INSULIN ASPART (NovoLOG) 100 UNIT/ML VIAL SQ SCH ×2 (06:49)
[2023-11-24] MEDS: SODIUM CHLORIDE 0.9% 1,000 ML IV SCH (07:02)
[2023-11-24] MEDS: PANTOPRAZOLE 40 MG TABLET PO SCH (08:07)
[2023-11-24] MEDS: POTASSIUM CHLORIDE ER 20 MEQ TAB.ER PO SCH (08:08)
[2023-11-24] MEDS: MULTIVITAMINS, THERA 1 EACH TAB PO SCH (08:11)
[2023-11-24] MEDS: ATORVASTATIN 80 MG TAB PO SCH (08:11)
[2023-11-24] MEDS: lisinopriL 5 MG TAB PO SCH (08:11)
[2023-11-24] MEDS: MAGNESIUM OXIDE 400 MG TAB PO SCH (08:13)
[2023-11-24] MEDS: MONTELUKAST 10 MG TAB PO SCH (08:13)
[2023-11-24] MEDS: ASPIRIN 81 MG PO SCH (08:13)
[2023-11-24] MEDS: VITAMIN B COMPLEX PO SCH (08:14)
--- NOTE | 2023-11-24 10:55 | P.PN ---
Subjective Progress Note Date: 11/24/23 This is a pleasant 68-year-old female, patient of Dr. Weston; came into the hospital with complaints of generalized weakness patient sustained a fall back on November 09 was evaluated emergency room placed in a sling and was recommended to follow-up with Dr. Tsang outpatient. Patient's symptoms have not been i mproving she is having decreased appetite she has been having worsening fatigue and has now developed a nonproductive cough. Came back in to the hospital for further evaluation. Patient has a known past medical history of hyperlipidemia, asthma, hypertension, arthritis, gastroesophageal reflux disease, left knee replacement. At admission there was concern for crackles in the bilateral bases and chest xray reveals a left upper lobe opacity. Procalcitonin level is currently pending. Patient is admitted to the hospital for weakness and injury to the left arm with x-rays revealing mildly displaced fracture of the surgical neck of the proximal left humerus. Had elevated lactic acid on admission, which has now normalized. Review of Systems Constitutional: Denied any fatigue denied any fever. Cardio vascular: denied any chest pain, palpitations Gastrointestinal: denied any nausea, vomiting, diarrhea Pulmonary: Denied any shortness of breath cough Neurologic denied any new focal deficits All inpatient medications were reviewed and appropriate changes in these medications as dictated in the interval history and assessment and plan. PHYSICAL EXAMINATION: GENERAL: The patient is alert and oriented x3, not in any acute distress. Well developed, well nourished. Elderly appearing. HEENT: Pupils are round and equally reacting to light. EOMI. No scleral icterus. No conjunctival pallor. Normocephalic, atraumatic. No pharyngeal erythema. No thyromegaly. CARDIOVASCULAR: S1 and S2 present. No murmurs, rubs, or gallops. PULMONARY: Chest is clear to auscultation, no wheezing or crackles. Diminished respirations. ABDOMEN: Soft, nontender, nondistended, normoactive bowel sounds. No palpable organomegaly. MUSCULOSKELETAL: No joint swelling or deformity. EXTREMITIES: No cyanosis, clubbing, or pedal edema. NEUROLOGICAL: Gross neurological examination did not reveal any focal deficits. Diffusely weak SKIN: No rashes. Bruising to the left inner arm. Assessment and Plan Acute hypoxic respiratory failure secondary to left upper lobe pneumonia and sepsis, with opacity on imaging. Fall at home with injury to the left shoulder; mildly displaced fracture of the surgical neck of the proximal left humerus. Right wrist injury and also the 3,4,5, fingers on the right hand from fall patient is in a wrist brace. Generalized weakness and medical debility secondary to above patient will require PT OT evaluation and likely will need some form of subacute rehab on discharge Lactic acidosis on admission Hypokalemia likely from poor oral intake/dehydration Hx of congestive heart failure maintained on lasix outpatient does not appear to be volume overloaded. Diabetes Mellitus Type 2 with hyperglycemia Hyperlipidemia Gastroesophageal reflux disease Hypertension Hypothyroidism Hx of asthma Obesity GI Prophylaxis DVT Prophylaxis Full Code Plan Pending procalcitonin level if elevated will add antibiotics. Continue home medications including atorvastatin, levothyroxine, lisinopril Continue accuchecks ACHS and sliding scale insulin Lantus 20 units at bedtime PT and OT are consulted for evaluation which will happen on Saturday Per orthopedics patient is nonweightbearing to the left upper extremity at this time to continue with the sling On Primodine and Topamax which are continued Patient to continue on duonebs PRN and will add incentive spirometer patient needs to use 10 x an hour while awake. Follow up with Dr Tsang outpatient once cleared for DC. Patient sees Dr. Montesinos in the office for her asthma. Continues on singulair. Repeat blood work in the AM. The impression and plan of care has been dictated by Cher Alas, Nurse Practitioner as directed. Dr. Riya MD I have performed a history and physical examination and medical decision making of this patient, discussed the same with the dictator, and agree with the dictators assessment and plan as written, documented as a scribe. Based on total visit time, I have performed more than 50% of this visit. Objective - Vital Signs Vital signs: Vital Signs Temp 98.4 F 11/24/23 07:40 Pulse 93 11/24/23 08:24 Resp 18 11/24/23 08:24 BP 111/63 11/24/23 07:40 Pulse Ox 98 11/24/23 07:40 FiO2 Intake & Output 11/23/23 11/24/23 11/24/23 18:59 06:59 18:59 Weight 104.326 kg - Labs CBC & Chem 7: 11/24/23 02:34 11/24/23 02:33 Labs: Abnormal Lab Results - Last 24 Hours (Table) 11/24/23 11/24/23 11/24/23 Range/Units 02:33 02:34 02:34 RBC 3.14 L (3.80-5.40) m/uL Hgb 10.3 L (11.4-16.0) gm/dL Hct 31.8 L (34.0-46.0) % MCV 101.4 H (80.0-100.0) fL BUN 5 L (7-17) mg/dL Glucose 200 H (74-99) mg/dL POC Glucose (mg/dL) (70-110) mg/dL Hemoglobin A1c 11.6 H (<=6.0) % Calcium 7.7 L (8.4-10.2) mg/dL AST 57 H (14-36) U/L Alkaline Phosphatase 168 H (38-126) U/L Total Protein 5.3 L (6.3-8.2) g/dL Albumin 2.3 L (3.5-5.0) g/dL 11/24/23 Range/Units 06:21 RBC (3.80-5.40) m/uL Hgb (11.4-16.0) gm/dL Hct (34.0-46.0) % MCV (80.0-100.0) fL BUN (7-17) mg/dL Glucose (74-99) mg/dL POC Glucose (mg/dL) 239 H (70-110) mg/dL Hemoglobin A1c (<=6.0) % Calcium (8.4-10.2) mg/dL AST (14-36) U/L Alkaline Phosphatase (38-126) U/L Total Protein (6.3-8.2) g/dL Albumin (3.5-5.0) g/dL Assessment and Plan Time with Patient: Greater than 30
[2023-11-24 11:30] LABS: Glucose,Whole Blood 299 mg/dL (70-110)
[2023-11-24 16:16] LABS: Glucose,Whole Blood 229 mg/dL (70-110)
[2023-11-24] MEDS: IPRATROPIUM-ALBUTEROL 3 ML NEB INHALATION PRN (20:09)
[2023-11-24 21:14] LABS: Glucose,Whole Blood 261 mg/dL (70-110)
[2023-11-25 06:34] LABS: Glucose,Whole Blood 163 mg/dL (70-110)
[2023-11-25 08:38] LABS: Glucose,Whole Blood 169 mg/dL (70-110)
[2023-11-25] MEDS: INSULIN ASPART (NovoLOG) 100 UNIT/ML VIAL SQ SCH (09:24)
[2023-11-25 09:32] LABS: African American GFR (CKD) >90 (>60 ml/min/1.73 sqM); Anion Gap 1 mmol/L; Blood Urea Nitrogen 3 mg/dL (7-17); Calcium 7.8 mg/dL (8.4-10.2); Carbon Dioxide 28 mmol/L (22-30); Chloride 107 mmol/L (98-107); Glucose 157 mg/dL (74-99); Non-African American GFR(CKD) >90 (>60 ml/min/1.73 sqM); Potassium 4.7 mmol/L (3.5-5.1); Sodium 136 mmol/L (137-145)
[2023-11-25 09:38] LABS: HCT 34.6 % (34.0-46.0); HGB 11.6 gm/dL (11.4-16.0); Hypochromasia Slight; MCH 34.5 pg (25.0-35.0); MCHC 33.4 g/dL (31.0-37.0); MCV 103.4 fL (80.0-100.0); Macrocytosis Slight; Mean Platelet Volume 10.8; Platelet Count 304 k/uL (150-450); RBC 3.35 m/uL (3.80-5.40); RDW 13.4 % (11.5-15.5); WBC 7.2 k/uL (3.8-10.6)
[2023-11-25 10:14] LABS: Band Neutrophils % 2 %; Eosinophils # (M) 0.14 k/uL (0-0.7); Lymphocytes # (M) 1.73 k/uL (1.0-4.8); Monocytes # (M) 0.79 k/uL (0-1.0); Neutrophils % (M) 61 %; Nucleated Red Blood Cells 0 /100 WBC (0-0); Total Cells Counted 100
[2023-11-25] MEDS: ERGOCALCIFEROL 1,250 MCG (50,000 IU) CAPSULE PO SCH (10:24)
[2023-11-25 11:06] LABS: Glucose,Whole Blood 162 mg/dL (70-110)
[2023-11-25] MEDS: ASPIRIN 81 MG ONE ×2 (11:34→11:38)
[2023-11-25] MEDS: ACETAMINOPHEN TAB 325 MG TAB ONE ×2 (11:34→11:38)
[2023-11-25] MEDS: HYDROcodone/APAP 7.5-325MG 1 EACH TAB ONE ×4 (11:34→11:37)
[2023-11-25] MEDS: ATORVASTATIN 80 MG TAB ONE ×2 (11:35→11:38)
[2023-11-25] MEDS: PANTOPRAZOLE 40 MG TABLET PO ONE ×2 (11:35→11:38)
[2023-11-25] MEDS: POTASSIUM CHLORIDE ER 20 MEQ TAB.ER PO ONE ×4 (11:36→11:38)
[2023-11-25] MEDS: IPRATROPIUM-ALBUTEROL 3 ML NEB ONE (11:37)
[2023-11-25] MEDS: SODIUM CHLORIDE 0.9% 1,000 ML IV SCH (12:33)
[2023-11-25 14:13] VITALS: BMI 38.2
--- NOTE | 2023-11-25 14:38 | P.PN ---
Subjective Progress Note Date: 11/25/23 Patient seen awake and alert today at bedside. She reports that her cough has improved and her shoulder pain is about the same level and improves with pain medication. She denies subjective fevers, chest pain, shortness of breath, abdominal pain, bruising, numbness, weakness, loss of consciousness. Review of systems: Pertinent positives and negatives as discussed in HPI, a complete review of systems was performed and all other systems are negative. Physical examination: Vital signs reviewed General: non toxic, no distress, appears at stated age, normal weight Derm: no unusual rashes/lesions, warm Head: atraumatic, normocephalic, symmetric Eyes: EOMI, no lid lag, anicteric sclera, pupils equal round reactive to light ENT: Nose and ears atraumatic Neck: No cervical lymphadenopathy, trachea midline, supple Mouth: no lip lesion, mucus membranes moist Cardiovascular: S1S2 reg, no murmur, Lungs: Bibasilar crackles, no rhonchi, no rales, no accessory muscle use Abdominal: soft, nontender to palpation, no guarding Ext: muscle strength 5 out of 5 in all 4 extremities grossly, no gross muscle atrophy, no contractures, positive dorsalis pedis pulse bilateral, no edema Neuro: CN II-XI grossly intact, no gross focal neuro deficits Psych: Alert, oriented, appropriate affect and mood Assessment/Plan: #. Acute hypoxic respiratory failure secondary to left upper pneumonia WBC normal today at 8.8. Patient shows improvement of symptoms Continue with incentive spirometry and DuoNebs as needed CBC for tomorrow KVO for now #. Fall due to left shoulder injury and right wrist injury Fall precautions Per Ortho, patient will follow-up on discharge with Dr. Tsang and continue with PT/OT #. Generalized weakness due to debility Encourage ambulation Fall precautions Per PT OT and will have subacute rehab on discharge #. Diabetes with hyperglycemia A1c 11.6% glucose at 157 Continue with insulin aspart sliding scale, medium dose Levemir 28 units once a day at night NovoLog 9 units thrice a day with meals Continue with glucose Accu-Cheks ACHS Monitor with CMP #. Hypokalemia Potassium at 4.7 and patient is asymptomatic Potassium 10 mEq p.o. daily Monitor with CMP Chronic conditions: Hyperlipidemia, GERD, hypertension, hypothyroidism, Hx of asthma, Obesity GI Prophylaxis: Protonix 40 mg p.o. OD DVT prophylaxis: Lovenox 40mg SQ OD Dr. Riya MD I have performed a history and physical examination and medical decision making of this patient, discussed the same with the the resident, and agree with the assessment and plan as written. I performed brief physical exam. Objective - Vital Signs Vital signs: Vital Signs Temp 98.2 F 11/25/23 01:48 Pulse 76 11/25/23 01:48 Resp 16 11/25/23 01:48 BP 111/64 11/25/23 01:48 Pulse Ox 99 11/25/23 01:48 FiO2 Intake & Output 11/24/23 11/25/23 11/25/23 18:59 06:59 18:59 Intake Total 1200 Output Total 800 Balance 1200 -800 Intake: Intake, IV Titration 1200 Amount Sodium Chloride 0.9% 1, 1200 000 ml @ 100 mls/hr IV . Q10H ASHANTI Rx#:[id number] Output: Urine 800 Other: Voiding Method External Catheter - Labs CBC & Chem 7: 11/26/23 09:20 11/26/23 09:31 Labs: Abnormal Lab Results - Last 24 Hours (Table) 11/24/23 11/24/23 11/24/23 Range/Units 02:34 11:28 16:11 POC Glucose (mg/dL) 299 H 229 H (70-110) mg/dL Hemoglobin A1c 11.6 H (<=6.0) % 11/24/23 11/25/23 Range/Units 21:13 06:33 POC Glucose (mg/dL) 261 H 163 H (70-110) mg/dL Hemoglobin A1c (<=6.0) %
[2023-11-25 16:33] LABS: Glucose,Whole Blood 159 mg/dL (70-110)
[2023-11-25 21:33] LABS: Glucose,Whole Blood 106 mg/dL (70-110)
[2023-11-25] MEDS: MIRTAZAPINE 15 MG TAB PO SCH (21:39)
[2023-11-26 05:43] LABS: Glucose,Whole Blood 188 mg/dL (70-110)
[2023-11-26] MEDS ORDERED: LEVOTHYROXINE 100 MCG TAB PO SCH (06:00)
[2023-11-26 06:55] LABS: Glucose,Whole Blood 167 mg/dL (70-110)
[2023-11-26] MEDS: INSULIN DETEMIR (LEVEMIR) 100 UNIT/ML SYR SQ SCH (07:02)
[2023-11-26] MEDS ORDERED: PANTOPRAZOLE 40 MG TABLET PO SCH (07:30)
[2023-11-26] MEDS: POTASSIUM CHLORIDE ER 10 MEQ TAB.ER.PRT PO SCH (07:32)
[2023-11-26] MEDS: MULTIVITAMINS, THERA 1 EACH TAB PO SCH (07:33)
[2023-11-26] MEDS: MAGNESIUM OXIDE 400 MG TAB PO SCH (07:34)
[2023-11-26] MEDS: ENOXAPARIN 40 MG/0.4 ML SYRINGE SQ SCH (07:34)
[2023-11-26 07:49] LABS: African American GFR (CKD) >90 (>60 ml/min/1.73 sqM); Anion Gap -1 mmol/L; Blood Urea Nitrogen 5 mg/dL (7-17); Carbon Dioxide 25 mmol/L (22-30); Chloride 105 mmol/L (98-107); Glucose 162 mg/dL (74-99); Non-African American GFR(CKD) >90 (>60 ml/min/1.73 sqM); Sodium 129 mmol/L (137-145)
[2023-11-26 07:58] LABS: Potassium 6.9 mmol/L (3.5-5.1)
[2023-11-26] MEDS: SODIUM ZIRCONIUM CYCLOSILICATE 10 GM PACKET PO ONE (08:30)
[2023-11-26] MEDS ORDERED: NON FORMULARY DRUG (Vitamin B Complex [Vitamin B Complex] 1 EACH Capsule) PO SCH (09:00)
[2023-11-26 10:00] LABS: Basophils # (A) 0.1 k/uL (0-0.2); Basophils % (A) 1 %; Eosinophils # (A) 0.2 k/uL (0-0.7); Eosinophils % (A) 4 %; HCT 35.8 % (34.0-46.0); HGB 11.3 gm/dL (11.4-16.0); Hypochromasia Marked; Lymphocytes # (A) 1.6 k/uL (1.0-4.8); Lymphocytes % (A) 26 %; MCH 32.5 pg (25.0-35.0); MCHC 31.5 g/dL (31.0-37.0); MCV 103.2 fL (80.0-100.0); Macrocytosis Slight; Mean Platelet Volume 9.4; Monocytes # (A) 0.3 k/uL (0-1.0); Monocytes % (A) 4 %; Neutrophils % (A) 64 %; Platelet Count 418 k/uL (150-450); RBC 3.47 m/uL (3.80-5.40); RDW 13.1 % (11.5-15.5); WBC 6.2 k/uL (3.8-10.6)
[2023-11-26 12:10] LABS: Glucose,Whole Blood 123 mg/dL (70-110)
--- NOTE | 2023-11-26 13:30 | P.PN ---
Subjective Progress Note Date: 11/26/23 Patient seen awake and alert today at bedside. She reports that her cough has improved and her shoulder pain is about the same level and improves with pain medication. She denies subjective fevers, chest pain, shortness of breath, abdominal pain, bruising, numbness, weakness, loss of consciousness. Review of systems: Pertinent positives and negatives as discussed in HPI, a complete review of systems was performed and all other systems are negative. Physical examination: Vital signs reviewed General: non toxic, no distress, appears at stated age, normal weight Derm: no unusual rashes/lesions, warm Head: atraumatic, normocephalic, symmetric Eyes: EOMI, no lid lag, anicteric sclera, pupils equal round reactive to light ENT: Nose and ears atraumatic Neck: No cervical lymphadenopathy, trachea midline, supple Mouth: no lip lesion, mucus membranes moist Cardiovascular: S1S2 reg, no murmur, Lungs: Bibasilar crackles, no rhonchi, no rales, no accessory muscle use Abdominal: soft, nontender to palpation, no guarding Ext: muscle strength 5 out of 5 in all 4 extremities grossly, no gross muscle atrophy, no contractures, positive dorsalis pedis pulse bilateral, +2 pitting edema, bilateral lower extremity Neuro: CN II-XI grossly intact, no gross focal neuro deficits Psych: Alert, oriented, appropriate affect and mood Assessment/Plan: #. Acute hypoxic respiratory failure secondary to left upper pneumonia, ruled out WBC normal today at 6.2 .Patient shows improvement of symptoms Continue with incentive spirometry and DuoNebs as needed CBC for tomorrow KVO for now #. Fall due to left shoulder injury and right wrist injury, stable Patient is stable and has no complaints. Pain is controlled with medications Fall precautions Per Ortho, patient will follow-up on discharge with Dr. Tsang and continue with PT/OT #. Generalized weakness due to debility, improving Encourage ambulation Fall precautions Continue with PT/OT assessments Per PT/OT will have subacute rehab on discharge #. Diabetes with hyperglycemia, controlled A1c 11.6% glucose at 167 today Continue with insulin aspart sliding scale, medium dose C/w Levemir 28 units once a day at night C/w NovoLog 9 units thrice a day with meals Continue with glucose Accu-Cheks ACHS Monitor with CMP #. Hypokalemia, resolved Potassium at 4.2 today and patient is asymptomatic Chronic conditions: CHF, Hyperlipidemia, GERD, hypertension, hypothyroidism, Hx of asthma, Obesity GI Prophylaxis: Protonix 40 mg p.o. OD DVT prophylaxis: Lovenox 40mg SQ OD Attestation I have seen and examined this patient with my resident , discussed the same with the resident/REBECA, and agree with the dictator's assessment and plan as written Dr. Scar richmond Objective - Vital Signs Vital signs: Vital Signs Temp 98.5 F 11/26/23 07:15 Pulse 89 11/26/23 07:15 Resp 17 11/26/23 07:15 BP 111/59 11/26/23 07:15 Pulse Ox 94 L 11/26/23 07:15 FiO2 Intake & Output 11/25/23 11/26/23 11/26/23 18:59 06:59 18:59 Intake Total 400 Output Total 600 950 Balance -200 -950 Weight 104.326 kg Intake: Oral 400 Output: Urine 600 950 Other: Voiding Method External Catheter External Catheter - Labs CBC & Chem 7: 11/26/23 09:20 11/26/23 13:05 Labs: Abnormal Lab Results - Last 24 Hours (Table) 11/25/23 11/25/23 11/25/23 Range/Units 08:37 08:58 08:58 RBC 3.35 L (3.80-5.40) m/uL MCV 103.4 H (80.0-100.0) fL Sodium 136 L (137-145) mmol/L Potassium (3.5-5.1) mmol/L BUN 3 L (7-17) mg/dL Creatinine 0.44 L (0.52-1.04) mg/dL Glucose 157 H (74-99) mg/dL POC Glucose (mg/dL) 169 H (70-110) mg/dL Calcium 7.8 L (8.4-10.2) mg/dL 11/25/23 11/25/23 11/26/23 Range/Units 11:05 16:31 05:42 RBC (3.80-5.40) m/uL MCV (80.0-100.0) fL Sodium (137-145) mmol/L Potassium (3.5-5.1) mmol/L BUN (7-17) mg/dL Creatinine (0.52-1.04) mg/dL Glucose (74-99) mg/dL POC Glucose (mg/dL) 162 H 159 H 188 H (70-110) mg/dL Calcium (8.4-10.2) mg/dL 11/26/23 11/26/23 Range/Units 05:46 06:54 RBC (3.80-5.40) m/uL MCV (80.0-100.0) fL Sodium 129 L (137-145) mmol/L Potassium 6.9 H* (3.5-5.1) mmol/L BUN 5 L (7-17) mg/dL Creatinine 0.48 L (0.52-1.04) mg/dL Glucose 162 H (74-99) mg/dL POC Glucose (mg/dL) 167 H (70-110) mg/dL Calcium 8.0 L (8.4-10.2) mg/dL
[2023-11-26 16:06] LABS: Glucose,Whole Blood 111 mg/dL (70-110)
[2023-11-26 22:37] LABS: Glucose,Whole Blood 232 mg/dL (70-110)
[2023-11-27 05:42] LABS: Glucose,Whole Blood 159 mg/dL (70-110)
[2023-11-27 11:02] LABS: African American GFR (CKD) >90 (>60 ml/min/1.73 sqM); Anion Gap 5 mmol/L; Blood Urea Nitrogen 8 mg/dL (7-17); Calcium 8.5 mg/dL (8.4-10.2); Carbon Dioxide 25 mmol/L (22-30); Chloride 104 mmol/L (98-107); Glucose 207 mg/dL (74-99); Non-African American GFR(CKD) >90 (>60 ml/min/1.73 sqM); Potassium 4.8 mmol/L (3.5-5.1); Sodium 134 mmol/L (137-145)
[2023-11-27 11:14] LABS: Glucose,Whole Blood 159 mg/dL (70-110)
--- NOTE | 2023-11-27 12:36 | P.PN ---
Subjective Progress Note Date: 11/27/23 This is a pleasant 68-year-old female, patient of Dr. Weston; came into the hospital with complaints of generalized weakness patient sustained a fall back on November 09 was evaluated emergency room placed in a sling and was recommended to follow-up with Dr. Tsang outpatient. Patient's symptoms have not been i mproving she is having decreased appetite she has been having worsening fatigue and has now developed a nonproductive cough. Came back in to the hospital for further evaluation. Patient has a known past medical history of hyperlipidemia, asthma, hypertension, arthritis, gastroesophageal reflux disease, left knee replacement. At admission there was concern for crackles in the bilateral bases and chest xray reveals a left upper lobe opacity. Procalcitonin level is currently pending. Patient is admitted to the hospital for weakness and injury to the left arm with x-rays revealing mildly displaced fracture of the surgical neck of the proximal left humerus. Had elevated lactic acid on admission, which has now normalized. 11/26. Patient seen and examined. Upright in the chair. States shoulder pain has improved. REVIEW OF SYSTEMS: CONSTITUTIONAL: No fever, no malaise,. CARDIOVASCULAR: No chest pain, no palpitations, no syncope. PULMONARY: No shortness of breath, no cough, GASTROINTESTINAL: No diarrhea, no nausea, no vomiting, no abdominal pain. NEUROLOGICAL: No headaches, no weakness, PHYSICAL EXAMINATION: GENERAL: The patient is alert and oriented x3, not in any acute distress. Well developed, well nourished. HEENT: Pupils are round and equally reacting to light. EOMI. No scleral icterus. No conjunctival pallor. Normocephalic, atraumatic. No pharyngeal erythema. No th yromegaly. CARDIOVASCULAR: S1 and S2 present. No murmurs, rubs, or gallops. PULMONARY: Chest is clear to auscultation, no wheezing or crackles. ABDOMEN: Soft, nontender, nondistended, normoactive bowel sounds. No palpable organomegaly. MUSCULOSKELETAL: No joint swelling or deformity. EXTREMITIES: No cyanosis, clubbing, or pedal edema. NEUROLOGICAL: Gross neurological examination did not reveal any focal deficits. SKIN: No rashes. Assessment/Plan: #. Acute hypoxic respiratory failure secondary to left upper pneumonia, ruled out Continue with incentive spirometry and DuoNebs as needed #. Fall due to left shoulder injury and right wrist injury, stable Patient is stable and has no complaints. Pain is controlled with medications Fall precautions Per Ortho, patient will follow-up on discharge with Dr. Tsang and continue with PT/OT #. Generalized weakness due to debility, improving Per PT/OT will have subacute rehab on discharge #. Diabetes with hyperglycemia, controlled A1c 11.6% glucose at 167 today Continue with insulin aspart sliding scale, medium dose C/w Levemir 28 units once a day at night C/w NovoLog 9 units thrice a day with meals Continue with glucose Accu-Cheks ACHS Monitor with CMP #. Hypokalemia, resolved Chronic conditions: CHF, Hyperlipidemia, GERD, hypertension, hypothyroidism, Hx of asthma, Obesity GI Prophylaxis: Protonix 40 mg p.o. OD DVT prophylaxis: Lovenox 40mg SQ OD Objective - Vital Signs Vital signs: Vital Signs Temp 98.2 F 11/27/23 07:45 Pulse 89 11/27/23 07:45 Resp 17 11/27/23 07:45 BP 114/66 11/27/23 07:45 Pulse Ox 96 11/27/23 07:45 FiO2 Intake & Output 11/26/23 11/27/23 11/27/23 18:59 06:59 18:59 Intake Total 400 Output Total 800 300 Balance -400 -300 Intake: Oral 400 Output: Urine 800 300 Other: Voiding Method External Catheter External Catheter Incontinent # Voids 1 - Labs CBC & Chem 7: 11/26/23 09:20 11/27/23 08:08 Labs: Abnormal Lab Results - Last 24 Hours (Table) 11/26/23 11/26/23 11/26/23 Range/Units 09:20 12:08 16:05 RBC 3.47 L (3.80-5.40) m/uL Hgb 11.3 L (11.4-16.0) gm/dL MCV 103.2 H (80.0-100.0) fL POC Glucose (mg/dL) 123 H 111 H (70-110) mg/dL 11/26/23 11/27/23 Range/Units 22:35 05:41 RBC (3.80-5.40) m/uL Hgb (11.4-16.0) gm/dL MCV (80.0-100.0) fL POC Glucose (mg/dL) 232 H 159 H (70-110) mg/dL
[2023-11-27 16:26] LABS: Glucose,Whole Blood 161 mg/dL (70-110)
[2023-11-27 20:04] LABS: Glucose,Whole Blood 154 mg/dL (70-110)
[2023-11-28 06:01] LABS: Glucose,Whole Blood 172 mg/dL (70-110)
[2023-11-28 07:41] VITALS: RESP 18; TEMP 98
[2023-11-28 11:35] LABS: Glucose,Whole Blood 254 mg/dL (70-110)
--- NOTE | 2023-11-28 13:15 | P.DS ---
Providers Date of admission: 11/22/23 22:00 Attending physician: Mela Arriaga Consults: 11/23/23 20:40 Consult Physician Routine Consulting Provider: Gary Lozano Consult Reason/Comments: shoulder fracture Do you want consulting provider notified?: Already Contacted Primary care physician: Stated None Hospital Course: This is a pleasant 68-year-old female, patient of Dr. Weston; came into the hospital with complaints of generalized weakness patient sustained a fall back on November 09 was evaluated emergency room placed in a sling and was recommended to follow-up with Dr. Tsang outpatient. Patient's symptoms have not been improving she is having decreased appetite she has been having worsening fatigue and has now developed a nonproductive cough. Came back in to the hospital for further evaluation. Patient has a known past medical history of hyperlipidemia, asthma, hypertension, arthritis, gastroesophageal reflux disease, left knee replacement. At admission there was concern for crackles in the bilateral bases and chest xray reveals a left upper lobe opacity. Patient is admitted to the hospital for weakness and injury to the left arm with x-rays revealing mildly displaced fracture of the surgical neck of the proximal left humerus. Had hyperglycemia, hypokalemia and an elevated lactic acid on admission, which has now normalized. Patient symptoms improved during course of admission. PT/OT consulted and has assessed patient will require sub-acuter rehab on discharge. Ortho was consulted and patient will follow up with them on outpatient basis. Attestation I have seen and examined this patient with my resident , discussed the same with the resident/REBECA, and agree with the dictator's assessment and plan as written Dr. Scar richmond Assessment: Acute hypoxic respiratory failure secondary to left upper pneumonia, ruled out Fall due to left shoulder injury and right wrist injury, stable Generalized weakness due to debility Diabetes with hyperglycemia, controlled Hypokalemia, resolved Chronic conditions: CHF, Hyperlipidemia, GERD, hypertension, hypothyroidism, Hx of asthma, Obesity Physical examination: Vital signs reviewed General: non toxic, no distress, appears at stated age, normal weight Derm: no unusual rashes/lesions, warm Head: atraumatic, normocephalic, symmetric Eyes: EOMI, no lid lag, anicteric sclera, pupils equal round reactive to light ENT: Nose and ears atraumatic Neck: No cervical lymphadenopathy, trachea midline, supple Mouth: no lip lesion, mucus membranes moist Cardiovascular: S1S2 reg, no murmur Lungs: CTA bilateral lung hernandez, no rhonchi, no rales, no accessory muscle use Abdominal: soft, nontender to palpation, no guarding Ext: muscle strength 5 out of 5 in all 4 extremities grossly, no gross muscle atrophy, no contractures, positive dorsalis pedis pulse bilateral, no edema Neuro: CN II-XI grossly intact, no gross focal neuro deficits Psych: Alert, oriented, appropriate affect and mood Patient Condition at Discharge: Stable Plan - Discharge Summary New Discharge Prescriptions: New Insulin Detemir (Levemir) [Levemir] 28 unit SQ DAILY@0700 30 Days #9 each Gabapentin [Neurontin] 300 mg PO QID 30 Days #60 cap INSULIN ASPART (NovoLOG) [NovoLOG (formulary)] 9 unit SQ AC-TID 30 Days #9 each Acetaminophen Tab [Tylenol] 650 mg PO Q4H PRN tab PRN Reason: Mild Pain Or Fever > 100.5 Continue Primidone [Mysoline] 100 mg PO BID Omeprazole [PriLOSEC] 20 mg PO DAILY Montelukast Sodium [Singulair] 10 mg PO DAILY Levothyroxine Sodium [Synthroid] 150 mcg PO DAILY Aspirin 81 mg PO BID Mirtazapine [Remeron] 15 mg PO HS Metoclopramide [Reglan] 10 mg PO DAILY Multivit-Min36/Iron/Folic Acid [Geritol Complete Tablet] 1 tab PO DAILY Vitamin B Complex 1 cap PO DAILY Ergocalciferol (Vitamin D2) [Drisdol (50,000 Iu)] 50,000 unit PO CONTRERAS Propranolol [Inderal] 20 mg PO TID Magnesium 250 mg PO DAILY Ipratropium-Albuterol Nebulize [Duoneb 0.5 mg-3 mg/3 ml Soln] 3 ml INHALATION RT-QID PRN PRN Reason: Shortness Of Breath Topiramate 100 mg PO BID-W/MEALS Potassium Chloride ER [K-Dur 10] 10 meq PO DAILY Ibuprofen [Motrin] 800 mg PO Q8H PRN PRN Reason: Pain Or Fever > 100.5 Furosemide [Lasix] 40 mg PO DAILY predniSONE 10 mg PO DIRECTED #50 tab Atorvastatin [Lipitor] 80 mg PO DAILY Fluticasone Propion/Salmeterol [Wixela 500-50 Inhub] 1 puff INHALATION RT-BID Promethazine HCl 6.25 mg PO TID #9 tablet Discontinued Insulin Aspart [NovoLOG Flexpen] See Protocol SQ TID-W/MEALS PRN PRN Reason: Blood Sugar - High Insulin Glargine,Hum.rec.anlog [Lantus Solostar Pen] 20 units SQ BID 30 Days #10 each Gabapentin 600 mg PO QID Ipratropium-Albuterol Nebulize [Duoneb 0.5 mg-3 mg/3 ml Soln] 3 ml INHALATION RT-QID 30 Days #120 each Clindamycin [Cleocin] 300 mg PO Q6H 10 Days #80 cap Discharge Medication List Aspirin 81 mg PO BID 09/21/13 [History] Levothyroxine Sodium [Synthroid] 150 mcg PO DAILY 09/21/13 [History] Montelukast Sodium [Singulair] 10 mg PO DAILY 09/21/13 [History] Omeprazole [PriLOSEC] 20 mg PO DAILY 09/21/13 [History] Primidone [Mysoline] 100 mg PO BID 09/21/13 [History] Metoclopramide [Reglan] 10 mg PO DAILY 08/10/16 [History] Mirtazapine [Remeron] 15 mg PO HS 08/10/16 [History] Multivit-Min36/Iron/Folic Acid [Geritol Complete Tablet] 1 tab PO DAILY 08/10/16 [History] Ergocalciferol (Vitamin D2) [Drisdol (50,000 Iu)] 50,000 unit PO CONTRERAS 01/17/18 [History] Vitamin B Complex 1 cap PO DAILY 01/17/18 [History] Atorvastatin [Lipitor] 80 mg PO DAILY 12/01/21 [History] Fluticasone Propion/Salmeterol [Wixela 500-50 Inhub] 1 puff INHALATION RT-BID 0 12/01/21 [History] Ipratropium-Albuterol Nebulize [Duoneb 0.5 mg-3 mg/3 ml Soln] 3 ml INHALATION RT-QID PRN 12/01/21 [History] Magnesium 250 mg PO DAILY 12/01/21 [History] Propranolol [Inderal] 20 mg PO TID 12/01/21 [History] Furosemide [Lasix] 40 mg PO DAILY 04/02/22 [History] Ibuprofen [Motrin] 800 mg PO Q8H PRN 04/02/22 [History] Potassium Chloride ER [K-Dur 10] 10 meq PO DAILY 04/02/22 [History] Topiramate 100 mg PO BID-W/MEALS 04/02/22 [History] Promethazine HCl 6.25 mg PO TID #9 tablet 04/06/22 [Rx] predniSONE 10 mg PO DIRECTED #50 tab 04/06/22 [Rx] Acetaminophen Tab [Tylenol] 650 mg PO Q4H PRN tab 11/28/23 [Rx] Gabapentin [Neurontin] 300 mg PO QID 30 Days #60 cap 11/28/23 [Rx] INSULIN ASPART (NovoLOG) [NovoLOG (formulary)] 9 unit SQ AC-TID 30 Days #9 each 11/28/23 [Rx] Insulin Detemir (Levemir) [Levemir] 28 unit SQ DAILY@0700 30 Days #9 each 11/28/23 [Rx] Follow up Appointment(s)/Referral(s): Gary Lozano MD [STAFF PHYSICIAN] - 12/04/23 1:30 pm Discharge Disposition: TRANSFER TO SNF/ECF
[2023-11-28 15:25] VITALS: BP 94/62; PULSE 89
--- NOTE | 2023-12-16 09:15 | XR ---
Report Patient: Cait Freeman Ordering Physician: Unknown, Unknown ID: [id number] Phone, Pager: Phone: N/A Pager: N/A : 1955 Age/Gender: 68Y, F Primary Location: N/A Procedure: XR chest 1V Study Date: 11/22/2023 7:39:49 PM EXAMINATION TYPE: XR chest 2V DATE OF EXAM: 11/22/2023 COMPARISON: 04/10/2022 HISTORY: 68-year-old female with weakness TECHNIQUE: AP and lateral views FINDINGS: Heart and lungs are normal in size. Large patient body habitus results in hazy densities throughout t he lungs. Silhouetting at the cardiac apex likely due to epicardial fat pad. There is a focal opacity at the left upper lobe. In addition, there is a mildly displaced fracture of the surgical neck of th e proximal left humerus. IMPRESSION: 1. Mildly displaced surgical neck fracture proximal left humerus. Correlate estimated age of injury a nd for any known diagnosis. 2. Focal left upper lobe opacity could represent pneumonia or neoplasm.
--- NOTE | 2023-12-20 19:51 | CDI ---
Sepsis is documented only on progress note dated 11/23, which may lack sufficient clinical evidence/support in the medical record. Additional clarification is requested. History/Risk Factors: Patient presented with weakness, bibasilar crackles and left shoulder pain. Progress note 11/23 states: Acute hypoxic respiratory failure secondary to left upper lobe pneumonia and sepsis, with opacity on imaging. Clinical Indicators: At ED found to have focal opacity in the L upper lobe and she is diagnosed with pneumonia. Patient also had high sugars on admission. Vital signs in ED: BP 124/60, Pulse 112, RR 20, Temp 97.9 Treatment: Rocephin After work up and study, please clarify which diagnosis is most appropriate? [ ] Sepsis ruled out [ ] Sepsis treated prophylactically [ ] Sepsis is a valid diagnosis as evidence by the following: (Please add rationale): [ ] Other, please specify [ ] Unable to determine not mine MTDD
--- NOTE | 2024-01-07 15:46 | CDI ---
Sepsis is documented only on progress note dated 11/23, which may lack sufficient clinical evidence/support in the medical record. Additional clarification is requested. History/Risk Factors: Patient presented with weakness, bibasilar crackles and left shoulder pain. Progress note 11/23 states: Acute hypoxic respiratory failure secondary to left upper lobe pneumonia and sepsis, with opacity on imaging. Clinical Indicators: At ED found to have focal opacity in the L upper lobe and she is diagnosed with pneumonia. Patient also had high sugars on admission. Vital signs in ED: BP 124/60, Pulse 112, RR 20, Temp 97.9 Treatment: Rocephin After work up and study, please clarify which diagnosis is most appropriate? [ ] Sepsis ruled out [ x ] Sepsis treated prophylactically [ ] Sepsis is a valid diagnosis as evidence by the following: (Please add rationale): [ ] Other, please specify [ ] Unable to determine MTDD
== END 2023-11-28 15:25 | DRG 871 ==
LOC: 4SSUR 22:00
PROVIDERS: ADMIT Hospitalist; ATTEND Hospitalist
DX: A41.9 Sepsis, unspecified organism (principal); J18.9 Pneumonia, unspecified organism; J96.01 Acute respiratory failure with hypoxia; E87.20 Acidosis, unspecified; S42.212A Unspecified displaced fracture of surgical neck of left humerus, initial encounter for closed fracture; E86.0 Dehydration; W19.XXXA Unspecified fall, initial encounter; E11.65 Type 2 diabetes mellitus with hyperglycemia; E78.5 Hyperlipidemia, unspecified; I11.0 Hypertensive heart disease with heart failure; I50.9 Heart failure, unspecified; Y92.009 Unspecified place in unspecified non-institutional (private) residence as the place of occurrence of the external cause; E87.6 Hypokalemia; J45.909 Unspecified asthma, uncomplicated; S69.91XA Unspecified injury of right wrist, hand and finger(s), initial encounter; E03.9 Hypothyroidism, unspecified; K21.9 Gastro-esophageal reflux disease without esophagitis; E66.9 Obesity, unspecified; Z72.3 Lack of physical exercise; Z68.38 Body mass index [BMI] 38.0-38.9, adult; Z79.4 Long term (current) use of insulin; Z79.890 Hormone replacement therapy; Z79.82 Long term (current) use of aspirin; Z79.84 Long term (current) use of oral hypoglycemic drugs; Z79.899 Other long term (current) drug therapy
CPT/HCPCS: 51798; 71045; 80048; 80053; 83036; 84132; 84145; 85025; 87040; 93005; 94640; 94760; 96361; 96365; 96374; 99285

== ENCOUNTER 2024-01-27 13:53 | Inpatient (IN) | payer MEDICARE ==
[2024-01-27 14:03] LABS: Glucose,Whole Blood 482 mg/dL (70-110)
--- NOTE | 2024-01-27 14:07 | ED ---
Recheck HPI - General Chief Complaint: Recheck/Abnormal Lab/Rx Stated Complaint: Hyperglycemia Time Seen by Provider: 01/27/24 14:04 Source: EMS, RN notes reviewed, old records reviewed Mode of arrival: EMS Limitations: no limitations - History of Present Illness Initial Comments: This is a 68-year-old female to the ER. This patient presents today for evaluation of elevated blood sugar and also complaining of dysuria positive nausea positive vomiting positive abdominal pain. Patient also feels like her heart is racing MD Complaint: wound re-check, abnormal lab (Elevated blood sugar) -: days(s) Returns Today for: persistent/worsening pain related to initial visit, other (Nausea vomiting) Symptoms Since Prior Visit: worsening pain Context: called for abnormal lab result Associated Symptoms: none - Related Data Home Medications Medication Instructions Recorded Confirmed Aspirin 162 mg PO DAILY 09/21/13 01/27/24 Levothyroxine Sodium [Synthroid] 150 mcg PO DAILY 09/21/13 01/27/24 Montelukast Sodium [Singulair] 10 mg PO DAILY 09/21/13 01/27/24 Omeprazole [PriLOSEC] 20 mg PO BID 09/21/13 01/27/24 Primidone [Mysoline] 100 mg PO BID 09/21/13 01/27/24 Metoclopramide [Reglan] 10 mg PO DAILY 08/10/16 01/27/24 Mirtazapine [Remeron] 15 mg PO HS 08/10/16 01/27/24 Multivit-Min36/Iron/Folic Acid 1 tab PO DAILY 08/10/16 01/27/24 [Geritol Complete Tablet] Vitamin B Complex 1 cap PO DAILY 01/17/18 01/27/24 Atorvastatin [Lipitor] 80 mg PO DAILY 12/01/21 01/27/24 Fluticasone Propion/Salmeterol 1 puff INHALATION RT-BID PRN 12/01/21 01/27/24 [Wixela 500-50 Inhub] Ipratropium-Albuterol Nebulize 3 ml INHALATION RT-QID PRN 12/01/21 01/27/24 [Duoneb 0.5 mg-3 mg/3 ml Soln] Magnesium 250 mg PO DAILY 12/01/21 01/27/24 Propranolol [Inderal] 20 mg PO TID 12/01/21 01/27/24 Furosemide [Lasix] 40 mg PO DAILY 04/02/22 01/27/24 Ibuprofen [Motrin] 800 mg PO Q8H PRN 04/02/22 01/27/24 Potassium Chloride ER [K-Dur 10] 10 meq PO DAILY 04/02/22 01/27/24 Topiramate 100 mg PO BID 04/02/22 01/27/24 Alendronate Sodium [Fosamax] 70 mg PO CONTRERAS 01/27/24 01/27/24 Ergocalciferol [Vitamin D2 (1250 1,250 mcg PO CONTRERAS 01/27/24 01/27/24 Mcg = 12989 Iu)] Insulin Aspart [NovoLOG Flexpen] See Protocol SQ 5XD 01/27/24 01/27/24 Insulin Glargine/Lixisenatide 20 units SQ QAM 01/27/24 01/27/24 [Soliqua 100 Unit-33 Mcg/ml Pen] Nystatin 100,000Unit/gm Cream 1 applic TOPICAL BID 01/27/24 01/27/24 [Mycostatin Cream] Ondansetron Odt [Zofran ODT] 4 mg PO Q6H PRN 01/27/24 01/27/24 Pioglitazone [Actos] 15 mg PO DAILY 01/27/24 01/27/24 Previous Rx's Medication Instructions Recorded Gabapentin [Neurontin] 300 mg PO QID 30 Days #60 cap 11/28/23 Benzonatate [Tessalon Perles] 100 mg PO TID PRN #20 cap 02/03/24 Doxycycline [Vibramycin] 100 mg PO BID #20 cap 02/03/24 Ipratropium-Albuterol Nebulize 3 ml INHALATION RT-QID each 02/03/24 [Duoneb 0.5 mg-3 mg/3 ml Soln] predniSONE See Taper PO DIRECTED #30 tab 02/03/24 Allergies Allergy/AdvReac Type Severity Reaction Status Date / Time aminophylline Allergy Rash/Hives Verified 01/27/24 16:34 cephalexin monohydrate Allergy Rash/Hives Verified 01/27/24 16:34 [From Keflex] codeine Allergy Rash/Hives Verified 01/27/24 16:34 diazepam [From Valium] Allergy Rash/Hives Verified 01/27/24 16:34 hydrocodone bitartrate Allergy Rash/Hives Verified 01/27/24 16:34 [From Vicodin] Iodinated Contrast Media Allergy Rash/Hives Verified 01/27/24 16:34 [Iodinated Contrast Media - IV Dye] latex Allergy Itching, Verified 01/27/24 16:34 BURNING SKIN Latex, Natural Rubber Allergy Itching, Verified 01/27/24 16:34 BURNING OF SKIN levofloxacin [From Levaquin] Allergy Rash/Hives Verified 01/27/24 16:34 metformin HCl Allergy Rash/Hives Verified 01/27/24 16:34 [From Glucophage] morphine Allergy Rash/Hives Verified 01/27/24 16:34 Penicillins Allergy Rash/Hives Verified 01/27/24 16:35 Sulfa (Sulfonamide Allergy Rash/Hives Verified 01/27/24 16:34 Antibiotics) sulfamethoxazole Allergy Rash/Hives Verified 01/27/24 16:34 [From Bactrim] tetracycline [Tetracycline] Allergy Rash/Hives Verified 01/27/24 16:34 theophylline Allergy Rash/Hives Verified 01/27/24 16:34 tramadol Allergy Dyspnea Verified 01/27/24 16:34 trimethoprim [From Bactrim] Allergy Rash/Hives Verified 01/27/24 16:34 Review of Systems ROS Statement: Those systems with pertinent positive or pertinent negative responses have been documented in the HPI. ROS Other: All systems not noted in ROS Statement are negative. Past Medical History Past Medical History: Asthma, Heart Failure, COPD, CVA/TIA, Diabetes Mellitus, Fibromyalgia, GERD/Reflux, Hyperlipidemia, Hypertension, Musculoskeletal Disorder, Neurologic Disorder, Osteoarthritis (OA), Pneumonia, Renal Disease, Sleep Apnea/CPAP/BIPAP, Thyroid Disorder Additional Past Medical History / Comment(s): See Dr Stanley's H&P. Hx CVA yrs ago. Hx Pleurisy. Bilateral neuropathy hands and feet. IBS. Migranes - "under control". No CPAP use. Chronic lower back, neck pain, DDD, Scoliosis, bilateral carpal tunnel, pinched nerve in right leg. Past hx Kidney failure. RSV+04/02/22 History of Any Multi-Drug Resistant Organisms: MRSA Date of last positivie culture/infection: 07/29/23 MDRO Source:: LEFT SHOULDER Past Surgical History: Appendectomy, Breast Surgery, Heart Catheterization, Hysterectomy, Joint Replacement, Orthopedic Surgery, Tonsillectomy Additional Past Surgical History / Comment(s): Left knee surgery - pins placed, left foot - screws placed, right ankle arthroscopy, right foot-cyst removed, TOTAL LEFT KNEE REPLACEMENT(CERAMIC), left hand 5th finger dupuytrens contraction, LEFT BREAST Lumpectomy-NEGATIVE (has marker), Colonoscopy, EXCISION BILATERAL CATARACTS. Past Anesthesia/Blood Transfusion Reactions: No Reported Reaction Additional Past Anesthesia/Blood Transfusion Reaction / Comment(s): Has never had blood transfusion. Past Psychological History: Anxiety, Depression Smoking Status: Never smoker Past Alcohol Use History: None Reported Past Drug Use History: None Reported - Past Family History Father Family Medical History: Cancer Additional Family Medical History / Comment(s): Prostate cancer. Mother Family Medical History: Cancer, Diabetes Mellitus Additional Family Medical History / Comment(s): Breast Cancer. Brother(s) Family Medical History: Cancer Additional Family Medical History / Comment(s): Leukemia. General Exam Limitations: no limitations General appearance: alert, in no apparent distress Head exam: Present: atraumatic, normocephalic, normal inspection Eye exam: Present: normal appearance, PERRL, EOMI. Absent: scleral icterus, conjunctival injection, periorbital swelling ENT exam: Present: normal exam, mucous membranes moist Neck exam: Present: normal inspection. Absent: tenderness, meningismus, lymphadenopathy Respiratory exam: Present: normal lung sounds bilaterally. Absent: respiratory distress, wheezes, rales, rhonchi, stridor Cardiovascular Exam: Present: regular rate, normal rhythm, normal heart sounds. Absent: systolic murmur, diastolic murmur, rubs, gallop, clicks GI/Abdominal exam: Present: soft, normal bowel sounds. Absent: distended, tenderness, guarding, rebound, rigid Extremities exam: Present: normal inspection, full ROM, normal capillary refill. Absent: tenderness, pedal edema, joint swelling, calf tenderness Back exam: Present: normal inspection Neurological exam: Present: alert, oriented X3, CN II-XII intact Psychiatric exam: Present: normal affect, normal mood Skin exam: Present: warm, dry, intact, normal color. Absent: rash Course Vital Signs 01/27/24 01/27/24 01/27/24 13:54 15:21 17:44 Temperature 98.1 F Pulse Rate 124 H 117 H 113 H Respiratory 20 18 18 Rate Blood Pressure 134/77 124/70 115/67 O2 Sat by Pulse 93 L 95 94 L Oximetry 01/27/24 01/27/24 01/27/24 19:47 21:27 22:15 Temperature 98.2 F 98.3 F Pulse Rate 122 H 104 H 112 H Respiratory 20 19 19 Rate Blood Pressure 98/64 119/72 109/78 O2 Sat by Pulse 95 98 97 Oximetry - Reevaluation(s) Reevaluation #1: 01/27/24 16:26 Medical records reviewed Reevaluation #2: 01/27/24 16:26 Patient symptoms unchanged Reevaluation #3: 01/27/24 16:26 Patient informed of results questions answered Reevaluation #4: Was pt. sent in by a medical professional or institution (GIULIA John, ORDER PACKER, urgent care, hospital, or retirement...) When possible be specific @ -no Did you speak to anyone other than the patient for history (EMS, parent, family, police, friend...)? What history was obtained from this source @ -no Did you review nursing and triage notes (agree or disagree)? Why? @ -agree Are old charts reviewed (outside hosp., previous admission, EMS record, old EKG, old radiological studies, urgent care reports/EKG's, retirement records)? R eport findings @ -yes Differential Diagnosis (chest pain, altered mental status, abdominal pain women, abdominal pain men, vaginal bleeding, weakness, fever, dyspnea, syncope, headache, dizziness, GI bleed, back pain, seizure, CVA, palpatations, mental health, musculoskeletal)? @ -prior EKG interpreted by me (3pts min.). @ -yes X-rays interpreted by me (1pt min.). @ -no CT interpreted by me (1pt min.). @ -no U/S interpreted by me (1pt. min.). @ -no What testing was considered but not performed or refused? (CT, X-rays, U/S, labs)? Why? @ -none What meds were considered but not given or refused? Why? @ -none Did you discuss the management of the patient with other professionals (prof reynaionals i.e. GIULIA John, ORDER PACKER, lab, RT, psych nurse, psychosocial rehabilitation counselor, gui developer, teacher, interface control officer, egg caser)? Give summary @ -no Was smoking cessation discussed for >3mins.? @ -no Was critical care preformed (if so, how long)? @ -yes31 Were there social determinants of health that impacted care today? How? (Homelessness, low income, unemployed, alcoholism, drug addiction, transportation, low edu. Level, literacy, decrease access to med. care, senior living, rehab)? @ -none Was there de-escalation of care discussed even if they declined (Discuss DNR or withdrawal of care, Hospice)? DNR status @ -no What co-morbidities impacted this encounter? (DM, HTN, Smoking, COPD, CAD, Cancer, CVA, ARF, Chemo, Hep., AIDS, mental health diagnosis, sleep apnea, morbid obesity)? @ -none Was patient admitted / discharged? Hospital course, mention meds given and route, prescriptions, significant lab abnormalities, going to OR and other pertinent info. @ - 68 female to the ER for evaluation patient notes today for evaluation regards to weakness, dysuria positive UTI positive DKA elevated blood sugars. Patient will admit for supportive care as well as found to be in atrial fibrillation with RVR here in the ER Admitted Undiagnosed new problem with uncertain prognosis? @ -no Drug Therapy requiring intensive monitoring for toxicity (Heparin, Nitro, Insulin, Cardizem)? @ -no Were any procedures done? @ -no Diagnosis/symptom? @ -A-fib with RVR dysuria sepsis and DKA Acute, or Chronic, or Acute on Chronic? @ -Acute Uncomplicated (without systemic symptoms) or Complicated (systemic symptoms)? @ -Complicated Side effects of treatment? @ -no Exacerbation, Progression, or Severe Exacerbation? @ -exacerbation Poses a threat to life or bodily function? How? (Chest pain, [place], [place], pneumonia, PE, COPD, DKA, ARF, appy, cholecystitis, CVA, Diverticulitis, Homicidal, Suicidal, threat to staff... and all critical care pts) @ -yes severe illness Reevaluation #5: Differential Weakness: Hypoglycemia, shock, sepsis, hyponatremia, anemia, infection, [place], ETOH, adverse medicine reaction, overdose, stroke, this is not meant to be an all-inclusive list. Medical Decision Making - Medical Decision Making 68 female to the ER for evaluation patient notes today for evaluation regards to weakness, dysuria positive UTI positive DKA elevated blood sugars. Patient will admit for supportive care as well as found to be in atrial fibrillation with RVR here in the ER - Lab Data Result diagrams: 02/03/24 05:51 02/03/24 05:51 Lab Results 01/27/24 01/27/24 01/27/24 Range/Units 14:00 14:09 14:09 WBC 9.1 (3.8-10.6) k/uL RBC 4.40 (3.80-5.40) m/uL Hgb 14.7 D (11.4-16.0) gm/dL Hct 45.2 (34.0-46.0) % MCV 102.7 H (80.0-100.0) fL MCH 33.3 (25.0-35.0) pg MCHC 32.5 (31.0-37.0) g/dL RDW 13.1 (11.5-15.5) % Plt Count 151 D (150-450) k/uL MPV 13.1 Neutrophils % 70 % Lymphocytes % 22 % Monocytes % 5 % Eosinophils % 0 % Basophils % 1 % Neutrophils # 6.4 (1.3-7.7) k/uL Lymphocytes # 2.0 (1.0-4.8) k/uL Monocytes # 0.5 (0-1.0) k/uL Eosinophils # 0.0 (0-0.7) k/uL Basophils # 0.1 (0-0.2) k/uL Manual Slide Review Performed Hypochromasia Slight Macrocytosis Slight PT 11.5 (10.0-12.5) sec INR 1.1 (<1.2) APTT 22.3 (22.0-30.0) sec Sodium (137-145) mmol/L Potassium (3.5-5.1) mmol/L Chloride (98-107) mmol/L Carbon Dioxide (22-30) mmol/L Anion Gap mmol/L BUN (7-17) mg/dL Creatinine (0.52-1.04) mg/dL Est GFR (CKD-EPI)AfAm (>60 ml/min/1.73 sqM) Est GFR (CKD-EPI)NonAf (>60 ml/min/1.73 sqM) Glucose (74-99) mg/dL POC Glucose (mg/dL) 482 H (70-110) mg/dL POC Glu Medical Billing And Coding Instructor ID Farooq Armenta Calcium (8.4-10.2) mg/dL Phosphorus (2.5-4.5) mg/dL Magnesium (1.6-2.3) mg/dL Total Bilirubin (0.2-1.3) mg/dL AST (14-36) U/L ALT (4-34) U/L Alkaline Phosphatase (38-126) U/L Troponin I (0.000-0.034) ng/mL NT-Pro-B Natriuret Pep pg/mL Total Protein (6.3-8.2) g/dL Albumin (3.5-5.0) g/dL Urine Color Urine Appearance (Clear) Urine pH (5.0-8.0) Ur Specific [place] (1.001-1.035) Urine Protein (Negative) Urine Glucose (UA) (Negative) Urine Ketones (Negative) Urine Blood (Negative) Urine Nitrite (Negative) Urine Bilirubin (Negative) Urine Urobilinogen (<2.0) mg/dL Ur Leukocyte Esterase (Negative) Urine RBC (0-5) /hpf Urine WBC (0-5) /hpf Ur Squamous Epith Cells (0-4) /hpf Urine Bacteria (None) /hpf Hyaline Casts (0-2) /lpf Urine Mucus (None) /hpf Acetone, Qual (Negative) 01/27/24 01/27/24 01/27/24 Range/Units 14:09 14:09 14:09 WBC (3.8-10.6) k/uL RBC (3.80-5.40) m/uL Hgb (11.4-16.0) gm/dL Hct (34.0-46.0) % MCV (80.0-100.0) fL MCH (25.0-35.0) pg MCHC (31.0-37.0) g/dL RDW (11.5-15.5) % Plt Count (150-450) k/uL MPV Neutrophils % % Lymphocytes % % Monocytes % % Eosinophils % % Basophils % % Neutrophils # (1.3-7.7) k/uL Lymphocytes # (1.0-4.8) k/uL Monocytes # (0-1.0) k/uL Eosinophils # (0-0.7) k/uL Basophils # (0-0.2) k/uL Manual Slide Review Hypochromasia Macrocytosis PT (10.0-12.5) sec INR (<1.2) APTT (22.0-30.0) sec Sodium 137 (137-145) mmol/L Potassium 3.9 (3.5-5.1) mmol/L Chloride 105 (98-107) mmol/L Carbon Dioxide 10 L (22-30) mmol/L Anion Gap 22 mmol/L BUN 7 (7-17) mg/dL Creatinine 0.69 (0.52-1.04) mg/dL Est GFR (CKD-EPI)AfAm >90 (>60 ml/min/1.73 sqM) Est GFR (CKD-EPI)NonAf >90 (>60 ml/min/1.73 sqM) Glucose 452 H (74-99) mg/dL POC Glucose (mg/dL) (70-110) mg/dL POC Glu Medical Billing And Coding Instructor ID Calcium 9.1 (8.4-10.2) mg/dL Phosphorus 4.0 (2.5-4.5) mg/dL Magnesium 1.7 (1.6-2.3) mg/dL Total Bilirubin 0.6 (0.2-1.3) mg/dL AST 16 (14-36) U/L ALT 16 (4-34) U/L Alkaline Phosphatase 157 H (38-126) U/L Troponin I <0.012 (0.000-0.034) ng/mL NT-Pro-B Natriuret Pep 98 pg/mL Total Protein 7.3 (6.3-8.2) g/dL Albumin 4.2 (3.5-5.0) g/dL Urine Color Colorless Urine Appearance Clear (Clear) Urine pH 5.5 (5.0-8.0) Ur Specific [place] 1.024 (1.001-1.035) Urine Protein Trace H (Negative) Urine Glucose (UA) 4+ H (Negative) Urine Ketones 4+ H (Negative) Urine Blood Trace H (Negative) Urine Nitrite Negative (Negative) Urine Bilirubin Negative (Negative) Urine Urobilinogen <2.0 (<2.0) mg/dL Ur Leukocyte Esterase Small H (Negative) Urine RBC 4 (0-5) /hpf Urine WBC 17 H (0-5) /hpf Ur Squamous Epith Cells 2 (0-4) /hpf Urine Bacteria Rare H (None) /hpf Hyaline Casts 7 H (0-2) /lpf Urine Mucus Rare H (None) /hpf Acetone, Qual Positive (Negative) 01/27/24 01/27/24 Range/Units 15:31 16:14 WBC (3.8-10.6) k/uL RBC (3.80-5.40) m/uL Hgb (11.4-16.0) gm/dL Hct (34.0-46.0) % MCV (80.0-100.0) fL MCH (25.0-35.0) pg MCHC (31.0-37.0) g/dL RDW (11.5-15.5) % Plt Count (150-450) k/uL MPV Neutrophils % % Lymphocytes % % Monocytes % % Eosinophils % % Basophils % % Neutrophils # (1.3-7.7) k/uL Lymphocytes # (1.0-4.8) k/uL Monocytes # (0-1.0) k/uL Eosinophils # (0-0.7) k/uL Basophils # (0-0.2) k/uL Manual Slide Review Hypochromasia Macrocytosis PT (10.0-12.5) sec INR (<1.2) APTT (22.0-30.0) sec Sodium (137-145) mmol/L Potassium (3.5-5.1) mmol/L Chloride (98-107) mmol/L Carbon Dioxide (22-30) mmol/L Anion Gap mmol/L BUN (7-17) mg/dL Creatinine (0.52-1.04) mg/dL Est GFR (CKD-EPI)AfAm (>60 ml/min/1.73 sqM) Est GFR (CKD-EPI)NonAf (>60 ml/min/1.73 sqM) Glucose (74-99) mg/dL POC Glucose (mg/dL) 349 H 266 H (70-110) mg/dL POC Glu Medical Billing And Coding Instructor ID Farooq Oden Calcium (8.4-10.2) mg/dL Phosphorus (2.5-4.5) mg/dL Magnesium (1.6-2.3) mg/dL Total Bilirubin (0.2-1.3) mg/dL AST (14-36) U/L ALT (4-34) U/L Alkaline Phosphatase (38-126) U/L Troponin I (0.000-0.034) ng/mL NT-Pro-B Natriuret Pep pg/mL Total Protein (6.3-8.2) g/dL Albumin (3.5-5.0) g/dL Urine Color Urine Appearance (Clear) Urine pH (5.0-8.0) Ur Specific [place] (1.001-1.035) Urine Protein (Negative) Urine Glucose (UA) (Negative) Urine Ketones (Negative) Urine Blood (Negative) Urine Nitrite (Negative) Urine Bilirubin (Negative) Urine Urobilinogen (<2.0) mg/dL Ur Leukocyte Esterase (Negative) Urine RBC (0-5) /hpf Urine WBC (0-5) /hpf Ur Squamous Epith Cells (0-4) /hpf Urine Bacteria (None) /hpf Hyaline Casts (0-2) /lpf Urine Mucus (None) /hpf Acetone, Qual (Negative) - EKG Data -: EKG Interpreted by Me (EKG is sinus tachycardia 116 CO 173 QRS 86 QTc 4 3) Critical Care Time Critical Care Time: Yes Total Critical Care Time: 31 Disposition Clinical Impression: DKA (diabetic ketoacidosis), UTI (urinary tract infection), Atrial fibrillation with rapid ventricular response, COPD exacerbation, Type 2 diabetes mellitus with peripheral neuropathy Disposition: ADMITTED IP TO THIS HOSP Condition: Fair Is patient prescribed a controlled substance at d/c from ED?: No Time of Disposition: 16:20
[2024-01-27] MEDS: SODIUM CHLORIDE 0.9% 1,000 ML IV STA ×2 (14:22→15:06)
[2024-01-27 14:30] LABS: Basophils # (A) 0.1 k/uL (0-0.2); Basophils % (A) 1 %; Eosinophils % (A) 0 %; HCT 45.2 % (34.0-46.0); Hypochromasia Slight; INR 1.1 (<1.2); Lymphocytes % (A) 22 %; MCH 33.3 pg (25.0-35.0); MCHC 32.5 g/dL (31.0-37.0); MCV 102.7 fL (80.0-100.0); Macrocytosis Slight; Mean Platelet Volume 13.1; Monocytes # (A) 0.5 k/uL (0-1.0); Monocytes % (A) 5 %; Neutrophils # (A) 6.4 k/uL (1.3-7.7); Neutrophils % (A) 70 %; Partial Thromboplastin Time 22.3 sec (22.0-30.0); Prothrombin Time 11.5 sec (10.0-12.5); RDW 13.1 % (11.5-15.5); WBC 9.1 k/uL (3.8-10.6)
[2024-01-27 14:31] LABS: HGB 14.7 gm/dL (11.4-16.0); Platelet Count 151 k/uL (150-450)
[2024-01-27 14:37] LABS: Potassium 3.9 mmol/L (3.5-5.1)
[2024-01-27 14:38] LABS: ALT 16 U/L (4-34); AST 16 U/L (14-36); African American GFR (CKD) >90 (>60 ml/min/1.73 sqM); Albumin 4.2 g/dL (3.5-5.0); Alkaline Phosphatase 157 U/L (38-126); Anion Gap 22 mmol/L; Blood Urea Nitrogen 7 mg/dL (7-17); Calcium 9.1 mg/dL (8.4-10.2); Carbon Dioxide 10 mmol/L (22-30); Chloride 105 mmol/L (98-107); Glucose 452 mg/dL (74-99); Magnesium 1.7 mg/dL (1.6-2.3); Non-African American GFR(CKD) >90 (>60 ml/min/1.73 sqM); Sodium 137 mmol/L (137-145); Total Bilirubin 0.6 mg/dL (0.2-1.3); Total Protein 7.3 g/dL (6.3-8.2)
[2024-01-27 14:46] LABS: NT-Pro-B-Type Natriuretic Pept 98 pg/mL
[2024-01-27] MEDS: INSULIN REGULAR 100 UNIT/ML VIAL (IV) IV ONE (15:01)
[2024-01-27 15:13] LABS: Appearance,Urine Clear (Clear); Bacteria,Urine Rare /hpf; Bilirubin,Urine Negative (Negative); Blood,Urine Trace (Negative); Color,Urine Colorless; Glucose,Urine (UA) 4+ (Negative); Hyaline Casts,Urine 7 /lpf (0-2); Leukocyte Esterase,Urine Small (Negative); Mucus,Urine Rare /hpf; Nitrite,Urine Negative (Negative); PH, Urine 5.5 (5.0-8.0); Protein,Urine Trace (Negative); RBC,Urine 4 /hpf (0-5); Specific Gravity,Urine 1.024 (1.001-1.035); Squamous Epithelial Cell,Urine 2 /hpf (0-4); Urobilinogen,Urine <2.0 mg/dL (<2.0); WBC,Urine 17 /hpf (0-5)
[2024-01-27 15:24] LABS: Ketones,Urine 4+ (Negative)
[2024-01-27 15:34] LABS: Glucose,Whole Blood 349 mg/dL (70-110)
[2024-01-27 16:15] LABS: Glucose,Whole Blood 266 mg/dL (70-110)
[2024-01-27 16:57] LABS: Glucose,Whole Blood 281 mg/dL (70-110)
[2024-01-27] MEDS: INSULIN REGULAR 100 UNIT in SODIUM CHLORIDE 0.9% 100 ML IV SCH (17:05)
[2024-01-27] MEDS: SODIUM CHLORIDE 0.9% 1,000 ML IV SCH (17:08)
[2024-01-27] MEDS: LEVOFLOXACIN 750MG-D5W PMX 750 MG in DEXTROSE/WATER 1 150ML.BAG IVPB STA (17:14)
[2024-01-27 18:02] LABS: Glucose,Whole Blood 220 mg/dL (70-110)
[2024-01-27 19:02] LABS: Glucose,Whole Blood 164 mg/dL (70-110)
[2024-01-27] MEDS: ONDANSETRON 4 MG/2 ML VIAL IVP PRN (19:03)
[2024-01-27 19:59] LABS: Glucose,Whole Blood 89 mg/dL (70-110)
[2024-01-27] MEDS: D5-0.45% NACL WITH KCL 20MEQ/L 1,000 ML IV SCH (20:17)
[2024-01-27 20:24] LABS: Glucose,Whole Blood 67 mg/dL (70-110)
[2024-01-27] MEDS: DEXTROSE 50% SYRINGE 50 ML IVP STA (20:27)
[2024-01-27 20:41] LABS: African American GFR (CKD) >90 (>60 ml/min/1.73 sqM); Anion Gap 16 mmol/L; Blood Urea Nitrogen 7 mg/dL (7-17); Carbon Dioxide 13 mmol/L (22-30); Chloride 112 mmol/L (98-107); Glucose 97 mg/dL (74-99); Non-African American GFR(CKD) >90 (>60 ml/min/1.73 sqM); Potassium 3.5 mmol/L (3.5-5.1); Sodium 141 mmol/L (137-145)
[2024-01-27 20:48] LABS: Glucose,Whole Blood 217 mg/dL (70-110)
[2024-01-27 21:12] LABS: Glucose,Whole Blood 183 mg/dL (70-110)
[2024-01-27 21:34] LABS: Glucose,Whole Blood 179 mg/dL (70-110)
[2024-01-27 22:06] LABS: Glucose,Whole Blood 161 mg/dL (70-110)
[2024-01-27 22:59] LABS: Glucose,Whole Blood 131 mg/dL (70-110)
[2024-01-28 00:16] LABS: Glucose,Whole Blood 133 mg/dL (70-110)
[2024-01-28 01:19] LABS: African American GFR (CKD) >90 (>60 ml/min/1.73 sqM); Anion Gap 6 mmol/L; Blood Urea Nitrogen 8 mg/dL (7-17); Carbon Dioxide 22 mmol/L (22-30); Chloride 110 mmol/L (98-107); Glucose 133 mg/dL (74-99); Non-African American GFR(CKD) >90 (>60 ml/min/1.73 sqM); Potassium 3.3 mmol/L (3.5-5.1); Sodium 138 mmol/L (137-145)
[2024-01-28 01:21] LABS: Glucose,Whole Blood 148 mg/dL (70-110)
[2024-01-28] MEDS ORDERED: DEXTROSE 50% SYRINGE 50 ML IVP PRN ×2 (01:30)
[2024-01-28] MEDS: SODIUM CHLORIDE 0.9% 1,000 ML IV SCH (01:58)
[2024-01-28 06:32] LABS: Glucose,Whole Blood 212 mg/dL (70-110)
[2024-01-28] MEDS: INSULIN ASPART (NovoLOG) 100 UNIT/ML VIAL SQ SCH (06:43)
[2024-01-28] MEDS: INSULIN DETEMIR (LEVEMIR) 100 UNIT/ML SYR SQ SCH (06:43)
[2024-01-28] MEDS ORDERED: ONDANSETRON ODT 4 MG TAB PO PRN (09:08)
[2024-01-28] MEDS ORDERED: Potassium Replacement Protocol 1 EACH MISC MISCELLANE PRN (09:18)
--- NOTE | 2024-01-28 10:20 | P.CRDCN ---
History of Present Illness Consult date: 01/28/24 Consult reason: atrial fibrillation History of present illness: HPI: Patient is a 68-year-old female with past medical history of asthma, heart failure, COPD, diabetes, hyperlipidemia, hypertension, osteoarthritis, sleep apnea, thyroid disorder presented to the ED with nausea and vomiting for the past few days. Patient reported having a cough over the past 2 weeks, and she started feeling nauseous and began to vomit over the past few days. No blood was noted in the vomitus. Vomit was mostly just stomach acid. She also had dysuria over the past few days. Cardiology was consulted this morning for new onset atrial fibrillation. Patient denies any previous history of atrial fibrillation. Upon review of her medical records, patient did have a cardiac catheterization back in 2021 which showed mild disease in the mid LAD, mild disease proximal RCA, right dominance. EKG this morning showed sinus tachycardia. Patient's CBC showed white blood cell count of 9.1, hemoglobin 14.7, hematocrit 45.2, platelets 151. BMP showed sodium of 138, potassium 3.3, chloride 110, carbon dioxide 22, BUN 8, creatinine of 0.62. Troponin was less than 0.012. proBNP was 98. Patient was seen this morning at bedside. Patient is stable and reports feeling a little bit nauseous. Patient denied any chest pain, shortness of breath, belly pain, fever, chills, palpitations, lower extremity swelling, dysuria. Patient's heart rate is slightly tachycardic, normal respiratory rate, normal blood pressure, saturating at 93% on room air. Review of Systems Constitutional: Denies chills, Denies fever Eyes: denies blurred vision, double vision or pain Ears, nose, mouth and throat: Denies headache, Denies sore throat Cardiovascular: Denies chest pain, Denies shortness of breath Respiratory: Denies cough Gastrointestinal: Denies abdominal pain, Denies diarrhea, reports nausea, reports vomiting Musculoskeletal: Denies myalgias Integumentary: Denies pruritus, Denies rash Neurological: Denies numbness, Denies weakness Psychiatric: Denies anxiety, Denies depression Endocrine: Denies fatigue, Denies weight change Past medical history: asthma, heart failure, COPD, diabetes, hyperlipidemia, hypertension, osteoarthritis, sleep apnea, thyroid disorder Past surgical history: Appendectomy, Breast Surgery, Heart Catheterization, Hysterectomy, Joint Replacement, Orthopedic Surgery, Tonsillectomy Social history: Not a smoker, no past alcohol or drug use Family history: Mother has diabetes mellitus Physical examination: GENERAL: This is a 68-year-old in no apparent distress at the time of examination. Pleasant and cooperative. HEENT: Head is atraumatic, normocephalic. Pupils are equal, round, and reactive to light. Sclerae anicteric. Conjunctivae are clear. Mucus membranes of the mouth are moist. Neck is supple. RESPIRATORY: Clear to auscultation. No wheezes, rales, or rhonchi. No use of accessory muscles. Patient maintaining oxygen saturation greater than 92%. No chest wall tenderness is noted on palpation or with deep breathing. CARDIOVASCULAR: Regular rate and rhythm. S1 and S2 noted. No systolic or diastolic murmur auscultated. No JVD noted. No S3 or S4 noted. GASTROINTESTINAL: No distention noted. Abdomen soft and round. Normal active bowel sounds auscultated x 4 quadrants. No pain or tenderness noted upon palpation. INTEGUMENTARY: No cyanosis. No jaundice. No rashes noted. No cellulitis noted. EXTREMITIES: 2+ peripheral pulses. No evidence of peripheral edema. No calf tenderness noted. NEUROLOGIC: Detailed neurological examination was not assessed. PSYCHIATRIC: Awake, alert, and oriented X 3. Appropriate affect. Intact judgement and insight. Previous cardiac workup/tests: Cardiac catheterization in 2021: Mild disease in the mid LAD, mild disease in the proximal RCA, right dominance. Impression: 1. New onset atrial fibrillation 2. DKA 3. UTI 4. COPD exacerbation 5. Type 2 diabetes mellitus Plan: Stat EKG was ordered. One-time IV push of 2.5 mg metoprolol tartrate. We will continue to monitor the patient and make further recommendations. Past Medical History Past Medical History: Asthma, Heart Failure, COPD, CVA/TIA, Diabetes Mellitus, Fibromyalgia, GERD/Reflux, Hyperlipidemia, Hypertension, Musculoskeletal Disorder, Neurologic Disorder, Osteoarthritis (OA), Pneumonia, Renal Disease, Sleep Apnea/CPAP/BIPAP, Thyroid Disorder Additional Past Medical History / Comment(s): See Dr Stanley's H&P. Hx CVA yrs ago. Hx Pleurisy. Bilateral neuropathy hands and feet. IBS. Migranes - "under control". No CPAP use. Chronic lower back, neck pain, DDD, Scoliosis, bilateral carpal tunnel, pinched nerve in right leg. Past hx Kidney failure. RSV+04/02/22 History of Any Multi-Drug Resistant Organisms: MRSA Date of last positivie culture/infection: 07/29/23 MDRO Source:: LEFT SHOULDER Past Surgical History: Appendectomy, Breast Surgery, Heart Catheterization, Hysterectomy, Joint Replacement, Orthopedic Surgery, Tonsillectomy Additional Past Surgical History / Comment(s): Left knee surgery - pins placed, left foot - screws placed, right ankle arthroscopy, right foot-cyst removed, TOTAL LEFT KNEE REPLACEMENT(CERAMIC), left hand 5th finger dupuytrens contraction, LEFT BREAST Lumpectomy-NEGATIVE (has marker), Colonoscopy, EXCISION BILATERAL CATARACTS. Past Anesthesia/Blood Transfusion Reactions: No Reported Reaction Additional Past Anesthesia/Blood Transfusion Reaction / Comment(s): Has never had blood transfusion. Smoking Status: Never smoker - Past Family History Father Family Medical History: Cancer Additional Family Medical History / Comment(s): Prostate cancer. Mother Family Medical History: Cancer, Diabetes Mellitus Additional Family Medical History / Comment(s): Breast Cancer. Brother(s) Family Medical History: Cancer Additional Family Medical History / Comment(s): Leukemia. Medications and Allergies Home Medications Medication Instructions Recorded Confirmed Type Aspirin 162 mg PO DAILY 09/21/13 01/27/24 History Levothyroxine Sodium [Synthroid] 150 mcg PO DAILY 09/21/13 01/27/24 History Montelukast Sodium [Singulair] 10 mg PO DAILY 09/21/13 01/27/24 History Omeprazole [PriLOSEC] 20 mg PO BID 09/21/13 01/27/24 History Primidone [Mysoline] 100 mg PO BID 09/21/13 01/27/24 History Metoclopramide [Reglan] 10 mg PO DAILY 08/10/16 01/27/24 History Mirtazapine [Remeron] 15 mg PO HS 08/10/16 01/27/24 History Multivit-Min36/Iron/Folic Acid 1 tab PO DAILY 08/10/16 01/27/24 History [Geritol Complete Tablet] Vitamin B Complex 1 cap PO DAILY 01/17/18 01/27/24 History Atorvastatin [Lipitor] 80 mg PO DAILY 12/01/21 01/27/24 History Fluticasone Propion/Salmeterol 1 puff INHALATION RT-BID PRN 12/01/21 01/27/24 History [Wixela 500-50 Inhub] Ipratropium-Albuterol Nebulize 3 ml INHALATION RT-QID PRN 12/01/21 01/27/24 History [Duoneb 0.5 mg-3 mg/3 ml Soln] Magnesium 250 mg PO DAILY 12/01/21 01/27/24 History Propranolol [Inderal] 20 mg PO TID 12/01/21 01/27/24 History Furosemide [Lasix] 40 mg PO DAILY 04/02/22 01/27/24 History Ibuprofen [Motrin] 800 mg PO Q8H PRN 04/02/22 01/27/24 History Potassium Chloride ER [K-Dur 10] 10 meq PO DAILY 04/02/22 01/27/24 History Topiramate 100 mg PO BID 04/02/22 01/27/24 History Gabapentin [Neurontin] 300 mg PO QID 30 Days #60 cap 11/28/23 01/27/24 Rx Alendronate Sodium [Fosamax] 70 mg PO CONTRERAS 01/27/24 01/27/24 History Ergocalciferol [Vitamin D2 (1250 1,250 mcg PO CONTRERAS 01/27/24 01/27/24 History Mcg = 13702 Iu)] Insulin Aspart [NovoLOG Flexpen] See Protocol SQ 5XD 01/27/24 01/27/24 History Insulin Glargine/Lixisenatide 20 units SQ QAM 01/27/24 01/27/24 History [Soliqua 100 Unit-33 Mcg/ml Pen] Nystatin 100,000Unit/gm Cream 1 applic TOPICAL BID 01/27/24 01/27/24 History [Mycostatin Cream] Ondansetron Odt [Zofran Odt] 4 mg PO Q6H PRN 01/27/24 01/27/24 History Pioglitazone [Actos] 15 mg PO DAILY 01/27/24 01/27/24 History Allergies Allergy/AdvReac Type Severity Reaction Status Date / Time aminophylline Allergy Rash/Hives Verified 01/27/24 16:34 cephalexin monohydrate Allergy Rash/Hives Verified 01/27/24 16:34 [From Keflex] codeine Allergy Rash/Hives Verified 01/27/24 16:34 diazepam [From Valium] Allergy Rash/Hives Verified 01/27/24 16:34 hydrocodone bitartrate Allergy Rash/Hives Verified 01/27/24 16:34 [From Vicodin] Iodinated Contrast Media Allergy Rash/Hives Verified 01/27/24 16:34 [Iodinated Contrast Media - IV Dye] latex Allergy Itching, Verified 01/27/24 16:34 BURNING SKIN Latex, Natural Rubber Allergy Itching, Verified 01/27/24 16:34 BURNING OF SKIN levofloxacin [From Levaquin] Allergy Rash/Hives Verified 01/27/24 16:34 metformin HCl Allergy Rash/Hives Verified 01/27/24 16:34 [From Glucophage] morphine Allergy Rash/Hives Verified 01/27/24 16:34 Penicillins Allergy Rash/Hives Verified 01/27/24 16:35 Sulfa (Sulfonamide Allergy Rash/Hives Verified 01/27/24 16:34 Antibiotics) sulfamethoxazole Allergy Rash/Hives Verified 01/27/24 16:34 [From Bactrim] tetracycline [Tetracycline] Allergy Rash/Hives Verified 01/27/24 16:34 theophylline Allergy Rash/Hives Verified 01/27/24 16:34 tramadol Allergy Dyspnea Verified 01/27/24 16:34 trimethoprim [From Bactrim] Allergy Rash/Hives Verified 01/27/24 16:34 Physical Exam Vitals: Vital Signs Temp Pulse Pulse Resp BP BP Pulse Ox 01/28/24 08:50 98.5 F 107 H 18 126/67 93 L 01/28/24 04:14 97.7 F 100 20 122/66 94 L 01/28/24 02:09 20 01/27/24 22:35 97.7 F 122 H 20 129/66 95 01/27/24 22:15 98.3 F 112 H 19 109/78 97 01/27/24 21:27 104 H 19 119/72 98 01/27/24 19:47 98.2 F 122 H 20 98/64 95 01/27/24 17:44 113 H 18 115/67 94 L 01/27/24 15:21 117 H 18 124/70 95 01/27/24 13:54 98.1 F 124 H 20 134/77 93 L Intake and Output 01/27/24 01/28/24 01/28/24 22:59 06:59 14:59 Intake Total 35.613 909.387 Balance 35.613 909.387 Intake: Intake, IV Titration 35.613 909.387 Amount D5-0.45% NaCl with KCl 600 20Meq/l 1,000 ml @ 150 mls/hr IV .Q6H40M ASHANTI Rx# :[id number] Insulin Regular 100 unit 35.613 9.387 In Sodium Chloride 0.9% 100 ml @ 0.1 UNITS/KG/HR 10.079 mls/hr IV .Q10H2M ASHANTI Rx#:[id number] Sodium Chloride 0.9% 1, 300 000 ml @ 75 mls/hr IV . [id number] ASHANTI Rx#:[id number] Other: # Voids 1 Weight 99.79 kg 99.8 kg Results 01/27/24 14:09 01/28/24 00:39 Cardiac Enzymes 01/27/24 01/27/24 Range/Units 14:09 14:09 AST 16 (14-36) U/L Troponin I <0.012 (0.000-0.034) ng/mL Coagulation 01/27/24 Range/Units 14:09 PT 11.5 (10.0-12.5) sec APTT 22.3 (22.0-30.0) sec CBC 01/27/24 Range/Units 14:09 WBC 9.1 (3.8-10.6) k/uL RBC 4.40 (3.80-5.40) m/uL Hgb 14.7 D (11.4-16.0) gm/dL Hct 45.2 (34.0-46.0) % Plt Count 151 D (150-450) k/uL Comprehensive Metabolic Panel 01/27/24 01/27/24 01/28/24 Range/Units 14:09 19:51 00:39 Sodium 137 141 138 (137-145) mmol/L Potassium 3.9 3.5 3.3 L (3.5-5.1) mmol/L Chloride 105 112 H 110 H (98-107) mmol/L Carbon Dioxide 10 L 13 L 22 (22-30) mmol/L BUN 7 7 8 (7-17) mg/dL Creatinine 0.69 0.63 0.62 (0.52-1.04) mg/dL Glucose 452 H 97 133 H (74-99) mg/dL Calcium 9.1 (8.4-10.2) mg/dL AST 16 (14-36) U/L ALT 16 (4-34) U/L Alkaline Phosphatase 157 H (38-126) U/L Total Protein 7.3 (6.3-8.2) g/dL Albumin 4.2 (3.5-5.0) g/dL Current Medications Generic Name Dose Route Start Last Admin Trade Name Freq PRN Reason Stop Dose Admin Albuterol/Ipratropium 3 ml 01/28/24 09:08 Ipratropium-Albuterol 3 Ml Neb INHALATION RT-QID PRN Shortness Of Breath Aspirin 162 mg 01/28/24 09:00 Aspirin 81 Mg PO DAILY [facility] Atorvastatin Calcium 80 mg 01/28/24 09:00 Atorvastatin 80 Mg Tab PO DAILY [facility] Budesonide/Formoterol Fumarate 2 puff 01/28/24 09:08 Symbicort 160-4.5 Mcg Inhaler INHALATION RT-BID PRN Shortness Of Breath Dextrose/Water 25 ml 01/28/24 01:30 Dextrose 50% Syringe 50 Ml IVP PER PROTOCOL PRN Hypoglycemia Protocol Dextrose/Water 50 ml 01/28/24 01:30 Dextrose 50% Syringe 50 Ml IVP PER PROTOCOL PRN Hypoglycemia Protocol Ergocalciferol 1,250 mcg 02/02/24 09:00 Ergocalciferol 1,250 Mcg (50,000 Iu) Capsule PO CONTREARS ASHANTI Gabapentin 300 mg 01/28/24 13:00 Gabapentin 300 Mg Cap PO QID [facility] Levofloxacin 750 mg/ IV 150 mls @ 100 mls/hr 01/28/24 17:00 Solution IVPB Q24H [facility] Protocol Sodium Chloride 1,000 mls @ 75 mls/hr 01/28/24 01:45 01/28/24 01:58 Saline 0.9% IV 75 mls/hr .[id number] ASHANTI Administration Ibuprofen 800 mg 01/28/24 09:08 Ibuprofen 800 Mg Tab PO Q8H PRN Pain or Fever > 100.5 Insulin Aspart 0 unit 01/28/24 07:30 01/28/24 06:43 Insulin Aspart (Novolog) 100 Unit/Ml Vial SQ 4 unit ACHS A[facility]ANTI Administration Protocol Insulin Detemir 15 unit 01/28/24 07:00 01/28/24 06:43 Insulin Detemir (Levemir) 100 Unit/Ml Syr 0.15 unit/kg (15 unit) 15 unit SQ Administration BID@0700,2100 [facility] Levothyroxine Sodium 150 mcg 01/28/24 09:15 Levothyroxine 75 [place] [address] [facility] Magnesium Oxide 400 mg 01/28/24 09:15 Magnesium Oxide 400 Mg Tab PO DAILY [facility] Metoclopramide HCl 10 mg 01/28/24 09:15 Metoclopramide 10 Mg Tab PO DAILY [facility] Metoprolol Tartrate 2.5 mg 01/28/24 09:55 Metoprolol Tartrate 5 Mg/5 Ml Vial IVP 01/28/24 09:56 ONCE STA Mirtazapine 15 mg 01/28/24 21:00 Mirtazapine 15 Mg Tab PO [facility] Miscellaneous Information 1 each 01/28/24 09:18 Potassium Replacement Protocol 1 Each Misc MISCELLANE DAILY PRN Per Protocol Protocol Montelukast Sodium 10 mg 01/28/24 09:15 Montelukast 10 Mg Tab PO DAILY [facility] Multivitamins 1 each 01/28/24 09:15 Multivitamins, Thera 1 Each Tab PO DAILY [facility] Patient's Own ( 70 mg 02/02/24 09:00 Alendronate Sodium [ PO Fosamax] 70 Mg CONTRERAS [facility] Tablet) Nystatin 1 applic 01/28/24 09:15 Nystatin 100,000unit/Gm Cream 30 Gm Tube TOPICAL BID [facility] Protocol Ondansetron HCl 4 mg 01/27/24 18:55 01/27/24 19:03 Ondansetron 4 Mg/2 Ml Vial IVP 4 mg Q6HR PRN Administration Nausea And Vomiting Ondansetron HCl 4 mg 01/28/24 09:08 Ondansetron Odt 4 Mg Tab PO Q6H PRN Nausea Pantoprazole Sodium 40 mg 01/28/24 09:15 Pantoprazole 40 Mg Tablet PO BID [facility] Pioglitazone HCl 15 mg 01/28/24 09:15 Pioglitazone 15 Mg Tab PO DAILY [facility] Potassium Chloride 20 meq 01/28/24 10:00 Potassium Chloride Er 20 Meq Tab.Er PO 01/28/24 12:01 Q1HR [facility] Protocol Primidone 100 mg 01/28/24 09:15 Primidone 50 Mg Tab PO BID [facility] Propranolol HCl 20 mg 01/28/24 09:15 Propranolol 20 Mg Tab PO TID [facility] Topiramate 100 mg 01/28/24 09:15 Topiramate 100 Mg Tab PO BID [facility] Intake and Output 01/27/24 01/28/24 01/28/24 22:59 06:59 14:59 Intake Total 35.613 909.387 Balance 35.613 909.387 Intake: Intake, IV Titration 35.613 909.387 Amount D5-0.45% NaCl with KCl 600 20Meq/l 1,000 ml @ 150 mls/hr IV .Q6H40M ASHANTI Rx# :[id number] Insulin Regular 100 unit 35.613 9.387 In Sodium Chloride 0.9% 100 ml @ 0.1 UNITS/KG/HR 10.079 mls/hr IV .Q10H2M ASHANTI Rx#:[id number] Sodium Chloride 0.9% 1, 300 000 ml @ 75 mls/hr IV . [id number] ASHANTI Rx#:[id number] Other: # Voids 1 Weight 99.79 kg 99.8 kg 01/27/24 14:09 01/28/24 00:39
[2024-01-28] MEDS: METOPROLOL TARTRATE 5 MG/5 ML VIAL IVP STA (10:46)
[2024-01-28 11:19] LABS: Glucose,Whole Blood 264 mg/dL (70-110)
[2024-01-28] MEDS: ASPIRIN 81 MG PO SCH (11:40)
[2024-01-28] MEDS: ATORVASTATIN 80 MG TAB PO SCH (11:41)
[2024-01-28] MEDS: MAGNESIUM OXIDE 400 MG TAB PO SCH (11:41)
[2024-01-28] MEDS: MULTIVITAMINS, THERA 1 EACH TAB PO SCH (11:41)
[2024-01-28] MEDS: MONTELUKAST 10 MG TAB PO SCH (11:41)
[2024-01-28] MEDS: PRIMIDONE 50 MG TAB PO SCH (11:41)
[2024-01-28] MEDS: METOCLOPRAMIDE 10 MG TAB PO SCH (11:41)
[2024-01-28] MEDS: PANTOPRAZOLE 40 MG TABLET PO SCH (11:42)
[2024-01-28] MEDS: POTASSIUM CHLORIDE ER 20 MEQ TAB.ER PO SCH (11:43)
[2024-01-28] MEDS: LEVOTHYROXINE 75 MCG TAB PO SCH (11:43)
[2024-01-28] MEDS: PIOGLITAZONE 15 MG TAB PO SCH (11:43)
[2024-01-28] MEDS: NYSTATIN 100,000UNIT/GM CREAM 30 GM TUBE TOPICAL SCH (11:43)
[2024-01-28] MEDS: GABAPENTIN 300 MG CAP PO SCH (11:44)
[2024-01-28] MEDS: TOPIRAMATE 100 MG TAB PO SCH (11:44)
[2024-01-28] MEDS: PROPRANOLOL 20 MG TAB PO SCH (11:44)
[2024-01-28] MEDS: NON FORMULARY DRUG (Vitamin B Complex [Vitamin B Complex] 1 EACH Capsule) PO SCH (11:51)
[2024-01-28] MEDS: POTASSIUM PHOSPHATE 10 MMOL in SODIUM CHLORIDE 0.9% 250 ML IV ONE (14:17)
[2024-01-28] MEDS: POTASSIUM PHOSPHATE 10 MMOL in SODIUM CHLORIDE 0.9% 250 ML IV SCH (14:49)
[2024-01-28 16:20] LABS: Glucose,Whole Blood 208 mg/dL (70-110)
[2024-01-28] MEDS: LEVOFLOXACIN 750MG-D5W PMX 750 MG in DEXTROSE/WATER 1 150ML.BAG IVPB SCH (17:27)
[2024-01-28 20:33] LABS: Glucose,Whole Blood 296 mg/dL (70-110)
[2024-01-28] MEDS: MIRTAZAPINE 15 MG TAB PO SCH (21:02)
--- NOTE | 2024-01-28 23:09 | P.HPIM ---
History of Present Illness H&P Date: 01/28/24 Chief Complaint: Nausea and vomiting Patient is a 68-year-old female with a past medical history of hypertension, diabetes type 2 on insulin subcu, history of CVA/TIA, COPD, fibromyalgia, osteoarthritis, obstructive sleep apnea, hypothyroidism, bilateral neuropathy hands and feet, chronic low back pain and prior history of cardiac catheterization presents to ER with complaints of nausea vomiting and not feeling well for the past 24 hours prior to admission. Mainly bilious vomit. Denies any hematemesis or melena. Denies any fever or chills. Patient is also having symptoms of dysuria. No cough or sputum production. Patient does have continuous glucose monitoring and is able to monitor her sugars and her cell phone. Denied any recent illnesses. Laboratory data on admission showed WBC 9.1 hemoglobin 14.7 and platelets 151 blood sugar was 452 and an gap 22 and bicarb level is 10 and proBNP 98. Urinalysis showed clear with 4+ glucose and 4+ ketones and small leukocytes trace. Acetone positive. EKG showed sinus tachycardia Review of Systems Constitutional: Patient denies any fever or chills . Generalized weakness. Abdomen: Patient did have nausea vomiting on admission. No complaints of diarrhea or abdominal pain. Cardiovascular: Patient denies any chest pain or short of breath no palpitations. Respiratory: patient denied any cough or sputum production. No shortness of breath Neurologic: Patient denied any numbness or tingling. no headache. Musculoskeletal: Patient denies any complaints of joint swelling or deformity. Skin: Negative Psychiatric: Negative Endocrine: No heat or cold intolerance. No recent weight gain. Genitourinary: No dysuria or hematuria. All other 14 point ROS negative except the above Past Medical History Past Medical History: Asthma, Heart Failure, COPD, CVA/TIA, Diabetes Mellitus, Fibromyalgia, GERD/Reflux, Hyperlipidemia, Hypertension, Musculoskeletal Disorder, Neurologic Disorder, Osteoarthritis (OA), Pneumonia, Renal Disease, Sleep Apnea/CPAP/BIPAP, Thyroid Disorder Additional Past Medical History / Comment(s): See Dr Stanley's H&P. Hx CVA yrs ago. Hx Pleurisy. Bilateral neuropathy hands and feet. IBS. Migranes - "under control". No CPAP use. Chronic lower back, neck pain, DDD, Scoliosis, bilateral carpal tunnel, pinched nerve in right leg. Past hx Kidney failure. RSV+04/02/22 History of Any Multi-Drug Resistant Organisms: MRSA Date of last positivie culture/infection: 07/29/23 MDRO Source:: LEFT SHOULDER Past Surgical History: Appendectomy, Breast Surgery, Heart Catheterization, Hysterectomy, Joint Replacement, Orthopedic Surgery, Tonsillectomy Additional Past Surgical History / Comment(s): Left knee surgery - pins placed, left foot - screws placed, right ankle arthroscopy, right foot-cyst removed, TOTAL LEFT KNEE REPLACEMENT(CERAMIC), left hand 5th finger dupuytrens contracti on, LEFT BREAST Lumpectomy-NEGATIVE (has marker), Colonoscopy, EXCISION BILATERAL CATARACTS. Past Anesthesia/Blood Transfusion Reactions: No Reported Reaction Additional Past Anesthesia/Blood Transfusion Reaction / Comment(s): Has never had blood transfusion. Smoking Status: Never smoker - Past Family History Father Family Medical History: Cancer Additional Family Medical History / Comment(s): Prostate cancer. Mother Family Medical History: Cancer, Diabetes Mellitus Additional Family Medical History / Comment(s): Breast Cancer. Brother(s) Family Medical History: Cancer Additional Family Medical History / Comment(s): Leukemia. Medications and Allergies Home Medications Medication Instructions Recorded Confirmed Type Aspirin 162 mg PO DAILY 09/21/13 01/27/24 History Levothyroxine Sodium [Synthroid] 150 mcg PO DAILY 09/21/13 01/27/24 History Montelukast Sodium [Singulair] 10 mg PO DAILY 09/21/13 01/27/24 History Omeprazole [PriLOSEC] 20 mg PO BID 09/21/13 01/27/24 History Primidone [Mysoline] 100 mg PO BID 09/21/13 01/27/24 History Metoclopramide [Reglan] 10 mg PO DAILY 08/10/16 01/27/24 History Mirtazapine [Remeron] 15 mg PO HS 08/10/16 01/27/24 History Multivit-Min36/Iron/Folic Acid 1 tab PO DAILY 08/10/16 01/27/24 History [Geritol Complete Tablet] Vitamin B Complex 1 cap PO DAILY 01/17/18 01/27/24 History Atorvastatin [Lipitor] 80 mg PO DAILY 12/01/21 01/27/24 History Fluticasone Propion/Salmeterol 1 puff INHALATION RT-BID PRN 12/01/21 01/27/24 History [Wixela 500-50 Inhub] Ipratropium-Albuterol Nebulize 3 ml INHALATION RT-QID PRN 12/01/21 01/27/24 History [Duoneb 0.5 mg-3 mg/3 ml Soln] Magnesium 250 mg PO DAILY 12/01/21 01/27/24 History Propranolol [Inderal] 20 mg PO TID 12/01/21 01/27/24 History Furosemide [Lasix] 40 mg PO DAILY 04/02/22 01/27/24 History Ibuprofen [Motrin] 800 mg PO Q8H PRN 04/02/22 01/27/24 History Potassium Chloride ER [K-Dur 10] 10 meq PO DAILY 04/02/22 01/27/24 History Topiramate 100 mg PO BID 04/02/22 01/27/24 History Gabapentin [Neurontin] 300 mg PO QID 30 Days #60 cap 11/28/23 01/27/24 Rx Alendronate Sodium [Fosamax] 70 mg PO CONTRERAS 01/27/24 01/27/24 History Ergocalciferol [Vitamin D2 (1250 1,250 mcg PO CONTRERAS 01/27/24 01/27/24 History Mcg = [id number] Iu)] Insulin Aspart [NovoLOG Flexpen] See Protocol SQ 5XD 01/27/24 01/27/24 History Insulin Glargine/Lixisenatide 20 units SQ QAM 01/27/24 01/27/24 History [Soliqua 100 Unit-33 Mcg/ml Pen] Nystatin 100,000Unit/gm Cream 1 applic TOPICAL BID 01/27/24 01/27/24 History [Mycostatin Cream] Ondansetron Odt [Zofran Odt] 4 mg PO Q6H PRN 01/27/24 01/27/24 History Pioglitazone [Actos] 15 mg PO DAILY 01/27/24 01/27/24 History Allergies Allergy/AdvReac Type Severity Reaction Status Date / Time aminophylline Allergy Rash/Hives Verified 01/27/24 16:34 cephalexin monohydrate Allergy Rash/Hives Verified 01/27/24 16:34 [From Keflex] codeine Allergy Rash/Hives Verified 01/27/24 16:34 diazepam [From Valium] Allergy Rash/Hives Verified 01/27/24 16:34 hydrocodone bitartrate Allergy Rash/Hives Verified 01/27/24 16:34 [From Vicodin] Iodinated Contrast Media Allergy Rash/Hives Verified 01/27/24 16:34 [Iodinated Contrast Media - IV Dye] latex Allergy Itching, Verified 01/27/24 16:34 BURNING SKIN Latex, Natural Rubber Allergy Itching, Verified 01/27/24 16:34 BURNING OF SKIN levofloxacin [From Levaquin] Allergy Rash/Hives Verified 01/27/24 16:34 metformin HCl Allergy Rash/Hives Verified 01/27/24 16:34 [From Glucophage] morphine Allergy Rash/Hives Verified 01/27/24 16:34 Penicillins Allergy Rash/Hives Verified 01/27/24 16:35 Sulfa (Sulfonamide Allergy Rash/Hives Verified 01/27/24 16:34 Antibiotics) sulfamethoxazole Allergy Rash/Hives Verified 01/27/24 16:34 [From Bactrim] tetracycline [Tetracycline] Allergy Rash/Hives Verified 01/27/24 16:34 theophylline Allergy Rash/Hives Verified 01/27/24 16:34 tramadol Allergy Dyspnea Verified 01/27/24 16:34 trimethoprim [From Bactrim] Allergy Rash/Hives Verified 01/27/24 16:34 Physical Exam Vitals: Vital Signs Temp Pulse Pulse Resp BP BP Pulse Ox 01/28/24 10:55 87 16 121/56 90 L 01/28/24 10:50 88 16 120/58 95 01/28/24 10:45 96 19 118/56 95 01/28/24 08:50 98.5 F 107 H 18 126/67 93 L 01/28/24 04:14 97.7 F 100 20 122/66 94 L 01/28/24 02:09 20 01/27/24 22:35 97.7 F 122 H 20 129/66 95 01/27/24 22:15 98.3 F 112 H 19 109/78 97 01/27/24 21:27 104 H 19 119/72 98 01/27/24 19:47 98.2 F 122 H 20 98/64 95 01/27/24 17:44 113 H 18 115/67 94 L 01/27/24 15:21 117 H 18 124/70 95 01/27/24 13:54 98.1 F 124 H 20 134/77 93 L Intake and Output 01/27/24 01/28/24 01/28/24 22:59 06:59 14:59 Intake Total 35.613 909.387 120 Balance 35.613 909.387 120 Intake: Intake, IV Titration 35.613 909.387 Amount D5-0.45% NaCl with KCl 600 20Meq/l 1,000 ml @ 150 mls/hr IV .Q6H40M A[facility]ANTI Rx# :[id number] Insulin Regular 100 unit 35.613 9.387 In Sodium Chloride 0.9% 100 ml @ 0.1 UNITS/KG/HR 10.079 mls/hr IV .Q10H2M ASHANTI Rx#:[id number] Sodium Chloride 0.9% 1, 300 000 ml @ 75 mls/hr IV . [id number] A[facility]ANTI Rx#:[id number] Oral 120 Other: # Voids 1 Weight 99.79 kg 99.8 kg PHYSICAL EXAMINATION: Patient is lying in the bed comfortably, no acute distress, awake alert and oriented.. HEENT: Normocephalic. Neck is supple. Pupils reactive. Nostrils clear. Oral cavity is moist. Neck reveals no JVD, carotid bruits, or thyromegaly. CHEST EXAMINATION: Trachea is central. Symmetrical expansion. Bibasilar diminished sounds. Lung hernandez clear to auscultation and percussion. CARDIAC: Normal S1, S2 with no gallops. No murmurs ABDOMEN: Soft. Bowel sounds normal. No organomegaly. No abdominal bruits. Extremities: reveal no edema. No clubbing or cyanosis Neurologically awake, alert, oriented x3 with well-coordinated movements. No focal deficits noted Skin: No rash or skin lesions. Psychiatric: Coperative. Nonsuicidal Musculoskeletal: No joint swelling or deformity. Normal range of motion. Results CBC & Chem 7: 01/27/24 14:09 01/28/24 00:39 Labs: Abnormal Lab Results - Last 24 Hours (Table) 01/27/24 01/27/24 01/27/24 Range/Units 14:00 14:09 14:09 MCV 102.7 H (80.0-100.0) fL Potassium (3.5-5.1) mmol/L Chloride (98-107) mmol/L Carbon Dioxide (22-30) mmol/L Glucose (74-99) mg/dL POC Glucose (mg/dL) 482 H (70-110) mg/dL Phosphorus (2.5-4.5) mg/dL Alkaline Phosphatase (38-126) U/L Urine Protein Trace H (Negative) Urine Glucose (UA) 4+ H (Negative) Urine Ketones 4+ H (Negative) Urine Blood Trace H (Negative) Ur Leukocyte Esterase Small H (Negative) Urine WBC 17 H (0-5) /hpf Urine Bacteria Rare H (None) /hpf Hyaline Casts 7 H (0-2) /lpf Urine Mucus Rare H (None) /hpf 01/27/24 01/27/24 01/27/24 Range/Units 14:09 15:31 16:14 MCV (80.0-100.0) fL Potassium (3.5-5.1) mmol/L Chloride (98-107) mmol/L Carbon Dioxide 10 L (22-30) mmol/L Glucose 452 H (74-99) mg/dL POC Glucose (mg/dL) 349 H 266 H (70-110) mg/dL Phosphorus (2.5-4.5) mg/dL Alkaline Phosphatase 157 H (38-126) U/L Urine Protein (Negative) Urine Glucose (UA) (Negative) Urine Ketones (Negative) Urine Blood (Negative) Ur Leukocyte Esterase (Negative) Urine WBC (0-5) /hpf Urine Bacteria (None) /hpf Hyaline Casts (0-2) /lpf Urine Mucus (None) /hpf 01/27/24 01/27/24 01/27/24 Range/Units 16:56 18:01 19:01 MCV (80.0-100.0) fL Potassium (3.5-5.1) mmol/L Chloride (98-107) mmol/L Carbon Dioxide (22-30) mmol/L Glucose (74-99) mg/dL POC Glucose (mg/dL) 281 H 220 H 164 H (70-110) mg/dL Phosphorus (2.5-4.5) mg/dL Alkaline Phosphatase (38-126) U/L Urine Protein (Negative) Urine Glucose (UA) (Negative) Urine Ketones (Negative) Urine Blood (Negative) Ur Leukocyte Esterase (Negative) Urine WBC (0-5) /hpf Urine Bacteria (None) /hpf Hyaline Casts (0-2) /lpf Urine Mucus (None) /hpf 01/27/24 01/27/24 01/27/24 Range/Units 19:51 19:51 20:23 MCV (80.0-100.0) fL Potassium (3.5-5.1) mmol/L Chloride 112 H (98-107) mmol/L Carbon Dioxide 13 L (22-30) mmol/L Glucose (74-99) mg/dL POC Glucose (mg/dL) 67 L (70-110) mg/dL Phosphorus 1.9 L (2.5-4.5) mg/dL Alkaline Phosphatase (38-126) U/L Urine Protein (Negative) Urine Glucose (UA) (Negative) Urine Ketones (Negative) Urine Blood (Negative) Ur Leukocyte Esterase (Negative) Urine WBC (0-5) /hpf Urine Bacteria (None) /hpf Hyaline Casts (0-2) /lpf Urine Mucus (None) /hpf 01/27/24 01/27/24 01/27/24 Range/Units 20:40 21:09 21:30 MCV (80.0-100.0) fL Potassium (3.5-5.1) mmol/L Chloride (98-107) mmol/L Carbon Dioxide (22-30) mmol/L Glucose (74-99) mg/dL POC Glucose (mg/dL) 217 H 183 H 179 H (70-110) mg/dL Phosphorus (2.5-4.5) mg/dL Alkaline Phosphatase (38-126) U/L Urine Protein (Negative) Urine Glucose (UA) (Negative) Urine Ketones (Negative) Urine Blood (Negative) Ur Leukocyte Esterase (Negative) Urine WBC (0-5) /hpf Urine Bacteria (None) /hpf Hyaline Casts (0-2) /lpf Urine Mucus (None) /hpf 01/27/24 01/27/24 01/28/24 Range/Units 22:05 22:57 00:15 MCV (80.0-100.0) fL Potassium (3.5-5.1) mmol/L Chloride (98-107) mmol/L Carbon Dioxide (22-30) mmol/L Glucose (74-99) mg/dL POC Glucose (mg/dL) 161 H 131 H 133 H (70-110) mg/dL Phosphorus (2.5-4.5) mg/dL Alkaline Phosphatase (38-126) U/L Urine Protein (Negative) Urine Glucose (UA) (Negative) Urine Ketones (Negative) Urine Blood (Negative) Ur Leukocyte Esterase (Negative) Urine WBC (0-5) /hpf Urine Bacteria (None) /hpf Hyaline Casts (0-2) /lpf Urine Mucus (None) /hpf 01/28/24 01/28/24 01/28/24 Range/Units 00:39 00:39 01:19 MCV (80.0-100.0) fL Potassium 3.3 L (3.5-5.1) mmol/L Chloride 110 H (98-107) mmol/L Carbon Dioxide (22-30) mmol/L Glucose 133 H (74-99) mg/dL POC Glucose (mg/dL) 148 H (70-110) mg/dL Phosphorus 1.8 L (2.5-4.5) mg/dL Alkaline Phosphatase (38-126) U/L Urine Protein (Negative) Urine Glucose (UA) (Negative) Urine Ketones (Negative) Urine Blood (Negative) Ur Leukocyte Esterase (Negative) Urine WBC (0-5) /hpf Urine Bacteria (None) /hpf Hyaline Casts (0-2) /lpf Urine Mucus (None) /hpf 01/28/24 01/28/24 Range/Units 06:30 11:11 MCV (80.0-100.0) fL Potassium (3.5-5.1) mmol/L Chloride (98-107) mmol/L Carbon Dioxide (22-30) mmol/L Glucose (74-99) mg/dL POC Glucose (mg/dL) 212 H 264 H (70-110) mg/dL Phosphorus (2.5-4.5) mg/dL Alkaline Phosphatase (38-126) U/L Urine Protein (Negative) Urine Glucose (UA) (Negative) Urine Ketones (Negative) Urine Blood (Negative) Ur Leukocyte Esterase (Negative) Urine WBC (0-5) /hpf Urine Bacteria (None) /hpf Hyaline Casts (0-2) /lpf Urine Mucus (None) /hpf Thrombosis Risk Factor Assmnt - DVT/VTE Prophylaxis DVT/VTE Prophylaxis: Pharmacologic Prophylaxis ordered - Choose All That Apply Each Factor Represents 1 point: Abnormal pulmonary function (COPD) Each Risk Factor Represents 2 Points: Age 61-74 years Other congenital or acquired thrombophilia - If yes, enter type in comment: No Thrombosis Risk Factor Assessment Total Risk Factor Score: 3 Thrombosis Risk Factor Assessment Level: Moderate Risk Assessment and Plan Assessment: Acute diabetic ketoacidosis Hyperglycemia with uncontrolled diabetes type 2 A1c 11.6 on 11/24/2023 Possible urinary tract infection COPD/asthma Hypothyroidism Fibromyalgia GERD Hypertension Hyperlipidemia Diabetic peripheral neuropathy Hyperactive sleep apnea not on CPAP Obesity with BMI 37.8 DVT prophylaxis with heparin subcu Plan: Patient will be continued on telemonitoring. Current IV hydration with normal saline. Was continued on insulin drip until anion gap closes. Patient was transition to subcutaneous insulin. Continued on antibiotics on home Levaquin due to multiple allergies and follow- up urine culture report. Urine sinus tachycardia and possible new onset atrial fibrillationcardiology was consulted for evaluation. 2D echocardiogram was ordered. Ordered TSH level. Continue with albuterol inhalation and Symbicort. Replace electrolytes and continue to follow closely. Time with Patient: Greater than 30
[2024-01-28] MEDS: HEPARIN SODIUM,PORCINE 5,000 UNIT/ML 1 ML VIAL SQ SCH (23:50)
[2024-01-29 02:11] LABS: Glucose,Whole Blood 103 mg/dL (70-110)
[2024-01-29 06:20] LABS: Glucose,Whole Blood 71 mg/dL (70-110)
[2024-01-29 07:45] LABS: African American GFR (CKD) >90 (>60 ml/min/1.73 sqM); Anion Gap 6 mmol/L; Blood Urea Nitrogen 4 mg/dL (7-17); Calcium 8.5 mg/dL (8.4-10.2); Carbon Dioxide 25 mmol/L (22-30); Chloride 109 mmol/L (98-107); Glucose 61 mg/dL (74-99); Non-African American GFR(CKD) >90 (>60 ml/min/1.73 sqM); Potassium 3.5 mmol/L (3.5-5.1); Sodium 140 mmol/L (137-145)
[2024-01-29 07:54] LABS: Basophils % (A) 0 %; Eosinophils # (A) 0.1 k/uL (0-0.7); Eosinophils % (A) 2 %; HCT 39.8 % (34.0-46.0); HGB 12.7 gm/dL (11.4-16.0); Lymphocytes % (A) 30 %; MCH 32.4 pg (25.0-35.0); MCHC 31.9 g/dL (31.0-37.0); MCV 101.4 fL (80.0-100.0); Macrocytosis Slight; Mean Platelet Volume 14.2; Monocytes # (A) 0.5 k/uL (0-1.0); Monocytes % (A) 7 %; Neutrophils # (A) 4.1 k/uL (1.3-7.7); Neutrophils % (A) 59 %; RBC 3.92 m/uL (3.80-5.40); RDW 13.6 % (11.5-15.5); WBC 6.8 k/uL (3.8-10.6)
[2024-01-29] MEDS: IPRATROPIUM-ALBUTEROL 3 ML NEB INHALATION PRN (08:07)
[2024-01-29] MEDS: IBUPROFEN 800 MG TAB PO PRN (09:05)
[2024-01-29 09:14] LABS: Platelet Count 140 k/uL (150-450)
[2024-01-29 09:15] LABS: Large Platelets Present
--- NOTE | 2024-01-29 10:00 | P.PN ---
Subjective Progress Note Date: 01/29/24 HPI: Patient is a 68-year-old female with past medical history of asthma, heart failure, COPD, diabetes, hyperlipidemia, hypertension, osteoarthritis, sleep apnea, thyroid disorder presented to the ED with nausea and vomiting for the past few days. Patient reported having a cough over the past 2 weeks, and she started feeling nauseous and began to vomit over the past few days. No blood was noted in the vomitus. Vomit was mostly just stomach acid. She also had dysuria over the past few days. Cardiology was consulted this morning for new onset atrial fibrillation. Patient denies any previous history of atrial fibrillation. Upon review of her medical records, patient did have a cardiac catheterization back in 2021 which showed mild disease in the mid LAD, mild disease proximal RCA, right dominance. EKG this morning showed sinus tachycardia. Patient's CBC showed white blood cell count of 9.1, hemoglobin 14.7, hematocrit 45.2, platelets 151. BMP showed sodium of 138, potassium 3.3, chloride 110, carbon dioxide 22, BUN 8, creatinine of 0.62. Troponin was less than 0.012. proBNP was 98. Patient was seen this morning at bedside. Patient is stable and reports feeling a little bit nauseous. Patient denied any chest pain, shortness of breath, belly pain, fever, chills, palpitations, lower extremity swelling, dysuria. Patient's heart rate is slightly tachycardic, normal respiratory rate, normal blood pressure, saturating at 93% on room air. Progress note: 01/29/2024: Patient was seen this morning at bedside. No complaints at this time. Patient denied any fever, chills, chest pain, shortness of breath, belly pain, nausea, vomiting, lower extremity swelling. Patient still reports dry cough. CBC showed WBC of 6.8, hemoglobin 12.7, hematocrit 39.8. BMP showed sodium of 140, potassium 3.5, chloride 109, carbon dioxide 25, BUN 4, creatinine 0.61, glucose 61. EKG yesterday showed sinus tachycardia. Patient's heart rate has been ranging in the low 70s, normal respiratory rate, normal blood pressure, saturating at 92% on room air. Physical examination: GENERAL: This is a 68-year-old in no apparent distress at the time of examination. Pleasant and cooperative. HEENT: Head is atraumatic, normocephalic. Pupils are equal, round, and reactive to light. Sclerae anicteric. Conjunctivae are clear. Mucus membranes of the mouth are moist. Neck is supple. RESPIRATORY: Clear to auscultation. No wheezes, rales, or rhonchi. No use of accessory muscles. No chest wall tenderness is noted on palpation or with deep breathing. CARDIOVASCULAR: Regular rate and rhythm. S1 and S2 noted. No systolic or diastolic murmur auscultated. No JVD noted. No S3 or S4 noted. GASTROINTESTINAL: No distention noted. Abdomen soft and round. Normal active bowel sounds auscultated x 4 quadrants. No pain or tenderness noted upon palpation. INTEGUMENTARY: No cyanosis. No jaundice. No rashes noted. No cellulitis noted. EXTREMITIES: 2+ peripheral pulses. No evidence of peripheral edema. No calf tenderness noted. NEUROLOGIC: Detailed neurological examination not assessed. PSYCHIATRIC: Awake, alert, and oriented X 3. Appropriate affect. Intact judgement and insight. Impression: 1. New onset atrial fibrillation ruled out 2. Acute diabetic ketoacidosis, hyperglycemia with uncontrolled diabetes type 2 A1c 11.6 on 11/24/2023 3. Possible urinary tract infection 4. COPD exacerbation 5. Hypothyroidism Plan: Atrial fibrillation has been ruled out as EKG yesterday showed sinus tachycardia. The patient denied any previous history of atrial fibrillation. Heart rate has been ranging in the low 70s. We will sign off at this time. Thank you for the consultation and we appreciate the opportunity to take care of this patient. Objective - Vital Signs Vital signs: Vital Signs Temp 97.6 F 01/28/24 20:00 Pulse 75 01/29/24 04:00 Resp 16 01/29/24 04:00 BP 99/65 01/29/24 04:00 Pulse Ox 92 L 01/29/24 04:00 FiO2 Intake & Output 01/28/24 01/29/24 01/29/24 18:59 06:59 18:59 Intake Total 240 120 Balance 240 120 Weight 99.8 kg 87.3 kg Intake: Oral 240 120 Other: Voiding Method Bedside Commode # Voids 1 1 # Bowel Movements 1 - Labs CBC & Chem 7: 01/29/24 06:17 01/29/24 06:17 Labs: Abnormal Lab Results - Last 24 Hours (Table) 01/28/24 01/28/24 01/28/24 Range/Units 11:11 16:18 20:32 MCV (80.0-100.0) fL Chloride (98-107) mmol/L BUN (7-17) mg/dL Glucose (74-99) mg/dL POC Glucose (mg/dL) 264 H 208 H 296 H (70-110) mg/dL 01/29/24 01/29/24 Range/Units 06:17 06:17 MCV 101.4 H (80.0-100.0) fL Chloride 109 H (98-107) mmol/L BUN 4 L (7-17) mg/dL Glucose 61 L (74-99) mg/dL POC Glucose (mg/dL) (70-110) mg/dL Microbiology - Last 24 Hours (Table) 01/27/24 17:08 Blood Culture - Preliminary Blood
[2024-01-29 11:18] LABS: Glucose,Whole Blood 272 mg/dL (70-110)
[2024-01-29] MEDS: POTASSIUM CHLORIDE ER 20 MEQ TAB.ER PO STA (15:55)
[2024-01-29 16:14] LABS: Glucose,Whole Blood 259 mg/dL (70-110)
[2024-01-29 20:36] LABS: Glucose,Whole Blood 322 mg/dL (70-110)
--- NOTE | 2024-01-29 23:53 | P.PN ---
Subjective Progress Note Date: 01/29/24 Patient is a 68-year-old female with a past medical history of hypertension, diabetes type 2 on insulin subcu, history of CVA/TIA, COPD, fibromyalgia, osteoarthritis, obstructive sleep apnea, hypothyroidism, bilateral neuropathy hands and feet, chronic low back pain and prior history of cardiac catheteriz ation presents to ER with complaints of nausea vomiting and not feeling well for the past 24 hours prior to admission. Mainly bilious vomit. Denies any hematemesis or melena. Denies any fever or chills. Patient is also having symptoms of dysuria. No cough or sputum production. Patient does have continuous glucose monitoring and is able to monitor her sugars and her cell phone. Denied any recent illnesses. Laboratory data on admission showed WBC 9.1 hemoglobin 14.7 and platelets 151 blood sugar was 452 and an gap 22 and bicarb level is 10 and proBNP 98. Urinalysis showed clear with 4+ glucose and 4+ ketones and small leukocytes trace. Acetone positive. EKG showed sinus tachycardia 01/29/2024 Patient is resting in the bed. Awake alert and oriented x 3. No complaints of chest pain or shortness of breath. No palpitations. Patient has been afebrile. No headache or dizziness or lightheadedness. Patient was noted to have purulent discharge from the scalp wound which happened when she hit her head when she fell... Right heart rate is controlled. Not atrial fibrillation as per cardiology. Patient is being continued on Levemir 15 units twice daily and insulin sliding scale. Laboratory data showed WBC 6.8 hemoglobin 12.7 and platelets 140 MCV 101.4, anion gap 6 BUN 14 creatinine 0.61 and blood sugar 71 this morning A1c 12.1 TSH 2.65 Current medications reviewed. Objective - Vital Signs Vital signs: Vital Signs Temp 98.6 F 01/29/24 08:05 Pulse 76 01/29/24 11:30 Resp 16 01/29/24 11:30 BP 92/55 01/29/24 11:30 Pulse Ox 92 L 01/29/24 11:30 FiO2 Intake & Output 01/28/24 01/29/24 01/29/24 18:59 06:59 18:59 Intake Total 240 240 Balance 240 240 Weight 99.8 kg 87.3 kg Intake: Oral 240 240 Other: Voiding Method Bedside Commode Bedside Commode # Voids 1 1 2 # Bowel Movements 1 - Exam PHYSICAL EXAMINATION: Patient is lying in the bed comfortably, no acute distress, awake alert and oriented.. HEENT: Normocephalic. Neck is supple. Pupils reactive. Nostrils clear. Oral cavity is moist. Following discharge from the mid scalp wound. Neck reveals no JVD, carotid bruits, or thyromegaly. CHEST EXAMINATION: Trachea is central. Symmetrical expansion. Lung hernandez clear to auscultation and percussion. CARDIAC: Normal S1, S2 with no gallops. No murmurs ABDOMEN: Soft. Bowel sounds normal. No organomegaly. No abdominal bruits. Extremities: reveal no edema. No clubbing or cyanosis Neurologically awake, alert, oriented x3 with well-coordinated movements. No focal deficits noted Skin: No rash or skin lesions. Psychiatric: Coperative. Nonsuicidal Musculoskeletal: No joint swelling or deformity. Normal range of motion. - Labs CBC & Chem 7: 01/29/24 06:17 01/29/24 06:17 Labs: Abnormal Lab Results - Last 24 Hours (Table) 01/28/24 01/28/24 01/29/24 Range/Units 16:18 20:32 06:17 MCV (80.0-100.0) fL Plt Count (150-450) k/uL Chloride (98-107) mmol/L BUN (7-17) mg/dL Glucose (74-99) mg/dL POC Glucose (mg/dL) 208 H 296 H (70-110) mg/dL Hemoglobin A1c 12.1 H (<=6.0) % 01/29/24 01/29/24 01/29/24 Range/Units 06:17 06:17 11:10 MCV 101.4 H (80.0-100.0) fL Plt Count 140 L (150-450) k/uL Chloride 109 H (98-107) mmol/L BUN 4 L (7-17) mg/dL Glucose 61 L (74-99) mg/dL POC Glucose (mg/dL) 272 H (70-110) mg/dL Hemoglobin A1c (<=6.0) % Microbiology - Last 24 Hours (Table) 01/27/24 17:08 Blood Culture - Preliminary Blood Assessment and Plan Assessment: Acute diabetic ketoacidosis Hyperglycemia with uncontrolled diabetes type 2 A1c 12 Scalp wound with abscess Possible urinary tract infection Sinus tachycardia. Unlikely atrial fibrillation as per cardiology. COPD/asthma Hypothyroidism Fibromyalgia GERD Hypertension Hyperlipidemia Diabetic peripheral neuropathy Hyperactive sleep apnea not on CPAP Obesity with BMI 37.8 DVT prophylaxis with heparin subcu Plan: Patient will be continued on telemonitoring. Current IV hydration with normal saline. Anion gap closed. Patient was started on insulin regimen. Patient states that she is on 20 units Solostar every morning and also NovoLog 3 units 3 times daily AC. This regimen was started couple weeks ago. Patient was also recommended to use insulin sliding scale at home. 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 Continued on antibiotics on home Levaquin due to multiple allergies and follow- up urine culture report. General surgery was consulted for possible I&D of the scalp wound. TSH within normal limits. 2D echocardiogram was done. Continue with albuterol inhalation and Symbicort. Replace electrolytes and continue to follow closely. Anticipate discharge in next 24 hours. Time with Patient: Greater than 30
[2024-01-30 06:18] LABS: Glucose,Whole Blood 169 mg/dL (70-110)
[2024-01-30 07:42] LABS: Basophils % (A) 1 %; Eosinophils # (A) 0.2 k/uL (0-0.7); Eosinophils % (A) 5 %; HCT 39.5 % (34.0-46.0); HGB 12.3 gm/dL (11.4-16.0); Lymphocytes % (A) 40 %; MCH 31.9 pg (25.0-35.0); MCHC 31.2 g/dL (31.0-37.0); MCV 102.2 fL (80.0-100.0); Macrocytosis Slight; Mean Platelet Volume 14.6; Monocytes # (A) 0.3 k/uL (0-1.0); Monocytes % (A) 7 %; Neutrophils # (A) 2.2 k/uL (1.3-7.7); Neutrophils % (A) 46 %; Platelet Count 110 k/uL (150-450); RBC 3.86 m/uL (3.80-5.40); RDW 13.6 % (11.5-15.5); WBC 4.9 k/uL (3.8-10.6)
[2024-01-30 08:04] LABS: African American GFR (CKD) >90 (>60 ml/min/1.73 sqM); Anion Gap 3 mmol/L; Blood Urea Nitrogen 6 mg/dL (7-17); Calcium 7.9 mg/dL (8.4-10.2); Carbon Dioxide 24 mmol/L (22-30); Chloride 111 mmol/L (98-107); Glucose 150 mg/dL (74-99); Non-African American GFR(CKD) >90 (>60 ml/min/1.73 sqM); Potassium 3.7 mmol/L (3.5-5.1); Sodium 138 mmol/L (137-145)
[2024-01-30 11:50] LABS: Glucose,Whole Blood 170 mg/dL (70-110)
--- NOTE | 2024-01-30 12:06 | XR ---
EXAMINATION TYPE: XR chest 1V portable DATE OF EXAM: 01/30/2024 COMPARISON: 04/06/2022 HISTORY: Shortness of breath TECHNIQUE: Single frontal view of the chest is obtained. FINDINGS: There is no focal air space opacity, pleural effusion, or pneumothorax seen. The cardiac silhouette size is within normal limits. are intact. There is a fracture of the left humeral head/n yvette. IMPRESSION: No acute process. Fracture of the left humerus. [facility], , 01/30/2024 12:03 PM
[2024-01-30 12:12] VITALS: BMI 38.3
[2024-01-30 16:40] LABS: Glucose,Whole Blood 242 mg/dL (70-110)
[2024-01-30] MEDS: INSULIN ASPART (NovoLOG) 100 UNIT/ML VIAL SQ SCH (16:56)
[2024-01-30] MEDS: guaiFENesin SYRUP 100MG/5ML 200 MG/10 ML CUP PO PRN (16:57)
[2024-01-30 20:17] LABS: Glucose,Whole Blood 293 mg/dL (70-110)
[2024-01-31 02:14] LABS: Glucose,Whole Blood 155 mg/dL (70-110)
--- NOTE | 2024-01-31 05:50 | P.PN ---
Subjective Progress Note Date: 01/30/24 Patient is a 68-year-old female with a past medical history of hypertension, diabetes type 2 on insulin subcu, history of CVA/TIA, COPD, fibromyalgia, osteoarthritis, obstructive sleep apnea, hypothyroidism, bilateral neuropathy hands and feet, chronic low back pain and prior history of cardiac catheter ization presents to ER with complaints of nausea vomiting and not feeling well for the past 24 hours prior to admission. Mainly bilious vomit. Denies any hematemesis or melena. Denies any fever or chills. Patient is also having symptoms of dysuria. No cough or sputum production. Patient does have continuous glucose monitoring and is able to monitor her sugars and her cell phone. Denied any recent illnesses. Laboratory data on admission showed WBC 9.1 hemoglobin 14.7 and platelets 151 blood sugar was 452 and an gap 22 and bicarb level is 10 and proBNP 98. Urinalysis showed clear with 4+ glucose and 4+ ketones and small leukocytes trace. Acetone positive. EKG showed sinus tachycardia 01/29/2024 Patient is resting in the bed. Awake alert and oriented x 3. No complaints of chest pain or shortness of breath. No palpitations. Patient has been afebrile. No headache or dizziness or lightheadedness. Patient was noted to have purulent discharge from the scalp wound which happened when she hit her head when she fell... Right heart rate is controlled. Not atrial fibrillation as per cardiology. Patient is being continued on Levemir 15 units twice daily and insulin sliding scale. Laboratory data showed WBC 6.8 hemoglobin 12.7 and platelets 140 MCV 101.4, anion gap 6 BUN 14 creatinine 0.61 and blood sugar 71 this morning A1c 12.1 TSH 2.65 01/30/2024 Patient is seen and evaluated in follow-up today currently maintained on antibiotics with concerns of urinary tract infection. Blood sugars are better controlled currently and will continue current regimen. Patient reporting some cough and chest x-ray obtained showing no acute process. Will add Robitussin as needed. Urine and blood cultures are pending. Patient denies any pain or discomfort other than her left shoulder which is noted to have a humerus fracture and patient is scheduled to follow-up with Dr. Tsang outpatient Review of systems: Constitutional: No reports of fatigue, fever, or chills Cardiovascular: No reports of chest pain or palpitations Respiratory: No reports of shortness of breath or cough GI: No reports of nausea, vomiting, or diarrhea : No reports of dysuria or retention Neurovascular: reports of generalized weakness All medications have been reviewed Physical exam: Gen: This is a 68-year-old female who is lethargic although arousable, alert and oriented x 3, well-developed, elderly appearing, obese HEENT: Head is atraumatic, normocephalic. Pupils equal, round. Sclerae is ani cteric. NECK: Supple. No JVD. No lymphadenopathy. No thyromegaly. LUNGS: diminished breath sounds bilaterally otherwise clear to auscultation. No wheezes or rhonchi. No intercostal retractions. HEART: S1, S2 are muffled ABDOMEN: Soft. Obese. Bowel sounds are present. No masses. No tenderness. EXTREMITIES: No pedal edema. No calf tenderness. NEUROLOGICAL: Patient is awake, alert and oriented x3. Cranial nerves 2 through 12 are grossly intact. Diffusely weak Assessment: Acute diabetic ketoacidosis Hyperglycemia with uncontrolled diabetes type 2 A1c 12 Scalp wound with abscess Possible urinary tract infection, present on admission although patient is denying any symptoms, likely asymptomatic bacteriuria Sinus tachycardia. Unlikely atrial fibrillation as per cardiology. COPD/asthma not in exacerbation Hypothyroidism Fibromyalgia GERD Hypertension Hyperlipidemia Diabetic peripheral neuropathy Hyperactive sleep apnea not on CPAP Obesity with BMI 37.8 DVT prophylaxis with heparin subcu GI prophylaxis Full code Plan: Patient will be continued on telemonitoring. Current IV hydration with normal saline. Anion gap closed. Patient was started on insulin regimen. Continue current regimen and adjust insulins accordingly. Patient states that she is on 20 units Solostar every morning and also NovoLog 3 units 3 times daily AC. This regimen was started couple weeks ago. Patient was also recommended to use insulin sliding scale at home. 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 Continued on antibiotics on home Levaquin due to multiple allergies and follow- up urine culture report. General surgery was consulted for possible I&D of the scalp wound. Will follow- up outpatient Case management following and patient reports will be returning home on discharge. Awaiting cultures and consider discharge planning in the next 24 hours The impression and plan of care has been dictated by Ping Vincent, Nurse Practitioner as directed. Dr. Riya MD I have performed a history and examination and MDM of this patient, discussed the same with the dictator, and agree with the dictator's assessment and plan as written ,documented as a scribe. Based on total visit time, I have performed more than 50% of the visit. Objective - Vital Signs Vital signs: Vital Signs Temp 97.9 F 01/31/24 04:00 Pulse 81 01/31/24 04:00 Resp 19 01/31/24 04:00 BP 102/55 01/31/24 04:00 Pulse Ox 96 01/31/24 04:00 FiO2 Intake & Output 01/30/24 01/30/24 01/31/24 06:59 18:59 06:59 Intake Total 383 Balance 383 Weight 101.3 kg 101.3 kg 101.9 kg Intake: Oral 383 Other: Voiding Method Bedside Commode Toilet Toilet # Voids 2 2 - Labs CBC & Chem 7: 01/30/24 06:41 01/30/24 06:41 Labs: Abnormal Lab Results - Last 24 Hours (Table) 01/30/24 01/30/24 01/30/24 Range/Units 06:15 06:41 06:41 MCV 102.2 H (80.0-100.0) fL Plt Count 110 L (150-450) k/uL Chloride 111 H (98-107) mmol/L BUN 6 L (7-17) mg/dL Glucose 150 H (74-99) mg/dL POC Glucose (mg/dL) 169 H (70-110) mg/dL Calcium 7.9 L (8.4-10.2) mg/dL 01/30/24 01/30/24 01/30/24 Range/Units 11:49 16:39 20:14 MCV (80.0-100.0) fL Plt Count (150-450) k/uL Chloride (98-107) mmol/L BUN (7-17) mg/dL Glucose (74-99) mg/dL POC Glucose (mg/dL) 170 H 242 H 293 H (70-110) mg/dL Calcium (8.4-10.2) mg/dL 01/31/24 Range/Units 02:13 MCV (80.0-100.0) fL Plt Count (150-450) k/uL Chloride (98-107) mmol/L BUN (7-17) mg/dL Glucose (74-99) mg/dL POC Glucose (mg/dL) 155 H (70-110) mg/dL Calcium (8.4-10.2) mg/dL Microbiology - Last 24 Hours (Table) 01/27/24 17:08 Blood Culture - Preliminary Blood
[2024-01-31 06:13] LABS: Glucose,Whole Blood 120 mg/dL (70-110)
[2024-01-31] MEDS ORDERED: LIDOCAINE 2% INJ 20 MG/ML (10 ML MDV) SQ STA (10:57)
[2024-01-31 11:51] LABS: Glucose,Whole Blood 192 mg/dL (70-110)
[2024-01-31] MEDS: LIDOCAINE 2% INJ 20 MG/ML (10 ML MDV) SQ STA (11:53)
[2024-01-31] MEDS: BENZONATATE 100 MG CAP PO PRN (12:29)
--- NOTE | 2024-01-31 14:40 | P.GSCN ---
History of Present Illness Consult date: 01/31/24 History of present illness: CHIEF COMPLAINT: Elevated blood sugars HISTORY OF PRESENT ILLNESS: This is a 68-year-old female who presented with elevated blood sugars with evidence of DKA and A-fib with RVR. Patient also with an evidence of a abscess her scalp. She reports it has been there for about 2 weeks. She has been having drainage from it. Patient is currently on antibiotics. Her hemoglobin A1c is 12.1. Sugars on admission were in the 400s on admission. PAST MEDICAL HISTORY: See below PAST SURGICAL HISTORY: See below MEDICATIONS: See below ALLERGIES: See below SOCIAL HISTORY: No illicit drug use. REVIEW OF SYSTEMS: CONSTITUTIONAL: Denies fever or chills. HEENT: Denies blurred vision, vision changes, or eye pain. Denies hemoptysis CARDIOVASCULAR: Denies chest pain or pressure. RESPIRATORY: No shortness of breath. GASTROINTESTINAL: See HPI for pertinent findings HEMATOLOGIC: Denies bleeding disorders. GENITOURINARY: Denies any blood in urine or increased urinary frequency. SKIN: Denies pruitis. Denies rash. PHYSICAL EXAM: VITAL SIGNS: Reviewed GENERAL: Well-developed in no acute distress. HEAD: Patient with a epidural inclusion cyst on the scalp. No drainage currently. LABORATORY DATA: WBC 4.9 Hgb 12.3 platelets 110 Sodium 138 potassium 3.7 creatinine 0.62 IMAGING: ASSESSMENT: 1. Epidural inclusion cyst of the scalp 2. Uncontrolled diabetes mellitus PLAN: -Dr. Sequeira is doing a bedside incision and drainage of epidural inclusion cyst of the scalp -Cultures of drainage ordered by medicine service -Continue IV antibiotics -Continue to control blood sugars Physician Sample Finisher note has been reviewed by physician. Signing provider agrees with the documented findings, assessment, and plan of care. Past Medical History Past Medical History: Asthma, Heart Failure, COPD, CVA/TIA, Diabetes Mellitus, Fibromyalgia, GERD/Reflux, Hyperlipidemia, Hypertension, Musculoskeletal Disorder, Neurologic Disorder, Osteoarthritis (OA), Pneumonia, Renal Disease, Sleep Apnea/CPAP/BIPAP, Thyroid Disorder Additional Past Medical History / Comment(s): See Dr Stanley's H&P. Hx CVA yrs ago. Hx Pleurisy. Bilateral neuropathy hands and feet. IBS. Migranes - "under control". No CPAP use. Chronic lower back, neck pain, DDD, Scoliosis, bilateral carpal tunnel, pinched nerve in right leg. Past hx Kidney failure. RSV+04/02/22 History of Any Multi-Drug Resistant Organisms: MRSA Year Discovered:: 07/29/23 MDRO Source:: LEFT SHOULDER Past Surgical History: Appendectomy, Breast Surgery, Heart Catheterization, Hysterectomy, Joint Replacement, Orthopedic Surgery, Tonsillectomy Additional Past Surgical History / Comment(s): Left knee surgery - pins placed, left foot - screws placed, right ankle arthroscopy, right foot-cyst removed, T OTAL LEFT KNEE REPLACEMENT(CERAMIC), left hand 5th finger dupuytrens contraction, LEFT BREAST Lumpectomy-NEGATIVE (has marker), Colonoscopy, EXCISION BILATERAL CATARACTS. Past Anesthesia/Blood Transfusion Reactions: No Reported Reaction Additional Past Anesthesia/Blood Transfusion Reaction / Comm: Has never had blood transfusion. Smoking Status: Never smoker - Past Family History Father Family Medical History: Cancer Additional Family Medical History / Comment(s): Prostate cancer. Mother Family Medical History: Cancer, Diabetes Mellitus Additional Family Medical History / Comment(s): Breast Cancer. Brother(s) Family Medical History: Cancer Additional Family Medical History / Comment(s): Leukemia. Medications and Allergies Home Medications Medication Instructions Recorded Confirmed Type Aspirin 162 mg PO DAILY 09/21/13 01/27/24 History Levothyroxine Sodium [Synthroid] 150 mcg PO DAILY 09/21/13 01/27/24 History Montelukast Sodium [Singulair] 10 mg PO DAILY 09/21/13 01/27/24 History Omeprazole [PriLOSEC] 20 mg PO BID 09/21/13 01/27/24 History Primidone [Mysoline] 100 mg PO BID 09/21/13 01/27/24 History Metoclopramide [Reglan] 10 mg PO DAILY 08/10/16 01/27/24 History Mirtazapine [Remeron] 15 mg PO HS 08/10/16 01/27/24 History Multivit-Min36/Iron/Folic Acid 1 tab PO DAILY 08/10/16 01/27/24 History [Geritol Complete Tablet] Vitamin B Complex 1 cap PO DAILY 01/17/18 01/27/24 History Atorvastatin [Lipitor] 80 mg PO DAILY 12/01/21 01/27/24 History Fluticasone Propion/Salmeterol 1 puff INHALATION RT-BID PRN 12/01/21 01/27/24 History [Wixela 500-50 Inhub] Ipratropium-Albuterol Nebulize 3 ml INHALATION RT-QID PRN 12/01/21 01/27/24 Hi story [Duoneb 0.5 mg-3 mg/3 ml Soln] Magnesium 250 mg PO DAILY 12/01/21 01/27/24 History Propranolol [Inderal] 20 mg PO TID 12/01/21 01/27/24 History Furosemide [Lasix] 40 mg PO DAILY 04/02/22 01/27/24 History Ibuprofen [Motrin] 800 mg PO Q8H PRN 04/02/22 01/27/24 History Potassium Chloride ER [K-Dur 10] 10 meq PO DAILY 04/02/22 01/27/24 History Topiramate 100 mg PO BID 04/02/22 01/27/24 History Gabapentin [Neurontin] 300 mg PO QID 30 Days #60 cap 11/28/23 01/27/24 Rx Alendronate Sodium [Fosamax] 70 mg PO CONTREARS 01/27/24 01/27/24 History Ergocalciferol [Vitamin D2 (1250 1,250 mcg PO CONTRERAS 01/27/24 01/27/24 History Mcg = 80575 Iu)] Insulin Aspart [NovoLOG Flexpen] See Protocol SQ 5XD 01/27/24 01/27/24 History Insulin Glargine/Lixisenatide 20 units SQ QAM 01/27/24 01/27/24 History [Soliqua 100 Unit-33 Mcg/ml Pen] Nystatin 100,000Unit/gm Cream 1 applic TOPICAL BID 01/27/24 01/27/24 History [Mycostatin Cream] Ondansetron Odt [Zofran ODT] 4 mg PO Q6H PRN 01/27/24 01/27/24 History Pioglitazone [Actos] 15 mg PO DAILY 01/27/24 01/27/24 History Allergies Allergy/AdvReac Type Severity Reaction Status Date / Time aminophylline Allergy Rash/Hives Verified 01/27/24 16:34 cephalexin monohydrate Allergy Rash/Hives Verified 01/27/24 16:34 [From Keflex] codeine Allergy Rash/Hives Verified 01/27/24 16:34 diazepam [From Valium] Allergy Rash/Hives Verified 01/27/24 16:34 hydrocodone bitartrate Allergy Rash/Hives Verified 01/27/24 16:34 [From Vicodin] Iodinated Contrast Media Allergy Rash/Hives Verified 01/27/24 16:34 [Iodinated Contrast Media - IV Dye] latex Allergy Itching, Verified 01/27/24 16:34 BURNING SKIN Latex, Natural Rubber Allergy Itching, Verified 01/27/24 16:34 BURNING OF SKIN levofloxacin [From Levaquin] Allergy Rash/Hives Verified 01/27/24 16:34 metformin HCl Allergy Rash/Hives Verified 01/27/24 16:34 [From Glucophage] morphine Allergy Rash/Hives Verified 01/27/24 16:34 Penicillins Allergy Rash/Hives Verified 01/27/24 16:35 Sulfa (Sulfonamide Allergy Rash/Hives Verified 01/27/24 16:34 Antibiotics) sulfamethoxazole Allergy Rash/Hives Verified 01/27/24 16:34 [From Bactrim] tetracycline [Tetracycline] Allergy Rash/Hives Verified 01/27/24 16:34 theophylline Allergy Rash/Hives Verified 01/27/24 16:34 tramadol Allergy Dyspnea Verified 01/27/24 16:34 trimethoprim [From Bactrim] Allergy Rash/Hives Verified 01/27/24 16:34 Surgical - Exam Osteopathic Statement: *. No significant issues noted on an osteopathic structural exam other than those noted in the History and Physical/Consult. Vital Signs Temp Pulse Resp BP Pulse Ox 98.1 F 124 H 20 134/77 93 L 01/27/24 13:54 01/27/24 13:54 01/27/24 13:54 01/27/24 13:54 01/27/24 13:54 Results - Labs 02/01/24 06:08 02/01/24 06:18 Abnormal Lab Results - Last 24 Hours (Table) 01/30/24 01/30/24 01/31/24 Range/Units 16:39 20:14 02:13 POC Glucose (mg/dL) 242 H 293 H 155 H (70-110) mg/dL 01/31/24 01/31/24 Range/Units 06:11 11:48 POC Glucose (mg/dL) 120 H 192 H (70-110) mg/dL Microbiology - Last 24 Hours (Table) 01/27/24 17:08 Blood Culture - Preliminary Blood Assessment and Plan Assessment: 68 yo female w/ epidermal inclusion cyst -will perform incision and drainage -iodoform pack afterwards -remove packing 01/31 -continue abx Time with Patient: Greater than 30
[2024-01-31] MEDS: IPRATROPIUM-ALBUTEROL 3 ML NEB INHALATION SCH (14:55)
[2024-01-31 16:28] LABS: Glucose,Whole Blood 276 mg/dL (70-110)
[2024-01-31 21:00] LABS: Glucose,Whole Blood 335 mg/dL (70-110)
[2024-02-01] MEDS ORDERED: DEXTROSE 50% SYRINGE 50 ML IVP PRN ×2 (06:08)
[2024-02-01 06:12] LABS: Glucose,Whole Blood 86 mg/dL (70-110)
--- NOTE | 2024-02-01 06:15 | P.PN ---
Subjective Progress Note Date: 01/31/24 Patient is a 68-year-old female with a past medical history of hypertension, diabetes type 2 on insulin subcu, history of CVA/TIA, COPD, fibromyalgia, osteoarthritis, obstructive sleep apnea, hypothyroidism, bilateral neuropathy hands and feet, chronic low back pain and prior history of cardiac catheter ization presents to ER with complaints of nausea vomiting and not feeling well for the past 24 hours prior to admission. Mainly bilious vomit. Denies any hematemesis or melena. Denies any fever or chills. Patient is also having symptoms of dysuria. No cough or sputum production. Patient does have continuous glucose monitoring and is able to monitor her sugars and her cell phone. Denied any recent illnesses. Laboratory data on admission showed WBC 9.1 hemoglobin 14.7 and platelets 151 blood sugar was 452 and an gap 22 and bicarb level is 10 and proBNP 98. Urinalysis showed clear with 4+ glucose and 4+ ketones and small leukocytes trace. Acetone positive. EKG showed sinus tachycardia 01/29/2024 Patient is resting in the bed. Awake alert and oriented x 3. No complaints of chest pain or shortness of breath. No palpitations. Patient has been afebrile. No headache or dizziness or lightheadedness. Patient was noted to have purulent discharge from the scalp wound which happened when she hit her head when she fell... Right heart rate is controlled. Not atrial fibrillation as per cardiology. Patient is being continued on Levemir 15 units twice daily and insulin sliding scale. Laboratory data showed WBC 6.8 hemoglobin 12.7 and platelets 140 MCV 101.4, anion gap 6 BUN 14 creatinine 0.61 and blood sugar 71 this morning A1c 12.1 TSH 2.65 01/30/2024 Patient is seen and evaluated in follow-up today currently maintained on antibiotics with concerns of urinary tract infection. Blood sugars are better controlled currently and will continue current regimen. Patient reporting some cough and chest x-ray obtained showing no acute process. Will add Robitussin as needed. Urine and blood cultures are pending. Patient denies any pain or discomfort other than her left shoulder which is noted to have a humerus fracture and patient is scheduled to follow-up with Dr. Tsang outpatient 01/31/2024 Patient is seen in follow-up today. Continued on antibiotics for UTI. Apparkathi tlkeyla no cultures were obtained and will submit for cultures and await finalized cultures to determine appropriate antibiotics. Blood sugars have been variable and up and down and will adjust insulins and also add Premeal insulin. General surgery Dr. Sequeira consulted and will be performing a bedside incision and drainage of the scalp wound. Drainage is noted. Scantly and continues to be draining and tender. Recommend cultures of the wound. Recommend repeat labs in the a.m. to monitor kidney functions and electrolytes. Review of systems: Constitutional: No reports of fatigue, fever, or chills Cardiovascular: No reports of chest pain or palpitations Respiratory: No reports of shortness of breath or cough GI: No reports of nausea, vomiting, or diarrhea : No reports of dysuria or retention Neurovascular: reports of generalized weakness All medications have been reviewed Physical exam: Gen: This is a 68-year-old female who is awake, alert and oriented x 2-3, well- developed, elderly appearing, obese HEENT: Head is atraumatic, normocephalic. Pupils equal, round. Sclerae is anicte valeri. NECK: Supple. No JVD. No lymphadenopathy. No thyromegaly. LUNGS: diminished breath sounds bilaterally otherwise clear to auscultation. No wheezes or rhonchi. No intercostal retractions. HEART: S1, S2 are muffled ABDOMEN: Soft. Obese. Bowel sounds are present. No masses. No tenderness. EXTREMITIES: No pedal edema. No calf tenderness. NEUROLOGICAL: Patient is awake, alert and oriented x3. Cranial nerves 2 through 12 are grossly intact. Diffusely weak Assessment: Acute diabetic ketoacidosis Hyperglycemia with uncontrolled diabetes type 2 A1c 12 Scalp wound with abscess Possible urinary tract infection, present on admission. Patient reports burning and pain and frequency with urination prior to admission Sinus tachycardia. Unlikely atrial fibrillation as per cardiology. COPD/asthma not in exacerbation Hypothyroidism Fibromyalgia GERD Hypertension Hyperlipidemia Diabetic peripheral neuropathy Hyperactive sleep apnea not on CPAP Obesity with BMI 37.8 DVT prophylaxis with heparin subcu GI prophylaxis Full code Plan: Patient will be continued on telemonitoring. Current IV hydration with normal saline. Anion gap closed. Patient was started on insulin regimen. Continue current regimen and adjust insulins accordingly. Blood sugars continue to be elevated and will adjust and add Premeal insulin. Monitor closely for any hypoglycemia at night Patient states that she is on 20 units Solostar every morning and also NovoLog 3 units 3 times daily AC. This regimen was started couple weeks ago. Patient was also recommended to use insulin sliding scale at home. Patient is supposed to follow-up with her organ grinder next month. Continued on antibiotics on home Levaquin due to multiple allergies and follow- up urine culture report. Urine culture remains pending General surgery was consulted and will be performing bedside incision and drainage. Cultures ordered and pending. Continue local wound care per surgery recommendations Case management following and patient reports will be returning home on discharge. Awaiting cultures at this time Due to multiple complex medical issues, overall prognosis is guarded The impression and plan of care has been dictated by Ping Vincent, Nurse Practitioner as directed. Dr. Riya MD I have performed a history and examination and MDM of this patient, discussed the same with the dictator, and agree with the dictator's assessment and plan as written ,documented as a scribe. Based on total visit time, I have performed more than 50% of the visit. Objective - Vital Signs Vital signs: Vital Signs Temp 98.1 F 01/31/24 11:08 Pulse 76 01/31/24 11:08 Resp 16 01/31/24 11:08 BP 111/70 01/31/24 11:08 Pulse Ox 96 01/31/24 11:08 FiO2 Intake & Output 01/30/24 01/31/24 01/31/24 18:59 06:59 18:59 Intake Total 383 288 Balance 383 288 Weight 101.3 kg 101.9 kg Intake: IV 10 Invasive Line 3 10 Oral 383 278 Other: Voiding Method Toilet Toilet Toilet # Voids 2 2 2 - Labs CBC & Chem 7: 01/30/24 06:41 01/30/24 06:41 Labs: Abnormal Lab Results - Last 24 Hours (Table) 01/30/24 01/30/24 01/31/24 Range/Units 16:39 20:14 02:13 POC Glucose (mg/dL) 242 H 293 H 155 H (70-110) mg/dL 01/31/24 01/31/24 Range/Units 06:11 11:48 POC Glucose (mg/dL) 120 H 192 H (70-110) mg/dL Microbiology - Last 24 Hours (Table) 01/27/24 17:08 Blood Culture - Preliminary Blood
[2024-02-01 07:12] LABS: Basophils # (A) 0.1 k/uL (0-0.2); Basophils % (A) 1 %; Eosinophils # (A) 0.4 k/uL (0-0.7); Eosinophils % (A) 8 %; HCT 40.7 % (34.0-46.0); HGB 12.6 gm/dL (11.4-16.0); Hypochromasia Moderate; Lymphocytes # (A) 2.2 k/uL (1.0-4.8); Lymphocytes % (A) 45 %; MCH 32.2 pg (25.0-35.0); MCV 103.9 fL (80.0-100.0); Macrocytosis Slight; Mean Platelet Volume 12.7; Monocytes # (A) 0.4 k/uL (0-1.0); Monocytes % (A) 7 %; Neutrophils # (A) 1.8 k/uL (1.3-7.7); Neutrophils % (A) 37 %; Platelet Count 142 k/uL (150-450); RBC 3.92 m/uL (3.80-5.40); RDW 13.3 % (11.5-15.5); WBC 4.9 k/uL (3.8-10.6)
[2024-02-01 07:54] LABS: African American GFR (CKD) >90 (>60 ml/min/1.73 sqM); Anion Gap 6 mmol/L; Blood Urea Nitrogen 6 mg/dL (7-17); Calcium 8.6 mg/dL (8.4-10.2); Carbon Dioxide 25 mmol/L (22-30); Chloride 108 mmol/L (98-107); Glucose 79 mg/dL (74-99); Magnesium 1.8 mg/dL (1.6-2.3); Non-African American GFR(CKD) >90 (>60 ml/min/1.73 sqM); Potassium 3.7 mmol/L (3.5-5.1); Sodium 139 mmol/L (137-145)
[2024-02-01] MEDS: INSULIN ASPART (NovoLOG) 100 UNIT/ML VIAL SQ SCH (08:28)
--- NOTE | 2024-02-01 11:15 | P.PN ---
Progress Note - Text Progress Note Date: 02/01/24 No acute events overnight. Patient states she is still having cough. Has minimal pain at incision and drainage site. PHYSICAL EXAM: VITAL SIGNS: Reviewed GENERAL: Well-developed in no acute distress. HEAD: Packing in place. No drainage currently. ASSESSMENT: 1. Epidural inclusion cyst of the scalp s/p Incision and Drainage 2. Uncontrolled diabetes mellitus PLAN: -Packing pulled from incision site. Dressing changes per Nursing Staff. -Cultures pending -Continue IV antibiotics -Continue to control blood sugars Todd Mitchell DO [facility] [phone]
[2024-02-01 11:38] LABS: Glucose,Whole Blood 228 mg/dL (70-110)
[2024-02-01] MEDS: FUROSEMIDE 10 MG/ML 2 ML VIAL IV STA (12:41)
[2024-02-01] MEDS ORDERED: VANCOMYCIN IV PER PHARMACY 1 EACH MISC MISCELLANE PRN (12:51)
[2024-02-01] MEDS: VANCOMYCIN 1,750 MG in SODIUM CHLORIDE 0.9% 500 ML 500 ML IVPB SCH (15:57)
[2024-02-01 16:36] LABS: Glucose,Whole Blood 234 mg/dL (70-110)
--- NOTE | 2024-02-01 16:36 | XR ---
EXAMINATION TYPE: XR humerus LT DATE OF EXAM: 02/01/2024 3:44 PM COMPARISON: 11/10/2023 CLINICAL INDICATION: Female, 68 years old with history of fracture; pain TECHNIQUE: XR humerus LT examined in frontal and lateral projections. FINDINGS/IMPRESSION: Left proximal humerus fracture is again seen with some callus formation. Acute on chronic fracture no t excluded consider CT if clinically warranted. [facility], , 02/01/2024 4:33 PM
[2024-02-01 20:35] LABS: Glucose,Whole Blood 268 mg/dL (70-110)
--- NOTE | 2024-02-01 22:54 | P.CONS ---
History of Present Illness - Reason for Consult Consult date: 02/01/24 Scalp wound MRSA Requesting physician: Lonny Loaiza - Chief Complaint Wound to the scalp area x days - History of Present Illness Patient is a 68-year-old female with a past medical history significant for CVA TIA diabetes mellitus hypertension hyperlipidemia asthma and heart failure presenting to the hospital 5 days ago for evaluation of nausea vomiting not feeling well for 24 hours before admission to the hospital was also have some symptoms no dysuria and the patient has been treated for possible UTI patient apparently also have a fall prior to coming to the hospital with the patient hit her forehead scalp area with the side table and has developed a bump into that area that has subsequently increased in size and becoming more painful describing pain to be throbbing moderate intensity without radiation patient has been diagnosed with an abscess/epidural inclusion cyst of the scalp by the surgeon and did have a bedside I&D culture obtained which are now growing presumptive MRSA that has prompted this consultation patient currently has been on Levaquin and did have multiple antibiotic allergies Review of Systems Positive point and negatives has been mentioned in the HPI, complete review of systems was performed and all other systems are negative Past Medical History Past Medical History: Asthma, Heart Failure, COPD, CVA/TIA, Diabetes Mellitus, Fibromyalgia, GERD/Reflux, Hyperlipidemia, Hypertension, Musculoskeletal Disorder, Neurologic Disorder, Osteoarthritis (OA), Pneumonia, Renal Disease, Sleep Apnea/CPAP/BIPAP, Thyroid Disorder Additional Past Medical History / Comment(s): See Dr Stanley's H&P. Hx CVA yrs ago. Hx Pleurisy. Bilateral neuropathy hands and feet. IBS. Migranes - "under control". No CPAP use. Chronic lower back, neck pain, DDD, Scoliosis, bilateral carpal tunnel, pinched nerve in right leg. Past hx Kidney failure. RSV+04/02/22 History of Any Multi-Drug Resistant Organisms: MRSA Year Discovered:: 07/29/23 MDRO Source:: LEFT SHOULDER Past Surgical History: Appendectomy, Breast Surgery, Heart Catheterization, Hysterectomy, Joint Replacement, Orthopedic Surgery, Tonsillectomy Additional Past Surgical History / Comment(s): Left knee surgery - pins placed, left foot - screws placed, right ankle arthroscopy, right foot-cyst removed, TOTAL LEFT KNEE REPLACEMENT(CERAMIC), left hand 5th finger dupuytrens contraction, LEFT BREAST Lumpectomy-NEGATIVE (has marker), Colonoscopy, EXCISION BILATERAL CATARACTS. Past Anesthesia/Blood Transfusion Reactions: No Reported Reaction Additional Past Anesthesia/Blood Transfusion Reaction / Comm: Has never had blood transfusion. Smoking Status: Never smoker - Past Family History Father Family Medical History: Cancer Additional Family Medical History / Comment(s): Prostate cancer. Mother Family Medical History: Cancer, Diabetes Mellitus Additional Family Medical History / Comment(s): Breast Cancer. Brother(s) Family Medical History: Cancer Additional Family Medical History / Comment(s): Leukemia. Medications and Allergies Home Medications Medication Instructions Recorded Confirmed Type Aspirin 162 mg PO DAILY 09/21/13 01/27/24 History Levothyroxine Sodium [Synthroid] 150 mcg PO DAILY 09/21/13 01/27/24 History Montelukast Sodium [Singulair] 10 mg PO DAILY 09/21/13 01/27/24 History Omeprazole [PriLOSEC] 20 mg PO BID 09/21/13 01/27/24 History Primidone [Mysoline] 100 mg PO BID 09/21/13 01/27/24 History Metoclopramide [Reglan] 10 mg PO DAILY 08/10/16 01/27/24 History Mirtazapine [Remeron] 15 mg PO HS 08/10/16 01/27/24 History Multivit-Min36/Iron/Folic Acid 1 tab PO DAILY 08/10/16 01/27/24 History [Geritol Complete Tablet] Vitamin B Complex 1 cap PO DAILY 01/17/18 01/27/24 History Atorvastatin [Lipitor] 80 mg PO DAILY 12/01/21 01/27/24 History Fluticasone Propion/Salmeterol 1 puff INHALATION RT-BID PRN 12/01/21 01/27/24 History [Wixela 500-50 Inhub] Ipratropium-Albuterol Nebulize 3 ml INHALATION RT-QID PRN 12/01/21 01/27/24 History [Duoneb 0.5 mg-3 mg/3 ml Soln] Magnesium 250 mg PO DAILY 12/01/21 01/27/24 History Propranolol [Inderal] 20 mg PO TID 12/01/21 01/27/24 History Furosemide [Lasix] 40 mg PO DAILY 04/02/22 01/27/24 History Ibuprofen [Motrin] 800 mg PO Q8H PRN 04/02/22 01/27/24 History Potassium Chloride ER [K-Dur 10] 10 meq PO DAILY 04/02/22 01/27/24 History Topiramate 100 mg PO BID 04/02/22 01/27/24 History Gabapentin [Neurontin] 300 mg PO QID 30 Days #60 cap 11/28/23 01/27/24 Rx Alendronate Sodium [Fosamax] 70 mg PO CONTRERAS 01/27/24 01/27/24 History Ergocalciferol [Vitamin D2 (1250 1,250 mcg PO OCNTRERAS 01/27/24 01/27/24 History Mcg = 94139 Iu)] Insulin Aspart [NovoLOG Flexpen] See Protocol SQ 5XD 01/27/24 01/27/24 History Insulin Glargine/Lixisenatide 20 units SQ QAM 01/27/24 01/27/24 History [Soliqua 100 Unit-33 Mcg/ml Pen] Nystatin 100,000Unit/gm Cream 1 applic TOPICAL BID 01/27/24 01/27/24 History [Mycostatin Cream] Ondansetron Odt [Zofran ODT] 4 mg PO Q6H PRN 01/27/24 01/27/24 History Pioglitazone [Actos] 15 mg PO DAILY 01/27/24 01/27/24 History Allergies Allergy/AdvReac Type Severity Reaction Status Date / Time aminophylline Allergy Rash/Hives Verified 01/27/24 16:34 cephalexin monohydrate Allergy Rash/Hives Verified 01/27/24 16:34 [From Keflex] codeine Allergy Rash/Hives Verified 01/27/24 16:34 diazepam [From Valium] Allergy Rash/Hives Verified 01/27/24 16:34 hydrocodone bitartrate Allergy Rash/Hives Verified 01/27/24 16:34 [From Vicodin] Iodinated Contrast Media Allergy Rash/Hives Verified 01/27/24 16:34 [Iodinated Contrast Media - IV Dye] latex Allergy Itching, Verified 01/27/24 16:34 BURNING SKIN Latex, Natural Rubber Allergy Itching, Verified 01/27/24 16:34 BURNING OF SKIN levofloxacin [From Levaquin] Allergy Rash/Hives Verified 01/27/24 16:34 metformin HCl Allergy Rash/Hives Verified 01/27/24 16:34 [From Glucophage] morphine Allergy Rash/Hives Verified 01/27/24 16:34 Penicillins Allergy Rash/Hives Verified 01/27/24 16:35 Sulfa (Sulfonamide Allergy Rash/Hives Verified 01/27/24 16:34 Antibiotics) sulfamethoxazole Allergy Rash/Hives Verified 01/27/24 16:34 [From Bactrim] tetracycline [Tetracycline] Allergy Rash/Hives Verified 01/27/24 16:34 theophylline Allergy Rash/Hives Verified 01/27/24 16:34 tramadol Allergy Dyspnea Verified 01/27/24 16:34 trimethoprim [From Bactrim] Allergy Rash/Hives Verified 01/27/24 16:34 Physical Exam Vitals: Vital Signs Temp Pulse Pulse Pulse Resp BP Pulse Ox 02/01/24 12:15 96 02/01/24 12:06 92 02/01/24 09:18 80 02/01/24 09:06 80 02/01/24 08:25 98.1 F 96 20 101/68 96 02/01/24 03:45 97.6 F 77 20 118/73 94 L 02/01/24 00:00 97.8 F 68 20 90/48 96 01/31/24 20:47 95 18 01/31/24 20:10 97.9 F 84 18 101/64 95 01/31/24 15:56 97.8 F 88 18 114/72 94 L 01/31/24 15:06 82 16 01/31/24 14:57 98.5 F 79 18 107/70 97 01/31/24 14:56 80 16 Intake and Output 01/31/24 02/01/24 02/01/24 22:59 06:59 14:59 Intake Total 126 342 Output Total 100 550 100 Balance 26 -550 242 Intake: IV 8 Invasive Line 4 8 Oral 118 342 Output: Urine 100 550 100 Other: Voiding Method Toilet Toilet # Voids 1 1 Weight 102.5 kg GENERAL DESCRIPTION: Elderly female lying in bed, no distress. No tachypnea or accessory muscle of respiration use. HEENT: Shows Pallor , no scleral icterus. Oral mucous membrane is dry. No pharyngeal erythema or thrush NECK: Trachea central, no thyromegaly. LUNGS: Unlabored breathing. Clear to auscultation anteriorly. No wheeze or crackle. HEART: S1, S2, regular rate and rhythm. No loud murmur ABDOMEN: Soft, no tenderness , guarding or rigidity, no organomegaly EXTREMITIES: No edema of feet. SKIN: Wound to the scalp with no significant slough tissue or any purulent drainage NEUROLOGICAL: The patient is awake, alert, oriented x3, mood and affect normal. Results CBC & Chem 7: 02/01/24 06:08 02/01/24 06:18 Labs: Abnormal Lab Results - Last 24 Hours (Table) 01/31/24 01/31/24 02/01/24 Range/Units 16:27 20:56 06:08 MCV 103.9 H (80.0-100.0) fL Plt Count 142 L (150-450) k/uL Chloride (98-107) mmol/L BUN (7-17) mg/dL POC Glucose (mg/dL) 276 H 335 H (70-110) mg/dL 02/01/24 02/01/24 Range/Units 06:18 11:37 MCV (80.0-100.0) fL Plt Count (150-450) k/uL Chloride 108 H (98-107) mmol/L BUN 6 L (7-17) mg/dL POC Glucose (mg/dL) 228 H (70-110) mg/dL Microbiology - Last 24 Hours (Table) 01/31/24 12:10 Gram Stain - Preliminary Head Wound Culture - Preliminary Presumptive MRSA Assessment and Plan (1) Scalp abscess Current Visit: Yes Status: Acute Code(s): L02.811 - CUTANEOUS ABSCESS OF HEAD [ANY PART, EXCEPT FACE] SNOMED Code(s): 02951451 (2) Allergy to multiple antibiotics Current Visit: Yes Status: Acute Code(s): Z88.1 - ALLERGY STATUS TO OTHER ANTIBIOTIC AGENTS SNOMED Code(s): 235898187 Plan: 1patient with the abscess to the scalp area that started as a trauma status post bedside drainage and has been described as removal of epidural inclusion cyst with a culture now growing MRSA. 2patient with multiple antibiotic ALLERGIES that would limit the number of antibiotic safe to use 3-discontinue Levaquin 4-we will start the patient on vancomycin pharmacy to dose while watching her kidney function closely and waiting for the culture to finalize to determine discharge antibiotics Question concern answered We will follow on clinical condition and cultures to further adjust medication if needed Thank you for this consultation we will follow the patient along with you Dictation was produced using [employer] dictation software. please excuse any grammatical, word or spelling errors. Time with Patient: Greater than 30
[2024-02-02 06:06] LABS: Glucose,Whole Blood 135 mg/dL (70-110)
[2024-02-02] MEDS: SYMBICORT 160-4.5 MCG INHALER INHALATION PRN (08:13)
[2024-02-02] MEDS: ERGOCALCIFEROL 1,250 MCG (50,000 IU) CAPSULE PO SCH (09:28)
--- NOTE | 2024-02-02 11:11 | P.PN ---
Progress Note - Text Progress Note Date: 02/02/24 No acute events overnight. Patient states she is still having cough. Has minimal pain at incision and drainage site. PHYSICAL EXAM: VITAL SIGNS: Reviewed GENERAL: Well-developed in no acute distress. HEAD: Packing in place. No drainage currently. ASSESSMENT: 1. Epidural inclusion cyst of the scalp s/p Incision and Drainage 2. Uncontrolled diabetes mellitus PLAN: -Packing pulled from incision site. Dressing changes per Nursing Staff. -Cultures pending -Continue IV antibiotics -Continue to control blood sugars Todd Mitchell DO [facility] [phone]
[2024-02-02 11:48] LABS: Glucose,Whole Blood 106 mg/dL (70-110)
[2024-02-02] MEDS: PATIENT'S OWN (Alendronate Sodium [Fosamax] 70 MG Tablet) PO SCH (12:28)
--- NOTE | 2024-02-02 14:28 | P.PN ---
Subjective Progress Note Date: 02/02/24 Principal diagnosis: Reason for follow-up is scalp/forehead MRSA infection Patient is a 68-year-old female with a past medical history significant for CVA TIA diabetes mellitus hypertension hyperlipidemia asthma and heart failure presenting to the hospital for evaluation of nausea vomiting not feeling also noticed to have an infected epidermal cyst/abscess to the fo rehead/scalp area status post drainage culture positive for MRSA prompting this consultation. On today's evaluation that is 02/02/2024, patient has been afebrile, patient is breathing comfortably and is currently on room air, patient denies having any significant cough no chest pain, patient denies nausea vomiting or diarrhea and no abdominal pain, pain to the scalp area has decreased in intensity. No new lab has been obtained today culture finalized with MRSA Objective - Vital Signs Vital signs: Vital Signs Temp 98 F 02/02/24 12:25 Pulse 75 02/02/24 12:25 Resp 18 02/02/24 12:25 BP 107/73 02/02/24 12:25 Pulse Ox 94 L 02/02/24 12:25 FiO2 Intake & Output 02/01/24 02/02/24 02/02/24 19:59 06:59 18:59 Intake Total 240 Output Total Balance 240 Weight Intake: Intake, IV Titration Amount Vancomycin 1,750 mg In Sodium Chloride 0.9% 500 ml 500 ml @ 167 mls/hr IVPB Q12H [facility] Rx#: [id number] Oral 240 Output: Urine Other: Voiding Method Toilet # Voids 3 - Exam GENERAL DESCRIPTION: An elderly female lying in bed in no distress HEENT: Anterior scalp did have a small wound that is currently dressed no drainage RESPIRATORY SYSTEM: Unlabored breathing , decreased breath sounds at bases HEART: S1 S2 regular rate and rhythm , ABDOMEN: Soft , no tenderness EXTREMITIES: No edema feet - Labs CBC & Chem 7: 02/01/24 06:08 02/01/24 06:18 Labs: Abnormal Lab Results - Last 24 Hours (Table) 02/01/24 02/01/24 02/02/24 Range/Units 16:35 20:33 06:05 POC Glucose (mg/dL) 234 H 268 H 135 H (70-110) mg/dL Microbiology - Last 24 Hours (Table) 01/31/24 12:10 Anaerobic Culture - Preliminary Head 01/31/24 12:10 Gram Stain - Final Head Wound Culture - Final Methicillin resist S. aureus 01/27/24 17:08 Blood Culture - Final Blood 01/31/24 15:25 Urine Culture - Final Urine,Clean Catch Assessment and Plan (1) Scalp abscess Current Visit: Yes Status: Acute Code(s): L02.811 - CUTANEOUS ABSCESS OF HEAD [ANY PART, EXCEPT FACE] SNOMED Code(s): 89030656 (2) Allergy to multiple antibiotics Current Visit: Yes Status: Acute Code(s): Z88.1 - ALLERGY STATUS TO OTHER ANTIBIOTIC AGENTS SNOMED Code(s): 437497012 Plan: 1patient with the abscess to the scalp area that started as a trauma status post bedside drainage and has been described as removal of epidural inclusion cyst with a culture now growing MRSA. 2patient with multiple antibiotic ALLERGIES that would limit the number of antibiotic safe to use 3-patient to continue with vancomycin pharmacy to dose while watching her kidney function closely while inpatient will transition to oral doxycycline on discharge Dictation was produced using [employer] dictation software. please excuse any grammatical, word or spelling errors. Time with Patient: Less than 30
[2024-02-02] MEDS: predniSONE 20 MG TAB PO SCH (15:26)
[2024-02-02 16:51] LABS: Glucose,Whole Blood 145 mg/dL (70-110)
[2024-02-02 20:43] LABS: Glucose,Whole Blood 203 mg/dL (70-110)
[2024-02-03 06:50] LABS: Glucose,Whole Blood 249 mg/dL (70-110)
[2024-02-03 07:39] LABS: Basophils % (A) 1 %; Eosinophils # (A) 0.1 k/uL (0-0.7); Eosinophils % (A) 1 %; HCT 37.1 % (34.0-46.0); HGB 11.4 gm/dL (11.4-16.0); Hypochromasia Moderate; Lymphocytes # (A) 2.3 k/uL (1.0-4.8); Lymphocytes % (A) 41 %; MCHC 30.7 g/dL (31.0-37.0); MCV 104.3 fL (80.0-100.0); Macrocytosis Slight; Mean Platelet Volume 13.2; Monocytes # (A) 0.4 k/uL (0-1.0); Monocytes % (A) 7 %; Neutrophils # (A) 2.9 k/uL (1.3-7.7); Neutrophils % (A) 49 %; Platelet Count 171 k/uL (150-450); RBC 3.56 m/uL (3.80-5.40); RDW 13.3 % (11.5-15.5); WBC 5.8 k/uL (3.8-10.6)
[2024-02-03 08:04] LABS: African American GFR (CKD) >90 (>60 ml/min/1.73 sqM); Anion Gap 3 mmol/L; Blood Urea Nitrogen 10 mg/dL (7-17); Carbon Dioxide 25 mmol/L (22-30); Chloride 108 mmol/L (98-107); Glucose 289 mg/dL (74-99); Non-African American GFR(CKD) >90 (>60 ml/min/1.73 sqM); Potassium 3.8 mmol/L (3.5-5.1); Sodium 136 mmol/L (137-145)
[2024-02-03 10:19] VITALS: RESP 18
--- NOTE | 2024-02-03 11:36 | P.PN ---
Subjective Progress Note Date: 02/03/24 SURGICAL PROGRESS NOTE CHIEF COMPLAINT: Elevated blood sugars HISTORY OF PRESENT ILLNESS: Surgical service following in regards to patient's epidural inclusion cyst. She is status post bedside I&D greater than 60% of the total time spent in counseling and coordination of care 01/31/2024. Patient since then has had packing removed. The area has scabbed. No current drainage. Culture did grow MRSA. She is afebrile. White count 5.8. PHYSICAL EXAM: VITAL SIGNS: Reviewed. GENERAL: Well-developed in no acute distress. HEENT: Epidural cyst frontal scalp. No drainage. It has decreased in size. Minimal tenderness palpation NEUROLOGIC: Alert and oriented. Cranial nerves II through XII grossly intact. ASSESSMENT: 1. Epidural inclusion cyst of the scalp 2. Uncontrolled diabetes mellitus PLAN: -Antibiotics per infectious disease -Recommend good blood sugar control Physician Judicial Assistant note has been reviewed by physician. Signing provider agrees with the documented findings, assessment, and plan of care. Objective - Vital Signs Vital signs: Vital Signs Temp 97.8 F 02/03/24 08:00 Pulse 84 02/03/24 11:25 Resp 18 02/03/24 08:00 BP 126/79 02/03/24 08:00 Pulse Ox 96 02/03/24 08:00 FiO2 Intake & Output 02/02/24 02/03/24 02/03/24 18:59 06:59 18:59 Intake Total 360 500 118 Output Total 400 200 Balance -40 300 118 Weight 105.9 kg Intake: Intake, IV Titration 500 Amount Vancomycin 1,750 mg In 500 Sodium Chloride 0.9% 500 ml 500 ml @ 167 mls/hr IVPB Q12H [facility] Rx#: [id number] Oral 360 118 Output: Urine 400 200 Other: Voiding Method Toilet # Voids 3 1 # Bowel Movements 1 - Labs CBC & Chem 7: 02/03/24 05:51 02/03/24 05:51 Labs: Abnormal Lab Results - Last 24 Hours (Table) 02/02/24 02/02/24 02/03/24 Range/Units 16:49 20:42 05:51 RBC 3.56 L (3.80-5.40) m/uL MCV 104.3 H (80.0-100.0) fL MCHC 30.7 L (31.0-37.0) g/dL Sodium (137-145) mmol/L Chloride (98-107) mmol/L Glucose (74-99) mg/dL POC Glucose (mg/dL) 145 H 203 H (70-110) mg/dL Calcium (8.4-10.2) mg/dL 02/03/24 02/03/24 Range/Units 05:51 06:48 RBC (3.80-5.40) m/uL MCV (80.0-100.0) fL MCHC (31.0-37.0) g/dL Sodium 136 L (137-145) mmol/L Chloride 108 H (98-107) mmol/L Glucose 289 H (74-99) mg/dL POC Glucose (mg/dL) 249 H (70-110) mg/dL Calcium 8.0 L (8.4-10.2) mg/dL Microbiology - Last 24 Hours (Table) 01/31/24 12:10 Anaerobic Culture - Preliminary Head 01/31/24 12:10 Gram Stain - Final Head Wound Culture - Final Methicillin resist S. aureus
--- NOTE | 2024-02-03 11:39 | P.PN ---
Subjective Progress Note Date: 02/03/24 Principal diagnosis: Reason for follow-up is scalp/forehead MRSA infection Patient is a 68-year-old female with a past medical history significant for CVA TIA diabetes mellitus hypertension hyperlipidemia asthma and heart failure presenting to the hospital for evaluation of nausea vomiting not feeling also noticed to have an infected epidermal cyst/abscess to the fo rehead/scalp area status post drainage culture positive for MRSA prompting this consultation. On today's evaluation that is 02/03/2024, Patient is afebrile this morning patient denies having any chest pain shortness of breath or cough, the patient is currently on room air, patient denies any abdominal pain no diarrhea no nausea no vomiting and pain to the scalp forehead area the wound has decreased intensity no drainage. Patient white count is 5.8, creatinine 0.58 Objective - Vital Signs Vital signs: Vital Signs Temp 97.8 F 02/03/24 08:00 Pulse 88 02/03/24 11:34 Resp 18 02/03/24 08:00 BP 126/79 02/03/24 08:00 Pulse Ox 96 02/03/24 08:00 FiO2 Intake & Output 02/02/24 02/03/24 02/03/24 18:59 06:59 18:59 Intake Total 360 500 118 Output Total 400 200 Balance -40 300 118 Weight 105.9 kg Intake: Intake, IV Titration 500 Amount Vancomycin 1,750 mg In 500 Sodium Chloride 0.9% 500 ml 500 ml @ 167 mls/hr IVPB Q12H COUNTS INCLUDE 234 BEDS AT THE [facility] Rx#: [id number] Oral 360 118 Output: Urine 400 200 Other: Voiding Method Toilet # Voids 3 1 # Bowel Movements 1 - Exam GENERAL DESCRIPTION: An elderly female lying in bed in no distress HEENT: Anterior scalp did have a small wound that is currently dressed no drainage RESPIRATORY SYSTEM: Unlabored breathing , decreased breath sounds at bases HEART: S1 S2 regular rate and rhythm , ABDOMEN: Soft , no tenderness EXTREMITIES: No edema feet - Labs CBC & Chem 7: 02/03/24 05:51 02/03/24 05:51 Labs: Abnormal Lab Results - Last 24 Hours (Table) 02/02/24 02/02/24 02/03/24 Range/Units 16:49 20:42 05:51 RBC 3.56 L (3.80-5.40) m/uL MCV 104.3 H (80.0-100.0) fL MCHC 30.7 L (31.0-37.0) g/dL Sodium (137-145) mmol/L Chloride (98-107) mmol/L Glucose (74-99) mg/dL POC Glucose (mg/dL) 145 H 203 H (70-110) mg/dL Calcium (8.4-10.2) mg/dL 02/03/24 02/03/24 Range/Units 05:51 06:48 RBC (3.80-5.40) m/uL MCV (80.0-100.0) fL MCHC (31.0-37.0) g/dL Sodium 136 L (137-145) mmol/L Chloride 108 H (98-107) mmol/L Glucose 289 H (74-99) mg/dL POC Glucose (mg/dL) 249 H (70-110) mg/dL Calcium 8.0 L (8.4-10.2) mg/dL Microbiology - Last 24 Hours (Table) 01/31/24 12:10 Anaerobic Culture - Preliminary Head 01/31/24 12:10 Gram Stain - Final Head Wound Culture - Final Methicillin resist S. aureus Assessment and Plan (1) Scalp abscess Current Visit: Yes Status: Acute Code(s): L02.811 - CUTANEOUS ABSCESS OF HEAD [ANY PART, EXCEPT FACE] SNOMED Code(s): 23904991 (2) Allergy to multiple antibiotics Current Visit: Yes Status: Acute Code(s): Z88.1 - ALLERGY STATUS TO OTHER ANTIBIOTIC AGENTS SNOMED Code(s): 054344043 Plan: 1patient with the abscess to the scalp area that started as a trauma status post bedside drainage and has been described as removal of epidural inclusion cyst with a culture now growing MRSA. 2patient with multiple antibiotic ALLERGIES that would limit the number of antibiotic safe to use 3-patient seem to have shown clinical improvement with IV vancomycin she will be able to finish therapy with oral doxycycline 100 mg twice a day for 10 days and a close outpatient follow-up discussed with the PLATING STRIPPER for admitting team Dictation was produced using [employer] dictation software. please excuse any gramm atical, word or spelling errors.
[2024-02-03 11:44] LABS: Glucose,Whole Blood 203 mg/dL (70-110)
[2024-02-03] MEDS: VANCOMYCIN TROUGH DUE 1 EACH MISC MISCELLANE ONE (12:11)
[2024-02-03 13:43] VITALS: BP 120/62; PULSE 72; TEMP 97.9
--- NOTE | 2024-02-06 04:18 | P.DS ---
Providers Date of admission: 01/27/24 16:22 Expected date of discharge: 02/03/24 Attending physician: Mela Arriaga Consults: 01/30/24 13:18 Consult Physician Routine Consulting Provider: [place] Consult Reason/Comments: abscess on head/possible I & D Do you want consulting provider notified?: Yes 02/01/24 12:13 Consult Physician Routine Consulting Provider: Zane Siddiqui Consult Reason/Comments: Scalp wound MRSA Do you want consulting provider notified?: Yes Primary care physician: Bruno Weston Hospital Course: Final diagnosis Acute diabetic ketoacidosis Hyperglycemia with uncontrolled diabetes type 2 A1c 12 Scalp wound with abscess status post incision and drainage, cultures growing MRSA Acute urinary tract infection, present on admission. Patient reports burning and pain and frequency with urination prior to admission Sinus tachycardia. Unlikely atrial fibrillation as per cardiology. COPD/asthma not in exacerbation Hypothyroidism Fibromyalgia GERD Hypertension Hyperlipidemia Diabetic peripheral neuropathy Hyperactive sleep apnea not on CPAP Obesity with BMI 37.8 DVT prophylaxis with heparin subcu GI prophylaxis Full code Discharge disposition Patient is being discharged in a stable condition with guarded prognosis to home. Patient will follow-up with Dr. Weston in the outpatient setting upon discharge. Patient is to continue with oral doxycycline and outpatient follow- up with infectious disease as well as general surgery as scheduled. Total time taken is greater than 35 minutes. Hospital course This is a 68-year-old female who was recently admitted with concerns of DKA and uncontrolled blood sugars with hyperglycemia along with concerns of possible urinary tract infection. Patient did report some burning and pain and frequency with urination and was started on antibiotics. Urine cultures were negative and being followed by infectious disease. Patient also had a noted abscess on the top of the scalp likely secondary to folliculitis that became infected. Patient was evaluated by general surgery status post I&D at the bedside and cultures growing MRSA. Patient will continue on oral doxycycline twice daily per ID r ecommendations with continued local wound care and outpatient follow-up with surgery as well as infectious disease. Patient reports to feeling improved and will be going home on discharge. Please refer to other consultation notes for further HPI. Currently no reports of chest pain, shortness of breath, or palpitations. Patient is afebrile. No reports of nausea or vomiting and patient is tolerating diet. Patient will be discharged home today. Guarded prognosis given significant comorbidities. Physical exam: Gen: This is a 68-year-old female who is awake, alert and oriented x 3, well-de veloped, elderly appearing, obese HEENT: Head is atraumatic, normocephalic. Scalp wound with abscess status post I&D, less indurated, pupils equal, round. Sclerae is anicteric. NECK: Supple. No JVD. No lymphadenopathy. No thyromegaly. LUNGS: Diminished breath sounds bilaterally otherwise clear to auscultation. No wheezes or rhonchi. No intercostal retractions. HEART: S1, S2 are muffled ABDOMEN: Soft. Bowel sounds are present. No masses. No tenderness. EXTREMITIES: No pedal edema. No calf tenderness. NEUROLOGICAL: Patient is awake, alert and oriented x3. Cranial nerves 2 through 12 are grossly intact. Please refer to medication reconciliation sheet for a list of medications. The impression and plan of care has been dictated by Ping Vincent, Nurse Practitioner as directed. Dr. Josse MD I have performed a history and examination and MDM of this patient, discussed the same with the dictator, and agree with the dictator's assessment and plan as written ,documented as a scribe. Based on total visit time, I have performed more than 50% of the visit. Patient Condition at Discharge: Fair Plan - Discharge Summary Discharge Rx Participant: No New Discharge Prescriptions: New Ipratropium-Albuterol Nebulize [Duoneb 0.5 mg-3 mg/3 ml Soln] 3 ml INHALATION RT-QID each Benzonatate [Tessalon Perles] 100 mg PO TID PRN #20 cap PRN Reason: Cough predniSONE See Taper PO DIRECTED #30 tab Doxycycline [Vibramycin] 100 mg PO BID #20 cap Continue Primidone [Mysoline] 100 mg PO BID Omeprazole [PriLOSEC] 20 mg PO BID Montelukast Sodium [Singulair] 10 mg PO DAILY Levothyroxine Sodium [Synthroid] 150 mcg PO DAILY Aspirin 162 mg PO DAILY Mirtazapine [Remeron] 15 mg PO HS Metoclopramide [Reglan] 10 mg PO DAILY Multivit-Min36/Iron/Folic Acid [Geritol Complete Tablet] 1 tab PO DAILY Vitamin B Complex 1 cap PO DAILY Propranolol [Inderal] 20 mg PO TID Magnesium 250 mg PO DAILY Ipratropium-Albuterol Nebulize [Duoneb 0.5 mg-3 mg/3 ml Soln] 3 ml INHALATION RT-QID PRN PRN Reason: Shortness Of Breath Topiramate 100 mg PO BID Potassium Chloride ER [K-Dur 10] 10 meq PO DAILY Ibuprofen [Motrin] 800 mg PO Q8H PRN PRN Reason: Pain Or Fever > 100.5 Furosemide [Lasix] 40 mg PO DAILY Pioglitazone [Actos] 15 mg PO DAILY Ondansetron Odt [Zofran ODT] 4 mg PO Q6H PRN PRN Reason: Nausea Nystatin 100,000Unit/gm Cream [Mycostatin Cream] 1 applic TOPICAL BID Ergocalciferol [Vitamin D2 (1250 Mcg = 66045 Iu)] 1,250 mcg PO CONTRERAS Insulin Glargine/Lixisenatide [Soliqua 100 Unit-33 Mcg/ml Pen] 20 units SQ QAM Atorvastatin [Lipitor] 80 mg PO DAILY Fluticasone Propion/Salmeterol [Wixela 500-50 Inhub] 1 puff INHALATION RT-BID PRN PRN Reason: Shortness Of Breath Gabapentin [Neurontin] 300 mg PO QID 30 Days #60 cap Insulin Aspart [NovoLOG Flexpen] See Protocol SQ 5XD Alendronate Sodium [Fosamax] 70 mg PO CONTRERAS Discharge Medication List Aspirin 162 mg PO DAILY 09/21/13 [History] Levothyroxine Sodium [Synthroid] 150 mcg PO DAILY 09/21/13 [History] Montelukast Sodium [Singulair] 10 mg PO DAILY 09/21/13 [History] Omeprazole [PriLOSEC] 20 mg PO BID 09/21/13 [History] Primidone [Mysoline] 100 mg PO BID 09/21/13 [History] Metoclopramide [Reglan] 10 mg PO DAILY 08/10/16 [History] Mirtazapine [Remeron] 15 mg PO HS 08/10/16 [History] Multivit-Min36/Iron/Folic Acid [Geritol Complete Tablet] 1 tab PO DAILY 08/10/16 [History] Vitamin B Complex 1 cap PO DAILY 01/17/18 [History] Atorvastatin [Lipitor] 80 mg PO DAILY 12/01/21 [History] Fluticasone Propion/Salmeterol [Wixela 500-50 Inhub] 1 puff INHALATION RT-BID PRN 12/01/21 [History] Ipratropium-Albuterol Nebulize [Duoneb 0.5 mg-3 mg/3 ml Soln] 3 ml INHALATION RT-QID PRN 12/01/21 [History] Magnesium 250 mg PO DAILY 12/01/21 [History] Propranolol [Inderal] 20 mg PO TID 12/01/21 [History] Furosemide [Lasix] 40 mg PO DAILY 04/02/22 [History] Ibuprofen [Motrin] 800 mg PO Q8H PRN 04/02/22 [History] Potassium Chloride ER [K-Dur 10] 10 meq PO DAILY 04/02/22 [History] Topiramate 100 mg PO BID 04/02/22 [History] Gabapentin [Neurontin] 300 mg PO QID 30 Days #60 cap 11/28/23 [Rx] Alendronate Sodium [Fosamax] 70 mg PO CONTRERAS 01/27/24 [History] Ergocalciferol [Vitamin D2 (1250 Mcg = 33220 Iu)] 1,250 mcg PO CONTRERAS 01/27/24 [History] Insulin Aspart [NovoLOG Flexpen] See Protocol SQ 5XD 01/27/24 [History] Insulin Glargine/Lixisenatide [Soliqua 100 Unit-33 Mcg/ml Pen] 20 units SQ QAM 01/27/24 [History] Nystatin 100,000Unit/gm Cream [Mycostatin Cream] 1 applic TOPICAL BID 01/27/24 [History] Ondansetron Odt [Zofran ODT] 4 mg PO Q6H PRN 01/27/24 [History] Pioglitazone [Actos] 15 mg PO DAILY 01/27/24 [History] Benzonatate [Tessalon Perles] 100 mg PO TID PRN #20 cap 02/03/24 [Rx] Doxycycline [Vibramycin] 100 mg PO BID #20 cap 02/03/24 [Rx] Ipratropium-Albuterol Nebulize [Duoneb 0.5 mg-3 mg/3 ml Soln] 3 ml INHALATION RT-QID each 02/03/24 [Rx] predniSONE See Taper PO DIRECTED #30 tab 02/03/24 [Rx] Follow up Appointment(s)/Referral(s): Bruno Weston MD [Primary Care Provider] - 1-2 days Catarino Sequeira DO [Doctor of Osteopathic Medicine] - 1 Week Zane Siddiqui MD [STAFF PHYSICIAN] - 1 Week Patient Instructions/Handouts: Urinary Tract Infection in Women (DC), Diabetic Ketoacidosis (DC) Activity/Diet/Wound Care/Special Instructions: Activity limited until follow-up Follow-up with primary care provider on discharge Follow-up general surgery outpatient Follow-up infectious disease outpatient Continue taking antibiotics as prescribed Continue heart healthy diabetic diet and monitoring blood sugars closely and keeping a diary of all readings for primary care follow-up Discharge Disposition: HOME WITH HOME HEALTH SERVICES
--- NOTE | 2024-02-10 17:39 | CDI ---
Documentation Clarification Form Date: 02/10/2024 05:20:26 PM From: Bhavna Machado Phone: Admit Date: 01/27/2024 04:22:00 PM Patient Name: Cait Freeman Visit Number: [id number] Discharge Date: 02/03/2024 01:50:00 PM ATTENTION: The Clinical Documentation Specialists (CDI) and [facility] Coding Staff appreciate your assistance in clarifying documentation. Please respond to the clarification below the line at the bottom and electronically sign. The CDI & [facility] Coding staff will review the response and follow-up if needed. Please note: Queries are made part of the Legal Health Record. If you have any questions, please contact the author of this message via ITS. Doctor/Provider: Meenu Ritter Your patient has the documented diagnosis of unspecified CHF throughout the notes. Additional information regarding the type of CHF is requested. History/Risk Factors: 68yo F, DKA, scalp wound with abscess d/t MRSA, UTI, sinus tachycardia, COPD/asthma, hypothyroidism, fibromyalgia, GERD, HTN, HLD, DMII w per neuropathy, hyperactive sleep apnea, obesity Clinical Indicators: VS/Pulse OX: 95-98 BNP: 98 Echocardiogram Results: (2Dechocardiogramwas done.) Not in chart Chest x ray: There isnofocal air spaceopacity,pleural effusion, or pneumothoraxseen. The cardiac silhouette size is within normal limits are intact. Treatment: monitored In your professional opinion, can you please clarify the type of CHF if known? [ ] Chronic Systolic Heart Failure (reduced EF) [ ] Chronic Diastolic Heart Failure (preserved EF) [ ] Chronic Systolic & Diastolic Heart Failure [ ] Other, please specify [ x] Unable to determine (Template Last Revised: May 2020) MTDD
== END 2024-02-03 13:50 | disposition home health service (06) | DRG 638 ==
LOC: EC 13:53 → 3SCARD 16:22
PROVIDERS: ADMIT Hospitalist; ATTEND Hospitalist
PROC: 0H90XZZ Drainage of Scalp Skin, External Approach (ICD-10-PCS; principal; 2024-01-31)
DX: E11.10 Type 2 diabetes mellitus with ketoacidosis without coma (principal); N39.0 Urinary tract infection, site not specified; B95.62 Methicillin resistant Staphylococcus aureus infection as the cause of diseases classified elsewhere; I11.0 Hypertensive heart disease with heart failure; I50.9 Heart failure, unspecified; E11.42 Type 2 diabetes mellitus with diabetic polyneuropathy; Z79.4 Long term (current) use of insulin; E03.9 Hypothyroidism, unspecified; Z68.37 Body mass index [BMI] 37.0-37.9, adult; E66.9 Obesity, unspecified; J44.89 Other specified chronic obstructive pulmonary disease; G47.39 Other sleep apnea; E78.5 Hyperlipidemia, unspecified; M79.7 Fibromyalgia; K21.9 Gastro-esophageal reflux disease without esophagitis; L72.0 Epidermal cyst; R00.0 Tachycardia, unspecified; Z96.652 Presence of left artificial knee joint; S42.202G Unspecified fracture of upper end of left humerus, subsequent encounter for fracture with delayed healing; Z79.82 Long term (current) use of aspirin; Z79.890 Hormone replacement therapy; Z79.899 Other long term (current) drug therapy; Z79.83 Long term (current) use of bisphosphonates; Z79.84 Long term (current) use of oral hypoglycemic drugs; Z86.73 Personal history of transient ischemic attack (TIA), and cerebral infarction without residual deficits; Z91.81 History of falling; Z86.14 Personal history of Methicillin resistant Staphylococcus aureus infection; Z88.1 Allergy status to other antibiotic agents
CPT/HCPCS: 36415; 71045; 80048; 80051; 80053; 81001; 82009; 82565; 82607; 82747; 82947; 83036; 83735; 83880; 84100; 84443; 84484; 84520; 85025; 85610; 85730; 87040; 87070; 87075; 87077; 87086; 87186; 87205; 87636; 93005; 94640; 94760; 96361; 96365; 96366; 96367; 96375; 99291

== ENCOUNTER → 2024-08-14 | Outpatient (CLI) | payer MEDICARE ==
--- NOTE | 2024-08-14 13:47 | MM ---
Reason for Exam: Screening (asymptomatic). Last mammogram was performed 1 year(s) and 6 month(s) ago. Patient History: Menarche at age 16. First Full-Term at age 21. Left ovary removed at age 40. Right ovary removed at age 40. Hysterectomy at age 40. Postmenopausal. Previous chemotherapy. Estrogen for 5 years, 2 months, until age 50. 05/16/2000, Benign Excisional Biopsy on the left side. 05/02/2000, Stereotactic Core Biopsy on the Left side. Maternal grandmother had breast cancer under age 50. Mother had breast cancer, age 78. Risk Values: Catalina 5 year model risk: 4.3%. NCI Lifetime model risk: 14.1%. Prior Study Comparison: 11/03/2020 Bilateral Screening Mammogram, [facility]. 11/10/2021 Bilateral MG 3D screening mammo w/cad, [facility]. 02/15/2023 Bilateral MG 3D screening mammo w/cad, [facility]. Tissue Density: There are scattered areas of fibroglandular density. Findings: Analyzed By CAD. There are tiny benign-appearing round along with vascular calcifications redemonstrated bilaterally. There is no suspicious group of microcalcifications or new suspicious mass in either breast. Overall Assessment: Benign, BI-RAD 2 Management: Screening Mammogram of both breasts in 1 year. . Patient should continue monthly self-breast exams. A clinical breast exam by your physician is recommended on an annual basis. This exam should not preclude additional follow-up of suspicious palpable abnormalities. Note on Catalina scores and lifetime risk: 1. A Catalina score greater than 3% is considered moderate risk. If this is the case, consider specialist referral to assess eligibility for a risk reducing agent. 2. If overall lifetime risk for the development of breast cancer is 20% or higher, the patient may qualify for future screening with alternating mammogram and breast MRI. [facility], , 08/14/2024 1:44 PM. Electronically signed and approved by: Khadar Chaparro M.D.
[2024-08-14 18:24] LABS: Basophils # (A) 0.08 X 10*3/uL (0.00-0.10); Basophils % (A) 1.6 %; Eosinophils # (A) 0.17 X 10*3/uL (0.04-0.35); Eosinophils % (A) 3.3 %; HCT 38.4 % (37.2-46.3); HGB 12.4 g/dL (12.0-15.0); Lymphocytes % (A) 48.7 %; MCH 32.4 pg (27.0-32.0); MCHC 32.3 g/dL (32.0-37.0); MCV 100.3 FL (80.0-97.0); Mean Platelet Volume 14.8 FL (9.5-12.2); Monocytes % (A) 7.8 %; NRBC Per 100 WBC 0 X 10*3/uL (0.00-0.01); Neutrophils # (A) 1.97 X 10*3/uL (1.80-7.70); Neutrophils % (A) 38.4 %; Platelet Count 176 X 10*3/uL (140-440); RBC 3.83 X 10*6/uL (4.10-5.20); RDW 13.3 % (11.5-14.5); WBC 5.13 X 10*3/uL (4.50-10.00)
[2024-08-14 18:56] LABS: ALT 19 U/L (8-44); AST 17 U/L (13-35); Albumin 3.7 g/dL (3.8-4.9); Albumin/Globulin Ratio 1.37 Ratio (1.60-3.17); Alkaline Phosphatase 98 U/L (41-126); BUN/Creat Ratio 16.71 Ratio (12.00-20.00); Blood Urea Nitrogen 11.7 mg/dL (9.0-27.0); Calcium 9.1 mg/dL (8.7-10.3); Carbon Dioxide 29.5 mmol/L (21.6-31.8); Chloride 100 mmol/L (96-109); Globulin 2.7 g/dL (1.6-3.3); Glucose 325 mg/dL (70-110); Potassium 5.3 mmol/L (3.5-5.5); Sodium 139 mmol/L (135-145); Total Bilirubin 0.3 mg/dL (0.3-1.2); Total Protein 6.4 g/dL (6.2-8.2)
== END | disposition home or self-care (01) ==
LOC: RADMAMWWP 13:18
PROVIDERS: ATTEND Family Medicine
DX: Z12.31 Encounter for screening mammogram for malignant neoplasm of breast (principal); R92.323 Mammographic fibroglandular density, bilateral breasts; R92.1 Mammographic calcification found on diagnostic imaging of breast; Z78.0 Asymptomatic menopausal state; Z80.3 Family history of malignant neoplasm of breast
CPT/HCPCS: 77063; 77067; 80053; 83036; 85025